=== PATIENT | male | born 1945 | race Caucasian/White ===

== ENCOUNTER 2021-03-04 14:23 | Inpatient (IN) | payer BC, MEDICARE, OTHER ==
[~2021-03-04] VITALS: Ht 180.3 cm; Wt 72.2 kg
--- NOTE | 2021-03-04 16:00 | NUR ---
Admission Note with Justification for Admission to [facility] Patient admitted to [facility] for protective oversight for emergency stabilization of acute psychiatric crisis. Pt admitted from: Home via [facility] Mode of arrival: EMS Accompanied By: EMS Precipitating behaviors that initiated intake and admission: Patient admitted from home via [facility] for reportedly leaving sons house at night and knocking on neighbors door at 2am, being paranoid about neighbors causing trouble, losing items, and driving to [place] and believed he was in [place] per police. Description of failure of out patient attempts at stabilization in previous setting list behavior and medication trials: Patient had multiple emergency room visits and was sent to stay with his son. Behaviors and assessment findings upon admission: Patient was calm, compliant, and pleasant on admission. He is oriented to self, day, date, and situation; when asked where he was he stated he did not know, that he just came in an ambulance. Plan: Admit for protective oversight for adjustment and stabilization of medications, behaviors and mood. Intense treatment regimen including groups, medication adjustments, therapy, consistent regimen for ADL's, self care, and sleep hygiene. Daily monitoring by Inpatient staff, Psychiatry, and Medical Physician.
[2021-03-04 16:02] VITALS: BP 117/77
[2021-03-04] MEDS ORDERED: LISI10TA16 PO (16:07)
[2021-03-04] MEDS ORDERED: ACETAMINOPHEN 325 MG TABLET PO PRN (16:15)
[2021-03-04] MEDS ORDERED: METHYL SALICYLATE/MENTHOL TOPICAL OINTMENT 57GM TUBE. TP PRN (16:15)
[2021-03-04] MEDS ORDERED: METF10007 PO (16:15)
[2021-03-04] MEDS ORDERED: CRESTOR20 MG PO (16:15)
[2021-03-04] MEDS ORDERED: MAGNESIUM HYDROXIDE 2,400 MG/30 ML ORAL.SUSP. PO PRN (16:15)
[2021-03-04] MEDS ORDERED: MAG HYDROX/AL HYDROX/SIMETH 30 ML ORAL.SUSP PO PRN (16:15)
[2021-03-04] MEDS ORDERED: ASPI-630 PO (16:15)
[2021-03-04] MEDS ORDERED: CHOL100014 PO (16:15)
[2021-03-04] MEDS: metFORMIN 500 MG TABLET PO SCH (17:15)
[2021-03-04 18:19] LABS: BACTERIA,URINE 0 /HPF (0-FEW); BILIRUBIN,URINE NEG (NEG); CLARITY,URINE CLEAR; COLOR,URINE YELLOW; GLUCOSE,URINE NEG (NEG); NITRITE,URINE NEG (NEG); RBC,URINE 0 /HPF (0-2); UROBILINOGEN,URINE 0.2 mg/dL (0.2 mg/dL); WBC,URINE RARE /HPF (0-4)
[2021-03-04 19:13] LABS: BASO % 1 % (0-3); EOS # 0.1 x10^3/uL (0.0-0.7); EOS % 2 % (0-3); HEMATOCRIT 47.9 % (39.0-53.0); HEMOGLOBIN 16.7 g/dL (13.0-17.5); LYMPH # 1.4 x10^3/uL (1.0-4.8); LYMPH % 23 % (24-48); MEAN CORPUSCULAR HEMOGLOBIN 33 pg (25-35); MEAN CORPUSCULAR HGB CONC 35 g/dL (31-37); MEAN CORPUSCULAR VOLUME 96 fL (79-100); MONO # 0.4 x10^3/uL (0.0-1.1); MONO % 7 % (0-9); NEUT # 4.2 x10^3uL (1.8-7.7); NEUT % 68 % (31-73); PLATELET COUNT 156 x10^3/uL (140-400); RED BLOOD COUNT 5.01 x10^6/uL (4.30-5.70); WHITE BLOOD COUNT 6.2 x10^3/uL (4.0-11.0)
[2021-03-04 19:28] LABS: ALBUMIN 3.9 g/dL (3.4-5.0); CALCIUM 9.3 mg/dL (8.5-10.1); GFR 73.2; MAGNESIUM 1.9 mg/dL (1.8-2.4); POTASSIUM 4.6 mmol/L (3.5-5.1); TOTAL BILIRUBIN 0.4 mg/dL (0.2-1.0); TOTAL PROTEIN 7.7 g/dL (6.4-8.2)
[2021-03-04] MEDS: ATORVASTATIN CALCIUM 20 MG TABLET PO SCH (21:22)
--- NOTE | 2021-03-04 23:09 | PDOC ---
Exam Note: Mike Note: Please also refer to the separate dictated note~for this date of service dictated separately.~Patient seen individually. Discussed the patient with Nursing staff reviewed the chart.~Reviewed interim history and current functioning. Reviewed vital signs,~Labs/ Radiology~and current medications noted below. Continue current treatment with the changes noted in the dictated addendum note Assessment: Vital Signs/I&O: Vital Signs Date Time Temp Pulse Resp B/P (MAP) Pulse Ox O2 Delivery O2 Flow Rate FiO2 03/04/21 16:02 97.8 76 18 117/77 (90) 94 Labs: Laboratory Tests Test 03/04/21 17:42 03/04/21 18:50 03/04/21 19:00 Urine Collection Type Unknown Urine Color Yellow Urine Clarity Clear Urine pH 6.0 Urine Specific [place] 1.025 Urine Protein Neg (NEG-TRACE) Urine Glucose (UA) Neg mg/dL (NEG) Urine Ketones (Stick) Trace mg/dL (NEG) Urine Blood Neg (NEG) Urine Nitrite Neg (NEG) Urine Bilirubin Neg (NEG) Urine Urobilinogen Dipstick 0.2 mg/dL (0.2 mg/dL) Urine Leukocyte Esterase Neg (NEG) Urine RBC 0 /HPF (0-2) Urine WBC Rare /HPF (0-4) Urine Squamous Epithelial Cells None /LPF Urine Bacteria 0 /HPF (0-FEW) White Blood Count 6.2 x10^3/uL (4.0-11.0) Red Blood Count 5.01 x10^6/uL (4.30-5.70) Hemoglobin 16.7 g/dL (13.0-17.5) Hematocrit 47.9 % (39.0-53.0) Mean Corpuscular Volume 96 fL (79-100) Mean Corpuscular Hemoglobin 33 pg (25-35) Mean Corpuscular Hemoglobin Concent 35 g/dL (31-37) Red Cell Distribution Width 13.0 % (11.5-14.5) Platelet Count 156 x10^3/uL (140-400) Neutrophils (%) (Auto) 68 % (31-73) Lymphocytes (%) (Auto) 23 % (24-48) L Monocytes (%) (Auto) 7 % (0-9) Eosinophils (%) (Auto) 2 % (0-3) Basophils (%) (Auto) 1 % (0-3) Neutrophils # (Auto) 4.2 x10^3uL (1.8-7.7) Lymphocytes # (Auto) 1.4 x10^3/uL (1.0-4.8) Monocytes # (Auto) 0.4 x10^3/uL (0.0-1.1) Eosinophils # (Auto) 0.1 x10^3/uL (0.0-0.7) Basophils # (Auto) 0.0 x10^3/uL (0.0-0.2) D-Dimer (Iris) 2.00 mg/L (0.00-0.50) H Sodium Level 135 mmol/L (136-145) L Potassium Level 4.6 mmol/L (3.5-5.1) Chloride Level 99 mmol/L (98-107) Carbon Dioxide Level 30 mmol/L (21-32) Anion Gap 6 (6-14) Blood Urea Nitrogen 23 mg/dL (8-26) Creatinine 1.0 mg/dL (0.7-1.3) Estimated GFR (Cockcroft-Gault) 73.2 BUN/Creatinine Ratio 23 (6-20) H Glucose Level 184 mg/dL (70-99) H Calcium Level 9.3 mg/dL (8.5-10.1) Magnesium Level 1.9 mg/dL (1.8-2.4) Total Bilirubin 0.4 mg/dL (0.2-1.0) Aspartate Amino Transferase (AST) 32 U/L (15-37) Alanine Aminotransferase (ALT) 69 U/L (16-63) H Alkaline Phosphatase 88 U/L (46-116) Total Protein 7.7 g/dL (6.4-8.2) Albumin 3.9 g/dL (3.4-5.0) Albumin/Globulin Ratio 1.0 (1.0-1.7) Glucose (Fingerstick) 175 mg/dL (70-99) H Current Medications: Meds: Current Medications Medications (Trade) Dose Ordered Sig/Greg Route PRN Reason Start Time Stop Time Status Last Admin Dose Admin Metformin HCl (Glucophage) 1,000 mg BIDWMEALS PO 03/04/21 17:00 03/04/21 17:15 Atorvastatin Calcium (Lipitor) 80 mg QHS PO 03/04/21 21:00 03/04/21 21:22 I have reviewed the current psychotropics carefully including drug interactions. Risk benefit ratio favors no change other than as noted in my dictated progress note. GABRIELLA LEDEZMA MD Mar 04, 2021 23:09
--- NOTE | 2021-03-05 00:32 | NUR ---
Patient is alert and oriented to self, date and situation. He stated that he was at the [facility] earlier and they "sent him here". He does not know where "Here" is. Patient is pleasant and calm, he took his medications whole with water. Patient observed socializing with peer in the hallway and had been sitting in a chair outside of his room since dinner. Patient remains awake at this time, he is still sitting in a chair in the hallway. Patient stated he is in [place] and he is leaving so he does not need to sleep. Patient has no prescribed PRN medications for sleep, he stated he would not take them anyway and that he "once stayed awake [place] 72 hours in the [employer]". Will continue to monitor.
[2021-03-05 06:40] VITALS: BP 127/75
[2021-03-05] MEDS: metFORMIN 500 MG TABLET PO SCH ×2 (09:14→17:02)
[2021-03-05] MEDS: ASPIRIN CHEWABLE 81 MG TABLET. PO SCH (09:14)
[2021-03-05] MEDS: CHOLECALCIFEROL (VITAMIN D3) 1,000 UNIT TABLET PO SCH (09:14)
[2021-03-05] MEDS: LISINOPRIL 10 MG TABLET PO SCH (09:14)
--- NOTE | 2021-03-05 11:12 | NUR ---
WEEKLY ACTIVITY THERAPY NOTE Date of Admission:03/04/21 Date of AT Assessment: TBD Precipitating behaviors that initiated intake and admission:[facility] leaving sons house at night and knocking on neighbors door at 2am, being paranoid about neighbors causing trouble, losing items, and driving to [place] and believed he was in [place] per police. Goal aimed: TBD Initial Goal: TBD Weekly progress towards goal: NA Group participation level: NA Weekly highlights: arrived on [facility] Behaviors observed: Plan: meet/assess pt Beneficial adaptations: TBD
--- NOTE | 2021-03-05 12:20 | CONS ---
DATE OF CONSULTATION: 03/05/2021 ATTENDING PHYSICIAN: Dr. Ledezma. We are asked to see this patient for medical consultation. HISTORY OF PRESENT ILLNESS: The patient is a very pleasant 75-year-old gentleman who lives in [place]. He has lived there most of his life. He has been diagnosed with Lewy body dementia. He was found driving his car. He had wanted to go to [facility] from [place], [place] [address] He ended up in [place], [place]. He was brought here by police personnel. His son has power of investigation division lieutenant. He has been leaving the house at night, knocking other peoples' door, very confused, making bad choices, getting very paranoid. PAST MEDICAL HISTORY: Significant for hyperlipidemia, arthritis of the hips, hearing loss, hypertension, and diabetes. CURRENT MEDICATIONS: Include aspirin, cholecalciferol, lisinopril, metformin 1000 mg b.i.d., and Crestor. SOCIAL HISTORY: He is a nonsmoker and nondrinker. FAMILY HISTORY: Unobtainable. REVIEW OF SYSTEMS: He is very paranoid. He thinks people are stealing from him. He is very agitated. He has impulse control disorder. No recent COVID exposure. No fevers or chills. All other systems reviewed and turned to be negative. PHYSICAL EXAMINATION: GENERAL: When I saw him, this is a pleasant, middle-aged gentleman. INITIAL VITAL SIGNS: Blood pressure 117/77 mmHg. He is afebrile, pulse 76 and regular, oxygen saturation 95% on room air. HEENT: Head is without trauma. The pupils are reactive. The sclerae are nonicteric. Oropharynx appears clear. NECK: Supple, no bruits. LUNGS: Otherwise, clear to auscultation. CARDIOVASCULAR: Regular heart tones. ABDOMEN: Soft. No guarding. EXTREMITIES: Show no cyanosis or edema. NEUROLOGIC: Focally intact. Pleasantly confused. His gait is unaffected. He has no balance issues. PERTINENT LABORATORY STUDIES: Hemoglobin is 16.7 g/dL with a white count of 6200. Nonfasting blood sugar 135. Electrolytes: BUN and creatinine all within normal range. Transaminases were normal. Urinalysis was unremarkable. ASSESSMENT: 1. This 75-year-old gentleman has Lewy body dementia. 2. Underlying behavioral issues with confusion. 3. Hypertension. 4. Type 2 diabetes with controlled blood sugar. 5. Hyperlipidemia. RECOMMENDATIONS: 1. The patient is stable from a medical standpoint. 2. I have reviewed all his medications. He should be continued with the same dosage. Thank you again for asking to see this patient for medical consultation. We should gladly follow along during his inpatient stay. MARIELY DR: Les TID: [id number] CC: GABRIELLA LEDEZMA MD
--- NOTE | 2021-03-05 13:40 | NUR ---
ACTIVITY THERAPY ASSESSMENT Completed based on notes and interview. Pt. was sitting in his room, agreeable to speak with HOSE BUILDER. HOSE BUILDER pointed out the magazines he had and he appreciated getting a newspaper earlier this day. He turned down word searches, crosswords, music, coloring pages, cards and encouraged groups. Pt. explained he did mostly outdoor/ yard work and enjoyed driving, going places. HOSE BUILDER invited him to walk to the day room and as they made their way, Pt was asked why he was here. He said "let's just say I lost directions." He walked right up to the window in the day room and studied his surroundings, asking clarification questions and how far things were from current location. After a little time, he chuckled with concern saying this is "really freaking me out." [facility] and after seeing that, he started to believe he was in [place]. He was confused on details about his car trip and explained it was at night/ dark and the signs were wrong and he was tired. He was able to recall his birthday, age, name, corrected the spelling on his name sheet by his door but didn't mind being called "Oliver" or "Jez." He reported he had a son, Yonathan, his in 2018, he used to be a [employer] and used to work on [employer] building. Pt. asked a lot of questions about unit, how things worked and about his personal belongings. He was wearing his wedding ring during assessment. Pt mostly keeps to himself and was not interested in getting resources and was expecting to be leaving soon. He gave the impression the last week or so his memory has kind of been trouble and tests were being taken. He wants to get hearing aids and needs glasses soon. Initial goal aimed to increase engagement: Pt. will participate in at least three individual or Activity Therapy groups before discharge. Addendum: 03/26/21 at 1146 by CRESCENCIO TSILL ACT Goal repeated 03/26 Addendum: 04/09/21 at 1133 by CRESCENCIO STILL ACT Goal changed 04/09: Pt. will participate in at least five individual or Activity Therapy groups before discharge
[2021-03-05 15:16] LABS: THYROID STIM HORMONE (TSH) 3.441 uIU/mL (0.358-3.740)
[2021-03-05 15:59] VITALS: BP 165/82
--- NOTE | 2021-03-05 17:10 | NUR ---
Patient has been increasingly agitated and exit seeking this afternoon. He states that someone is coming to pick him up at [address] and that he will be going out through the gate on the patio. He became visibly more upset when I told him that I could not open the gate for him. Attempted to verbally redirect patient with minimal effect. paged, new order received; prn medication provided per eMAR. Will continue to monitor and report to oncoming shift.
[2021-03-05 20:07] LABS: THYROXINE 6.9 ug/dL (4.5-12.0)
[2021-03-05] MEDS: ATORVASTATIN CALCIUM 20 MG TABLET PO SCH (21:16)
--- NOTE | 2021-03-05 22:02 | PDOC ---
Exam Note: Mike Note: Please also refer to the separate dictated note~for this date of service dictated separately.~Patient seen individually. Discussed the patient with Nursing staff reviewed the chart.~Reviewed interim history and current functioning. Reviewed vital signs,~Labs/ Radiology~and current medications noted below. Continue current treatment with the changes noted in the dictated addendum note Assessment: Vital Signs/I&O: Vital Signs Date Time Temp Pulse Resp B/P (MAP) Pulse Ox O2 Delivery O2 Flow Rate FiO2 03/05/21 15:59 98.0 78 20 165/82 (109) 97 03/05/21 06:40 Room Air I & O 03/04/21 03/04/21 03/05/21 15:00 23:00 07:00 Intake Total 120 ml Balance 120 ml Labs: Laboratory Tests Test 03/05/21 07:37 Glucose (Fingerstick) 135 mg/dL (70-99) H Current Medications: Meds: Laboratory Tests Test 03/05/21 07:37 Glucose (Fingerstick) 135 mg/dL Current Medications Medications (Trade) Dose Ordered Sig/Greg Route PRN Reason Start Time Stop Time Status Last Admin Dose Admin Acetaminophen (Tylenol) 650 mg PRN Q6HRS PRN PO MILD PAIN / TEMP > 100.3'F 03/04/21 16:15 Multi-Ingredient Ointment (Analgesic [place]) 1 donn PRN QID PRN TP MUSCLE PAIN 03/04/21 16:15 Al Hydroxide/Mg Hydroxide (Mylanta Plus Xs) 15 ml PRN AFTMEALHC PRN PO DYSPEPSIA 03/04/21 16:15 Magnesium Hydroxide (Milk Of Magnesia) 2,400 mg PRN QHS PRN PO CONSTIPATION 03/04/21 16:15 Aspirin (Aspirin Chewable) 81 mg DAILY PO 03/05/21 09:00 03/05/21 09:14 Lisinopril (Prinivil) 10 mg DAILY PO 03/05/21 09:00 03/05/21 09:14 Vitamin D (Vitamin D3) 25 unit DAILY PO 03/05/21 09:00 03/05/21 09:14 Metformin HCl (Glucophage) 1,000 mg BIDWMEALS PO 03/04/21 17:00 03/05/21 17:02 Atorvastatin Calcium (Lipitor) 80 mg QHS PO 03/04/21 21:00 03/05/21 21:16 Olanzapine (ZyPREXA ZYDIS) 2.5 mg PRN Q2HR PRN PO PSYCHOSIS 03/05/21 17:00 03/05/21 17:02 Current Medications Medications (Trade) Dose Ordered Sig/Greg Route PRN Reason Start Time Stop Time Status Last Admin Dose Admin Aspirin (Aspirin Chewable) 81 mg DAILY PO 03/05/21 09:00 03/05/21 09:14 Lisinopril (Prinivil) 10 mg DAILY PO 03/05/21 09:00 03/05/21 09:14 Vitamin D (Vitamin D3) 25 unit DAILY PO 03/05/21 09:00 03/05/21 09:14 Olanzapine (ZyPREXA ZYDIS) 2.5 mg PRN Q2HR PRN PO PSYCHOSIS 03/05/21 17:00 03/05/21 17:02 I have reviewed the current psychotropics carefully including drug interactions. Risk benefit ratio favors no change other than as noted in my dictated progress note. GABRIELLA LEDEZMA MD Mar 05, 2021 22:02
[2021-03-05 22:07] LABS: HEMOGLOBIN A1C 7.4 % (4.8-5.6)
--- NOTE | 2021-03-06 00:43 | NUR ---
Nursing Note The patient was located in his room laying in bed for his assessment and medication pass. The patient was alert to name, date and location. The patient was pleasant during interactions. The patient took his medication whole. The patient is currently sleeping in his room.
[2021-03-06 06:04] VITALS: BP 142/81
[2021-03-06] MEDS: metFORMIN 500 MG TABLET PO SCH ×2 (08:24→17:33)
[2021-03-06] MEDS: LISINOPRIL 10 MG TABLET PO SCH (08:25)
[2021-03-06] MEDS: ASPIRIN CHEWABLE 81 MG TABLET. PO SCH (08:25)
[2021-03-06] MEDS: CHOLECALCIFEROL (VITAMIN D3) 1,000 UNIT TABLET PO SCH (09:00)
--- NOTE | 2021-03-06 09:24 | NUR ---
Oliver [place] a [place]. [place] for [place] patient hospitalization is [id number].
--- NOTE | 2021-03-06 09:48 | NUR ---
Pt A&O to name, , date, and location. He is not orientated to situation, as he believes he is on "vacation." He is compliant with whole medications. Denies SI/HI/VH/AH/pain when asked. He is appropriate in his interactions. Absent of verbal/physical aggression and no exit seeking behaviors have been displayed so far. Plan of care continues, will pass to next shift.
--- NOTE | 2021-03-06 09:57 | NUR ---
GEOVANNA spoke with Kassandra at the [facility] and gave her an update on how pt is doing. Both parties will plan to follow up with one another on Tuesday.
[2021-03-06 15:40] VITALS: BP 115/71
--- NOTE | 2021-03-06 16:46 | NUR ---
SW attempted to contact pt son Yonathan and had to leave a message asking for him to contact SW when possible.
[2021-03-06] MEDS: ATORVASTATIN CALCIUM 20 MG TABLET PO SCH (20:30)
--- NOTE | 2021-03-06 23:53 | NUR ---
Patient is pleasant, cooperative and calm. He is compliant with medications, which he takes whole. Patient is [place] and asked this nurse to repeat herself several times during assessment. He is aware of where he is, his name and the date. For the situation he stated "they moved the signs and I was confused" in reference to how he got lost while driving. Patient has been sitting in the hallway near his room. He is asleep at this time.
[2021-03-07 06:30] VITALS: BP 162/92
[2021-03-07] MEDS: ASPIRIN CHEWABLE 81 MG TABLET. PO SCH (08:21)
[2021-03-07] MEDS: LISINOPRIL 10 MG TABLET PO SCH (08:21)
[2021-03-07] MEDS: metFORMIN 500 MG TABLET PO SCH ×2 (08:22→17:20)
[2021-03-07] MEDS: CHOLECALCIFEROL (VITAMIN D3) 1,000 UNIT TABLET PO SCH (08:22)
--- NOTE | 2021-03-07 08:52 | PDOC ---
Exam Note: Mike Note: Late entry for 03/06/2021. Please also refer to the separate dictated note~for this date of service dictated separately.~Patient seen individually. Discussed the patient with Nursing staff reviewed the chart.~Reviewed interim history and current functioning. Reviewed vital signs,~Labs/ Radiology~and current medic ations noted below. Continue current treatment with the changes noted in the dictated addendum note Assessment: Vital Signs/I&O: Vital Signs Date Time Temp Pulse Resp B/P (MAP) Pulse Ox O2 Delivery O2 Flow Rate FiO2 03/07/21 08:21 77 162/92 03/07/21 06:30 97.5 20 96 03/05/21 06:40 Room Air I & O 03/06/21 03/06/21 03/07/21 15:00 23:00 07:00 Intake Total 940 ml 610 ml Balance 940 ml 610 ml Labs: Laboratory Tests Test 03/07/21 07:30 Glucose (Fingerstick) 130 mg/dL (70-99) H Current Medications: I have reviewed the current psychotropics carefully including drug interactions. Risk benefit ratio favors no change other than as noted in my dictated progress note. GABRIELLA LEDEZMA MD Mar 07, 2021 08:52
--- NOTE | 2021-03-07 09:31 | NUR ---
Pt A&O to name, , date, and location. Pt has once again claimed that he was present in [place] because he is on "vacation" which is what he claimed yesterday (03/06/21). He is compliant with whole medications. Denies SI/HI/VH/AH/pain when asked. He is appropriate in his interactions. Absent of verbal/physical aggression and no exit seeking behaviors have been displayed so far. Plan of care continues, will pass to next shift.
[2021-03-07 16:05] VITALS: BP 137/94
[2021-03-07] MEDS: ATORVASTATIN CALCIUM 20 MG TABLET PO SCH (20:31)
[2021-03-07] MEDS: MEMANTINE 5 MG TABLET. PO SCH (20:32)
--- NOTE | 2021-03-07 21:39 | PDOC ---
Exam Note: Mike Note: Please also refer to the separate dictated note~for this date of service dictated separately.~Patient seen individually. Discussed the patient with Nursing staff reviewed the chart.~Reviewed interim history and current functioning. Reviewed vital signs,~Labs/ Radiology~and current medications noted below. Continue current treatment with the changes noted in the dictated addendum note Assessment: Vital Signs/I&O: Vital Signs Date Time Temp Pulse Resp B/P (MAP) Pulse Ox O2 Delivery O2 Flow Rate FiO2 03/07/21 16:05 98.0 73 18 137/94 (108) 94 Room Air I & O 03/06/21 03/06/21 03/07/21 15:00 23:00 07:00 Intake Total 940 ml 610 ml Balance 940 ml 610 ml Labs: Laboratory Tests Test 03/07/21 07:30 03/07/21 19:36 Glucose (Fingerstick) 130 mg/dL (70-99) H 175 mg/dL (70-99) H Current Medications: Meds: Laboratory Tests Test 03/07/21 07:30 03/07/21 19:36 Glucose (Fingerstick) 130 mg/dL 175 mg/dL Current Medications Medications (Trade) Dose Ordered Sig/Greg Route PRN Reason Start Time Stop Time Status Last Admin Dose Admin Acetaminophen (Tylenol) 650 mg PRN Q6HRS PRN PO MILD PAIN / TEMP > 100.3'F 03/04/21 16:15 Multi-Ingredient Ointment (Analgesic [place]) 1 donn PRN QID PRN TP MUSCLE PAIN 03/04/21 16:15 Al Hydroxide/Mg Hydroxide (Mylanta Plus Xs) 15 ml PRN AFTMEALHC PRN PO DYSPEPSIA 03/04/21 16:15 Magnesium Hydroxide (Milk Of Magnesia) 2,400 mg PRN QHS PRN PO CONSTIPATION 03/04/21 16:15 Aspirin (Aspirin Chewable) 81 mg DAILY PO 03/05/21 09:00 03/07/21 08:21 Lisinopril (Prinivil) 10 mg DAILY PO 03/05/21 09:00 03/07/21 08:21 Vitamin D (Vitamin D3) 25 unit DAILY PO 03/05/21 09:00 03/07/21 10:29 DC 03/05/21 09:14 Metformin HCl (Glucophage) 1,000 mg BIDWMEALS PO 03/04/21 17:00 03/07/21 17:20 Atorvastatin Calcium (Lipitor) 80 mg QHS PO 03/04/21 21:00 03/07/21 20:31 Olanzapine (ZyPREXA ZYDIS) 2.5 mg PRN Q2HR PRN PO PSYCHOSIS 03/05/21 17:00 03/05/21 17:02 Vitamin D (Vitamin D3) 1,000 unit DAILY PO 03/08/21 09:00 Memantine (Namenda) 5 mg BID PO 03/07/21 21:00 03/07/21 20:32 Sertraline HCl (Zoloft) 25 mg DAILY PO 03/08/21 09:00 Rivastigmine (Exelon) 4.6 patch DAILY TD 03/08/21 09:00 03/14/21 23:50 Rivastigmine (Exelon) 9.5 patch DAILY TD 03/15/21 09:00 Current Medications Medications (Trade) Dose Ordered Sig/Greg Route PRN Reason Start Time Stop Time Status Last Admin Dose Admin Memantine (Namenda) 5 mg BID PO 03/07/21 21:00 03/07/21 20:32 I have reviewed the current psychotropics carefully including drug interactions. Risk benefit ratio favors no change other than as noted in my dictated progress note. GABRIELLA LEDEZMA MD Mar 07, 2021 21:39
--- NOTE | 2021-03-07 21:55 | PN ---
DATE: 03/06/2021 PSYCHIATRIC PROGRESS NOTE This is a late entry, date of service 03/06/2021, covers the elements not covered in my initial note. SUBJECTIVE: I met with the patient in the evening in the hallway in front of his room at some length. Discussed with KRUNAL John. The patient slept 6-3/4 hours previous night. He has been fairly appropriate, reasonably oriented, gets more confused late in the evening. REVIEW OF SYSTEMS: No CV, , pulmonary, eye system symptoms on review. Reliability fair. MENTAL STATUS EXAMINATION: The patient is reasonably oriented. Speech has some latency, coherent. Abstraction fair. Computation impaired. Language function intact. Mood and affect somewhat withdrawn. LABORATORY DATA: Reviewed. IMPRESSION: Major neurocognitive disorder, early Lewy body with delusion, depression, behavioral disturbance, anxiety disorder, unspecified; impulse control disorder, unspecified. PLAN: Given the patient's diagnosis of Lewy body dementia, we will go ahead and start Exelon patch 4.6 mg a day for 1 week, then 9.5 mg a day after that. Namenda 5 mg twice a day and Zoloft for his mood and anxiety symptoms 25 mg a day. Reviewed drug interaction, risk/benefit ratio and answered his questions. We will make further adjustments as clinically indicated. LENI DR: Ronald TID: [id number]
--- NOTE | 2021-03-07 23:37 | NUR ---
Patient was laying in his bed, resting with his eyes clothes when nurse entered the room for assessment/medications. Patient is pleasant and interactive, he noticed that there was an additional medication (started Namenda tonight) in his med cup and asked about it. Patient compliant with medications and oriented x3-4. He has not expressed any paranoia and does not seem especially confused/forgetful.
--- NOTE | 2021-03-08 03:44 | PN ---
DATE: 03/05/2021 PSYCHIATRIC PROGRESS NOTE This late entry of 03/05 covers elements not covered in my initial note. I met with the patient on the evening of 03/05 and the patient was staffed at treatment team meeting with entire team in the morning. Per KRUNAL Chavez, the patient did not sleep at all the previous night. Appetite 100%. He remains anxious, obsessed about wanting to be discharged, oriented x 3. Does get more confused in the evening. REVIEW OF SYSTEMS: No CV, , pulmonary, eye, ENT system symptoms on review. Reliability poor. MENTAL STATUS EXAM: Oriented to himself, situation. Speech has some latency, coherent. Abstraction fair. Computation impaired. Language function intact. Mood and affect remain somewhat labile. LABORATORY DATA: Reviewed. IMPRESSION: Major neurocognitive disorder, probably Lewy body with delusion, depression, behavioral disturbance, anxiety disorder, unspecified; impulse control disorder, unspecified. PLAN: Continue current psychotropics. We will give it another 24 hours and then consider adding SSRI, perhaps Zoloft to help with anxiety and mood symptoms. May also consider adding Exelon patch ____ his diagnosis of Lewy body dementia. We will decide all this in the next 24 hours. TYLOR/JULIETTE/SYLVIA DR: Ronald TID: [id number]
[2021-03-08 06:17] VITALS: BP 142/85
[2021-03-08] MEDS: ASPIRIN CHEWABLE 81 MG TABLET. PO SCH (08:23)
[2021-03-08] MEDS: metFORMIN 500 MG TABLET PO SCH ×2 (08:23→16:20)
[2021-03-08] MEDS: LISINOPRIL 10 MG TABLET PO SCH (08:23)
[2021-03-08] MEDS: MEMANTINE 5 MG TABLET. PO SCH ×2 (08:24→20:23)
[2021-03-08] MEDS: CHOLECALCIFEROL (VITAMIN D3) 1,000 UNIT TABLET PO SCH (08:24)
[2021-03-08] MEDS: SERTRALINE 25 MG TABLET. PO SCH (08:24)
[2021-03-08] MEDS: RIVASTIGMINE 4.6MG PATCH. TD SCH (08:25)
--- NOTE | 2021-03-08 10:31 | NUR ---
Pt A&O to name, , date, and location. Pt has had some new medications ordered by Dr Felder, pt is receptive to education provided regarding the new medicine. He is compliant with whole medications, Exelon patch to R shoulder. Denies SI/HI/VH/AH/pain when asked. He is appropriate in his interactions. Absent of verbal/physical aggression and no exit seeking behaviors have been displayed so far. Plan of care continues, will pass to next shift.
--- NOTE | 2021-03-08 10:32 | HP ---
ADMIT DATE: 03/04/2021 PSYCHIATRIC ADMISSION HISTORY/EVALUATION This is a late entry for date of service 03/04 and covers elements not covered in my initial note of 03/04. I had originally dictated this note on 03/04, but on reviewing the medical records, I do not find the note is in the system and I am therefore re-dictating it today. The patient was seen evening of 03/04 for this evaluation. IDENTIFYING DATA: The patient is a 75-year-old male referred to us from the [facility] in [place], [place] after he presented there from home on account of increasing confusion. He presented to the Emergency Department for leaving the son's house at night and knocking on the neighbor's door at 2:00 a.m. in the morning. He was paranoid about the neighbors causing trouble. He was losing items and was found driving to [place] and believed he was in [place] according to the police who picked him up. The patient's behaviors were deemed potentially dangerous, unmanageable resulting in this referral. He had failed outpatient psychiatric interventions. CHIEF COMPLAINT: "I am okay. Maybe I get a little forgetful at night." HISTORY OF PRESENT ILLNESS: The patient reportedly has a history of dementia, Lewy body type with behavioral disturbance. He has been residing at home, getting more confused in the evening, paranoid, suspicious with questionable hallucinations. He has had some sleep and appetite changes. No active suicidal or homicidal ideation. No symptoms of bipolar disorder. He has been more anxious, somewhat depressed as well. PAST PSYCHIATRIC HISTORY: As above. 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 Hearing loss, vitamin D deficiency, hypertension, diabetes mellitus, Accu-Cheks b.i.d. ALLERGIES: Negative. DIET: Regular diabetic diet. Takes medications whole. Ambulates ad grady. CURRENT PSYCHOTROPICS: None. FAMILY HISTORY: Noncontributory. SOCIAL HISTORY: No alcohol, drug abuse, physical, sexual or elder abuse history is noted. He is not known to be a perpetrator. REACTION TO HOSPITALIZATION: The patient reluctantly accepting of it, but wanting to leave. REVIEW OF SYSTEMS: Positive for being hard of hearing, some impaired ambulation. No CV, , pulmonary, eye system symptoms on review. MENTAL STATUS EXAM: The patient was seen individually on evening of 03/04. He is awake, alert, oriented to himself, situation. Speech has some latency, coherent. Abstraction fair. Computation impaired. Language function intact. Attention span somewhat distractible. He seemed a little suspicious, dysphoric in his mood. No suicidal or homicidal ideation. LABORATORY DATA: Reviewed. IMPRESSION: Probable early major neurocognitive disorder, Lewy body with delusions, behavioral disturbance, anxiety disorder, unspecified; impulse control disorder, unspecified. Rest as above. PLAN: Admit to Geropsychiatry Unit at [facility]. I will see the patient daily individually from a psychiatric standpoint. Medical followup with Dr. Tompkins/Dr. Gonzales. Continue the patient on his current psychotropics. Observe baseline, then consider starting him on Exelon and Namenda and possibly an SSRI agent for his symptoms of Lewy body dementia and anxiety and mood symptoms. We will make this determination after a thorough baseline assessment. We will obtain past psychiatric records. Consider CT head if needed. ESTIMATED LENGTH OF STAY: 10-12 days. DISPOSITION PLANS: Possible home or perhaps a higher level of care dependent on evaluation during this hospitalization. HAILEY DR: Ronald TID: [id number]
--- NOTE | 2021-03-08 12:18 | PN ---
DATE: 03/07/2021 PSYCHIATRIC PROGRESS NOTE This is a late entry, 03/07/2021, covers the elements not covered in my initial note. SUBJECTIVE: Per Dora RN, the patient slept 5-3/4 hours previous night. He is oriented to his date of , name, date on evaluation. He is compliant with his medications, little more interactive. REVIEW OF SYSTEMS: Hard of hearing. No CV, , pulmonary, eye system symptoms on review. MENTAL STATUS EXAMINATION: Reasonably oriented. Speech is coherent, has some latency. Abstraction fair. Computation impaired. Language function intact. Mood and affect, still withdrawn and he gets more confused late in the evening. Labs reviewed. IMPRESSION: Major neurocognitive disorder, early possibly Lewy body with delusion, depression; anxiety disorder, unspecified; impulse control disorder. PLAN: Given his diagnosis of Lewy body dementia, we are starting him on Namenda 5 mg b.i.d., Exelon patch 4.6 mg a day for 1 week then 9.5 mg a day, Zoloft 25 mg a day. May need to increase this gradually. Reviewed drug interaction risk/benefit ratio. Discussed this at length with the patient. TEREZA DR: Ronald TID: [id number]
[2021-03-08 15:44] VITALS: BP 138/81
[2021-03-08] MEDS: ATORVASTATIN CALCIUM 20 MG TABLET PO SCH (20:23)
--- NOTE | 2021-03-08 21:44 | PDOC ---
Exam Note: Mike Note: Please also refer to the separate dictated note~for this date of service dictated separately.~Patient seen individually. Discussed the patient with Nursing staff reviewed the chart.~Reviewed interim history and current functioning. Reviewed vital signs,~Labs/ Radiology~and current medications noted below. Continue current treatment with the changes noted in the dictated addendum note Assessment: Vital Signs/I&O: Vital Signs Date Time Temp Pulse Resp B/P (MAP) Pulse Ox O2 Delivery O2 Flow Rate FiO2 03/08/21 15:44 98.2 79 17 138/81 (100) 97 Room Air I & O 03/07/21 03/07/21 03/08/21 15:00 23:00 07:00 Intake Total 720 ml 600 ml Balance 720 ml 600 ml Labs: Laboratory Tests Test 03/08/21 07:49 Glucose (Fingerstick) 142 mg/dL (70-99) H Current Medications: Meds: Laboratory Tests Test 03/08/21 07:49 Glucose (Fingerstick) 142 mg/dL Current Medications Medications (Trade) Dose Ordered Sig/Greg Route PRN Reason Start Time Stop Time Status Last Admin Dose Admin Acetaminophen (Tylenol) 650 mg PRN Q6HRS PRN PO MILD PAIN / TEMP > 100.3'F 03/04/21 16:15 Multi-Ingredient Ointment (Analgesic [place]) 1 donn PRN QID PRN TP MUSCLE PAIN 03/04/21 16:15 Al Hydroxide/Mg Hydroxide (Mylanta Plus Xs) 15 ml PRN AFTMEALHC PRN PO DYSPEPSIA 03/04/21 16:15 Magnesium Hydroxide (Milk Of Magnesia) 2,400 mg PRN QHS PRN PO CONSTIPATION 03/04/21 16:15 Aspirin (Aspirin Chewable) 81 mg DAILY PO 03/05/21 09:00 03/08/21 08:23 Lisinopril (Prinivil) 10 mg DAILY PO 03/05/21 09:00 03/08/21 08:23 Vitamin D (Vitamin D3) 25 unit DAILY PO 03/05/21 09:00 03/07/21 10:29 DC 03/05/21 09:14 Metformin HCl (Glucophage) 1,000 mg BIDWMEALS PO 03/04/21 17:00 03/08/21 16:20 Atorvastatin Calcium (Lipitor) 80 mg QHS PO 03/04/21 21:00 03/08/21 20:23 Olanzapine (ZyPREXA ZYDIS) 2.5 mg PRN Q2HR PRN PO PSYCHOSIS 03/05/21 17:00 03/05/21 17:02 Vitamin D (Vitamin D3) 1,000 unit DAILY PO 03/08/21 09:00 03/08/21 08:24 Memantine (Namenda) 5 mg BID PO 03/07/21 21:00 03/08/21 20:23 Sertraline HCl (Zoloft) 25 mg DAILY PO 03/08/21 09:00 03/08/21 08:24 Rivastigmine (Exelon) 4.6 patch DAILY TD 03/08/21 09:00 03/14/21 23:50 03/08/21 08:25 Rivastigmine (Exelon) 9.5 patch DAILY TD 03/15/21 09:00 Current Medications Medications (Trade) Dose Ordered Sig/Greg Route PRN Reason Start Time Stop Time Status Last Admin Dose Admin Vitamin D (Vitamin D3) 1,000 unit DAILY PO 03/08/21 09:00 03/08/21 08:24 Sertraline HCl (Zoloft) 25 mg DAILY PO 03/08/21 09:00 03/08/21 08:24 Rivastigmine (Exelon) 4.6 patch DAILY TD 03/08/21 09:00 03/14/21 23:50 03/08/21 08:25 I have reviewed the current psychotropics carefully including drug interactions. Risk benefit ratio favors no change other than as noted in my dictated progress note. Diagnosis: Problems: (1) Major neurocognitive disorder (2) Lewy body dementia with behavioral disturbance (3) Dementia in Alzheimer's disease with delusions (4) Dementia in Alzheimer's disease with depression (5) Anxiety disorder, unspecified (6) Impulse control disorder, unspecified GABRIELLA LEDEZMA MD Mar 08, 2021 21:43
--- NOTE | 2021-03-08 22:48 | NUR ---
Pt resting in his room this evening. Pt pleasant and calm. A/O x4; stating he is here because he "got mixed up." Compliant with whole medications.
[2021-03-09 06:01] VITALS: BP 130/75
[2021-03-09] MEDS: SERTRALINE 25 MG TABLET. PO SCH (08:57)
[2021-03-09] MEDS: ASPIRIN CHEWABLE 81 MG TABLET. PO SCH (08:57)
[2021-03-09] MEDS: MEMANTINE 5 MG TABLET. PO SCH ×2 (08:57→20:53)
[2021-03-09] MEDS: metFORMIN 500 MG TABLET PO SCH ×2 (08:57→17:46)
[2021-03-09] MEDS: LISINOPRIL 10 MG TABLET PO SCH (08:57)
[2021-03-09] MEDS: CHOLECALCIFEROL (VITAMIN D3) 1,000 UNIT TABLET PO SCH (08:57)
[2021-03-09] MEDS: RIVASTIGMINE 4.6MG PATCH. TD SCH (08:58)
--- NOTE | 2021-03-09 11:44 | EKG ---
[address] [address] Test Date: 2021-03-04 Test Time: 18:27:56 Pat Name: CARLOS A UNDERWOOD Department: Room: [address] [place] [address] Gender: M [employer] Grader: : 1945 Requested By: GABRIELLA LEDEZMA Order Number: [id number] Reading MD: Malachi Campuzano MD Measurements Intervals [place] Rate: P: ME: QRS: QRSD: T: QT: QTc: Interpretive Statements SR LAD NON-SPECIFIC ST CHANGES 1ST DEGREE AVB Electronically Signed On 03-09-2021 11:43:31 CDT by Malachi Campuzano MD
--- NOTE | 2021-03-09 15:05 | NUR ---
Nursing note: Pt in his room at time of AM med pass and assessment. He is pleasant, med compliant and cooperative. Pt denies having any pain/concerns. He is currently resting quietly in his room. Will continue to monitor.
[2021-03-09 15:49] VITALS: BP 128/72
[2021-03-09] MEDS: ATORVASTATIN CALCIUM 20 MG TABLET PO SCH (20:53)
--- NOTE | 2021-03-09 21:35 | PDOC ---
Exam Note: Mike Note: Please also refer to the separate dictated note~for this date of service dictated separately.~Patient seen individually. Discussed the patient with Nursing staff reviewed the chart.~Reviewed interim history and current functioning. Reviewed vital signs,~Labs/ Radiology~and current medications noted below. Continue current treatment with the changes noted in the dictated addendum note Assessment: Vital Signs/I&O: Vital Signs Date Time Temp Pulse Resp B/P (MAP) Pulse Ox O2 Delivery O2 Flow Rate FiO2 03/09/21 15:49 97.6 67 16 128/72 (90) 96 03/08/21 15:44 Room Air I & O 03/08/21 03/08/21 03/09/21 15:00 23:00 07:00 Intake Total 240 ml 600 ml Balance 240 ml 600 ml Labs: Laboratory Tests Test 03/09/21 07:23 Glucose (Fingerstick) 162 mg/dL (70-99) H Current Medications: Meds: Laboratory Tests Test 03/09/21 07:23 Glucose (Fingerstick) 162 mg/dL Current Medications Medications (Trade) Dose Ordered Sig/Greg Route PRN Reason Start Time Stop Time Status Last Admin Dose Admin Acetaminophen (Tylenol) 650 mg PRN Q6HRS PRN PO MILD PAIN / TEMP > 100.3'F 03/04/21 16:15 Multi-Ingredient Ointment (Analgesic [place]) 1 donn PRN QID PRN TP MUSCLE PAIN 03/04/21 16:15 Al Hydroxide/Mg Hydroxide (Mylanta Plus Xs) 15 ml PRN AFTMEALHC PRN PO DYSPEPSIA 03/04/21 16:15 Magnesium Hydroxide (Milk Of Magnesia) 2,400 mg PRN QHS PRN PO CONSTIPATION 03/04/21 16:15 Aspirin (Aspirin Chewable) 81 mg DAILY PO 03/05/21 09:00 03/09/21 08:57 Lisinopril (Prinivil) 10 mg DAILY PO 03/05/21 09:00 03/09/21 08:57 Vitamin D (Vitamin D3) 25 unit DAILY PO 03/05/21 09:00 03/07/21 10:29 DC 03/05/21 09:14 Metformin HCl (Glucophage) 1,000 mg BIDWMEALS PO 03/04/21 17:00 03/09/21 17:46 Atorvastatin Calcium (Lipitor) 80 mg QHS PO 03/04/21 21:00 03/09/21 20:53 Olanzapine (ZyPREXA ZYDIS) 2.5 mg PRN Q2HR PRN PO PSYCHOSIS 03/05/21 17:00 03/05/21 17:02 Vitamin D (Vitamin D3) 1,000 unit DAILY PO 03/08/21 09:00 03/09/21 08:57 Memantine (Namenda) 5 mg BID PO 03/07/21 21:00 03/09/21 20:53 Sertraline HCl (Zoloft) 25 mg DAILY PO 03/08/21 09:00 03/09/21 08:57 Rivastigmine (Exelon) 4.6 patch DAILY TD 03/08/21 09:00 03/09/21 13:31 DC 03/09/21 08:58 Rivastigmine (Exelon) 9.5 patch DAILY TD 03/15/21 09:00 Cancel Rivastigmine (Exelon) 1 patch DAILY TD 03/15/21 09:00 Rivastigmine (Exelon) 1 patch DAILY TD 03/10/21 09:00 03/14/21 23:50 I have reviewed the current psychotropics carefully including drug interactions. Risk benefit ratio favors no change other than as noted in my dictated progress note. Diagnosis: Problems: (1) Impulse control disorder, unspecified (2) Lewy body dementia with behavioral disturbance (3) Anxiety disorder, unspecified (4) Dementia in Alzheimer's disease with depression (5) Dementia in Alzheimer's disease with delusions (6) Major neurocognitive disorder GABRIELLA LEDEZMA MD Mar 09, 2021 21:35
--- NOTE | 2021-03-09 23:57 | NUR ---
Pt located in his room all evening. Pt calm, pleasant and interactive. Compliant with whole medications. No agitation or aggression.
[2021-03-10 06:08] VITALS: BP 138/74
[2021-03-10] MEDS: metFORMIN 500 MG TABLET PO SCH ×2 (08:39→17:28)
[2021-03-10] MEDS: CHOLECALCIFEROL (VITAMIN D3) 1,000 UNIT TABLET PO SCH (08:40)
[2021-03-10] MEDS: SERTRALINE 25 MG TABLET. PO SCH (08:40)
[2021-03-10] MEDS: ASPIRIN CHEWABLE 81 MG TABLET. PO SCH (08:40)
[2021-03-10] MEDS: LISINOPRIL 10 MG TABLET PO SCH (08:40)
[2021-03-10] MEDS: MEMANTINE 5 MG TABLET. PO SCH ×2 (08:40→20:51)
[2021-03-10] MEDS: RIVASTIGMINE 4.6MG PATCH. TD SCH (08:41)
--- NOTE | 2021-03-10 09:40 | NUR ---
GEOVANNA received call from Deedee with the [facility] and gave her an update on how pt is doing. Pt is A/O x 4; however, as he continues to talk or you push him he tends to get more confused. GE[facility]ANNA informed the [facility] that pt son is almost clueless when it comes to how pt has been living and believes that placement may be an issue. GEOVANNA will continue to keep the [facility] updated on pt progress.
--- NOTE | 2021-03-10 14:22 | NUR ---
PATIENT IS AWAKE IN HIS ROOM UPON ASSESSMENT, CALM AND COOPERATIVE, COMPLIANT WITH MEDICATIONS. PATIENT DENIED ANY DISTURBING THOUGHTS, DENIED ANY PAIN, STATED HE SLEPT WELL LAST NIGHT, PATIENT REFUSED TO EAT BREAKFAST, REQUESTED SOME CRACKERS, PATIENT WAS EDUCATED ABOUT DIABETIC DIET. PATIENT IS WITHDRAWN TO HIS ROOM MOST OF THE DAY, PATIENT WAS OFFERED A FRESH NEWS PAPERS, PATIENT VERBALIZED INTEREST IN READING IT.
[2021-03-10 15:44] VITALS: BP 152/83
[2021-03-10] MEDS ORDERED: traZODone 50 MG TABLET. PO PRN (20:15)
[2021-03-10] MEDS: ATORVASTATIN CALCIUM 20 MG TABLET PO SCH (20:51)
--- NOTE | 2021-03-10 22:50 | PDOC ---
Exam Note: Mike Note: Please also refer to the separate dictated note~for this date of service dictated separately.~Patient seen individually. Discussed the patient with Nursing staff reviewed the chart.~Reviewed interim history and current functioning. Reviewed vital signs,~Labs/ Radiology~and current medications noted below. Continue current treatment with the changes noted in the dictated addendum note Assessment: Vital Signs/I&O: Vital Signs Date Time Temp Pulse Resp B/P (MAP) Pulse Ox O2 Delivery O2 Flow Rate FiO2 03/10/21 15:44 97.8 76 16 152/83 (106) 96 03/08/21 15:44 Room Air I & O 03/09/21 03/09/21 03/10/21 15:00 23:00 07:00 Intake Total 1020 ml 840 ml Balance 1020 ml 840 ml Labs: Laboratory Tests Test 03/10/21 05:30 03/10/21 07:24 03/10/21 19:28 SARS-CoV-2 (PCR) Not detected (NOT DETECTD) Glucose (Fingerstick) 115 mg/dL (70-99) H 223 mg/dL (70-99) H Current Medications: Meds: Laboratory Tests Test 03/10/21 05:30 03/10/21 07:24 03/10/21 19:28 Coronavirus (COVID-19)(PCR) Not detected Glucose (Fingerstick) 115 mg/dL 223 mg/dL Current Medications Medications (Trade) Dose Ordered Sig/Greg Route PRN Reason Start Time Stop Time Status Last Admin Dose Admin Acetaminophen (Tylenol) 650 mg PRN Q6HRS PRN PO MILD PAIN / TEMP > 100.3'F 03/04/21 16:15 Multi-Ingredient Ointment (Analgesic [place]) 1 donn PRN QID PRN TP MUSCLE PAIN 03/04/21 16:15 Al Hydroxide/Mg Hydroxide (Mylanta Plus Xs) 15 ml PRN AFTMEALHC PRN PO DYSPEPSIA 03/04/21 16:15 Magnesium Hydroxide (Milk Of Magnesia) 2,400 mg PRN QHS PRN PO CONSTIPATION 03/04/21 16:15 Aspirin (Aspirin Chewable) 81 mg DAILY PO 03/05/21 09:00 03/10/21 08:40 Lisinopril (Prinivil) 10 mg DAILY PO 03/05/21 09:00 03/10/21 08:40 Vitamin D (Vitamin D3) 25 unit DAILY PO 03/05/21 09:00 03/07/21 10:29 DC 03/05/21 09:14 Metformin HCl (Glucophage) 1,000 mg BIDWMEALS PO 03/04/21 17:00 03/10/21 17:28 Atorvastatin Calcium (Lipitor) 80 mg QHS PO 03/04/21 21:00 03/10/21 20:51 Olanzapine (ZyPREXA ZYDIS) 2.5 mg PRN Q2HR PRN PO PSYCHOSIS 03/05/21 17:00 03/05/21 17:02 Vitamin D (Vitamin D3) 1,000 unit DAILY PO 03/08/21 09:00 03/10/21 08:40 Memantine (Namenda) 5 mg BID PO 03/07/21 21:00 03/10/21 20:51 Sertraline HCl (Zoloft) 25 mg DAILY PO 03/08/21 09:00 03/10/21 20:16 DC 03/10/21 08:40 Rivastigmine (Exelon) 4.6 patch DAILY TD 03/08/21 09:00 03/09/21 13:31 DC 03/09/21 08:58 Rivastigmine (Exelon) 9.5 patch DAILY TD 03/15/21 09:00 Cancel Rivastigmine (Exelon) 1 patch DAILY TD 03/15/21 09:00 Rivastigmine (Exelon) 1 patch DAILY TD 03/10/21 09:00 03/14/21 23:50 03/10/21 08:41 Sertraline HCl (Zoloft) 50 mg DAILY PO 03/11/21 09:00 Trazodone HCl (Desyrel) 50 mg PRN QHS PRN PO INSOMNIA 03/10/21 20:15 Current Medications Medications (Trade) Dose Ordered Sig/Greg Route PRN Reason Start Time Stop Time Status Last Admin Dose Admin Rivastigmine (Exelon) 1 patch DAILY TD 03/10/21 09:00 03/14/21 23:50 03/10/21 08:41 I have reviewed the current psychotropics carefully including drug interactions. Risk benefit ratio favors no change other than as noted in my dictated progress note. Diagnosis: Problems: (1) Impulse control disorder, unspecified (2) Lewy body dementia with behavioral disturbance (3) Anxiety disorder, unspecified (4) Dementia in Alzheimer's disease with depression (5) Dementia in Alzheimer's disease with delusions (6) Major neurocognitive disorder GABRIELLA LEDEZMA MD Mar 10, 2021 22:50
--- NOTE | 2021-03-10 23:12 | NUR ---
Pt withdrawn to his room all evening. Calm, with flat affect, when approached. Compliant with whole medications. No agitation or aggression.
--- NOTE | 2021-03-10 23:56 | PN ---
DATE: 03/08/2021 PSYCHIATRIC PROGRESS NOTE This late entry of 03/08/2021 covers elements not covered in my initial note. SUBJECTIVE: I met with the patient in the evening. Discussed with KRUNAL Escalera. The patient slept 7-1/4 hours previous night. He has been calm, cooperative, alert, oriented x3. He believes he is here on a vacation. No behavioral dyscontrol noted. He does get more confused in the evening. No CV, , pulmonary, eye, ENT system symptoms on review. MENTAL STATUS EXAMINATION: He is alert and oriented to himself, situation. Speech is coherent, has some latency. Abstraction fair. Computation impaired. Language function intact. Mood and affect withdrawn, but improved, less psychotic, less depressed. LABORATORY DATA: Reviewed. IMPRESSION: Major neurocognitive disorder, early Lewy body with delusion, depression, behavioral disturbance. Rest unchanged. PLAN: Continue psychotropics from initial note. Namenda along with Exelon patch and Zoloft, these are being adjusted and Zyprexa p.r.n. TYLOR/AWA DR: Ronald TID: [id number]
--- NOTE | 2021-03-11 | PN ---
DATE: 03/09/2021 PSYCHIATRIC PROGRESS NOTE This late entry of 03/09 covers the elements not covered in my initial note. SUBJECTIVE: I met with the patient in the evening. Discussed with KRUNAL Escalera. The patient slept 7-1/4 hours previous night. Overall, the patient did well previous night and during the day today he seems to be responding to the Namenda and Exelon patch together with the Zoloft. REVIEW OF SYSTEMS: No CV, , pulmonary, eye, ENT system symptoms on review. MENTAL STATUS EXAMINATION: The patient is reasonably oriented. Seen outside his room. Speech coherent. Abstraction fair. Computation impaired. Language function intact. Mood and affect seem somewhat improved. Labs reviewed. DIAGNOSES: Major neurocognitive disorder, early Lewy body with delusion, depression; anxiety disorder, unspecified; impulse control disorder, unspecified. PLAN: Continue current psychotropics. Gradually increase the Exelon patch and Namenda. Maintain Zoloft and adjust this. Rest unchanged. TYLOR/EKT DR: Ronald TID: [id number]
[2021-03-11 05:51] VITALS: BP 122/82
[2021-03-11 05:57] LABS: BASO % 1 % (0-3); EOS # 0.1 x10^3/uL (0.0-0.7); EOS % 2 % (0-3); HEMATOCRIT 46.8 % (39.0-53.0); HEMOGLOBIN 16.2 g/dL (13.0-17.5); LYMPH # 1.4 x10^3/uL (1.0-4.8); LYMPH % 23 % (24-48); MEAN CORPUSCULAR HEMOGLOBIN 33 pg (25-35); MEAN CORPUSCULAR HGB CONC 35 g/dL (31-37); MEAN CORPUSCULAR VOLUME 95 fL (79-100); MONO # 0.4 x10^3/uL (0.0-1.1); MONO % 6 % (0-9); NEUT # 4.2 x10^3uL (1.8-7.7); NEUT % 68 % (31-73); PLATELET COUNT 161 x10^3/uL (140-400); RED BLOOD COUNT 4.93 x10^6/uL (4.30-5.70); RED CELL DISTRIBUTION WIDTH 12.9 % (11.5-14.5); WHITE BLOOD COUNT 6.2 x10^3/uL (4.0-11.0)
[2021-03-11 06:12] LABS: ALBUMIN 3.7 g/dL (3.4-5.0); ALBUMIN/GLOBULIN RATIO 1.1 (1.0-1.7); CREATININE 0.9 mg/dL (0.7-1.3); GFR 82.7; TOTAL BILIRUBIN 0.7 mg/dL (0.2-1.0); TOTAL PROTEIN 7.2 g/dL (6.4-8.2)
[2021-03-11] MEDS: ASPIRIN CHEWABLE 81 MG TABLET. PO SCH (08:36)
[2021-03-11] MEDS: RIVASTIGMINE 4.6MG PATCH. TD SCH (08:36)
[2021-03-11] MEDS: CHOLECALCIFEROL (VITAMIN D3) 1,000 UNIT TABLET PO SCH (08:36)
[2021-03-11] MEDS: metFORMIN 500 MG TABLET PO SCH ×2 (08:36→17:19)
[2021-03-11] MEDS: LISINOPRIL 10 MG TABLET PO SCH (08:36)
[2021-03-11] MEDS: MEMANTINE 5 MG TABLET. PO SCH ×2 (08:36→20:12)
[2021-03-11] MEDS: SERTRALINE 50 MG TABLET. PO SCH (08:37)
--- NOTE | 2021-03-11 10:19 | NUR ---
Nursing note: Pt in his room at time of AM med pass and assessment. He is pleasant, med compliant and cooperative. He denies having any pain/concerns. He is currently resting quietly in his bed. Will continue to monitor.
[2021-03-11 15:55] VITALS: BP 130/86
--- NOTE | 2021-03-11 16:45 | NUR ---
SW attempted to contact pt son Yonathan and left a message asking him to contact SW when possible to discuss discharge planning.
--- NOTE | 2021-03-11 17:18 | NUR ---
GEOVANNA received call back from pt son, Yonathan, to inform him that pt is only 30% service connected. Pt may be able to get service connected; however, the son would have to fill out paperwork and provide things to [facility] for [facility]. GEOVANNA discussed options for pt son in terms of AL versus Memory and noted that because pt is still active and does have periods of A/O x4, he may do well in AL for a while and can buy time to see if AL would be an options for funding for placement. GEOVANNA went over pt diagnosis with Yonathan and further explained Lewy Body with him and what that entails overs time. GEOVANNA received Yonathan's email as [email or web address] for any paperwork that needs to be completed.
[2021-03-11] MEDS: ATORVASTATIN CALCIUM 20 MG TABLET PO SCH ×2 (20:12→21:00)
[2021-03-11] MEDS: MEMANTINE 10 MG TABLET. PO SCH ×2 (20:12→21:00)
--- NOTE | 2021-03-11 20:30 | NUR ---
Pt resting quietly in his bed and is oriented and pleasant. When his HS meds were handed to him he ssat up and spilled the meds on the floor. When clean meds were brought to him he refused them saying he dose not need them and that he just got confused about the signs and that is behind him now. Discussed purpose of meds with pt and he continues to decline them.
--- NOTE | 2021-03-11 21:51 | PDOC ---
Exam Note: Mike Note: Please also refer to the separate dictated note~for this date of service dictated separately.~Patient seen individually. Discussed the patient with Nursing staff reviewed the chart.~Reviewed interim history and current functioning. Reviewed vital signs,~Labs/ Radiology~and current medications noted below. Continue current treatment with the changes noted in the dictated addendum note Assessment: Vital Signs/I&O: Vital Signs Date Time Temp Pulse Resp B/P (MAP) Pulse Ox O2 Delivery O2 Flow Rate FiO2 03/11/21 15:55 98.4 76 18 130/86 (101) 97 03/08/21 15:44 Room Air I & O 03/10/21 03/10/21 03/11/21 15:00 23:00 07:00 Intake Total 480 ml 600 ml Balance 480 ml 600 ml Labs: Laboratory Tests Test 03/11/21 05:49 03/11/21 07:40 03/11/21 18:59 White Blood Count 6.2 x10^3/uL (4.0-11.0) Red Blood Count 4.93 x10^6/uL (4.30-5.70) Hemoglobin 16.2 g/dL (13.0-17.5) Hematocrit 46.8 % (39.0-53.0) Mean Corpuscular Volume 95 fL (79-100) Mean Corpuscular Hemoglobin 33 pg (25-35) Mean Corpuscular Hemoglobin Concent 35 g/dL (31-37) Red Cell Distribution Width 12.9 % (11.5-14.5) Platelet Count 161 x10^3/uL (140-400) Neutrophils (%) (Auto) 68 % (31-73) Lymphocytes (%) (Auto) 23 % (24-48) L Monocytes (%) (Auto) 6 % (0-9) Eosinophils (%) (Auto) 2 % (0-3) Basophils (%) (Auto) 1 % (0-3) Neutrophils # (Auto) 4.2 x10^3uL (1.8-7.7) Lymphocytes # (Auto) 1.4 x10^3/uL (1.0-4.8) Monocytes # (Auto) 0.4 x10^3/uL (0.0-1.1) Eosinophils # (Auto) 0.1 x10^3/uL (0.0-0.7) Basophils # (Auto) 0.0 x10^3/uL (0.0-0.2) Sodium Level 136 mmol/L (136-145) Potassium Level 4.0 mmol/L (3.5-5.1) Chloride Level 101 mmol/L (98-107) Carbon Dioxide Level 28 mmol/L (21-32) Anion Gap 7 (6-14) Blood Urea Nitrogen 16 mg/dL (8-26) Creatinine 0.9 mg/dL (0.7-1.3) Estimated GFR (Cockcroft-Gault) 82.7 BUN/Creatinine Ratio 18 (6-20) Glucose Level 114 mg/dL (70-99) H Calcium Level 9.0 mg/dL (8.5-10.1) Total Bilirubin 0.7 mg/dL (0.2-1.0) Aspartate Amino Transferase (AST) 26 U/L (15-37) Alanine Aminotransferase (ALT) 62 U/L (16-63) Alkaline Phosphatase 89 U/L (46-116) Total Protein 7.2 g/dL (6.4-8.2) Albumin 3.7 g/dL (3.4-5.0) Albumin/Globulin Ratio 1.1 (1.0-1.7) Glucose (Fingerstick) 128 mg/dL (70-99) H 222 mg/dL (70-99) H Current Medications: Meds: Current Medications Medications (Trade) Dose Ordered Sig/Greg Route PRN Reason Start Time Stop Time Status Last Admin Dose Admin Sertraline HCl (Zoloft) 50 mg DAILY PO 03/11/21 09:00 03/11/21 08:37 Memantine (Namenda) 5 mg DAILY PO 03/12/21 09:00 03/11/21 20:12 Memantine (Namenda) 10 mg QHS PO 03/11/21 21:00 03/11/21 20:12 I have reviewed the current psychotropics carefully including drug interactions. Risk benefit ratio favors no change other than as noted in my dictated progress note. Diagnosis: Problems: (1) Impulse control disorder, unspecified (2) Lewy body dementia with behavioral disturbance (3) Anxiety disorder, unspecified (4) Dementia in Alzheimer's disease with depression (5) Dementia in Alzheimer's disease with delusions (6) Major neurocognitive disorder DARIEN,MAN M MD Mar 11, 2021 21:51
[2021-03-12 06:28] VITALS: BP 148/85
[2021-03-12] MEDS: SERTRALINE 50 MG TABLET. PO SCH (08:23)
[2021-03-12] MEDS: CHOLECALCIFEROL (VITAMIN D3) 1,000 UNIT TABLET PO SCH (08:23)
[2021-03-12] MEDS: ASPIRIN CHEWABLE 81 MG TABLET. PO SCH (08:23)
[2021-03-12] MEDS: metFORMIN 500 MG TABLET PO SCH ×2 (08:23→17:35)
[2021-03-12] MEDS: RIVASTIGMINE 4.6MG PATCH. TD SCH (08:23)
[2021-03-12] MEDS: LISINOPRIL 10 MG TABLET PO SCH (08:24)
[2021-03-12] MEDS: MEMANTINE 5 MG TABLET. PO SCH (08:24)
--- NOTE | 2021-03-12 11:57 | NUR ---
Treatment team update: Pt is eating 100% of meals and slept 8 hours last night. Pt is mostly medication compliant, calm and cooperative with all staff direction. Pt has periods of being A/O x 4 most days; however, yesterday pt did report seeing monkeys in his room to the day shift and denied he said that to the mini shifter. Pt did show some confusion with med pass last night in that he spills his meds on the floor, requested new meds and then refused meds once they got pulled. Pt did attend group yesterday with full participation. Pt was also found talking to himself and asking "Lucia Espinal, will you me". [facility] and will be working with his son on figuring out a safe discharge plan.
--- NOTE | 2021-03-12 12:13 | NUR ---
WEEKLY ACTIVITY THERAPY NOTE Date of Admission:03/04/21 Date of AT Assessment: 03/05/2021 Precipitating behaviors that initiated intake and admission:Patient admitted from home via [facility] for reportedly leaving sons house at night and knocking on neighbors door at 2am, being paranoid about neighbors causing trouble, losing items, and driving to [place] and believed he was in [place] per police. Goal aimed: to increase engagement Initial Goal: Pt. will participate in at least three individual or Activity Therapy groups before discharge. Weekly progress towards goal: on track (03/11-Tv show theme songs) Group participation level: 1 full Weekly highlights: moved to group therapy side, guessed several tv show theme songs correctly during Tuesday afternoon group Behaviors observed: declined group offer, withdrawn to room Plan: no change to goal Beneficial adaptations:engagement
--- NOTE | 2021-03-12 14:44 | NUR ---
Nursing note: Pt has been pleasant, med compliant and cooperative this shift. He denies having any pain/concerns. Pt has been withdrawn to room, but has been observed helping other pt's get down the hallway by propelling their wheelchairs. He is currently resting quietly in his room. Will continue to monitor.
[2021-03-12 16:14] VITALS: BP 124/64
[2021-03-12] MEDS: MEMANTINE 10 MG TABLET. PO SCH (20:25)
[2021-03-12] MEDS: ATORVASTATIN CALCIUM 20 MG TABLET PO SCH (20:25)
--- NOTE | 2021-03-12 22:15 | PDOC ---
Exam Note: Mike Note: This note is a late entry for 03/10/2021 covers elements not covered in my initial note. Subjective: The patient was seen individually in the evening of 03/10/2021 with Dora HECTOR, discussed and reviewed the chart. The patient slept 4-1/2 hours previous night. Patient has been somewhat withdrawn, refused breakfast because he felt he had to pay for it. He seemed more confused. At one point he was somewhat disinhibited, rushed behind a nursing staff to get to her door of nursing station, not aggressive. He slept poorly previous night, got up at 1.30 a.m. We will start trazodone 50 mg h.s. p.r.n. insomnia to assist with this. Review of Systems: No CV, , pulmonary, eye, ENT system symptoms on review. Mental Status Exam: The patient is oriented to himself and situation. Speech is coherent. Abstraction fair. Computation impaired. Language function intact. Attention span short. Mood and affect somewhat anxious, labile at times. Laboratory Data: Reviewed. 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 Major depressive disorder. Anxiety disorder unspecified. Impulse control disorder. Plan: Start trazodone as above. Increase Zoloft from 25 mg a day to 50 mg a day. Adjust further as clinically indicated. Assessment: Vital Signs/I&O: Vital Signs Date Time Temp Pulse Resp B/P (MAP) Pulse Ox O2 Delivery O2 Flow Rate FiO2 03/12/21 16:14 97.6 75 16 124/64 (84) 95 03/08/21 15:44 Room Air I & O 03/11/21 03/11/21 03/12/21 15:00 23:00 07:00 Intake Total 600 ml 480 ml Balance 600 ml 480 ml Labs: Laboratory Tests Test 03/12/21 07:37 Glucose (Fingerstick) 106 mg/dL (70-99) H Current Medications: Meds: Laboratory Tests Test 03/12/21 07:37 Glucose (Fingerstick) 106 mg/dL Current Medications Medications (Trade) Dose Ordered Sig/Greg Route PRN Reason Start Time Stop Time Status Last Admin Dose Admin Acetaminophen (Tylenol) 650 mg PRN Q6HRS PRN PO MILD PAIN / TEMP > 100.3'F 03/04/21 16:15 Multi-Ingredient Ointment (Analgesic [place]) 1 donn PRN QID PRN TP MUSCLE PAIN 03/04/21 16:15 Al Hydroxide/Mg Hydroxide (Mylanta Plus Xs) 15 ml PRN AFTMEALHC PRN PO DYSPEPSIA 03/04/21 16:15 Magnesium Hydroxide (Milk Of Magnesia) 2,400 mg PRN QHS PRN PO CONSTIPATION 03/04/21 16:15 Aspirin (Aspirin Chewable) 81 mg DAILY PO 03/05/21 09:00 03/12/21 08:23 Lisinopril (Prinivil) 10 mg DAILY PO 03/05/21 09:00 03/12/21 08:24 Vitamin D (Vitamin D3) 25 unit DAILY PO 03/05/21 09:00 03/07/21 10:29 DC 03/05/21 09:14 Metformin HCl (Glucophage) 1,000 mg BIDWMEALS PO 03/04/21 17:00 03/12/21 17:35 Atorvastatin Calcium (Lipitor) 80 mg QHS PO 03/04/21 21:00 03/12/21 20:25 Olanzapine (ZyPREXA ZYDIS) 2.5 mg PRN Q2HR PRN PO PSYCHOSIS 03/05/21 17:00 03/05/21 17:02 Vitamin D (Vitamin D3) 1,000 unit DAILY PO 03/08/21 09:00 03/12/21 08:23 Memantine (Namenda) 5 mg BID PO 03/07/21 21:00 03/11/21 18:16 DC 03/11/21 08:36 Sertraline HCl (Zoloft) 25 mg DAILY PO 03/08/21 09:00 03/10/21 20:16 DC 03/10/21 08:40 Rivastigmine (Exelon) 4.6 patch DAILY TD 03/08/21 09:00 03/09/21 13:31 DC 03/09/21 08:58 Rivastigmine (Exelon) 9.5 patch DAILY TD 03/15/21 09:00 Cancel Rivastigmine (Exelon) 1 patch DAILY TD 03/15/21 09:00 Rivastigmine (Exelon) 1 patch DAILY TD 03/10/21 09:00 03/14/21 23:50 03/12/21 08:23 Sertraline HCl (Zoloft) 50 mg DAILY PO 03/11/21 09:00 03/12/21 08:23 Trazodone HCl (Desyrel) 50 mg PRN QHS PRN PO INSOMNIA 03/10/21 20:15 Memantine (Namenda) 5 mg DAILY PO 03/12/21 09:00 03/12/21 08:24 Memantine (Namenda) 10 mg QHS PO 03/11/21 21:00 03/12/21 20:25 Current Medications Medications (Trade) Dose Ordered Sig/Greg Route PRN Reason Start Time Stop Time Status Last Admin Dose Admin Memantine (Namenda) 5 mg DAILY PO 03/12/21 09:00 03/12/21 08:24 I have reviewed the current psychotropics carefully including drug interactions. Risk benefit ratio favors no change other than as noted in my dictated progress note. Diagnosis: Problems: (1) Major depressive disorder (2) Impulse control disorder, unspecified (3) Lewy body dementia with behavioral disturbance (4) Anxiety disorder, unspecified (5) Dementia in Alzheimer's disease with depression (6) Dementia in Alzheimer's disease with delusions (7) Major neurocognitive disorder GABRIELLA LEDEZMA MD Mar 12, 2021 22:15
--- NOTE | 2021-03-12 22:33 | PDOC ---
Exam Note: Mike Note: Please also refer to the separate dictated note~for this date of service dictated separately.~Patient seen individually. Discussed the patient with Nursing staff reviewed the chart.~Reviewed interim history and current functioning. Reviewed vital signs,~Labs/ Radiology~and current medications noted below. Continue current treatment with the changes noted in the dictated addendum note Assessment: Vital Signs/I&O: Vital Signs Date Time Temp Pulse Resp B/P (MAP) Pulse Ox O2 Delivery O2 Flow Rate FiO2 03/12/21 16:14 97.6 75 16 124/64 (84) 95 03/08/21 15:44 Room Air I & O 03/11/21 03/11/21 03/12/21 15:00 23:00 07:00 Intake Total 600 ml 480 ml Balance 600 ml 480 ml Labs: Laboratory Tests Test 03/12/21 07:37 Glucose (Fingerstick) 106 mg/dL (70-99) H Current Medications: Meds: Laboratory Tests Test 03/12/21 07:37 Glucose (Fingerstick) 106 mg/dL Current Medications Medications (Trade) Dose Ordered Sig/Greg Route PRN Reason Start Time Stop Time Status Last Admin Dose Admin Acetaminophen (Tylenol) 650 mg PRN Q6HRS PRN PO MILD PAIN / TEMP > 100.3'F 03/04/21 16:15 Multi-Ingredient Ointment (Analgesic [place]) 1 donn PRN QID PRN TP MUSCLE PAIN 03/04/21 16:15 Al Hydroxide/Mg Hydroxide (Mylanta Plus Xs) 15 ml PRN AFTMEALHC PRN PO DYSPEPSIA 03/04/21 16:15 Magnesium Hydroxide (Milk Of Magnesia) 2,400 mg PRN QHS PRN PO CONSTIPATION 03/04/21 16:15 Aspirin (Aspirin Chewable) 81 mg DAILY PO 03/05/21 09:00 03/12/21 08:23 Lisinopril (Prinivil) 10 mg DAILY PO 03/05/21 09:00 03/12/21 08:24 Vitamin D (Vitamin D3) 25 unit DAILY PO 03/05/21 09:00 03/07/21 10:29 DC 03/05/21 09:14 Metformin HCl (Glucophage) 1,000 mg BIDWMEALS PO 03/04/21 17:00 03/12/21 17:35 Atorvastatin Calcium (Lipitor) 80 mg QHS PO 03/04/21 21:00 03/12/21 20:25 Olanzapine (ZyPREXA ZYDIS) 2.5 mg PRN Q2HR PRN PO PSYCHOSIS 03/05/21 17:00 03/05/21 17:02 Vitamin D (Vitamin D3) 1,000 unit DAILY PO 03/08/21 09:00 03/12/21 08:23 Memantine (Namenda) 5 mg BID PO 03/07/21 21:00 03/11/21 18:16 DC 03/11/21 08:36 Sertraline HCl (Zoloft) 25 mg DAILY PO 03/08/21 09:00 03/10/21 20:16 DC 03/10/21 08:40 Rivastigmine (Exelon) 4.6 patch DAILY TD 03/08/21 09:00 03/09/21 13:31 DC 03/09/21 08:58 Rivastigmine (Exelon) 9.5 patch DAILY TD 03/15/21 09:00 Cancel Rivastigmine (Exelon) 1 patch DAILY TD 03/15/21 09:00 Rivastigmine (Exelon) 1 patch DAILY TD 03/10/21 09:00 03/14/21 23:50 03/12/21 08:23 Sertraline HCl (Zoloft) 50 mg DAILY PO 03/11/21 09:00 03/12/21 08:23 Trazodone HCl (Desyrel) 50 mg PRN QHS PRN PO INSOMNIA 03/10/21 20:15 Memantine (Namenda) 5 mg DAILY PO 03/12/21 09:00 03/12/21 08:24 Memantine (Namenda) 10 mg QHS PO 03/11/21 21:00 03/12/21 20:25 Current Medications Medications (Trade) Dose Ordered Sig/Greg Route PRN Reason Start Time Stop Time Status Last Admin Dose Admin Memantine (Namenda) 5 mg DAILY PO 03/12/21 09:00 03/12/21 08:24 I have reviewed the current psychotropics carefully including drug interactions. Risk benefit ratio favors no change other than as noted in my dictated progress note. Diagnosis: Problems: (1) Impulse control disorder, unspecified (2) Lewy body dementia with behavioral disturbance (3) Anxiety disorder, unspecified (4) Dementia in Alzheimer's disease with depression (5) Dementia in Alzheimer's disease with delusions (6) Major neurocognitive disorder (7) Major depressive disorder GABRIELLA LEDEZMA MD Mar 12, 2021 22:33
--- NOTE | 2021-03-13 01:41 | NUR ---
Pt has been in his room tonight. He has been cooperative with care and meds. When looking out of his window he pointed out to the nurse a marijuana hdez and said we need to get rid of it. Since going to bed he has been sleeping.
[2021-03-13 06:08] VITALS: BP 133/79
--- NOTE | 2021-03-13 08:42 | PDOC ---
Exam Note: Mike Note: This note is a late entry for 03/11/2021 covers elements not covered in my initial note. Subjective: The patient was seen individually in the evening of 03/11/2021 with Raegan HECTOR, discussed and reviewed the chart. The patient slept 7-1/2 hours previous night. Patient has been somewhat withdrawn, did attend some groups later in the day. He is in a new room and was talking about having a monkey in his room and nursing staff wonder whether he has been having some hallucinations. Review of Systems: No CV, , pulmonary, eye, ENT system symptoms on review. Reliability fair. Mental Status Exam: The patient is oriented to himself and situation. I met with him in his room in the evening. Speech is coherent. Abstraction fair. Computation impaired. Language function intact. Attention span short. Mood and affect somewhat anxious, labile. He was complaining of having too much air through the air-conditioning vents in his room. We tried to adjust this and then I had to discuss with Jose HECTOR and they will change the setting of the thermostat to assist with this. Patient appreciative of this. Laboratory Data: Reviewed. 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 Major depressive disorder. Anxiety disorder unspecified. Impulse control disorder. Plan: Increase Namenda from 5 mg b.i.d. to 5 mg a.m. and 10 mg h.s. Maintain rest of the psychotropics unchanged including Exelon patch, Zyprexa p.r.n., Zoloft and trazodone. Assessment: Vital Signs/I&O: Vital Signs Date Time Temp Pulse Resp B/P (MAP) Pulse Ox O2 Delivery O2 Flow Rate FiO2 03/13/21 06:08 96.9 56 16 133/79 (97) 95 03/08/21 15:44 Room Air I & O 03/12/21 03/12/21 03/13/21 15:00 23:00 07:00 Intake Total 720 ml 480 ml Balance 720 ml 480 ml Labs: Laboratory Tests Test 03/13/21 07:31 Glucose (Fingerstick) 104 mg/dL (70-99) H Current Medications: Meds: Laboratory Tests Test 03/13/21 07:31 Glucose (Fingerstick) 104 mg/dL Current Medications Medications (Trade) Dose Ordered Sig/Greg Route PRN Reason Start Time Stop Time Status Last Admin Dose Admin Acetaminophen (Tylenol) 650 mg PRN Q6HRS PRN PO MILD PAIN / TEMP > 100.3'F 03/04/21 16:15 Multi-Ingredient Ointment (Analgesic [place]) 1 donn PRN QID PRN TP MUSCLE PAIN 03/04/21 16:15 Al Hydroxide/Mg Hydroxide (Mylanta Plus Xs) 15 ml PRN AFTMEALHC PRN PO DYSPEPSIA 03/04/21 16:15 Magnesium Hydroxide (Milk Of Magnesia) 2,400 mg PRN QHS PRN PO CONSTIPATION 03/04/21 16:15 Aspirin (Aspirin Chewable) 81 mg DAILY PO 03/05/21 09:00 03/12/21 08:23 Lisinopril (Prinivil) 10 mg DAILY PO 03/05/21 09:00 03/12/21 08:24 Vitamin D (Vitamin D3) 25 unit DAILY PO 03/05/21 09:00 03/07/21 10:29 DC 03/05/21 09:14 Metformin HCl (Glucophage) 1,000 mg BIDWMEALS PO 03/04/21 17:00 03/12/21 17:35 Atorvastatin Calcium (Lipitor) 80 mg QHS PO 03/04/21 21:00 03/12/21 20:25 Olanzapine (ZyPREXA ZYDIS) 2.5 mg PRN Q2HR PRN PO PSYCHOSIS 03/05/21 17:00 03/05/21 17:02 Vitamin D (Vitamin D3) 1,000 unit DAILY PO 03/08/21 09:00 03/12/21 08:23 Memantine (Namenda) 5 mg BID PO 03/07/21 21:00 03/11/21 18:16 DC 03/11/21 08:36 Sertraline HCl (Zoloft) 25 mg DAILY PO 03/08/21 09:00 03/10/21 20:16 DC 03/10/21 08:40 Rivastigmine (Exelon) 4.6 patch DAILY TD 03/08/21 09:00 03/09/21 13:31 DC 03/09/21 08:58 Rivastigmine (Exelon) 9.5 patch DAILY TD 03/15/21 09:00 Cancel Rivastigmine (Exelon) 1 patch DAILY TD 03/15/21 09:00 Rivastigmine (Exelon) 1 patch DAILY TD 03/10/21 09:00 03/14/21 23:50 03/12/21 08:23 Sertraline HCl (Zoloft) 50 mg DAILY PO 03/11/21 09:00 03/12/21 08:23 Trazodone HCl (Desyrel) 50 mg PRN QHS PRN PO INSOMNIA 03/10/21 20:15 Memantine (Namenda) 5 mg DAILY PO 03/12/21 09:00 03/12/21 08:24 Memantine (Namenda) 10 mg QHS PO 03/11/21 21:00 03/12/21 20:25 Current Medications Medications (Trade) Dose Ordered Sig/Greg Route PRN Reason Start Time Stop Time Status Last Admin Dose Admin Memantine (Namenda) 5 mg DAILY PO 03/12/21 09:00 03/12/21 08:24 I have reviewed the current psychotropics carefully including drug interactions. Risk benefit ratio favors no change other than as noted in my dictated progress note. Diagnosis: Problems: (1) Impulse control disorder, unspecified (2) Lewy body dementia with behavioral disturbance (3) Anxiety disorder, unspecified (4) Dementia in Alzheimer's disease with depression (5) Dementia in Alzheimer's disease with delusions (6) Major neurocognitive disorder (7) Major depressive disorder GABRIELLA LEDEZMA MD Mar 13, 2021 08:42
[2021-03-13] MEDS: SERTRALINE 50 MG TABLET. PO SCH (08:51)
[2021-03-13] MEDS: ASPIRIN CHEWABLE 81 MG TABLET. PO SCH (08:51)
[2021-03-13] MEDS: MEMANTINE 5 MG TABLET. PO SCH (08:52)
[2021-03-13] MEDS: CHOLECALCIFEROL (VITAMIN D3) 1,000 UNIT TABLET PO SCH (08:52)
[2021-03-13] MEDS: metFORMIN 500 MG TABLET PO SCH ×2 (08:52→17:46)
[2021-03-13] MEDS: LISINOPRIL 10 MG TABLET PO SCH (08:52)
[2021-03-13] MEDS: RIVASTIGMINE 4.6MG PATCH. TD SCH (08:53)
--- NOTE | 2021-03-13 09:30 | NUR ---
Pt A&O to name, , date, and location. Pt compliant with whole medications, Exelon patch to R shoulder. Denies SI/HI/VH/AH/pain when asked. He is appropriate in his interactions. Absent of verbal/physical aggression and no exit seeking behaviors have been displayed so far. Plan of care continues, will pass to next shift.
[2021-03-13 15:59] VITALS: BP 131/72
[2021-03-13] MEDS: ATORVASTATIN CALCIUM 20 MG TABLET PO SCH (20:43)
[2021-03-13] MEDS: MEMANTINE 10 MG TABLET. PO SCH (20:43)
--- NOTE | 2021-03-13 21:48 | PDOC ---
Exam Note: Mike Note: Please also refer to the separate dictated note~for this date of service dictated separately.~Patient seen individually. Discussed the patient with Nursing staff reviewed the chart.~Reviewed interim history and current functioning. Reviewed vital signs,~Labs/ Radiology~and current medications noted below. Continue current treatment with the changes noted in the dictated addendum note Assessment: Vital Signs/I&O: Vital Signs Date Time Temp Pulse Resp B/P (MAP) Pulse Ox O2 Delivery O2 Flow Rate FiO2 03/13/21 15:59 97.6 69 20 131/72 (91) 97 03/08/21 15:44 Room Air I & O 03/12/21 03/12/21 03/13/21 15:00 23:00 07:00 Intake Total 720 ml 480 ml Balance 720 ml 480 ml Labs: Laboratory Tests Test 03/13/21 07:31 03/13/21 19:22 Glucose (Fingerstick) 104 mg/dL (70-99) H 100 mg/dL (70-99) H Current Medications: Meds: Laboratory Tests Test 03/13/21 07:31 03/13/21 19:22 Glucose (Fingerstick) 104 mg/dL 100 mg/dL Current Medications Medications (Trade) Dose Ordered Sig/Greg Route PRN Reason Start Time Stop Time Status Last Admin Dose Admin Acetaminophen (Tylenol) 650 mg PRN Q6HRS PRN PO MILD PAIN / TEMP > 100.3'F 03/04/21 16:15 Multi-Ingredient Ointment (Analgesic [place]) 1 donn PRN QID PRN TP MUSCLE PAIN 03/04/21 16:15 Al Hydroxide/Mg Hydroxide (Mylanta Plus Xs) 15 ml PRN AFTMEALHC PRN PO DYSPEPSIA 03/04/21 16:15 Magnesium Hydroxide (Milk Of Magnesia) 2,400 mg PRN QHS PRN PO CONSTIPATION 03/04/21 16:15 Aspirin (Aspirin Chewable) 81 mg DAILY PO 03/05/21 09:00 03/13/21 08:51 Lisinopril (Prinivil) 10 mg DAILY PO 03/05/21 09:00 03/13/21 08:52 Vitamin D (Vitamin D3) 25 unit DAILY PO 03/05/21 09:00 03/07/21 10:29 DC 03/05/21 09:14 Metformin HCl (Glucophage) 1,000 mg BIDWMEALS PO 03/04/21 17:00 03/13/21 17:46 Atorvastatin Calcium (Lipitor) 80 mg QHS PO 03/04/21 21:00 03/13/21 20:43 Olanzapine (ZyPREXA ZYDIS) 2.5 mg PRN Q2HR PRN PO PSYCHOSIS 03/05/21 17:00 03/05/21 17:02 Vitamin D (Vitamin D3) 1,000 unit DAILY PO 03/08/21 09:00 03/13/21 08:52 Memantine (Namenda) 5 mg BID PO 03/07/21 21:00 03/11/21 18:16 DC 03/11/21 08:36 Sertraline HCl (Zoloft) 25 mg DAILY PO 03/08/21 09:00 03/10/21 20:16 DC 03/10/21 08:40 Rivastigmine (Exelon) 4.6 patch DAILY TD 03/08/21 09:00 03/09/21 13:31 DC 03/09/21 08:58 Rivastigmine (Exelon) 9.5 patch DAILY TD 03/15/21 09:00 Cancel Rivastigmine (Exelon) 1 patch DAILY TD 03/15/21 09:00 Rivastigmine (Exelon) 1 patch DAILY TD 03/10/21 09:00 03/14/21 23:50 03/13/21 08:53 Sertraline HCl (Zoloft) 50 mg DAILY PO 03/11/21 09:00 03/13/21 08:51 Trazodone HCl (Desyrel) 50 mg PRN QHS PRN PO INSOMNIA 03/10/21 20:15 Memantine (Namenda) 5 mg DAILY PO 03/12/21 09:00 03/13/21 08:52 Memantine (Namenda) 10 mg QHS PO 03/11/21 21:00 03/13/21 20:43 I have reviewed the current psychotropics carefully including drug interactions. Risk benefit ratio favors no change other than as noted in my dictated progress note. Diagnosis: Problems: (1) Impulse control disorder, unspecified (2) Lewy body dementia with behavioral disturbance (3) Anxiety disorder, unspecified (4) Dementia in Alzheimer's disease with depression (5) Dementia in Alzheimer's disease with delusions (6) Major neurocognitive disorder (7) Major depressive disorder GABRIELLA LEDEZMA MD Mar 13, 2021 21:48
[2021-03-14 06:11] VITALS: BP 133/133
[2021-03-14] MEDS: ASPIRIN CHEWABLE 81 MG TABLET. PO SCH (09:00)
[2021-03-14] MEDS: RIVASTIGMINE 4.6MG PATCH. TD SCH (09:00)
[2021-03-14] MEDS: SERTRALINE 50 MG TABLET. PO SCH (09:01)
[2021-03-14] MEDS: MEMANTINE 5 MG TABLET. PO SCH (09:01)
[2021-03-14] MEDS: CHOLECALCIFEROL (VITAMIN D3) 1,000 UNIT TABLET PO SCH (09:01)
[2021-03-14] MEDS: metFORMIN 500 MG TABLET PO SCH ×2 (09:01→17:00)
[2021-03-14] MEDS: LISINOPRIL 10 MG TABLET PO SCH (09:01)
[2021-03-14 15:21] VITALS: BP 130/82
--- NOTE | 2021-03-14 16:53 | NUR ---
Pt refused to get up for breakfast. Did take am meds later but did not want to eat. Pt out to lunch. Has been withdrawn to room most of the time but has occasionally been out to sit in shi with other peers.
[2021-03-14] MEDS: ATORVASTATIN CALCIUM 20 MG TABLET PO SCH (20:56)
[2021-03-14] MEDS: MEMANTINE 10 MG TABLET. PO SCH (20:56)
--- NOTE | 2021-03-14 22:13 | PDOC ---
Exam Note: Mike Note: Please also refer to the separate dictated note~for this date of service dictated separately.~Patient seen individually. Discussed the patient with Nursing staff reviewed the chart.~Reviewed interim history and current functioning. Reviewed vital signs,~Labs/ Radiology~and current medications noted below. Continue current treatment with the changes noted in the dictated addendum note Assessment: Vital Signs/I&O: Vital Signs Date Time Temp Pulse Resp B/P (MAP) Pulse Ox O2 Delivery O2 Flow Rate FiO2 03/14/21 15:21 98.2 74 20 130/82 (98) 96 03/08/21 15:44 Room Air I & O 03/13/21 03/13/21 03/14/21 15:00 23:00 07:00 Intake Total 600 ml 340 ml Balance 600 ml 340 ml Labs: Laboratory Tests Test 03/14/21 07:20 03/14/21 19:19 Glucose (Fingerstick) 101 mg/dL (70-99) H 142 mg/dL (70-99) H Current Medications: Meds: Laboratory Tests Test 03/14/21 07:20 03/14/21 19:19 Glucose (Fingerstick) 101 mg/dL 142 mg/dL Current Medications Medications (Trade) Dose Ordered Sig/Greg Route PRN Reason Start Time Stop Time Status Last Admin Dose Admin Acetaminophen (Tylenol) 650 mg PRN Q6HRS PRN PO MILD PAIN / TEMP > 100.3'F 03/04/21 16:15 Multi-Ingredient Ointment (Analgesic [place]) 1 donn PRN QID PRN TP MUSCLE PAIN 03/04/21 16:15 Al Hydroxide/Mg Hydroxide (Mylanta Plus Xs) 15 ml PRN AFTMEALHC PRN PO DYSPEPSIA 03/04/21 16:15 Magnesium Hydroxide (Milk Of Magnesia) 2,400 mg PRN QHS PRN PO CONSTIPATION 03/04/21 16:15 Aspirin (Aspirin Chewable) 81 mg DAILY PO 03/05/21 09:00 03/14/21 09:00 Lisinopril (Prinivil) 10 mg DAILY PO 03/05/21 09:00 03/14/21 09:01 Vitamin D (Vitamin D3) 25 unit DAILY PO 03/05/21 09:00 03/07/21 10:29 DC 03/05/21 09:14 Metformin HCl (Glucophage) 1,000 mg BIDWMEALS PO 03/04/21 17:00 03/14/21 17:00 Atorvastatin Calcium (Lipitor) 80 mg QHS PO 03/04/21 21:00 03/14/21 20:56 Olanzapine (ZyPREXA ZYDIS) 2.5 mg PRN Q2HR PRN PO PSYCHOSIS 03/05/21 17:00 03/05/21 17:02 Vitamin D (Vitamin D3) 1,000 unit DAILY PO 03/08/21 09:00 03/14/21 09:01 Memantine (Namenda) 5 mg BID PO 03/07/21 21:00 03/11/21 18:16 DC 03/11/21 08:36 Sertraline HCl (Zoloft) 25 mg DAILY PO 03/08/21 09:00 03/10/21 20:16 DC 03/10/21 08:40 Rivastigmine (Exelon) 4.6 patch DAILY TD 03/08/21 09:00 03/09/21 13:31 DC 03/09/21 08:58 Rivastigmine (Exelon) 9.5 patch DAILY TD 03/15/21 09:00 Cancel Rivastigmine (Exelon) 1 patch DAILY TD 03/15/21 09:00 Rivastigmine (Exelon) 1 patch DAILY TD 03/10/21 09:00 03/14/21 23:50 03/14/21 09:00 Sertraline HCl (Zoloft) 50 mg DAILY PO 03/11/21 09:00 03/14/21 09:01 Trazodone HCl (Desyrel) 50 mg PRN QHS PRN PO INSOMNIA 03/10/21 20:15 Memantine (Namenda) 5 mg DAILY PO 03/12/21 09:00 03/14/21 09:01 Memantine (Namenda) 10 mg QHS PO 03/11/21 21:00 03/14/21 20:56 I have reviewed the current psychotropics carefully including drug interactions. Risk benefit ratio favors no change other than as noted in my dictated progress note. Diagnosis: Problems: (1) Impulse control disorder, unspecified (2) Lewy body dementia with behavioral disturbance (3) Anxiety disorder, unspecified (4) Dementia in Alzheimer's disease with depression (5) Dementia in Alzheimer's disease with delusions (6) Major neurocognitive disorder (7) Major depressive disorder GABRIELLA LEDEZMA MD Mar 14, 2021 22:13
--- NOTE | 2021-03-14 23:57 | NUR ---
Pt located in his room all evening. Pt calm and pleasant when approached. Compliant with whole medications.
[2021-03-15 05:54] VITALS: BP 126/79
--- NOTE | 2021-03-15 06:05 | NUR ---
Pt sitting calmly in the hallway and was witnessed by this RN to be hallucinating. Pt is talking as if he is having a conversation with someone. He is alone in the hallway. When asked who is talking to, pt stated a female peer's name.
[2021-03-15] MEDS: CHOLECALCIFEROL (VITAMIN D3) 1,000 UNIT TABLET PO SCH (07:58)
[2021-03-15] MEDS: metFORMIN 500 MG TABLET PO SCH ×2 (07:58→17:05)
[2021-03-15] MEDS: MEMANTINE 5 MG TABLET. PO SCH (07:59)
[2021-03-15] MEDS: ASPIRIN CHEWABLE 81 MG TABLET. PO SCH (07:59)
[2021-03-15] MEDS: LISINOPRIL 10 MG TABLET PO SCH (07:59)
[2021-03-15] MEDS: SERTRALINE 50 MG TABLET. PO SCH (07:59)
--- NOTE | 2021-03-15 08:49 | PDOC ---
Exam Note: Mike Note: This note is a late entry for 03/12/2021 covers elements not covered in my initial note. Subjective: The patient was reviewed at treatment team meeting individually in the morning on 03/12/2021 with Shantell HECTOR, Door Closer Mechanic, Mayra Blackwood, Lizeth Thomas, and Nay Martinez (social services designee), Michelle, activity therapy and Raegan HECTOR, discussed and reviewed the chart. The patient slept 8 hours previous night. Appetite is 100%. Flu shot on 03/04. Couple of nights back he reported to the nursing staff he was seeing monkeys in his room, refusing medications previous night but did attend a group. He was able to identify TV programs. Discussed again with Jose HECTOR in the evening. He did take his medications today, still gets inadvertently psychotic consistent with his Lewy body dementia diagnosis. Review of Systems: No CV, , pulmonary, eye, ENT system symptoms on review. Reliability fair. Mental Status Exam: The patient is oriented to himself and situation. Insight is somewhat limited. Judgment intact to standard questioning. Short-term memory has some deficits. Remote is better. Attention span is fair. No clear psychotic symptoms, suicidal or homicidal ideation. Laboratory Data: Reviewed. 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 Anxiety disorder unspecified. Impulse control disorder. Plan: Continue current psychotropics. We have initiated increase in Namenda, started Exelon patch. He remains on Zoloft and trazodone. Assessment: Vital Signs/I&O: Vital Signs Date Time Temp Pulse Resp B/P (MAP) Pulse Ox O2 Delivery O2 Flow Rate FiO2 03/15/21 07:59 70 126/79 03/15/21 05:54 97.3 18 96 I & O 03/14/21 03/14/21 03/15/21 15:00 23:00 07:00 Intake Total 480 ml 600 ml Balance 480 ml 600 ml Labs: Laboratory Tests Test 03/14/21 19:19 03/15/21 07:58 Glucose (Fingerstick) 142 mg/dL (70-99) H 140 mg/dL (70-99) H Current Medications: Meds: Laboratory Tests Test 03/14/21 19:19 03/15/21 07:58 Glucose (Fingerstick) 142 mg/dL 140 mg/dL Current Medications Medications (Trade) Dose Ordered Sig/Greg Route PRN Reason Start Time Stop Time Status Last Admin Dose Admin Acetaminophen (Tylenol) 650 mg PRN Q6HRS PRN PO MILD PAIN / TEMP > 100.3'F 03/04/21 16:15 Multi-Ingredient Ointment (Analgesic [place]) 1 donn PRN QID PRN TP MUSCLE PAIN 03/04/21 16:15 Al Hydroxide/Mg Hydroxide (Mylanta Plus Xs) 15 ml PRN AFTMEALHC PRN PO DYSPEPSIA 03/04/21 16:15 Magnesium Hydroxide (Milk Of Magnesia) 2,400 mg PRN QHS PRN PO CONSTIPATION 03/04/21 16:15 Aspirin (Aspirin Chewable) 81 mg DAILY PO 03/05/21 09:00 03/15/21 07:59 Lisinopril (Prinivil) 10 mg DAILY PO 03/05/21 09:00 03/15/21 07:59 Vitamin D (Vitamin D3) 25 unit DAILY PO 03/05/21 09:00 03/07/21 10:29 DC 03/05/21 09:14 Metformin HCl (Glucophage) 1,000 mg BIDWMEALS PO 03/04/21 17:00 03/15/21 07:58 Atorvastatin Calcium (Lipitor) 80 mg QHS PO 03/04/21 21:00 03/14/21 20:56 Olanzapine (ZyPREXA ZYDIS) 2.5 mg PRN Q2HR PRN PO PSYCHOSIS 03/05/21 17:00 03/05/21 17:02 Vitamin D (Vitamin D3) 1,000 unit DAILY PO 03/08/21 09:00 03/15/21 07:58 Memantine (Namenda) 5 mg BID PO 03/07/21 21:00 03/11/21 18:16 DC 03/11/21 08:36 Sertraline HCl (Zoloft) 25 mg DAILY PO 03/08/21 09:00 03/10/21 20:16 DC 03/10/21 08:40 Rivastigmine (Exelon) 4.6 patch DAILY TD 03/08/21 09:00 03/09/21 13:31 DC 03/09/21 08:58 Rivastigmine (Exelon) 9.5 patch DAILY TD 03/15/21 09:00 Cancel Rivastigmine (Exelon) 1 patch DAILY TD 03/15/21 09:00 Rivastigmine (Exelon) 1 patch DAILY TD 03/10/21 09:00 03/14/21 23:50 DC 03/14/21 09:00 Sertraline HCl (Zoloft) 50 mg DAILY PO 03/11/21 09:00 03/15/21 07:59 Trazodone HCl (Desyrel) 50 mg PRN QHS PRN PO INSOMNIA 03/10/21 20:15 Memantine (Namenda) 5 mg DAILY PO 03/12/21 09:00 03/15/21 07:59 Memantine (Namenda) 10 mg QHS PO 03/11/21 21:00 03/14/21 20:56 I have reviewed the current psychotropics carefully including drug interactions. Risk benefit ratio favors no change other than as noted in my dictated progress note. Diagnosis: Problems: (1) Impulse control disorder, unspecified (2) Lewy body dementia with behavioral disturbance (3) Anxiety disorder, unspecified (4) Dementia in Alzheimer's disease with depression (5) Dementia in Alzheimer's disease with delusions (6) Major neurocognitive disorder GABRIELLA LEDEZMA MD Mar 15, 2021 08:49
[2021-03-15] MEDS ORDERED: RIVASTIGMINE 9.5MG PATCH. TD SCH (09:00)
--- NOTE | 2021-03-15 09:10 | PDOC ---
Exam Note: Mike Note: This note is a late entry for 03/13/2021 covers elements not covered in my initial note. Subjective: The patient was seen individually in the evening of 03/13/2021 with Jose HECTOR, discussed and reviewed the chart. The patient slept 8-1/2 hours previous night. I met with the patient in his room. He seems to do quite well cognitively much of the time and at times he gets more paranoid, confused, consistent with his Lewy body dementia. Review of Systems: No CV, , pulmonary, eye, ENT system symptoms on review. Mental Status Exam: The patient is reasonably oriented. Speech is coherent. Abstraction fair. Computation impaired. Language function intact. Mood and affect somewhat withdrawn. Laboratory Data: Reviewed. 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 Anxiety disorder unspecified. Impulse control disorder. Plan: Continue current psychotropics. Assessment: Vital Signs/I&O: Vital Signs Date Time Temp Pulse Resp B/P (MAP) Pulse Ox O2 Delivery O2 Flow Rate FiO2 03/15/21 07:59 70 126/79 03/15/21 05:54 97.3 18 96 I & O 03/14/21 03/14/21 03/15/21 15:00 23:00 07:00 Intake Total 480 ml 600 ml Balance 480 ml 600 ml Labs: Laboratory Tests Test 03/14/21 19:19 03/15/21 07:58 Glucose (Fingerstick) 142 mg/dL (70-99) H 140 mg/dL (70-99) H Current Medications: Meds: Laboratory Tests Test 03/14/21 19:19 03/15/21 07:58 Glucose (Fingerstick) 142 mg/dL 140 mg/dL Current Medications Medications (Trade) Dose Ordered Sig/Greg Route PRN Reason Start Time Stop Time Status Last Admin Dose Admin Acetaminophen (Tylenol) 650 mg PRN Q6HRS PRN PO MILD PAIN / TEMP > 100.3'F 03/04/21 16:15 Multi-Ingredient Ointment (Analgesic [place]) 1 donn PRN QID PRN TP MUSCLE PAIN 03/04/21 16:15 Al Hydroxide/Mg Hydroxide (Mylanta Plus Xs) 15 ml PRN AFTMEALHC PRN PO DYSPEPSIA 03/04/21 16:15 Magnesium Hydroxide (Milk Of Magnesia) 2,400 mg PRN QHS PRN PO CONSTIPATION 03/04/21 16:15 Aspirin (Aspirin Chewable) 81 mg DAILY PO 03/05/21 09:00 03/15/21 07:59 Lisinopril (Prinivil) 10 mg DAILY PO 03/05/21 09:00 03/15/21 07:59 Vitamin D (Vitamin D3) 25 unit DAILY PO 03/05/21 09:00 03/07/21 10:29 DC 03/05/21 09:14 Metformin HCl (Glucophage) 1,000 mg BIDWMEALS PO 03/04/21 17:00 03/15/21 07:58 Atorvastatin Calcium (Lipitor) 80 mg QHS PO 03/04/21 21:00 03/14/21 20:56 Olanzapine (ZyPREXA ZYDIS) 2.5 mg PRN Q2HR PRN PO PSYCHOSIS 03/05/21 17:00 03/05/21 17:02 Vitamin D (Vitamin D3) 1,000 unit DAILY PO 03/08/21 09:00 03/15/21 07:58 Memantine (Namenda) 5 mg BID PO 03/07/21 21:00 03/11/21 18:16 DC 03/11/21 08:36 Sertraline HCl (Zoloft) 25 mg DAILY PO 03/08/21 09:00 03/10/21 20:16 DC 03/10/21 08:40 Rivastigmine (Exelon) 4.6 patch DAILY TD 03/08/21 09:00 03/09/21 13:31 DC 03/09/21 08:58 Rivastigmine (Exelon) 9.5 patch DAILY TD 03/15/21 09:00 Cancel Rivastigmine (Exelon) 1 patch DAILY TD 03/15/21 09:00 Rivastigmine (Exelon) 1 patch DAILY TD 03/10/21 09:00 03/14/21 23:50 DC 03/14/21 09:00 Sertraline HCl (Zoloft) 50 mg DAILY PO 03/11/21 09:00 03/15/21 07:59 Trazodone HCl (Desyrel) 50 mg PRN QHS PRN PO INSOMNIA 03/10/21 20:15 Memantine (Namenda) 5 mg DAILY PO 03/12/21 09:00 03/15/21 07:59 Memantine (Namenda) 10 mg QHS PO 03/11/21 21:00 03/14/21 20:56 I have reviewed the current psychotropics carefully including drug interactions. Risk benefit ratio favors no change other than as noted in my dictated progress note. Diagnosis: Problems: (1) Impulse control disorder, unspecified (2) Lewy body dementia with behavioral disturbance (3) Anxiety disorder, unspecified (4) Dementia in Alzheimer's disease with depression (5) Dementia in Alzheimer's disease with delusions (6) Major neurocognitive disorder GABRIELLA LEDEZMA MD Mar 15, 2021 09:10
[2021-03-15] MEDS: RIVASTIGMINE 9.5MG PATCH. TD SCH (09:35)
--- NOTE | 2021-03-15 12:05 | NUR ---
NURSING NOTE PT WAS A&O THIS AM UPON ASSESSMENT AND MEDICATION ADMINISTRATION, PT DENIES ANY PAIN, STATES HE FEELS GOOD THIS AM. PT HAS BEEN PACING THE HALLWAY THIS MORNING, A LITTLE RESTLESS AND ANXIOUS. PT HAS BEEN SEEN TALKING TO HIMSELF OR HAVING CONVERSATION WITH SOMEONE WHO IS NOT THERE TWICE THIS SHIFT WHICH PER REPORT IS NEW FOR HIM. PT DENIES VISUAL OR AUDITORY HALLUCINATIONS AT THIS TIME. PT HAS BEEN CALM AND COOPERATIVE WITH NURSING CARES. KRUNAL GOLDSMITH.
--- NOTE | 2021-03-15 15:39 | NUR ---
assumed care of patient at 1400. Patient has been in his room and is resting in bed.
[2021-03-15 16:00] VITALS: BP 137/75
[2021-03-15] MEDS: ATORVASTATIN CALCIUM 20 MG TABLET PO SCH (21:02)
[2021-03-15] MEDS: MEMANTINE 10 MG TABLET. PO SCH (21:02)
--- NOTE | 2021-03-15 21:59 | PDOC ---
Exam Note: Mike Note: Please also refer to the separate dictated note~for this date of service dictated separately.~Patient seen individually. Discussed the patient with Nursing staff reviewed the chart.~Reviewed interim history and current functioning. Reviewed vital signs,~Labs/ Radiology~and current medications noted below. Continue current treatment with the changes noted in the dictated addendum note Assessment: Vital Signs/I&O: Vital Signs Date Time Temp Pulse Resp B/P (MAP) Pulse Ox O2 Delivery O2 Flow Rate FiO2 03/15/21 16:00 97.8 71 16 137/75 (95) 93 I & O 03/14/21 03/14/21 03/15/21 15:00 23:00 07:00 Intake Total 480 ml 600 ml Balance 480 ml 600 ml Labs: Laboratory Tests Test 03/15/21 07:58 Glucose (Fingerstick) 140 mg/dL (70-99) H Current Medications: Meds: Laboratory Tests Test 03/15/21 07:58 Glucose (Fingerstick) 140 mg/dL Current Medications Medications (Trade) Dose Ordered Sig/Greg Route PRN Reason Start Time Stop Time Status Last Admin Dose Admin Acetaminophen (Tylenol) 650 mg PRN Q6HRS PRN PO MILD PAIN / TEMP > 100.3'F 03/04/21 16:15 Multi-Ingredient Ointment (Analgesic [place]) 1 donn PRN QID PRN TP MUSCLE PAIN 03/04/21 16:15 Al Hydroxide/Mg Hydroxide (Mylanta Plus Xs) 15 ml PRN AFTMEALHC PRN PO DYSPEPSIA 03/04/21 16:15 Magnesium Hydroxide (Milk Of Magnesia) 2,400 mg PRN QHS PRN PO CONSTIPATION 03/04/21 16:15 Aspirin (Aspirin Chewable) 81 mg DAILY PO 03/05/21 09:00 03/15/21 07:59 Lisinopril (Prinivil) 10 mg DAILY PO 03/05/21 09:00 03/15/21 07:59 Vitamin D (Vitamin D3) 25 unit DAILY PO 03/05/21 09:00 03/07/21 10:29 DC 03/05/21 09:14 Metformin HCl (Glucophage) 1,000 mg BIDWMEALS PO 03/04/21 17:00 03/15/21 17:05 Atorvastatin Calcium (Lipitor) 80 mg QHS PO 03/04/21 21:00 03/15/21 21:02 Olanzapine (ZyPREXA ZYDIS) 2.5 mg PRN Q2HR PRN PO PSYCHOSIS 03/05/21 17:00 03/05/21 17:02 Vitamin D (Vitamin D3) 1,000 unit DAILY PO 03/08/21 09:00 03/15/21 07:58 Memantine (Namenda) 5 mg BID PO 03/07/21 21:00 03/11/21 18:16 DC 03/11/21 08:36 Sertraline HCl (Zoloft) 25 mg DAILY PO 03/08/21 09:00 03/10/21 20:16 DC 03/10/21 08:40 Rivastigmine (Exelon) 4.6 patch DAILY TD 03/08/21 09:00 03/09/21 13:31 DC 03/09/21 08:58 Rivastigmine (Exelon) 9.5 patch DAILY TD 03/15/21 09:00 Cancel Rivastigmine (Exelon) 1 patch DAILY TD 03/15/21 09:00 03/15/21 09:35 Rivastigmine (Exelon) 1 patch DAILY TD 03/10/21 09:00 03/14/21 23:50 DC 03/14/21 09:00 Sertraline HCl (Zoloft) 50 mg DAILY PO 03/11/21 09:00 03/15/21 07:59 Trazodone HCl (Desyrel) 50 mg PRN QHS PRN PO INSOMNIA 03/10/21 20:15 Memantine (Namenda) 5 mg DAILY PO 03/12/21 09:00 03/15/21 20:10 DC 03/15/21 07:59 Memantine (Namenda) 10 mg QHS PO 03/11/21 21:00 03/15/21 22:00 03/15/21 21:02 Memantine (Namenda) 10 mg BID PO 03/16/21 09:00 Current Medications Medications (Trade) Dose Ordered Sig/Greg Route PRN Reason Start Time Stop Time Status Last Admin Dose Admin Rivastigmine (Exelon) 1 patch DAILY TD 03/15/21 09:00 03/15/21 09:35 I have reviewed the current psychotropics carefully including drug interactions. Risk benefit ratio favors no change other than as noted in my dictated progress note. Diagnosis: Problems: (1) Impulse control disorder, unspecified (2) Lewy body dementia with behavioral disturbance (3) Anxiety disorder, unspecified (4) Dementia in Alzheimer's disease with depression (5) Dementia in Alzheimer's disease with delusions (6) Major neurocognitive disorder (7) Major depressive disorder GABRIELLA LEDEZMA MD Mar 15, 2021 21:59
--- NOTE | 2021-03-15 22:20 | NUR ---
Patient has been withdrawn to his room this shift. He is cooperative and compliant with medications taken whole. He asked what medications he was taking and what they were for. Patient is pleasant and calm. No adverse behaviors observed this shift.
[2021-03-16 05:57] VITALS: BP 131/78
[2021-03-16] MEDS: CHOLECALCIFEROL (VITAMIN D3) 1,000 UNIT TABLET PO SCH (08:23)
[2021-03-16] MEDS: metFORMIN 500 MG TABLET PO SCH ×2 (08:23→17:35)
[2021-03-16] MEDS: SERTRALINE 50 MG TABLET. PO SCH (08:23)
[2021-03-16] MEDS: ASPIRIN CHEWABLE 81 MG TABLET. PO SCH (08:23)
[2021-03-16] MEDS: LISINOPRIL 10 MG TABLET PO SCH (08:23)
[2021-03-16] MEDS: RIVASTIGMINE 9.5MG PATCH. TD SCH (08:24)
[2021-03-16] MEDS: MEMANTINE 10 MG TABLET. PO SCH ×2 (08:28→20:53)
--- NOTE | 2021-03-16 12:20 | NUR ---
GEOVANNA contacted Yonathan and had him participate in a small treatment team meeting in which the psychiatrist would be able to answer his questions. Yonathan wanted to know further about Lewy Body and the outcome expected within medications and wanted to discuss the level of care he would need. GEOVANNA explained that the level of care would actually be based off what the facility would be able to maintain. For example, if the team recommended Memory Care; however, the facility thought they could maintain someone as [place], they would go based off their own assessment. Pt son is hopeful that pt could maintain in [place] as it would be financially fitting for them. Pt son did also question if pt had been notified of his condition in which the psychiatrist has talked to pt about it and reports periods of understanding and then periods of denial that he has trouble. Pt son is wanting to discuss this with the pt; but pt is not accepting his phone calls at the moment. Pt son also questioned if it is okay to allow a few of his friends to call and GEOVANNA informed him that as long as Yonathan is okay with them having the passcode, they are more than welcome to call pt and speak directly to him; however, would not be able to receive updates about his status from nursing.
[2021-03-16 16:13] VITALS: BP 130/73
[2021-03-16] MEDS: ATORVASTATIN CALCIUM 20 MG TABLET PO SCH (20:53)
--- NOTE | 2021-03-16 21:56 | PDOC ---
Exam Note: Mike Note: Please also refer to the separate dictated note~for this date of service dictated separately.~Patient seen individually. Discussed the patient with Nursing staff reviewed the chart.~Reviewed interim history and current functioning. Reviewed vital signs,~Labs/ Radiology~and current medications noted below. Continue current treatment with the changes noted in the dictated addendum note Assessment: Vital Signs/I&O: Vital Signs Date Time Temp Pulse Resp B/P (MAP) Pulse Ox O2 Delivery O2 Flow Rate FiO2 03/16/21 16:13 97.0 64 16 130/73 (92) 93 I & O 03/15/21 03/15/21 03/16/21 15:00 23:00 07:00 Intake Total 480 ml 360 ml Balance 480 ml 360 ml Labs: Laboratory Tests Test 03/16/21 07:51 Glucose (Fingerstick) 127 mg/dL (70-99) H Current Medications: Meds: Laboratory Tests Test 03/16/21 07:51 Glucose (Fingerstick) 127 mg/dL Current Medications Medications (Trade) Dose Ordered Sig/Greg Route PRN Reason Start Time Stop Time Status Last Admin Dose Admin Acetaminophen (Tylenol) 650 mg PRN Q6HRS PRN PO MILD PAIN / TEMP > 100.3'F 03/04/21 16:15 Multi-Ingredient Ointment (Analgesic [place]) 1 donn PRN QID PRN TP MUSCLE PAIN 03/04/21 16:15 Al Hydroxide/Mg Hydroxide (Mylanta Plus Xs) 15 ml PRN AFTMEALHC PRN PO DYSPEPSIA 03/04/21 16:15 Magnesium Hydroxide (Milk Of Magnesia) 2,400 mg PRN QHS PRN PO CONSTIPATION 03/04/21 16:15 Aspirin (Aspirin Chewable) 81 mg DAILY PO 03/05/21 09:00 03/16/21 08:23 Lisinopril (Prinivil) 10 mg DAILY PO 03/05/21 09:00 03/16/21 08:23 Vitamin D (Vitamin D3) 25 unit DAILY PO 03/05/21 09:00 03/07/21 10:29 DC 03/05/21 09:14 Metformin HCl (Glucophage) 1,000 mg BIDWMEALS PO 03/04/21 17:00 03/16/21 17:35 Atorvastatin Calcium (Lipitor) 80 mg QHS PO 03/04/21 21:00 03/16/21 20:53 Olanzapine (ZyPREXA ZYDIS) 2.5 mg PRN Q2HR PRN PO PSYCHOSIS 03/05/21 17:00 03/05/21 17:02 Vitamin D (Vitamin D3) 1,000 unit DAILY PO 03/08/21 09:00 03/16/21 08:23 Memantine (Namenda) 5 mg BID PO 03/07/21 21:00 03/11/21 18:16 DC 03/11/21 08:36 Sertraline HCl (Zoloft) 25 mg DAILY PO 03/08/21 09:00 03/10/21 20:16 DC 03/10/21 08:40 Rivastigmine (Exelon) 4.6 patch DAILY TD 03/08/21 09:00 03/09/21 13:31 DC 03/09/21 08:58 Rivastigmine (Exelon) 9.5 patch DAILY TD 03/15/21 09:00 Cancel Rivastigmine (Exelon) 1 patch DAILY TD 03/15/21 09:00 03/16/21 08:24 Rivastigmine (Exelon) 1 patch DAILY TD 03/10/21 09:00 03/14/21 23:50 DC 03/14/21 09:00 Sertraline HCl (Zoloft) 50 mg DAILY PO 03/11/21 09:00 03/16/21 08:23 Trazodone HCl (Desyrel) 50 mg PRN QHS PRN PO INSOMNIA 03/10/21 20:15 Memantine (Namenda) 5 mg DAILY PO 03/12/21 09:00 03/15/21 20:10 DC 03/15/21 07:59 Memantine (Namenda) 10 mg QHS PO 03/11/21 21:00 03/15/21 22:00 DC 03/15/21 21:02 Memantine (Namenda) 10 mg BID PO 03/16/21 09:00 03/16/21 20:53 Current Medications Medications (Trade) Dose Ordered Sig/Greg Route PRN Reason Start Time Stop Time Status Last Admin Dose Admin Memantine (Namenda) 10 mg BID PO 03/16/21 09:00 03/16/21 20:53 I have reviewed the current psychotropics carefully including drug interactions. Risk benefit ratio favors no change other than as noted in my dictated progress note. Diagnosis: Problems: (1) Impulse control disorder, unspecified (2) Lewy body dementia with behavioral disturbance (3) Anxiety disorder, unspecified (4) Dementia in Alzheimer's disease with depression (5) Dementia in Alzheimer's disease with delusions (6) Major neurocognitive disorder (7) Major depressive disorder GABRIELLA LEDEZMA MD Mar 16, 2021 21:55
--- NOTE | 2021-03-16 23:11 | NUR ---
Patient in bed asleep when nurse entered the room with HS medications. He was cooperative, calm and polite when awoken to take his medications. Patient compliant with medications taken whole. Patient is withdrawn to room but will interact when approached. No adverse behaviors noted this shift.
[2021-03-17 05:48] VITALS: BP 134/71
[2021-03-17] MEDS: metFORMIN 500 MG TABLET PO SCH ×2 (09:22→17:14)
[2021-03-17] MEDS: SERTRALINE 50 MG TABLET. PO SCH (09:22)
[2021-03-17] MEDS: CHOLECALCIFEROL (VITAMIN D3) 1,000 UNIT TABLET PO SCH (09:22)
[2021-03-17] MEDS: ASPIRIN CHEWABLE 81 MG TABLET. PO SCH (09:22)
[2021-03-17] MEDS: MEMANTINE 10 MG TABLET. PO SCH ×2 (09:22→21:41)
[2021-03-17] MEDS: LISINOPRIL 10 MG TABLET PO SCH (09:22)
[2021-03-17] MEDS: RIVASTIGMINE 9.5MG PATCH. TD SCH (09:23)
--- NOTE | 2021-03-17 09:43 | PDOC ---
Exam Note: Mike Note: This note is a late entry for 03/14/2021 covers elements not covered in my initial note. Subjective: The patient was seen individually in the evening of 03/14/2021 with Belen HECTOR, discussed and reviewed the chart. The patient slept 9-1/2 hours previous night. He had no supple previous evening, up for breakfast, refused to talk to his family, son when he called. Review of Systems: No CV, , pulmonary, eye, ENT system symptoms on review. He complains of feeling cold, given extra covers. Mental Status Exam: The patient is reasonably oriented. Speech is coherent. Abstraction fair. Computation impaired. Language function intact. Mood and affect remains somewhat withdrawn but improved. Sundowning is better. Laboratory Data: Reviewed. 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 Anxiety disorder unspecified. Impulse control disorder. Plan: Continue current psychotropics. We are increasing Exelon patch and Namenda. Maintain Zoloft, trazodone. Make further adjustments as clinically indicated. Assessment: Vital Signs/I&O: Vital Signs Date Time Temp Pulse Resp B/P (MAP) Pulse Ox O2 Delivery O2 Flow Rate FiO2 03/17/21 09:22 65 134/71 03/17/21 05:48 97.2 16 94 Room Air I & O 03/16/21 03/16/21 03/17/21 15:00 23:00 07:00 Intake Total 960 ml 240 ml Balance 960 ml 240 ml Labs: Laboratory Tests Test 03/17/21 07:57 Glucose (Fingerstick) 121 mg/dL (70-99) H Current Medications: Meds: Laboratory Tests Test 03/17/21 07:57 Glucose (Fingerstick) 121 mg/dL Current Medications Medications (Trade) Dose Ordered Sig/Greg Route PRN Reason Start Time Stop Time Status Last Admin Dose Admin Acetaminophen (Tylenol) 650 mg PRN Q6HRS PRN PO MILD PAIN / TEMP > 100.3'F 03/04/21 16:15 Multi-Ingredient Ointment (Analgesic [place]) 1 donn PRN QID PRN TP MUSCLE PAIN 03/04/21 16:15 Al Hydroxide/Mg Hydroxide (Mylanta Plus Xs) 15 ml PRN AFTMEALHC PRN PO DYSPEPSIA 03/04/21 16:15 Magnesium Hydroxide (Milk Of Magnesia) 2,400 mg PRN QHS PRN PO CONSTIPATION 03/04/21 16:15 Aspirin (Aspirin Chewable) 81 mg DAILY PO 03/05/21 09:00 03/17/21 09:22 Lisinopril (Prinivil) 10 mg DAILY PO 03/05/21 09:00 03/17/21 09:22 Vitamin D (Vitamin D3) 25 unit DAILY PO 03/05/21 09:00 03/07/21 10:29 DC 03/05/21 09:14 Metformin HCl (Glucophage) 1,000 mg BIDWMEALS PO 03/04/21 17:00 03/17/21 09:22 Atorvastatin Calcium (Lipitor) 80 mg QHS PO 03/04/21 21:00 03/16/21 20:53 Olanzapine (ZyPREXA ZYDIS) 2.5 mg PRN Q2HR PRN PO PSYCHOSIS 03/05/21 17:00 03/05/21 17:02 Vitamin D (Vitamin D3) 1,000 unit DAILY PO 03/08/21 09:00 03/17/21 09:22 Memantine (Namenda) 5 mg BID PO 03/07/21 21:00 03/11/21 18:16 DC 03/11/21 08:36 Sertraline HCl (Zoloft) 25 mg DAILY PO 03/08/21 09:00 03/10/21 20:16 DC 03/10/21 08:40 Rivastigmine (Exelon) 4.6 patch DAILY TD 03/08/21 09:00 03/09/21 13:31 DC 03/09/21 08:58 Rivastigmine (Exelon) 9.5 patch DAILY TD 03/15/21 09:00 Cancel Rivastigmine (Exelon) 1 patch DAILY TD 03/15/21 09:00 03/17/21 09:23 Rivastigmine (Exelon) 1 patch DAILY TD 03/10/21 09:00 03/14/21 23:50 DC 03/14/21 09:00 Sertraline HCl (Zoloft) 50 mg DAILY PO 03/11/21 09:00 03/17/21 09:22 Trazodone HCl (Desyrel) 50 mg PRN QHS PRN PO INSOMNIA 03/10/21 20:15 Memantine (Namenda) 5 mg DAILY PO 03/12/21 09:00 03/15/21 20:10 DC 03/15/21 07:59 Memantine (Namenda) 10 mg QHS PO 03/11/21 21:00 03/15/21 22:00 DC 03/15/21 21:02 Memantine (Namenda) 10 mg BID PO 03/16/21 09:00 03/17/21 09:22 I have reviewed the current psychotropics carefully including drug interactions. Risk benefit ratio favors no change other than as noted in my dictated progress note. Diagnosis: Problems: (1) Impulse control disorder, unspecified (2) Lewy body dementia with behavioral disturbance (3) Anxiety disorder, unspecified (4) Dementia in Alzheimer's disease with depression (5) Dementia in Alzheimer's disease with delusions (6) Major neurocognitive disorder GABRIELLA LEDEZMA MD Mar 17, 2021 09:43
--- NOTE | 2021-03-17 10:20 | PDOC ---
Exam Note: Mike Note: This note is a late entry for 03/15/2021 covers elements not covered in my initial note. Subjective: The patient was seen individually in the evening of 03/15/2021 with Ruma HECTOR, discussed and reviewed the chart. The patient slept 7-1/2 hours previous night. Patient remains withdrawn, does not interact very much but at one point he seemed to be actively hallucinating, talking back and forth to someone when no one was around him and this was observed on 2 separate occasions per nursing staff. I met with him in his room. When I questioned him on this he denied hallucinations. Review of Systems: No CV, , pulmonary, eye, ENT system symptoms on review. Mental Status Exam: The patient is oriented to himself and situation. Speech is coherent has some latency. Abstraction fair. Computation impaired. Lang uage function intact. Mood and affect remains anxious, labile. Laboratory Data: Reviewed. 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 Anxiety disorder unspecified. Impulse control disorder. Plan: Increase Namenda from 5 mg a.m. and 10 mg h.s. to 10 mg twice a day. Continue Exelon patch, Zoloft. Rest unchanged for now. Assessment: Vital Signs/I&O: Vital Signs Date Time Temp Pulse Resp B/P (MAP) Pulse Ox O2 Delivery O2 Flow Rate FiO2 03/17/21 09:22 65 134/71 03/17/21 05:48 97.2 16 94 Room Air I & O 03/16/21 03/16/21 03/17/21 15:00 23:00 07:00 Intake Total 960 ml 240 ml Balance 960 ml 240 ml Labs: Laboratory Tests Test 03/17/21 07:57 Glucose (Fingerstick) 121 mg/dL (70-99) H Current Medications: Meds: Laboratory Tests Test 03/17/21 07:57 Glucose (Fingerstick) 121 mg/dL Current Medications Medications (Trade) Dose Ordered Sig/Greg Route PRN Reason Start Time Stop Time Status Last Admin Dose Admin Acetaminophen (Tylenol) 650 mg PRN Q6HRS PRN PO MILD PAIN / TEMP > 100.3'F 03/04/21 16:15 Multi-Ingredient Ointment (Analgesic [place]) 1 donn PRN QID PRN TP MUSCLE PAIN 03/04/21 16:15 Al Hydroxide/Mg Hydroxide (Mylanta Plus Xs) 15 ml PRN AFTMEALHC PRN PO DYSPEPSIA 03/04/21 16:15 Magnesium Hydroxide (Milk Of Magnesia) 2,400 mg PRN QHS PRN PO CONSTIPATION 03/04/21 16:15 Aspirin (Aspirin Chewable) 81 mg DAILY PO 03/05/21 09:00 03/17/21 09:22 Lisinopril (Prinivil) 10 mg DAILY PO 03/05/21 09:00 03/17/21 09:22 Vitamin D (Vitamin D3) 25 unit DAILY PO 03/05/21 09:00 03/07/21 10:29 DC 03/05/21 09:14 Metformin HCl (Glucophage) 1,000 mg BIDWMEALS PO 03/04/21 17:00 03/17/21 09:22 Atorvastatin Calcium (Lipitor) 80 mg QHS PO 03/04/21 21:00 03/16/21 20:53 Olanzapine (ZyPREXA ZYDIS) 2.5 mg PRN Q2HR PRN PO PSYCHOSIS 03/05/21 17:00 03/05/21 17:02 Vitamin D (Vitamin D3) 1,000 unit DAILY PO 03/08/21 09:00 03/17/21 09:22 Memantine (Namenda) 5 mg BID PO 03/07/21 21:00 03/11/21 18:16 DC 03/11/21 08:36 Sertraline HCl (Zoloft) 25 mg DAILY PO 03/08/21 09:00 03/10/21 20:16 DC 03/10/21 08:40 Rivastigmine (Exelon) 4.6 patch DAILY TD 03/08/21 09:00 03/09/21 13:31 DC 03/09/21 08:58 Rivastigmine (Exelon) 9.5 patch DAILY TD 03/15/21 09:00 Cancel Rivastigmine (Exelon) 1 patch DAILY TD 03/15/21 09:00 03/17/21 09:23 Rivastigmine (Exelon) 1 patch DAILY TD 03/10/21 09:00 03/14/21 23:50 DC 03/14/21 09:00 Sertraline HCl (Zoloft) 50 mg DAILY PO 03/11/21 09:00 03/17/21 09:22 Trazodone HCl (Desyrel) 50 mg PRN QHS PRN PO INSOMNIA 03/10/21 20:15 Memantine (Namenda) 5 mg DAILY PO 03/12/21 09:00 03/15/21 20:10 DC 03/15/21 07:59 Memantine (Namenda) 10 mg QHS PO 03/11/21 21:00 03/15/21 22:00 DC 03/15/21 21:02 Memantine (Namenda) 10 mg BID PO 03/16/21 09:00 03/17/21 09:22 I have reviewed the current psychotropics carefully including drug interactions. Risk benefit ratio favors no change other than as noted in my dictated progress note. Diagnosis: Problems: (1) Impulse control disorder, unspecified (2) Lewy body dementia with behavioral disturbance (3) Anxiety disorder, unspecified (4) Dementia in Alzheimer's disease with depression (5) Dementia in Alzheimer's disease with delusions (6) Major neurocognitive disorder GABRIELAL LEDEZMA MD Mar 17, 2021 10:20
--- NOTE | 2021-03-17 11:47 | NUR ---
Nursing note: Pt laying in bed at time of AM med pass and assessment. He is pleasant, med compliant and cooperative. He denies having any pain/concerns. He is currently in his room preparing for lunch. Will continue to monitor.
[2021-03-17 16:06] VITALS: BP 135/80
--- NOTE | 2021-03-17 17:20 | NUR ---
Nursing note: Pt came to dining room for supper and was refusing to take his scheduled metformin. Pt was educated on the use of metformin and encouraged to take it and we could discuss it with the doctor tomorrow. Pt agreed to take it so the pill cup was placed in front of pt. He did not touch the pill cup, but instead took a few more bites of his supper and proceeded to knock the pill cup off the table, causing the pills to fly to the floor. Meds were retrieved and pt continued to be encouraged to take them. Pt agreed once again and eventually took them. When pt went to give the pill cup back to me, he squeezed the cup around my finger. Pt continued to angrily eat his supper and then stormed out of the dining room. When staff questioned his behaviors he responded "I just talked to my son, Yonathan, who I thought was ." Pt was redirected back to the dining room so he could finish his supper. Will continue to monitor.
[2021-03-17] MEDS ORDERED: QUEtiapine 25 MG TABLET. PO SCH (21:00)
[2021-03-17] MEDS: ATORVASTATIN CALCIUM 20 MG TABLET PO SCH (21:41)
--- NOTE | 2021-03-17 21:56 | PDOC ---
Exam Note: Mike Note: Please also refer to the separate dictated note~for this date of service dictated separately.~Patient seen individually. Discussed the patient with Nursing staff reviewed the chart.~Reviewed interim history and current functioning. Reviewed vital signs,~Labs/ Radiology~and current medications noted below. Continue current treatment with the changes noted in the dictated addendum note Assessment: Vital Signs/I&O: Vital Signs Date Time Temp Pulse Resp B/P (MAP) Pulse Ox O2 Delivery O2 Flow Rate FiO2 03/17/21 16:06 98.3 63 16 135/80 (98) 94 03/17/21 05:48 Room Air I & O 03/16/21 03/16/21 03/17/21 15:00 23:00 07:00 Intake Total 960 ml 240 ml Balance 960 ml 240 ml Labs: Laboratory Tests Test 03/17/21 05:15 03/17/21 07:57 SARS-CoV-2 (PCR) Not detected (NOT DETECTD) Glucose (Fingerstick) 121 mg/dL (70-99) H Current Medications: Meds: Laboratory Tests Test 03/17/21 05:15 03/17/21 07:57 Coronavirus (COVID-19)(PCR) Not detected Glucose (Fingerstick) 121 mg/dL Current Medications Medications (Trade) Dose Ordered Sig/Greg Route PRN Reason Start Time Stop Time Status Last Admin Dose Admin Acetaminophen (Tylenol) 650 mg PRN Q6HRS PRN PO MILD PAIN / TEMP > 100.3'F 03/04/21 16:15 Multi-Ingredient Ointment (Analgesic [place]) 1 donn PRN QID PRN TP MUSCLE PAIN 03/04/21 16:15 Al Hydroxide/Mg Hydroxide (Mylanta Plus Xs) 15 ml PRN AFTMEALHC PRN PO DYSPEPSIA 03/04/21 16:15 Magnesium Hydroxide (Milk Of Magnesia) 2,400 mg PRN QHS PRN PO CONSTIPATION 03/04/21 16:15 Aspirin (Aspirin Chewable) 81 mg DAILY PO 03/05/21 09:00 03/17/21 09:22 Lisinopril (Prinivil) 10 mg DAILY PO 03/05/21 09:00 03/17/21 09:22 Vitamin D (Vitamin D3) 25 unit DAILY PO 03/05/21 09:00 03/07/21 10:29 DC 03/05/21 09:14 Metformin HCl (Glucophage) 1,000 mg BIDWMEALS PO 03/04/21 17:00 03/17/21 17:14 Atorvastatin Calcium (Lipitor) 80 mg QHS PO 03/04/21 21:00 03/17/21 21:41 Olanzapine (ZyPREXA ZYDIS) 2.5 mg PRN Q2HR PRN PO PSYCHOSIS 03/05/21 17:00 03/05/21 17:02 Vitamin D (Vitamin D3) 1,000 unit DAILY PO 03/08/21 09:00 03/17/21 09:22 Memantine (Namenda) 5 mg BID PO 03/07/21 21:00 03/11/21 18:16 DC 03/11/21 08:36 Sertraline HCl (Zoloft) 25 mg DAILY PO 03/08/21 09:00 03/10/21 20:16 DC 03/10/21 08:40 Rivastigmine (Exelon) 4.6 patch DAILY TD 03/08/21 09:00 03/09/21 13:31 DC 03/09/21 08:58 Rivastigmine (Exelon) 9.5 patch DAILY TD 03/15/21 09:00 Cancel Rivastigmine (Exelon) 1 patch DAILY TD 03/15/21 09:00 03/19/21 14:00 03/17/21 09:23 Rivastigmine (Exelon) 1 patch DAILY TD 03/10/21 09:00 03/14/21 23:50 DC 03/14/21 09:00 Sertraline HCl (Zoloft) 50 mg DAILY PO 03/11/21 09:00 03/17/21 09:22 Trazodone HCl (Desyrel) 50 mg PRN QHS PRN PO INSOMNIA 03/10/21 20:15 Memantine (Namenda) 5 mg DAILY PO 03/12/21 09:00 03/15/21 20:10 DC 03/15/21 07:59 Memantine (Namenda) 10 mg QHS PO 03/11/21 21:00 03/15/21 22:00 DC 03/15/21 21:02 Memantine (Namenda) 10 mg BID PO 03/16/21 09:00 03/17/21 21:41 Rivastigmine (Exelon 13.3mg) 1 patch DAILY TD 03/20/21 09:00 Quetiapine Fumarate (SEROquel) 25 mg HS PO 03/17/21 21:00 03/17/21 21:41 Current Medications Medications (Trade) Dose Ordered Sig/Greg Route PRN Reason Start Time Stop Time Status Last Admin Dose Admin Quetiapine Fumarate (SEROquel) 25 mg HS PO 03/17/21 21:00 03/17/21 21:41 I have reviewed the current psychotropics carefully including drug interactions. Risk benefit ratio favors no change other than as noted in my dictated progress note. Diagnosis: Problems: (1) Impulse control disorder, unspecified (2) Lewy body dementia with behavioral disturbance (3) Anxiety disorder, unspecified (4) Dementia in Alzheimer's disease with depression (5) Dementia in Alzheimer's disease with delusions (6) Major neurocognitive disorder GABRIELLA LEDEZMA MD Mar 17, 2021 21:56
--- NOTE | 2021-03-18 02:20 | NUR ---
Patient was in his room in bed this shift. He has displayed increasing irritability this week and he has become much less interactive, choosing to remain in his room most nights. Nurse discussed this with Dr Felder in report and patient was started on Seroquel 25mg HS and the Exelon Patch will increase from 9.5mg to 13.3 mg on 03/20. Patient compliant with medications but tonight he hesitated when they were handed to him, glared at nurse, and then took them. Patient declined a snack and only drank enough water to swallow the medications. No hallucinations observed this shift. Per report from dayshift nurse, patient was found with several unopened containers of yogurt and room temperature milks in his bed under the blankets. It appears that he is hoarding food. Advised HS DELICATESSEN MANAGER's and we will check for hoarding behaviors in the morning when patient gets up.
[2021-03-18 06:18] LABS: BASO % 0 % (0-3); EOS # 0.1 x10^3/uL (0.0-0.7); EOS % 2 % (0-3); HEMATOCRIT 43.5 % (39.0-53.0); HEMOGLOBIN 15.2 g/dL (13.0-17.5); LYMPH # 1.6 x10^3/uL (1.0-4.8); LYMPH % 26 % (24-48); MEAN CORPUSCULAR HEMOGLOBIN 33 pg (25-35); MEAN CORPUSCULAR HGB CONC 35 g/dL (31-37); MEAN CORPUSCULAR VOLUME 96 fL (79-100); MONO # 0.5 x10^3/uL (0.0-1.1); MONO % 9 % (0-9); NEUT # 3.8 x10^3uL (1.8-7.7); NEUT % 62 % (31-73); PLATELET COUNT 157 x10^3/uL (140-400); RED BLOOD COUNT 4.56 x10^6/uL (4.30-5.70); RED CELL DISTRIBUTION WIDTH 12.9 % (11.5-14.5)
[2021-03-18 06:28] VITALS: BP 142/75
[2021-03-18 06:53] LABS: ALBUMIN 3.5 g/dL (3.4-5.0); CALCIUM 9.1 mg/dL (8.5-10.1); GFR 73.2; POTASSIUM 3.6 mmol/L (3.5-5.1); TOTAL BILIRUBIN 0.6 mg/dL (0.2-1.0); TOTAL PROTEIN 6.9 g/dL (6.4-8.2)
[2021-03-18] MEDS: RIVASTIGMINE 9.5MG PATCH. TD SCH (08:23)
[2021-03-18] MEDS: ASPIRIN CHEWABLE 81 MG TABLET. PO SCH (08:23)
[2021-03-18] MEDS: metFORMIN 500 MG TABLET PO SCH ×2 (08:23→17:37)
[2021-03-18] MEDS: SERTRALINE 50 MG TABLET. PO SCH (08:23)
[2021-03-18] MEDS: LISINOPRIL 10 MG TABLET PO SCH (08:23)
[2021-03-18] MEDS: CHOLECALCIFEROL (VITAMIN D3) 1,000 UNIT TABLET PO SCH (08:23)
[2021-03-18] MEDS: MEMANTINE 10 MG TABLET. PO SCH ×2 (08:24→20:36)
--- NOTE | 2021-03-18 09:49 | NUR ---
Nursing note: Pt has been irritable this AM, initially refusing to leave his room to come to breakfast. A couple minutes passed and pt decided to come to the dining room, slamming his bedroom door closed on his way out. Pt came and sat down at a table and did not engage in conversation. Pt was compliant in taking his meds whole after looking at them for a few seconds. Pt denies having any pain/concerns at time of assessment. He is currently in the day room watching TV. Will continue to monitor.
--- NOTE | 2021-03-18 15:35 | NUR ---
GEOVANNA gave Deedee at the [facility] an update on pt and his behaviors. Pt does appear to be more irritable and somewhat resistive to medications. Pt also continue to potentially have a/v hallucinations and delusional in that he reports his son thought he was . GEOVANNA went over medication changes and will get further treatment options tomorrow in treatment team. SW to give them an update on Tuesday.
--- NOTE | 2021-03-18 15:39 | NUR ---
GEOVANNA spoke with Yonathan and gave him an update on pt behaviors. GEOVANNA noted with Yonathan that pt was very irritable last night after his phone call and informed nursing that he just spoke with you and thought Yonathan had been . Yonathan reports that he speaks to pt daily with the exception of once because pt refused his phone call. Yonathan questioned if this will be a set back for pt to discharge next week in which GEOVANNA stated no; that this is part of pt diagnosis and would continue over time. Pt son has a friend of pt's with him and requested that he speak to him instead of Yonathan. We will try this and see how pt does. GEOAVNNA questioned Yonathan about the placement he is requesting and GEOVANNA will reach out to see if they will need anything from us.
[2021-03-18 15:50] VITALS: BP 118/60
[2021-03-18] MEDS: ATORVASTATIN CALCIUM 20 MG TABLET PO SCH (20:36)
[2021-03-18] MEDS: QUEtiapine 50 MG TABLET. PO SCH (20:37)
[2021-03-18 20:59] LABS: BILIRUBIN,URINE NEG (NEG); CLARITY,URINE CLEAR; COLOR,URINE YELLOW; GLUCOSE,URINE NEG (NEG)
[2021-03-18 21:00] LABS: BACTERIA,URINE FEW /HPF (0-FEW); NITRITE,URINE NEG (NEG); SQUAMOUS EPITHELIAL CELL,UR FEW /LPF
--- NOTE | 2021-03-18 23:56 | NUR ---
Pt withdrawn to his room all evening. Pt with flat affect and quick to answer questions. Compliant with whole medications. No agitation.
--- NOTE | 2021-03-19 00:49 | PN ---
DATE: 03/17/2021 PSYCHIATRIC PROGRESS NOTE This late entry, 03/17 covers elements not covered in my initial note, 03/17. SUBJECTIVE: The patient slept 9-1/2 hours previous night. Per KRUNAL Hendrix, the patient refused the COVID swab, did not get up for breakfast, then blaming staff for not waking him up. He is in the shower, yelling and has been noted to be hoarding snacks in his bed. He is somewhat agitated in the evening around dinnertime. REVIEW OF SYSTEMS: No CV, , pulmonary, eye, ENT system symptoms on review. Slept 9-1/2 hours previous night. MENTAL STATUS EXAMINATION: Oriented reasonably. Speech coherent, had some latency. Abstraction fair. Computation impaired. Language function intact. Mood and affect somewhat withdrawn. LABORATORY DATA: Reviewed. IMPRESSION: Major neurocognitive disorder; early Lewy body with delusion; depression; behavioral disturbance; anxiety disorder, unspecified; depressive disorder, unspecified. PLAN: Start Seroquel 25 mg at bedtime. Increase the Exelon patch from 9.5 mg a day to 13.3 mg a day after he has been on the 9.5 for 5 days. Maintain rest of the psychotropics unchanged including Namenda, Zyprexa as p.r.n., trazodone p.r.n., Zoloft 50 mg a [address]HY [address]: Ronald TID: [id number]
--- NOTE | 2021-03-19 00:55 | PN ---
DATE: 03/16/2021 PSYCHIATRIC PROGRESS NOTE This late entry 03/16 covers elements not covered in my initial note. SUBJECTIVE: I met with the patient in the evening and discussed with KRUNAL Hendrix and earlier in the day, the patient was discussed at treatment team meeting with entire team and the patient's son, Yonathan, attended the conference. The son is looking for placement in a facility near [place]. The patient is compliant with his medications. He gets more confused in the evening. We will need close psychiatric followup post-discharge. Discussed this with the son at some length. REVIEW OF SYSTEMS: I met with him in his room. REVIEW OF SYSTEMS: No CV, , pulmonary, eye, ENT system symptoms on review. MENTAL STATUS EXAMINATION: Oriented to himself, situation. Speech has some latency, coherent. Abstraction fair. Computation impaired. Language function intact. Mood and affect somewhat withdrawn. LABORATORY DATA: Reviewed. IMPRESSION: Unchanged from initial note. PLAN: No change from initial note, but discussed disposition options and educated the son on the patient's diagnosis and discussed the patient's current psychotropics at some length with the son. TYLOR/MIAH DR: Ronald TID: [id number]
[2021-03-19 05:42] VITALS: BP 132/86
--- NOTE | 2021-03-19 08:40 | PDOC ---
Exam Note: Mike Note: Late entry for 03/18/2021.Please also refer to the separate dictated note~for this date of service dictated separately.~Patient seen individually. Discussed the patient with Nursing staff reviewed the chart.~Reviewed interim history and current functioning. Reviewed vital signs,~Labs/ Radiology~and current medica tions noted below. Continue current treatment with the changes noted in the dictated addendum note Assessment: Vital Signs/I&O: Vital Signs Date Time Temp Pulse Resp B/P (MAP) Pulse Ox O2 Delivery O2 Flow Rate FiO2 03/19/21 05:42 97.3 56 16 132/86 (101) 97 03/17/21 05:48 Room Air I & O 03/18/21 03/18/21 03/19/21 14:59 22:59 06:59 Intake Total 600 ml 360 ml Balance 600 ml 360 ml Labs: Laboratory Tests Test 03/18/21 20:30 03/19/21 07:21 Urine Collection Type Unknown Urine Color Yellow Urine Clarity Clear Urine pH 5.5 Urine Specific [place] 1.025 Urine Protein Neg (NEG-TRACE) Urine Glucose (UA) Neg mg/dL (NEG) Urine Ketones (Stick) Trace mg/dL (NEG) Urine Blood Neg (NEG) Urine Nitrite Neg (NEG) Urine Bilirubin Neg (NEG) Urine Urobilinogen Dipstick 1.0 mg/dL (0.2 mg/dL) Urine Leukocyte Esterase Neg (NEG) Urine RBC 1-2 /HPF (0-2) Urine WBC 1-4 /HPF (0-4) Urine Squamous Epithelial Cells Few /LPF Urine Bacteria Few /HPF (0-FEW) Urine Mucus Slight /LPF Glucose (Fingerstick) 106 mg/dL (70-99) H Current Medications: Meds: Current Medications Medications (Trade) Dose Ordered Sig/Greg Route PRN Reason Start Time Stop Time Status Last Admin Dose Admin Quetiapine Fumarate (SEROquel) 50 mg HS PO 03/18/21 21:00 03/18/21 20:37 I have reviewed the current psychotropics carefully including drug interactions. Risk benefit ratio favors no change other than as noted in my dictated progress note. Diagnosis: Problems: (1) Impulse control disorder, unspecified (2) Lewy body dementia with behavioral disturbance (3) Anxiety disorder, unspecified (4) Dementia in Alzheimer's disease with depression (5) Dementia in Alzheimer's disease with delusions (6) Major neurocognitive disorder GABRIELLA LEDEZMA MD Mar 19, 2021 08:40
[2021-03-19] MEDS: LISINOPRIL 10 MG TABLET PO SCH (09:13)
[2021-03-19] MEDS: MEMANTINE 10 MG TABLET. PO SCH ×2 (09:13→20:42)
[2021-03-19] MEDS: SERTRALINE 50 MG TABLET. PO SCH (09:13)
[2021-03-19] MEDS: ASPIRIN CHEWABLE 81 MG TABLET. PO SCH (09:13)
[2021-03-19] MEDS: metFORMIN 500 MG TABLET PO SCH ×2 (09:13→17:34)
[2021-03-19] MEDS: CHOLECALCIFEROL (VITAMIN D3) 1,000 UNIT TABLET PO SCH (09:13)
[2021-03-19] MEDS: RIVASTIGMINE 9.5MG PATCH. TD SCH (09:14)
--- NOTE | 2021-03-19 11:10 | NUR ---
WEEKLY ACTIVITY THERAPY NOTE Date of Admission:03/04/21 Date of AT Assessment: 03/05/2021 Precipitating behaviors that initiated intake and admission:Patient admitted from home via [place] [facility] for reportedly leaving sons house at night and knocking on neighbors door at 2am, being paranoid about neighbors causing trouble, losing items, and driving to [place] and believed he was in [place] per police. Goal aimed: to increase engagement Initial Goal: Pt. will participate in at least three individual or Activity Therapy groups before discharge. Weekly progress towards goal: on track (03/11-Tv show theme songs, 03/18-cristobal chi and would you rather) Group participation level: 1 full Weekly highlights: participated in cristobal chi exercises with encouragement and answered would you rather questions independently Behaviors observed: withdrawn to room, pleasant and calm Plan: no change to goal Beneficial adaptations:encouragement, socialization
--- NOTE | 2021-03-19 13:34 | NUR ---
Nursing note: Pt in his room at time of AM med pass and assessment. He is pleasant, med compliant and cooperative. Pt continues to be withdrawn to his room with a flat affect, but appears to be in much better spirits than the past couple days. He is currently in the day room. Will continue to monitor.
--- NOTE | 2021-03-19 14:00 | NUR ---
GEOVANNA contacted Sedrick at [facility] in [place] to gather more information on placement. Sedrick reports that pt son has reached out about placing his [place] there and questioned if [place]. GEOVANNA informed Sedrick that [place] not [place] as SW would have concern that he would walk out of the building. Pt greatest past time is driving and if he had a confused moment, there would be no doubt he would attempt to walk out and find his truck. Sedrick reports that [place] is locked and GEOVANNA feels that would be more appropriate. Sedrick is willing to look at a referral if GEOVANNA sent it over.
--- NOTE | 2021-03-19 15:25 | NUR ---
Treatment team update: Pt is eating 100% of meals and slept 7.25 hours last night. Pt continues to be withdrawn to his room and does not socialize much with his peers. Pt did attend one group this week with minimal participation; he needed encouragement to participate. Pt was not irritable last night after receiving a phone call from a friend of the family. Pt son is looking for placement closest to him in [place] and [facility] getting [facility] to aid in placement as needed. AZRAOS for the middle to the end of next week.
[2021-03-19 15:38] VITALS: BP 118/69
[2021-03-19] MEDS: ATORVASTATIN CALCIUM 20 MG TABLET PO SCH (20:42)
[2021-03-19] MEDS: QUEtiapine 50 MG TABLET. PO SCH (20:42)
--- NOTE | 2021-03-19 21:39 | PDOC ---
Exam Note: Mike Note: Please also refer to the separate dictated note~for this date of service dictated separately.~Patient seen individually. Discussed the patient with Nursing staff reviewed the chart.~Reviewed interim history and current functioning. Reviewed vital signs,~Labs/ Radiology~and current medications noted below. Continue current treatment with the changes noted in the dictated addendum note Assessment: Vital Signs/I&O: Vital Signs Date Time Temp Pulse Resp B/P (MAP) Pulse Ox O2 Delivery O2 Flow Rate FiO2 03/19/21 15:38 97.2 63 16 118/69 (85) 94 Room Air I & O 03/18/21 03/18/21 03/19/21 15:00 23:00 07:00 Intake Total 600 ml 360 ml Balance 600 ml 360 ml Labs: Laboratory Tests Test 03/19/21 07:21 Glucose (Fingerstick) 106 mg/dL (70-99) H Current Medications: Meds: Laboratory Tests Test 03/19/21 07:21 Glucose (Fingerstick) 106 mg/dL Current Medications Medications (Trade) Dose Ordered Sig/Greg Route PRN Reason Start Time Stop Time Status Last Admin Dose Admin Acetaminophen (Tylenol) 650 mg PRN Q6HRS PRN PO MILD PAIN / TEMP > 100.3'F 03/04/21 16:15 Multi-Ingredient Ointment (Analgesic [place]) 1 donn PRN QID PRN TP MUSCLE PAIN 03/04/21 16:15 Al Hydroxide/Mg Hydroxide (Mylanta Plus Xs) 15 ml PRN AFTMEALHC PRN PO DYSPEPSIA 03/04/21 16:15 Magnesium Hydroxide (Milk Of Magnesia) 2,400 mg PRN QHS PRN PO CONSTIPATION 03/04/21 16:15 Aspirin (Aspirin Chewable) 81 mg DAILY PO 03/05/21 09:00 03/19/21 09:13 Lisinopril (Prinivil) 10 mg DAILY PO 03/05/21 09:00 03/19/21 09:13 Vitamin D (Vitamin D3) 25 unit DAILY PO 03/05/21 09:00 03/07/21 10:29 DC 03/05/21 09:14 Metformin HCl (Glucophage) 1,000 mg BIDWMEALS PO 03/04/21 17:00 03/19/21 17:34 Atorvastatin Calcium (Lipitor) 80 mg QHS PO 03/04/21 21:00 03/19/21 20:42 Olanzapine (ZyPREXA ZYDIS) 2.5 mg PRN Q2HR PRN PO PSYCHOSIS 03/05/21 17:00 03/05/21 17:02 Vitamin D (Vitamin D3) 1,000 unit DAILY PO 03/08/21 09:00 03/19/21 09:13 Memantine (Namenda) 5 mg BID PO 03/07/21 21:00 03/11/21 18:16 DC 03/11/21 08:36 Sertraline HCl (Zoloft) 25 mg DAILY PO 03/08/21 09:00 03/10/21 20:16 DC 03/10/21 08:40 Rivastigmine (Exelon) 4.6 patch DAILY TD 03/08/21 09:00 03/09/21 13:31 DC 03/09/21 08:58 Rivastigmine (Exelon) 9.5 patch DAILY TD 03/15/21 09:00 Cancel Rivastigmine (Exelon) 1 patch DAILY TD 03/15/21 09:00 03/19/21 14:00 DC 03/19/21 09:14 Rivastigmine (Exelon) 1 patch DAILY TD 03/10/21 09:00 03/14/21 23:50 DC 03/14/21 09:00 Sertraline HCl (Zoloft) 50 mg DAILY PO 03/11/21 09:00 03/19/21 09:13 Trazodone HCl (Desyrel) 50 mg PRN QHS PRN PO INSOMNIA 03/10/21 20:15 Memantine (Namenda) 5 mg DAILY PO 03/12/21 09:00 03/15/21 20:10 DC 03/15/21 07:59 Memantine (Namenda) 10 mg QHS PO 03/11/21 21:00 03/15/21 22:00 DC 03/15/21 21:02 Memantine (Namenda) 10 mg BID PO 03/16/21 09:00 03/19/21 20:42 Rivastigmine (Exelon 13.3mg) 1 patch DAILY TD 03/20/21 09:00 Quetiapine Fumarate (SEROquel) 25 mg HS PO 03/17/21 21:00 03/18/21 16:11 DC 03/17/21 21:41 Quetiapine Fumarate (SEROquel) 50 mg HS PO 03/18/21 21:00 03/19/21 20:42 I have reviewed the current psychotropics carefully including drug interactions. Risk benefit ratio favors no change other than as noted in my dictated progress note. Diagnosis: Problems: (1) Impulse control disorder, unspecified (2) Lewy body dementia with behavioral disturbance (3) Anxiety disorder, unspecified (4) Dementia in Alzheimer's disease with depression (5) Dementia in Alzheimer's disease with delusions (6) Major neurocognitive disorder (7) Major depressive disorder GABRIELLA LEDEZMA MD Mar 19, 2021 21:39
--- NOTE | 2021-03-19 23:07 | NUR ---
Nursing Note The patient was located in his room for his assessment and medication pass. The patient was alert to name only but had been sleeping prior to his assessment and had some difficulty hearing this nurse. The patient was compliant with his medication and took them whole. The patient is currently sleeping in his room.
[2021-03-20 06:32] VITALS: BP 133/76
[2021-03-20] MEDS: SERTRALINE 50 MG TABLET. PO SCH (08:06)
[2021-03-20] MEDS: CHOLECALCIFEROL (VITAMIN D3) 1,000 UNIT TABLET PO SCH (08:06)
[2021-03-20] MEDS: ASPIRIN CHEWABLE 81 MG TABLET. PO SCH (08:06)
[2021-03-20] MEDS: metFORMIN 500 MG TABLET PO SCH ×2 (08:06→17:21)
[2021-03-20] MEDS: LISINOPRIL 10 MG TABLET PO SCH (08:06)
[2021-03-20] MEDS: MEMANTINE 10 MG TABLET. PO SCH ×2 (08:06→20:07)
[2021-03-20] MEDS: RIVASTIGMINE 13.3MG PATCH. TD SCH (08:07)
--- NOTE | 2021-03-20 09:59 | NUR ---
Pt presents as withdrawn and not very social this morning. He does not interact much with others, and answers assessment questions with few words. He presents with a flat affect. He is compliant with morning medications and voices no concerns at this time. He is absent of verbal/physical aggression, absent of SI behaviors, and has not been disruptive on the unit. Plan of care continues, will pass to next shift.
[2021-03-20 15:34] VITALS: BP 122/69
[2021-03-20] MEDS: QUEtiapine 50 MG TABLET. PO SCH (20:06)
[2021-03-20] MEDS: ATORVASTATIN CALCIUM 20 MG TABLET PO SCH (20:07)
--- NOTE | 2021-03-20 21:51 | PDOC ---
Exam Note: Mike Note: Please also refer to the separate dictated note~for this date of service dictated separately.~Patient seen individually. Discussed the patient with Nursing staff reviewed the chart.~Reviewed interim history and current functioning. Reviewed vital signs,~Labs/ Radiology~and current medications noted below. Continue current treatment with the changes noted in the dictated addendum note Assessment: Vital Signs/I&O: Vital Signs Date Time Temp Pulse Resp B/P (MAP) Pulse Ox O2 Delivery O2 Flow Rate FiO2 03/20/21 15:34 97.9 75 18 122/69 (86) 97 03/20/21 06:32 Room Air I & O 03/19/21 03/19/21 03/20/21 15:00 23:00 07:00 Intake Total 360 ml 240 ml Balance 360 ml 240 ml Labs: Laboratory Tests Test 03/20/21 07:24 Glucose (Fingerstick) 91 mg/dL (70-99) Current Medications: Meds: Laboratory Tests Test 03/20/21 07:24 Glucose (Fingerstick) 91 mg/dL Current Medications Medications (Trade) Dose Ordered Sig/Greg Route PRN Reason Start Time Stop Time Status Last Admin Dose Admin Acetaminophen (Tylenol) 650 mg PRN Q6HRS PRN PO MILD PAIN / TEMP > 100.3'F 03/04/21 16:15 Multi-Ingredient Ointment (Analgesic [place]) 1 donn PRN QID PRN TP MUSCLE PAIN 03/04/21 16:15 Al Hydroxide/Mg Hydroxide (Mylanta Plus Xs) 15 ml PRN AFTMEALHC PRN PO DYSPEPSIA 03/04/21 16:15 Magnesium Hydroxide (Milk Of Magnesia) 2,400 mg PRN QHS PRN PO CONSTIPATION 03/04/21 16:15 Aspirin (Aspirin Chewable) 81 mg DAILY PO 03/05/21 09:00 03/20/21 08:06 Lisinopril (Prinivil) 10 mg DAILY PO 03/05/21 09:00 03/20/21 08:06 Vitamin D (Vitamin D3) 25 unit DAILY PO 03/05/21 09:00 03/07/21 10:29 DC 03/05/21 09:14 Metformin HCl (Glucophage) 1,000 mg BIDWMEALS PO 03/04/21 17:00 03/20/21 17:21 Atorvastatin Calcium (Lipitor) 80 mg QHS PO 03/04/21 21:00 03/20/21 20:07 Olanzapine (ZyPREXA ZYDIS) 2.5 mg PRN Q2HR PRN PO PSYCHOSIS 03/05/21 17:00 03/05/21 17:02 Vitamin D (Vitamin D3) 1,000 unit DAILY PO 03/08/21 09:00 03/20/21 08:06 Memantine (Namenda) 5 mg BID PO 03/07/21 21:00 03/11/21 18:16 DC 03/11/21 08:36 Sertraline HCl (Zoloft) 25 mg DAILY PO 03/08/21 09:00 03/10/21 20:16 DC 03/10/21 08:40 Rivastigmine (Exelon) 4.6 patch DAILY TD 03/08/21 09:00 03/09/21 13:31 DC 03/09/21 08:58 Rivastigmine (Exelon) 9.5 patch DAILY TD 03/15/21 09:00 Cancel Rivastigmine (Exelon) 1 patch DAILY TD 03/15/21 09:00 03/19/21 14:00 DC 03/19/21 09:14 Rivastigmine (Exelon) 1 patch DAILY TD 03/10/21 09:00 03/14/21 23:50 DC 03/14/21 09:00 Sertraline HCl (Zoloft) 50 mg DAILY PO 03/11/21 09:00 03/20/21 08:06 Trazodone HCl (Desyrel) 50 mg PRN QHS PRN PO INSOMNIA 03/10/21 20:15 Memantine (Namenda) 5 mg DAILY PO 03/12/21 09:00 03/15/21 20:10 DC 03/15/21 07:59 Memantine (Namenda) 10 mg QHS PO 03/11/21 21:00 03/15/21 22:00 DC 03/15/21 21:02 Memantine (Namenda) 10 mg BID PO 03/16/21 09:00 03/20/21 20:07 Rivastigmine (Exelon 13.3mg) 1 patch DAILY TD 03/20/21 09:00 03/20/21 08:07 Quetiapine Fumarate (SEROquel) 25 mg HS PO 03/17/21 21:00 03/18/21 16:11 DC 03/17/21 21:41 Quetiapine Fumarate (SEROquel) 50 mg HS PO 03/18/21 21:00 03/20/21 20:06 Current Medications Medications (Trade) Dose Ordered Sig/Greg Route PRN Reason Start Time Stop Time Status Last Admin Dose Admin Rivastigmine (Exelon 13.3mg) 1 patch DAILY TD 03/20/21 09:00 03/20/21 08:07 I have reviewed the current psychotropics carefully including drug interactions. Risk benefit ratio favors no change other than as noted in my dictated progress note. Diagnosis: Problems: (1) Impulse control disorder, unspecified (2) Lewy body dementia with behavioral disturbance (3) Anxiety disorder, unspecified (4) Dementia in Alzheimer's disease with depression (5) Dementia in Alzheimer's disease with delusions (6) Major neurocognitive disorder GABRIELLA LEDEZMA MD Mar 20, 2021 21:51
--- NOTE | 2021-03-20 22:00 | NUR ---
The patient is located in his room on assumption of care. Sleeping, but rouses easily to name being called. Compliant with assessments and medications taken whole. He does not volunteer information, but answers questions when asked. Alert to self, , and that he is in the hospital. No irritability or paranoid statements/behaviors. Patient denies any pain or discomfort. He appears to be sleeping comfortably at present time. Will continue to monitor.
[2021-03-21 06:20] VITALS: BP 117/74
[2021-03-21] MEDS: SERTRALINE 50 MG TABLET. PO SCH (09:03)
[2021-03-21] MEDS: CHOLECALCIFEROL (VITAMIN D3) 1,000 UNIT TABLET PO SCH (09:03)
[2021-03-21] MEDS: ASPIRIN CHEWABLE 81 MG TABLET. PO SCH (09:03)
[2021-03-21] MEDS: RIVASTIGMINE 13.3MG PATCH. TD SCH (09:03)
[2021-03-21] MEDS: LISINOPRIL 10 MG TABLET PO SCH (09:04)
[2021-03-21] MEDS: MEMANTINE 10 MG TABLET. PO SCH ×2 (09:04→20:24)
[2021-03-21] MEDS: metFORMIN 500 MG TABLET PO SCH ×2 (09:04→17:29)
--- NOTE | 2021-03-21 14:27 | NUR ---
RN Day Shift Note: Pt presents with neutral mood/affect. Pt is calm and cooperative. Pt is withdrawn and keeps to himself. Pt is noted to spend time sleeping in his room today. Pt does not socialize with others. Pt follows rules/routines on the unit. Pt is medication compliant. Pt's vitals are WNL. Pt slept 7.75 hours last night. Will continue to monitor.
[2021-03-21 16:09] VITALS: BP 114/67
[2021-03-21] MEDS: ATORVASTATIN CALCIUM 20 MG TABLET PO SCH (20:24)
[2021-03-21] MEDS: QUEtiapine 50 MG TABLET. PO SCH (20:24)
[2021-03-22 06:20] VITALS: BP 128/78
[2021-03-22] MEDS: MEMANTINE 10 MG TABLET. PO SCH ×2 (08:39→19:44)
[2021-03-22] MEDS: CHOLECALCIFEROL (VITAMIN D3) 1,000 UNIT TABLET PO SCH (08:39)
[2021-03-22] MEDS: metFORMIN 500 MG TABLET PO SCH ×2 (08:39→17:32)
[2021-03-22] MEDS: ASPIRIN CHEWABLE 81 MG TABLET. PO SCH (08:39)
[2021-03-22] MEDS: LISINOPRIL 10 MG TABLET PO SCH (08:39)
[2021-03-22] MEDS: SERTRALINE 50 MG TABLET. PO SCH (08:39)
[2021-03-22] MEDS: RIVASTIGMINE 13.3MG PATCH. TD SCH (08:39)
--- NOTE | 2021-03-22 10:03 | PDOC ---
Exam Note: Mike Note: This note is a late entry for 03/18/2021 covers elements not covered in my initial note. Subjective: The patient was seen individually in the evening of 03/18/2021 with Raegan HECTOR, discussed and reviewed the chart. The patient slept 8 hours previous night. Reportedly previous evening, the patient was irritable not in a good mood per nursing staff and this persisted into the morning. He was upset regarding his roommate, getting COVID nasal swab and later slammed the door but redirected. We will check UA to make sure UTI is not worsening his agitation. Review of Systems: No CV, , pulmonary, eye, ENT system symptoms on review. He did complain of feeling cold. I adjusted the covers on his AC vent and he was appreciative. Mental Status Exam: The patient is oriented to himself and situation. I met with him in his room. Speech is coherent has some latency. Abstraction fair. Computation impaired. Language function intact. Mood and affect remains anxious. Laboratory Data: Reviewed. 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 Anxiety disorder unspecified. Impulse control disorder. Plan: Check UA to make sure there is no UTI to account for the above changes. Increase Seroquel from 25 mg h.s. to 50 mg h.s. Maintain rest of the psychotropics unchanged. Assessment: Vital Signs/I&O: Vital Signs Date Time Temp Pulse Resp B/P (MAP) Pulse Ox O2 Delivery O2 Flow Rate FiO2 03/22/21 08:39 63 128/78 03/22/21 06:20 96.8 16 97 Room Air I & O 03/21/21 03/21/21 03/22/21 15:00 23:00 07:00 Intake Total 840 ml 360 ml Balance 840 ml 360 ml Labs: Laboratory Tests Test 03/22/21 07:31 Glucose (Fingerstick) 106 mg/dL (70-99) H Current Medications: Meds: Laboratory Tests Test 03/22/21 07:31 Glucose (Fingerstick) 106 mg/dL Current Medications Medications (Trade) Dose Ordered Sig/Greg Route PRN Reason Start Time Stop Time Status Last Admin Dose Admin Acetaminophen (Tylenol) 650 mg PRN Q6HRS PRN PO MILD PAIN / TEMP > 100.3'F 03/04/21 16:15 Multi-Ingredient Ointment (Analgesic [place]) 1 donn PRN QID PRN TP MUSCLE PAIN 03/04/21 16:15 Al Hydroxide/Mg Hydroxide (Mylanta Plus Xs) 15 ml PRN AFTMEALHC PRN PO DYSPEPSIA 03/04/21 16:15 Magnesium Hydroxide (Milk Of Magnesia) 2,400 mg PRN QHS PRN PO CONSTIPATION 03/04/21 16:15 Aspirin (Aspirin Chewable) 81 mg DAILY PO 03/05/21 09:00 03/22/21 08:39 Lisinopril (Prinivil) 10 mg DAILY PO 03/05/21 09:00 03/22/21 08:39 Vitamin D (Vitamin D3) 25 unit DAILY PO 03/05/21 09:00 03/07/21 10:29 DC 03/05/21 09:14 Metformin HCl (Glucophage) 1,000 mg BIDWMEALS PO 03/04/21 17:00 03/22/21 08:39 Atorvastatin Calcium (Lipitor) 80 mg QHS PO 03/04/21 21:00 03/21/21 20:24 Olanzapine (ZyPREXA ZYDIS) 2.5 mg PRN Q2HR PRN PO PSYCHOSIS 03/05/21 17:00 03/05/21 17:02 Vitamin D (Vitamin D3) 1,000 unit DAILY PO 03/08/21 09:00 03/22/21 08:39 Memantine (Namenda) 5 mg BID PO 03/07/21 21:00 03/11/21 18:16 DC 03/11/21 08:36 Sertraline HCl (Zoloft) 25 mg DAILY PO 03/08/21 09:00 03/10/21 20:16 DC 03/10/21 08:40 Rivastigmine (Exelon) 4.6 patch DAILY TD 03/08/21 09:00 03/09/21 13:31 DC 03/09/21 08:58 Rivastigmine (Exelon) 9.5 patch DAILY TD 03/15/21 09:00 Cancel Rivastigmine (Exelon) 1 patch DAILY TD 03/15/21 09:00 03/19/21 14:00 DC 03/19/21 09:14 Rivastigmine (Exelon) 1 patch DAILY TD 03/10/21 09:00 03/14/21 23:50 DC 03/14/21 09:00 Sertraline HCl (Zoloft) 50 mg DAILY PO 03/11/21 09:00 03/22/21 08:39 Trazodone HCl (Desyrel) 50 mg PRN QHS PRN PO INSOMNIA 03/10/21 20:15 Memantine (Namenda) 5 mg DAILY PO 03/12/21 09:00 03/15/21 20:10 DC 03/15/21 07:59 Memantine (Namenda) 10 mg QHS PO 03/11/21 21:00 03/15/21 22:00 DC 03/15/21 21:02 Memantine (Namenda) 10 mg BID PO 03/16/21 09:00 03/22/21 08:39 Rivastigmine (Exelon 13.3mg) 1 patch DAILY TD 03/20/21 09:00 03/22/21 08:39 Quetiapine Fumarate (SEROquel) 25 mg HS PO 03/17/21 21:00 03/18/21 16:11 DC 03/17/21 21:41 Quetiapine Fumarate (SEROquel) 50 mg HS PO 03/18/21 21:00 03/21/21 20:24 I have reviewed the current psychotropics carefully including drug interactions. Risk benefit ratio favors no change other than as noted in my dictated progress note. Diagnosis: Problems: (1) Impulse control disorder, unspecified (2) Lewy body dementia with behavioral disturbance (3) Anxiety disorder, unspecified (4) Dementia in Alzheimer's disease with depression (5) Dementia in Alzheimer's disease with delusions (6) Major neurocognitive disorder GABRIELLA LEDEZMA MD Mar 22, 2021 10:03
--- NOTE | 2021-03-22 10:17 | PDOC ---
Exam Note: Mike Note: This note is a late entry for 03/19/2021 covers elements not covered in my initial note. Subjective: The patient was reviewed at treatment team meeting individually in the morning on 03/19/2021 with Mayra Blackwood, Lizeth Thomas, and Nay Martinez (social services director), Michelle, activity therapy and Raegan HECTOR, discussed and reviewed the chart. The patient slept 7-1/4 hours previous night. Average sleep 8 hours. Appetite 100%. He attended one group in the past week and that was the day before. He has been somewhat flat, withdrawn. UA is negative. Discussed with Uche HECTOR in the evening as well. He is otherwise pleasant, calm. I met with him in his room. Review of Systems: No CV, , pulmonary, eye, ENT system symptoms on review. Reliability varies. Mental Status Exam: The patient is oriented to himself and situation. Speech is coherent. Abstraction fair. Computation impaired. Language function intact. He gave me thumbs up indicating that he is well. No suicidal or homicidal ideation. Laboratory Data: Reviewed. 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 Anxiety disorder unspecified. Impulse control disorde r. Plan: We will increase the patients Zoloft from 50 mg a day to 75 mg a day. Maintain rest of the psychotropics unchanged. Assessment: Vital Signs/I&O: Vital Signs Date Time Temp Pulse Resp B/P (MAP) Pulse Ox O2 Delivery O2 Flow Rate FiO2 03/22/21 08:39 63 128/78 03/22/21 06:20 96.8 16 97 Room Air l I & O 03/21/21 03/21/21 03/22/21 15:00 23:00 07:00 Intake Total 840 ml 360 ml Balance 840 ml 360 ml Labs: Laboratory Tests Test 03/22/21 07:31 Glucose (Fingerstick) 106 mg/dL (70-99) H Current Medications: Meds: Laboratory Tests Test 03/22/21 07:31 Glucose (Fingerstick) 106 mg/dL Current Medications Medications (Trade) Dose Ordered Sig/Greg Route PRN Reason Start Time Stop Time Status Last Admin Dose Admin Acetaminophen (Tylenol) 650 mg PRN Q6HRS PRN PO MILD PAIN / TEMP > 100.3'F 03/04/21 16:15 Multi-Ingredient Ointment (Analgesic [place]) 1 donn PRN QID PRN TP MUSCLE PAIN 03/04/21 16:15 Al Hydroxide/Mg Hydroxide (Mylanta Plus Xs) 15 ml PRN AFTMEALHC PRN PO DYSPEPSIA 03/04/21 16:15 Magnesium Hydroxide (Milk Of Magnesia) 2,400 mg PRN QHS PRN PO CONSTIPATION 03/04/21 16:15 Aspirin (Aspirin Chewable) 81 mg DAILY PO 03/05/21 09:00 03/22/21 08:39 Lisinopril (Prinivil) 10 mg DAILY PO 03/05/21 09:00 03/22/21 08:39 Vitamin D (Vitamin D3) 25 unit DAILY PO 03/05/21 09:00 03/07/21 10:29 DC 03/05/21 09:14 Metformin HCl (Glucophage) 1,000 mg BIDWMEALS PO 03/04/21 17:00 03/22/21 08:39 Atorvastatin Calcium (Lipitor) 80 mg QHS PO 03/04/21 21:00 03/21/21 20:24 Olanzapine (ZyPREXA ZYDIS) 2.5 mg PRN Q2HR PRN PO PSYCHOSIS 03/05/21 17:00 03/05/21 17:02 Vitamin D (Vitamin D3) 1,000 unit DAILY PO 03/08/21 09:00 03/22/21 08:39 Memantine (Namenda) 5 mg BID PO 03/07/21 21:00 03/11/21 18:16 DC 03/11/21 08:36 Sertraline HCl (Zoloft) 25 mg DAILY PO 03/08/21 09:00 03/10/21 20:16 DC 03/10/21 08:40 Rivastigmine (Exelon) 4.6 patch DAILY TD 03/08/21 09:00 03/09/21 13:31 DC 03/09/21 08:58 Rivastigmine (Exelon) 9.5 patch DAILY TD 03/15/21 09:00 Cancel Rivastigmine (Exelon) 1 patch DAILY TD 03/15/21 09:00 03/19/21 14:00 DC 03/19/21 09:14 Rivastigmine (Exelon) 1 patch DAILY TD 03/10/21 09:00 03/14/21 23:50 DC 03/14/21 09:00 Sertraline HCl (Zoloft) 50 mg DAILY PO 03/11/21 09:00 03/22/21 08:39 Trazodone HCl (Desyrel) 50 mg PRN QHS PRN PO INSOMNIA 03/10/21 20:15 Memantine (Namenda) 5 mg DAILY PO 03/12/21 09:00 03/15/21 20:10 DC 03/15/21 07:59 Memantine (Namenda) 10 mg QHS PO 03/11/21 21:00 03/15/21 22:00 DC 03/15/21 21:02 Memantine (Namenda) 10 mg BID PO 03/16/21 09:00 03/22/21 08:39 Rivastigmine (Exelon 13.3mg) 1 patch DAILY TD 03/20/21 09:00 03/22/21 08:39 Quetiapine Fumarate (SEROquel) 25 mg HS PO 03/17/21 21:00 03/18/21 16:11 DC 03/17/21 21:41 Quetiapine Fumarate (SEROquel) 50 mg HS PO 03/18/21 21:00 03/21/21 20:24 I have reviewed the current psychotropics carefully including drug interactions. Risk benefit ratio favors no change other than as noted in my dictated progress note. Diagnosis: Problems: (1) Impulse control disorder, unspecified (2) Lewy body dementia with behavioral disturbance (3) Anxiety disorder, unspecified (4) Dementia in Alzheimer's disease with depression (5) Dementia in Alzheimer's disease with delusions (6) Major neurocognitive disorder GABRIELLA LEDEZMA MD Mar 22, 2021 10:16
--- NOTE | 2021-03-22 10:31 | PDOC ---
Exam Note: Mike Note: Late entry for 03/21/21. Please also refer to the separate dictated note~for this date of service dictated separately.~Patient seen individually. Discussed the patient with Nursing staff reviewed the chart.~Reviewed interim history and current functioning. Reviewed vital signs,~Labs/ Radiology~and current medicat ions noted below. Continue current treatment with the changes noted in the dictated addendum note Assessment: Vital Signs/I&O: Vital Signs Date Time Temp Pulse Resp B/P (MAP) Pulse Ox O2 Delivery O2 Flow Rate FiO2 03/22/21 08:39 63 128/78 03/22/21 06:20 96.8 16 97 Room Air I & O 03/21/21 03/21/21 03/22/21 15:00 23:00 07:00 Intake Total 840 ml 360 ml Balance 840 ml 360 ml Labs: Laboratory Tests Test 03/22/21 07:31 Glucose (Fingerstick) 106 mg/dL (70-99) H Current Medications: Meds: Laboratory Tests Test 03/22/21 07:31 Glucose (Fingerstick) 106 mg/dL Current Medications Medications (Trade) Dose Ordered Sig/Greg Route PRN Reason Start Time Stop Time Status Last Admin Dose Admin Acetaminophen (Tylenol) 650 mg PRN Q6HRS PRN PO MILD PAIN / TEMP > 100.3'F 03/04/21 16:15 Multi-Ingredient Ointment (Analgesic [place]) 1 donn PRN QID PRN TP MUSCLE PAIN 03/04/21 16:15 Al Hydroxide/Mg Hydroxide (Mylanta Plus Xs) 15 ml PRN AFTMEALHC PRN PO DYSPEPSIA 03/04/21 16:15 Magnesium Hydroxide (Milk Of Magnesia) 2,400 mg PRN QHS PRN PO CONSTIPATION 03/04/21 16:15 Aspirin (Aspirin Chewable) 81 mg DAILY PO 03/05/21 09:00 03/22/21 08:39 Lisinopril (Prinivil) 10 mg DAILY PO 03/05/21 09:00 03/22/21 08:39 Vitamin D (Vitamin D3) 25 unit DAILY PO 03/05/21 09:00 03/07/21 10:29 DC 03/05/21 09:14 Metformin HCl (Glucophage) 1,000 mg BIDWMEALS PO 03/04/21 17:00 03/22/21 08:39 Atorvastatin Calcium (Lipitor) 80 mg QHS PO 03/04/21 21:00 03/21/21 20:24 Olanzapine (ZyPREXA ZYDIS) 2.5 mg PRN Q2HR PRN PO PSYCHOSIS 03/05/21 17:00 03/05/21 17:02 Vitamin D (Vitamin D3) 1,000 unit DAILY PO 03/08/21 09:00 03/22/21 08:39 Memantine (Namenda) 5 mg BID PO 03/07/21 21:00 03/11/21 18:16 DC 03/11/21 08:36 Sertraline HCl (Zoloft) 25 mg DAILY PO 03/08/21 09:00 03/10/21 20:16 DC 03/10/21 08:40 Rivastigmine (Exelon) 4.6 patch DAILY TD 03/08/21 09:00 03/09/21 13:31 DC 03/09/21 08:58 Rivastigmine (Exelon) 9.5 patch DAILY TD 03/15/21 09:00 Cancel Rivastigmine (Exelon) 1 patch DAILY TD 03/15/21 09:00 03/19/21 14:00 DC 03/19/21 09:14 Rivastigmine (Exelon) 1 patch DAILY TD 03/10/21 09:00 03/14/21 23:50 DC 03/14/21 09:00 Sertraline HCl (Zoloft) 50 mg DAILY PO 03/11/21 09:00 03/22/21 08:39 Trazodone HCl (Desyrel) 50 mg PRN QHS PRN PO INSOMNIA 03/10/21 20:15 Memantine (Namenda) 5 mg DAILY PO 03/12/21 09:00 03/15/21 20:10 DC 03/15/21 07:59 Memantine (Namenda) 10 mg QHS PO 03/11/21 21:00 03/15/21 22:00 DC 03/15/21 21:02 Memantine (Namenda) 10 mg BID PO 03/16/21 09:00 03/22/21 08:39 Rivastigmine (Exelon 13.3mg) 1 patch DAILY TD 03/20/21 09:00 03/22/21 08:39 Quetiapine Fumarate (SEROquel) 25 mg HS PO 03/17/21 21:00 03/18/21 16:11 DC 03/17/21 21:41 Quetiapine Fumarate (SEROquel) 50 mg HS PO 03/18/21 21:00 03/21/21 20:24 I have reviewed the current psychotropics carefully including drug interactions. Risk benefit ratio favors no change other than as noted in my dictated progress note. Diagnosis: Problems: (1) Impulse control disorder, unspecified (2) Lewy body dementia with behavioral disturbance (3) Anxiety disorder, unspecified (4) Dementia in Alzheimer's disease with depression (5) Dementia in Alzheimer's disease with delusions (6) Major neurocognitive disorder GABRIELLA LEDEZMA MD Mar 22, 2021 10:31
--- NOTE | 2021-03-22 10:42 | NUR ---
Nursing note: Pt in dining room at time of AM med pass and assessment. He is pleasant, med compliant and cooperative. Pt denies having any pain/concerns. He is currently resting quietly in his room. Will continue to monitor.
[2021-03-22 16:17] VITALS: BP 121/71
[2021-03-22] MEDS: ATORVASTATIN CALCIUM 20 MG TABLET PO SCH (19:43)
[2021-03-22] MEDS: QUEtiapine 50 MG TABLET. PO SCH (19:44)
[2021-03-23 05:59] VITALS: BP 115/77
[2021-03-23] MEDS: LISINOPRIL 10 MG TABLET PO SCH (08:09)
[2021-03-23] MEDS: MEMANTINE 10 MG TABLET. PO SCH ×2 (08:09→20:10)
[2021-03-23] MEDS: CHOLECALCIFEROL (VITAMIN D3) 1,000 UNIT TABLET PO SCH (08:09)
[2021-03-23] MEDS: ASPIRIN CHEWABLE 81 MG TABLET. PO SCH (08:09)
[2021-03-23] MEDS: metFORMIN 500 MG TABLET PO SCH ×2 (08:09→16:54)
[2021-03-23] MEDS: RIVASTIGMINE 13.3MG PATCH. TD SCH (08:10)
[2021-03-23] MEDS: SERTRALINE 25 MG TABLET. PO SCH (08:18)
--- NOTE | 2021-03-23 08:36 | PDOC ---
Exam Note: Mike Note: This note is a late entry for 03/20/2021 covers elements not covered in my initial note. Subjective: The patient was seen individually in the evening of 03/20/2021 with Betsy HECTOR, discussed and reviewed the chart. The patient slept 11 hours previous night. Patient remains withdrawn, isolative in his room which is where I met with him. Review of Systems: No CV, , pulmonary, eye, ENT system symptoms on review. He does get little more confused late in the evening, better during the day. Mental Status Exam: The patient is oriented to himself and situation. Speech is coherent. Abstraction fair. Computation impaired. Language function intact. No suicidal or homicidal ideation. Laboratory Data: Reviewed. 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 Anxiety disorder unspecified. Impulse control disorder. Plan: Maintain rest of the psychotropics unchanged. Assessment: Vital Signs/I&O: Vital Signs Date Time Temp Pulse Resp B/P (MAP) Pulse Ox O2 Delivery O2 Flow Rate FiO2 03/23/21 08:09 57 115/77 03/23/21 05:59 97.4 16 95 03/22/21 06:20 Room Air I & O 03/22/21 03/22/21 03/23/21 15:00 23:00 07:00 Intake Total 720 ml 240 ml Balance 720 ml 240 ml Labs: Laboratory Tests Test 03/23/21 07:40 Glucose (Fingerstick) 100 mg/dL (70-99) H Current Medications: Meds: Laboratory Tests Test 03/23/21 07:40 Glucose (Fingerstick) 100 mg/dL Current Medications Medications (Trade) Dose Ordered Sig/Greg Route PRN Reason Start Time Stop Time Status Last Admin Dose Admin Acetaminophen (Tylenol) 650 mg PRN Q6HRS PRN PO MILD PAIN / TEMP > 100.3'F 03/04/21 16:15 Multi-Ingredient Ointment (Analgesic [place]) 1 donn PRN QID PRN TP MUSCLE PAIN 03/04/21 16:15 Al Hydroxide/Mg Hydroxide (Mylanta Plus Xs) 15 ml PRN AFTMEALHC PRN PO DYSPEPSIA 03/04/21 16:15 Magnesium Hydroxide (Milk Of Magnesia) 2,400 mg PRN QHS PRN PO CONSTIPATION 03/04/21 16:15 Aspirin (Aspirin Chewable) 81 mg DAILY PO 03/05/21 09:00 03/23/21 08:09 Lisinopril (Prinivil) 10 mg DAILY PO 03/05/21 09:00 03/23/21 08:09 Vitamin D (Vitamin D3) 25 unit DAILY PO 03/05/21 09:00 03/07/21 10:29 DC 03/05/21 09:14 Metformin HCl (Glucophage) 1,000 mg BIDWMEALS PO 03/04/21 17:00 03/23/21 08:09 Atorvastatin Calcium (Lipitor) 80 mg QHS PO 03/04/21 21:00 03/22/21 19:43 Olanzapine (ZyPREXA ZYDIS) 2.5 mg PRN Q2HR PRN PO PSYCHOSIS 03/05/21 17:00 03/05/21 17:02 Vitamin D (Vitamin D3) 1,000 unit DAILY PO 03/08/21 09:00 03/23/21 08:09 Memantine (Namenda) 5 mg BID PO 03/07/21 21:00 03/11/21 18:16 DC 03/11/21 08:36 Sertraline HCl (Zoloft) 25 mg DAILY PO 03/08/21 09:00 03/10/21 20:16 DC 03/10/21 08:40 Rivastigmine (Exelon) 4.6 patch DAILY TD 03/08/21 09:00 03/09/21 13:31 DC 03/09/21 08:58 Rivastigmine (Exelon) 9.5 patch DAILY TD 03/15/21 09:00 Cancel Rivastigmine (Exelon) 1 patch DAILY TD 03/15/21 09:00 03/19/21 14:00 DC 03/19/21 09:14 Rivastigmine (Exelon) 1 patch DAILY TD 03/10/21 09:00 03/14/21 23:50 DC 03/14/21 09:00 Sertraline HCl (Zoloft) 50 mg DAILY PO 03/11/21 09:00 03/22/21 20:39 DC 03/22/21 08:39 Trazodone HCl (Desyrel) 50 mg PRN QHS PRN PO INSOMNIA 03/10/21 20:15 Memantine (Namenda) 5 mg DAILY PO 03/12/21 09:00 03/15/21 20:10 DC 03/15/21 07:59 Memantine (Namenda) 10 mg QHS PO 03/11/21 21:00 03/15/21 22:00 DC 03/15/21 21:02 Memantine (Namenda) 10 mg BID PO 03/16/21 09:00 03/23/21 08:09 Rivastigmine (Exelon 13.3mg) 1 patch DAILY TD 03/20/21 09:00 03/23/21 08:10 Quetiapine Fumarate (SEROquel) 25 mg HS PO 03/17/21 21:00 03/18/21 16:11 DC 03/17/21 21:41 Quetiapine Fumarate (SEROquel) 50 mg HS PO 03/18/21 21:00 03/22/21 19:44 Sertraline HCl (Zoloft) 75 mg DAILY PO 03/23/21 09:00 03/25/21 12:00 03/23/21 08:18 Sertraline HCl (Zoloft) 100 mg DAILY PO 03/26/21 09:00 Current Medications Medications (Trade) Dose Ordered Sig/Greg Route PRN Reason Start Time Stop Time Status Last Admin Dose Admin Sertraline HCl (Zoloft) 75 mg DAILY PO 03/23/21 09:00 03/25/21 12:00 03/23/21 08:18 I have reviewed the current psychotropics carefully including drug interactions. Risk benefit ratio favors no change other than as noted in my dictated progress note. Diagnosis: Problems: (1) Impulse control disorder, unspecified (2) Lewy body dementia with behavioral disturbance (3) Anxiety disorder, unspecified (4) Dementia in Alzheimer's disease with depression (5) Dementia in Alzheimer's disease with delusions (6) Major neurocognitive disorder GABRIELLA LEDEZMA MD Mar 23, 2021 08:36
--- NOTE | 2021-03-23 08:50 | PDOC ---
Exam Note: Mike Note: This note is a late entry for 03/21/2021 covers elements not covered in my initial note. Subjective: The patient was seen individually in the evening of 03/21/2021 with Betsy HECTOR, discussed and reviewed the chart. The patient slept 7-3/4 hours previous night. Overall the patient is doing about the same. He does withdraw himself to the room. Review of Systems: No CV, , pulmonary, eye, ENT system symptoms on review. Mental Status Exam: The patient is oriented to himself and situation. On question the patient states he feels better. Speech is coherent. Abstraction fair. Computation impaired. Language function intact. Mood and affect withdrawn. No suicidal or homicidal ideation. As before he is giving me thumbs up to communicate how much better he felt but still withdrawn. Laboratory Data: Reviewed. 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 Anxiety disorder unspecified. Impulse control disorder. Plan: Maintain rest of the psychotropics unchanged. Assessment: Vital Signs/I&O: Vital Signs Date Time Temp Pulse Resp B/P (MAP) Pulse Ox O2 Delivery O2 Flow Rate FiO2 03/23/21 08:09 57 115/77 03/23/21 05:59 97.4 16 95 03/22/21 06:20 Room Air I & O 03/22/21 03/22/21 03/23/21 15:00 23:00 07:00 Intake Total 720 ml 240 ml Balance 720 ml 240 ml Labs: Laboratory Tests Test 03/23/21 07:40 Glucose (Fingerstick) 100 mg/dL (70-99) H Current Medications: Meds: Laboratory Tests Test 03/23/21 07:40 Glucose (Fingerstick) 100 mg/dL Current Medications Medications (Trade) Dose Ordered Sig/Greg Route PRN Reason Start Time Stop Time Status Last Admin Dose Admin Acetaminophen (Tylenol) 650 mg PRN Q6HRS PRN PO MILD PAIN / TEMP > 100.3'F 03/04/21 16:15 Multi-Ingredient Ointment (Analgesic [place]) 1 donn PRN QID PRN TP MUSCLE PAIN 03/04/21 16:15 Al Hydroxide/Mg Hydroxide (Mylanta Plus Xs) 15 ml PRN AFTMEALHC PRN PO DYSPEPSIA 03/04/21 16:15 Magnesium Hydroxide (Milk Of Magnesia) 2,400 mg PRN QHS PRN PO CONSTIPATION 03/04/21 16:15 Aspirin (Aspirin Chewable) 81 mg DAILY PO 03/05/21 09:00 03/23/21 08:09 Lisinopril (Prinivil) 10 mg DAILY PO 03/05/21 09:00 03/23/21 08:09 Vitamin D (Vitamin D3) 25 unit DAILY PO 03/05/21 09:00 03/07/21 10:29 DC 03/05/21 09:14 Metformin HCl (Glucophage) 1,000 mg BIDWMEALS PO 03/04/21 17:00 03/23/21 08:09 Atorvastatin Calcium (Lipitor) 80 mg QHS PO 03/04/21 21:00 03/22/21 19:43 Olanzapine (ZyPREXA ZYDIS) 2.5 mg PRN Q2HR PRN PO PSYCHOSIS 03/05/21 17:00 03/05/21 17:02 Vitamin D (Vitamin D3) 1,000 unit DAILY PO 03/08/21 09:00 03/23/21 08:09 Memantine (Namenda) 5 mg BID PO 03/07/21 21:00 03/11/21 18:16 DC 03/11/21 08:36 Sertraline HCl (Zoloft) 25 mg DAILY PO 03/08/21 09:00 03/10/21 20:16 DC 03/10/21 08:40 Rivastigmine (Exelon) 4.6 patch DAILY TD 03/08/21 09:00 03/09/21 13:31 DC 03/09/21 08:58 Rivastigmine (Exelon) 9.5 patch DAILY TD 03/15/21 09:00 Cancel Rivastigmine (Exelon) 1 patch DAILY TD 03/15/21 09:00 03/19/21 14:00 DC 03/19/21 09:14 Rivastigmine (Exelon) 1 patch DAILY TD 03/10/21 09:00 03/14/21 23:50 DC 03/14/21 09:00 Sertraline HCl (Zoloft) 50 mg DAILY PO 03/11/21 09:00 03/22/21 20:39 DC 03/22/21 08:39 Trazodone HCl (Desyrel) 50 mg PRN QHS PRN PO INSOMNIA 03/10/21 20:15 Memantine (Namenda) 5 mg DAILY PO 03/12/21 09:00 03/15/21 20:10 DC 03/15/21 07:59 Memantine (Namenda) 10 mg QHS PO 03/11/21 21:00 03/15/21 22:00 DC 03/15/21 21:02 Memantine (Namenda) 10 mg BID PO 03/16/21 09:00 03/23/21 08:09 Rivastigmine (Exelon 13.3mg) 1 patch DAILY TD 03/20/21 09:00 03/23/21 08:10 Quetiapine Fumarate (SEROquel) 25 mg HS PO 03/17/21 21:00 03/18/21 16:11 DC 03/17/21 21:41 Quetiapine Fumarate (SEROquel) 50 mg HS PO 03/18/21 21:00 03/22/21 19:44 Sertraline HCl (Zoloft) 75 mg DAILY PO 03/23/21 09:00 03/25/21 12:00 03/23/21 08:18 Sertraline HCl (Zoloft) 100 mg DAILY PO 03/26/21 09:00 Current Medications Medications (Trade) Dose Ordered Sig/Greg Route PRN Reason Start Time Stop Time Status Last Admin Dose Admin Sertraline HCl (Zoloft) 75 mg DAILY PO 03/23/21 09:00 03/25/21 12:00 03/23/21 08:18 I have reviewed the current psychotropics carefully including drug interactions. Risk benefit ratio favors no change other than as noted in my dictated progress note. Diagnosis: Problems: (1) Impulse control disorder, unspecified (2) Lewy body dementia with behavioral disturbance (3) Anxiety disorder, unspecified (4) Dementia in Alzheimer's disease with depression (5) Dementia in Alzheimer's disease with delusions (6) Major neurocognitive disorder GABRIELLA LEDEZMA MD Mar 23, 2021 08:50
--- NOTE | 2021-03-23 09:13 | PDOC ---
Exam Note: Mike Note: Late entry for 03/22/2021. Please also refer to the separate dictated note~for this date of service dictated separately. Discussed the patient with Nursing staff reviewed the chart.~Reviewed interim history and current functioning. Reviewed vital signs,~Labs/ Radiology~and current medications noted below. Continue current treatment with the changes noted in the dictated addendum note Assessment: Vital Signs/I&O: Vital Signs Date Time Temp Pulse Resp B/P (MAP) Pulse Ox O2 Delivery O2 Flow Rate FiO2 03/23/21 08:09 57 115/77 03/23/21 05:59 97.4 16 95 03/22/21 06:20 Room Air I & O 03/22/21 03/22/21 03/23/21 15:00 23:00 07:00 Intake Total 720 ml 240 ml Balance 720 ml 240 ml Labs: Laboratory Tests Test 03/23/21 07:40 Glucose (Fingerstick) 100 mg/dL (70-99) H Current Medications: Meds: Laboratory Tests Test 03/23/21 07:40 Glucose (Fingerstick) 100 mg/dL Current Medications Medications (Trade) Dose Ordered Sig/Greg Route PRN Reason Start Time Stop Time Status Last Admin Dose Admin Acetaminophen (Tylenol) 650 mg PRN Q6HRS PRN PO MILD PAIN / TEMP > 100.3'F 03/04/21 16:15 Multi-Ingredient Ointment (Analgesic [place]) 1 donn PRN QID PRN TP MUSCLE PAIN 03/04/21 16:15 Al Hydroxide/Mg Hydroxide (Mylanta Plus Xs) 15 ml PRN AFTMEALHC PRN PO DYSPEPSIA 03/04/21 16:15 Magnesium Hydroxide (Milk Of Magnesia) 2,400 mg PRN QHS PRN PO CONSTIPATION 03/04/21 16:15 Aspirin (Aspirin Chewable) 81 mg DAILY PO 03/05/21 09:00 03/23/21 08:09 Lisinopril (Prinivil) 10 mg DAILY PO 03/05/21 09:00 03/23/21 08:09 Vitamin D (Vitamin D3) 25 unit DAILY PO 03/05/21 09:00 03/07/21 10:29 DC 03/05/21 09:14 Metformin HCl (Glucophage) 1,000 mg BIDWMEALS PO 03/04/21 17:00 03/23/21 08:09 Atorvastatin Calcium (Lipitor) 80 mg QHS PO 03/04/21 21:00 03/22/21 19:43 Olanzapine (ZyPREXA ZYDIS) 2.5 mg PRN Q2HR PRN PO PSYCHOSIS 03/05/21 17:00 03/05/21 17:02 Vitamin D (Vitamin D3) 1,000 unit DAILY PO 03/08/21 09:00 03/23/21 08:09 Memantine (Namenda) 5 mg BID PO 03/07/21 21:00 03/11/21 18:16 DC 03/11/21 08:36 Sertraline HCl (Zoloft) 25 mg DAILY PO 03/08/21 09:00 03/10/21 20:16 DC 03/10/21 08:40 Rivastigmine (Exelon) 4.6 patch DAILY TD 03/08/21 09:00 03/09/21 13:31 DC 03/09/21 08:58 Rivastigmine (Exelon) 9.5 patch DAILY TD 03/15/21 09:00 Cancel Rivastigmine (Exelon) 1 patch DAILY TD 03/15/21 09:00 03/19/21 14:00 DC 03/19/21 09:14 Rivastigmine (Exelon) 1 patch DAILY TD 03/10/21 09:00 03/14/21 23:50 DC 03/14/21 09:00 Sertraline HCl (Zoloft) 50 mg DAILY PO 03/11/21 09:00 03/22/21 20:39 DC 03/22/21 08:39 Trazodone HCl (Desyrel) 50 mg PRN QHS PRN PO INSOMNIA 03/10/21 20:15 Memantine (Namenda) 5 mg DAILY PO 03/12/21 09:00 03/15/21 20:10 DC 03/15/21 07:59 Memantine (Namenda) 10 mg QHS PO 03/11/21 21:00 03/15/21 22:00 DC 03/15/21 21:02 Memantine (Namenda) 10 mg BID PO 03/16/21 09:00 03/23/21 08:09 Rivastigmine (Exelon 13.3mg) 1 patch DAILY TD 03/20/21 09:00 03/23/21 08:10 Quetiapine Fumarate (SEROquel) 25 mg HS PO 03/17/21 21:00 03/18/21 16:11 DC 03/17/21 21:41 Quetiapine Fumarate (SEROquel) 50 mg HS PO 03/18/21 21:00 03/22/21 19:44 Sertraline HCl (Zoloft) 75 mg DAILY PO 03/23/21 09:00 03/25/21 12:00 03/23/21 08:18 Sertraline HCl (Zoloft) 100 mg DAILY PO 03/26/21 09:00 Current Medications Medications (Trade) Dose Ordered Sig/Greg Route PRN Reason Start Time Stop Time Status Last Admin Dose Admin Sertraline HCl (Zoloft) 75 mg DAILY PO 03/23/21 09:00 03/25/21 12:00 03/23/21 08:18 I have reviewed the current psychotropics carefully including drug interactions. Risk benefit ratio favors no change other than as noted in my dictated progress note. Diagnosis: Problems: (1) Impulse control disorder, unspecified (2) Lewy body dementia with behavioral disturbance (3) Anxiety disorder, unspecified (4) Dementia in Alzheimer's disease with depression (5) Dementia in Alzheimer's disease with delusions (6) Major neurocognitive disorder GABRIELLA LEDEZMA MD Mar 23, 2021 09:13
[2021-03-23 15:50] VITALS: BP 123/70
--- NOTE | 2021-03-23 17:15 | NUR ---
Patient has been calm, cooperative, and pleasant throughout this shift. He has generally been withdrawn to his room between meals. Will continue to monitor and report to oncoming shift.
[2021-03-23] MEDS: ATORVASTATIN CALCIUM 20 MG TABLET PO SCH (20:10)
[2021-03-23] MEDS: QUEtiapine 50 MG TABLET. PO SCH (20:10)
--- NOTE | 2021-03-23 21:49 | PDOC ---
Exam Note: Mike Note: Please also refer to the separate dictated note~for this date of service dictated separately.~Patient seen individually. Discussed the patient with Nursing staff reviewed the chart.~Reviewed interim history and current functioning. Reviewed vital signs,~Labs/ Radiology~and current medications noted below. Continue current treatment with the changes noted in the dictated addendum note Assessment: Vital Signs/I&O: Vital Signs Date Time Temp Pulse Resp B/P (MAP) Pulse Ox O2 Delivery O2 Flow Rate FiO2 03/23/21 15:50 97.8 64 16 123/70 (87) 95 03/22/21 06:20 Room Air I & O 03/22/21 03/22/21 03/23/21 15:00 23:00 07:00 Intake Total 720 ml 240 ml Balance 720 ml 240 ml Labs: Laboratory Tests Test 03/23/21 07:40 Glucose (Fingerstick) 100 mg/dL (70-99) H Current Medications: Meds: Laboratory Tests Test 03/23/21 07:40 Glucose (Fingerstick) 100 mg/dL Current Medications Medications (Trade) Dose Ordered Sig/Greg Route PRN Reason Start Time Stop Time Status Last Admin Dose Admin Acetaminophen (Tylenol) 650 mg PRN Q6HRS PRN PO MILD PAIN / TEMP > 100.3'F 03/04/21 16:15 Multi-Ingredient Ointment (Analgesic [place]) 1 donn PRN QID PRN TP MUSCLE PAIN 03/04/21 16:15 Al Hydroxide/Mg Hydroxide (Mylanta Plus Xs) 15 ml PRN AFTMEALHC PRN PO DYSPEPSIA 03/04/21 16:15 Magnesium Hydroxide (Milk Of Magnesia) 2,400 mg PRN QHS PRN PO CONSTIPATION 03/04/21 16:15 Aspirin (Aspirin Chewable) 81 mg DAILY PO 03/05/21 09:00 03/23/21 08:09 Lisinopril (Prinivil) 10 mg DAILY PO 03/05/21 09:00 03/23/21 08:09 Vitamin D (Vitamin D3) 25 unit DAILY PO 03/05/21 09:00 03/07/21 10:29 DC 03/05/21 09:14 Metformin HCl (Glucophage) 1,000 mg BIDWMEALS PO 03/04/21 17:00 03/23/21 16:54 Atorvastatin Calcium (Lipitor) 80 mg QHS PO 03/04/21 21:00 03/23/21 20:10 Olanzapine (ZyPREXA ZYDIS) 2.5 mg PRN Q2HR PRN PO PSYCHOSIS 03/05/21 17:00 03/05/21 17:02 Vitamin D (Vitamin D3) 1,000 unit DAILY PO 03/08/21 09:00 03/23/21 08:09 Memantine (Namenda) 5 mg BID PO 03/07/21 21:00 03/11/21 18:16 DC 03/11/21 08:36 Sertraline HCl (Zoloft) 25 mg DAILY PO 03/08/21 09:00 03/10/21 20:16 DC 03/10/21 08:40 Rivastigmine (Exelon) 4.6 patch DAILY TD 03/08/21 09:00 03/09/21 13:31 DC 03/09/21 08:58 Rivastigmine (Exelon) 9.5 patch DAILY TD 03/15/21 09:00 Cancel Rivastigmine (Exelon) 1 patch DAILY TD 03/15/21 09:00 03/19/21 14:00 DC 03/19/21 09:14 Rivastigmine (Exelon) 1 patch DAILY TD 03/10/21 09:00 03/14/21 23:50 DC 03/14/21 09:00 Sertraline HCl (Zoloft) 50 mg DAILY PO 03/11/21 09:00 03/22/21 20:39 DC 03/22/21 08:39 Trazodone HCl (Desyrel) 50 mg PRN QHS PRN PO INSOMNIA 03/10/21 20:15 Memantine (Namenda) 5 mg DAILY PO 03/12/21 09:00 03/15/21 20:10 DC 03/15/21 07:59 Memantine (Namenda) 10 mg QHS PO 03/11/21 21:00 03/15/21 22:00 DC 03/15/21 21:02 Memantine (Namenda) 10 mg BID PO 03/16/21 09:00 03/23/21 20:10 Rivastigmine (Exelon 13.3mg) 1 patch DAILY TD 03/20/21 09:00 03/23/21 08:10 Quetiapine Fumarate (SEROquel) 25 mg HS PO 03/17/21 21:00 03/18/21 16:11 DC 03/17/21 21:41 Quetiapine Fumarate (SEROquel) 50 mg HS PO 03/18/21 21:00 03/23/21 20:10 Sertraline HCl (Zoloft) 75 mg DAILY PO 03/23/21 09:00 03/25/21 12:00 03/23/21 08:18 Sertraline HCl (Zoloft) 100 mg DAILY PO 03/26/21 09:00 Current Medications Medications (Trade) Dose Ordered Sig/Greg Route PRN Reason Start Time Stop Time Status Last Admin Dose Admin Sertraline HCl (Zoloft) 75 mg DAILY PO 03/23/21 09:00 03/25/21 12:00 03/23/21 08:18 I have reviewed the current psychotropics carefully including drug interactions. Risk benefit ratio favors no change other than as noted in my dictated progress note. Diagnosis: Problems: (1) Impulse control disorder, unspecified (2) Lewy body dementia with behavioral disturbance (3) Anxiety disorder, unspecified (4) Dementia in Alzheimer's disease with depression (5) Dementia in Alzheimer's disease with delusions (6) Major neurocognitive disorder GABRIELLA LEDEZMA MD Mar 23, 2021 21:49
--- NOTE | 2021-03-23 23:46 | NUR ---
Nursing Note The patient was located in the group room watching TV with peers for hor his assessment and medication pass. The patient took his medication whole. The patient was alert to name, date and location. Currently sleeping in his room.
[2021-03-24 05:42] VITALS: BP 137/78
[2021-03-24] MEDS: SERTRALINE 25 MG TABLET. PO SCH (08:06)
[2021-03-24] MEDS: MEMANTINE 10 MG TABLET. PO SCH ×2 (08:07→20:00)
[2021-03-24] MEDS: ASPIRIN CHEWABLE 81 MG TABLET. PO SCH (08:07)
[2021-03-24] MEDS: metFORMIN 500 MG TABLET PO SCH ×2 (08:07→17:19)
[2021-03-24] MEDS: CHOLECALCIFEROL (VITAMIN D3) 1,000 UNIT TABLET PO SCH (08:07)
[2021-03-24] MEDS: LISINOPRIL 10 MG TABLET PO SCH (08:07)
[2021-03-24] MEDS: RIVASTIGMINE 13.3MG PATCH. TD SCH (08:10)
--- NOTE | 2021-03-24 08:20 | NUR ---
Patient refused Exelon patch, was cooperative with all other medications. Will continue to monitor and report to MD during rounds.
--- NOTE | 2021-03-24 08:41 | PDOC ---
Exam Note: Mike Note: This note is a late entry for 03/23/2021 covers elements not covered in my initial note. Subjective: The patient was seen individually in the evening of 03/23/2021 with Scott HECTOR, discussed and reviewed the chart. The patient slept 8-1/4 hours previous night. He remains withdrawn, spends much time in his room, not agitated or aggressive. As I went to meet him in his room, he came outside in the hallway and when I informed him the other patients who were watching a football game he wanted to be told where to go and promptly follow through with this after our visit. Review of Systems: No CV, , pulmonary, eye, ENT system symptoms on review. Mental Status Exam: The patient is oriented to himself and situation. Speech has some latency, coherent. Abstraction fair. Computation impaired. Language function intact. Mood and affect improved. Laboratory Data: Reviewed. 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 Anxiety disorder unspecified. Impulse control disorder. Plan: Maintain rest of the psychotropics unchanged. Assessment: Vital Signs/I&O: Vital Signs Date Time Temp Pulse Resp B/P (MAP) Pulse Ox O2 Delivery O2 Flow Rate FiO2 03/24/21 08:07 56 137/78 03/24/21 05:42 97.4 18 98 03/22/21 06:20 Room Air I & O 03/23/21 03/23/21 03/24/21 15:00 23:00 07:00 Intake Total 600 ml 240 ml 100 ml Balance 600 ml 240 ml 100 ml Current Medications: Meds: Current Medications Medications (Trade) Dose Ordered Sig/Greg Route PRN Reason Start Time Stop Time Status Last Admin Dose Admin Acetaminophen (Tylenol) 650 mg PRN Q6HRS PRN PO MILD PAIN / TEMP > 100.3'F 03/04/21 16:15 Multi-Ingredient Ointment (Analgesic [place]) 1 donn PRN QID PRN TP MUSCLE PAIN 03/04/21 16:15 Al Hydroxide/Mg Hydroxide (Mylanta Plus Xs) 15 ml PRN AFTMEALHC PRN PO DYSPEPSIA 03/04/21 16:15 Magnesium Hydroxide (Milk Of Magnesia) 2,400 mg PRN QHS PRN PO CONSTIPATION 03/04/21 16:15 Aspirin (Aspirin Chewable) 81 mg DAILY PO 03/05/21 09:00 03/24/21 08:07 Lisinopril (Prinivil) 10 mg DAILY PO 03/05/21 09:00 03/24/21 08:07 Vitamin D (Vitamin D3) 25 unit DAILY PO 03/05/21 09:00 03/07/21 10:29 DC 03/05/21 09:14 Metformin HCl (Glucophage) 1,000 mg BIDWMEALS PO 03/04/21 17:00 03/24/21 08:07 Atorvastatin Calcium (Lipitor) 80 mg QHS PO 03/04/21 21:00 03/23/21 20:10 Olanzapine (ZyPREXA ZYDIS) 2.5 mg PRN Q2HR PRN PO PSYCHOSIS 03/05/21 17:00 03/05/21 17:02 Vitamin D (Vitamin D3) 1,000 unit DAILY PO 03/08/21 09:00 03/24/21 08:07 Memantine (Namenda) 5 mg BID PO 03/07/21 21:00 03/11/21 18:16 DC 03/11/21 08:36 Sertraline HCl (Zoloft) 25 mg DAILY PO 03/08/21 09:00 03/10/21 20:16 DC 03/10/21 08:40 Rivastigmine (Exelon) 4.6 patch DAILY TD 03/08/21 09:00 03/09/21 13:31 DC 03/09/21 08:58 Rivastigmine (Exelon) 9.5 patch DAILY TD 03/15/21 09:00 Cancel Rivastigmine (Exelon) 1 patch DAILY TD 03/15/21 09:00 03/19/21 14:00 DC 03/19/21 09:14 Rivastigmine (Exelon) 1 patch DAILY TD 03/10/21 09:00 03/14/21 23:50 DC 03/14/21 09:00 Sertraline HCl (Zoloft) 50 mg DAILY PO 03/11/21 09:00 03/22/21 20:39 DC 03/22/21 08:39 Trazodone HCl (Desyrel) 50 mg PRN QHS PRN PO INSOMNIA 03/10/21 20:15 Memantine (Namenda) 5 mg DAILY PO 03/12/21 09:00 03/15/21 20:10 DC 03/15/21 07:59 Memantine (Namenda) 10 mg QHS PO 03/11/21 21:00 03/15/21 22:00 DC 03/15/21 21:02 Memantine (Namenda) 10 mg BID PO 03/16/21 09:00 03/24/21 08:07 Rivastigmine (Exelon 13.3mg) 1 patch DAILY TD 03/20/21 09:00 03/23/21 08:10 Quetiapine Fumarate (SEROquel) 25 mg HS PO 03/17/21 21:00 03/18/21 16:11 DC 03/17/21 21:41 Quetiapine Fumarate (SEROquel) 50 mg HS PO 03/18/21 21:00 03/23/21 20:10 Sertraline HCl (Zoloft) 75 mg DAILY PO 03/23/21 09:00 03/25/21 12:00 03/24/21 08:06 Sertraline HCl (Zoloft) 100 mg DAILY PO 03/26/21 09:00 Current Medications Medications (Trade) Dose Ordered Sig/Greg Route PRN Reason Start Time Stop Time Status Last Admin Dose Admin Sertraline HCl (Zoloft) 75 mg DAILY PO 03/23/21 09:00 03/25/21 12:00 03/24/21 08:06 I have reviewed the current psychotropics carefully including drug interactions. Risk benefit ratio favors no change other than as noted in my dictated progress note. Diagnosis: Problems: (1) Impulse control disorder, unspecified (2) Lewy body dementia with behavioral disturbance (3) Anxiety disorder, unspecified (4) Dementia in Alzheimer's disease with depression (5) Dementia in Alzheimer's disease with delusions (6) Major neurocognitive disorder GABRIELLA LEDEZMA MD Mar 24, 2021 08:41
--- NOTE | 2021-03-24 15:39 | NUR ---
GEOVANNA contacted pt son to discuss pt progress and questioned if the facility has contacted him re: placement. Yonathan has not heard from [facility] and GEOVANNA informed him that she sent the referral over on Tuesday but has not heard back yet on acceptance. Yonathan questioned if the team recommended [place] versus [place] and GEOVANNA informed him that [place] was recommended with concern that pt would be able to walk out of [place] and he would not be stopped. With how confused pt can get, this could be a potential safety concern and [place] is locked allowing a more watchful eye on pt. Yonathan will attempt to call the facility to see if he can get an answer on acceptance. GEOVANNA and Yonathan will check in with one another tomorrow.
[2021-03-24 15:50] VITALS: BP 125/69
[2021-03-24] MEDS: QUEtiapine 50 MG TABLET. PO SCH (20:00)
[2021-03-24] MEDS: ATORVASTATIN CALCIUM 20 MG TABLET PO SCH (20:01)
--- NOTE | 2021-03-24 22:22 | PDOC ---
Exam Note: Mike Note: Please also refer to the separate dictated note~for this date of service dictated separately.~Patient seen individually. Discussed the patient with Nursing staff reviewed the chart.~Reviewed interim history and current functioning. Reviewed vital signs,~Labs/ Radiology~and current medications noted below. Continue current treatment with the changes noted in the dictated addendum note Assessment: Vital Signs/I&O: Vital Signs Date Time Temp Pulse Resp B/P (MAP) Pulse Ox O2 Delivery O2 Flow Rate FiO2 03/24/21 15:50 97.4 55 19 125/69 (87) 94 03/22/21 06:20 Room Air I & O 03/23/21 03/23/21 03/24/21 15:00 23:00 07:00 Intake Total 600 ml 240 ml 100 ml Balance 600 ml 240 ml 100 ml Labs: Laboratory Tests Test 03/24/21 06:30 SARS-CoV-2 (PCR) Not detected (NOT DETECTD) Current Medications: Meds: Laboratory Tests Test 03/24/21 06:30 Coronavirus (COVID-19)(PCR) Not detected Current Medications Medications (Trade) Dose Ordered Sig/Greg Route PRN Reason Start Time Stop Time Status Last Admin Dose Admin Acetaminophen (Tylenol) 650 mg PRN Q6HRS PRN PO MILD PAIN / TEMP > 100.3'F 03/04/21 16:15 Multi-Ingredient Ointment (Analgesic [place]) 1 donn PRN QID PRN TP MUSCLE PAIN 03/04/21 16:15 Al Hydroxide/Mg Hydroxide (Mylanta Plus Xs) 15 ml PRN AFTMEALHC PRN PO DYSPEPSIA 03/04/21 16:15 Magnesium Hydroxide (Milk Of Magnesia) 2,400 mg PRN QHS PRN PO CONSTIPATION 03/04/21 16:15 Aspirin (Aspirin Chewable) 81 mg DAILY PO 03/05/21 09:00 03/24/21 08:07 Lisinopril (Prinivil) 10 mg DAILY PO 03/05/21 09:00 03/24/21 08:07 Vitamin D (Vitamin D3) 25 unit DAILY PO 03/05/21 09:00 03/07/21 10:29 DC 03/05/21 09:14 Metformin HCl (Glucophage) 1,000 mg BIDWMEALS PO 03/04/21 17:00 03/24/21 17:19 Atorvastatin Calcium (Lipitor) 80 mg QHS PO 03/04/21 21:00 03/24/21 20:01 Olanzapine (ZyPREXA ZYDIS) 2.5 mg PRN Q2HR PRN PO PSYCHOSIS 03/05/21 17:00 03/05/21 17:02 Vitamin D (Vitamin D3) 1,000 unit DAILY PO 03/08/21 09:00 03/24/21 08:07 Memantine (Namenda) 5 mg BID PO 03/07/21 21:00 03/11/21 18:16 DC 03/11/21 08:36 Sertraline HCl (Zoloft) 25 mg DAILY PO 03/08/21 09:00 03/10/21 20:16 DC 03/10/21 08:40 Rivastigmine (Exelon) 4.6 patch DAILY TD 03/08/21 09:00 03/09/21 13:31 DC 03/09/21 08:58 Rivastigmine (Exelon) 9.5 patch DAILY TD 03/15/21 09:00 Cancel Rivastigmine (Exelon) 1 patch DAILY TD 03/15/21 09:00 03/19/21 14:00 DC 03/19/21 09:14 Rivastigmine (Exelon) 1 patch DAILY TD 03/10/21 09:00 03/14/21 23:50 DC 03/14/21 09:00 Sertraline HCl (Zoloft) 50 mg DAILY PO 03/11/21 09:00 03/22/21 20:39 DC 03/22/21 08:39 Trazodone HCl (Desyrel) 50 mg PRN QHS PRN PO INSOMNIA 03/10/21 20:15 Memantine (Namenda) 5 mg DAILY PO 03/12/21 09:00 03/15/21 20:10 DC 03/15/21 07:59 Memantine (Namenda) 10 mg QHS PO 03/11/21 21:00 03/15/21 22:00 DC 03/15/21 21:02 Memantine (Namenda) 10 mg BID PO 03/16/21 09:00 03/24/21 20:00 Rivastigmine (Exelon 13.3mg) 1 patch DAILY TD 03/20/21 09:00 03/23/21 08:10 Quetiapine Fumarate (SEROquel) 25 mg HS PO 03/17/21 21:00 03/18/21 16:11 DC 03/17/21 21:41 Quetiapine Fumarate (SEROquel) 50 mg HS PO 03/18/21 21:00 03/24/21 20:00 Sertraline HCl (Zoloft) 75 mg DAILY PO 03/23/21 09:00 03/25/21 12:00 03/24/21 08:06 Sertraline HCl (Zoloft) 100 mg DAILY PO 03/26/21 09:00 I have reviewed the current psychotropics carefully including drug interactions. Risk benefit ratio favors no change other than as noted in my dictated progress note. Diagnosis: Problems: (1) Impulse control disorder, unspecified (2) Lewy body dementia with behavioral disturbance (3) Anxiety disorder, unspecified (4) Dementia in Alzheimer's disease with depression (5) Dementia in Alzheimer's disease with delusions (6) Major neurocognitive disorder GABRIELLA LEDEZMA MD Mar 24, 2021 22:22
--- NOTE | 2021-03-25 02:37 | NUR ---
Nursing Note The patient was located in his room for his assessment and medication pass. The patient took his medication whole. The patient was alert to name date and location. The patient was pleasant during interactions with this nurse. Currently sleeping in his room.
[2021-03-25 06:06] VITALS: BP 125/74
[2021-03-25] MEDS: CHOLECALCIFEROL (VITAMIN D3) 1,000 UNIT TABLET PO SCH (08:23)
[2021-03-25] MEDS: LISINOPRIL 10 MG TABLET PO SCH (08:23)
[2021-03-25] MEDS: metFORMIN 500 MG TABLET PO SCH ×2 (08:23→17:24)
[2021-03-25] MEDS: SERTRALINE 25 MG TABLET. PO SCH (08:24)
[2021-03-25] MEDS: ASPIRIN CHEWABLE 81 MG TABLET. PO SCH (08:24)
[2021-03-25] MEDS: MEMANTINE 10 MG TABLET. PO SCH ×2 (08:25→21:04)
[2021-03-25] MEDS: RIVASTIGMINE 13.3MG PATCH. TD SCH (09:00)
--- NOTE | 2021-03-25 09:48 | NUR ---
GEOVANNA received call from Yonathan who received a call from the facility who is denying pt admission as pt has needs above their "capacity to care for pt in [place]". GEOVANNA and Yonathan discussed other options and GEOVANNA questioned that the place would have to be able to deal with his Dementia diagnosis. Yonathan has a couple other options and will look into those. He is at work and calling places when he gets a free moment. He will update GEOVANNA on placement progress.
[2021-03-25 15:36] VITALS: BP 114/68
--- NOTE | 2021-03-25 18:30 | NUR ---
Patient has been calm, withdrawn, and pleasant throughout this shift. He has generally been cooperative except he has refused his Exelon patch again. Per pharmacy, if he does not take the patch tomorrow he will have to restart the titration if he takes it. MD notified. Will continue to monitor and report to oncoming shift.
[2021-03-25] MEDS: QUEtiapine 50 MG TABLET. PO SCH (21:04)
[2021-03-25] MEDS: ATORVASTATIN CALCIUM 20 MG TABLET PO SCH (21:04)
--- NOTE | 2021-03-25 21:59 | PDOC ---
Exam Note: Mike Note: Information from date of service 03/22/21 and my information from nursing staff for that date and review of labs and interim progress from 03/22/21 was incorporated into the note of 03/23. This note is a late entry for 03/24/2021 covers elements not covered in my initial note. Subjective: The patient was seen individually in the evening of 03/24/2021 with Scott HECTOR, discussed and reviewed the chart. The patient slept 6 hours previous night. He refused his Exelon patch today. He tends to withdrawn to his room, comes out with encouragement. He has been calmer. Review of Systems: No CV, , pulmonary, eye, ENT system symptoms on review. Mental Status Exam: The patient is oriented to himself and situation. I met with him in his room. Speech coherent has some latency. Abstraction fair. Computation impaired. Language function intact. Mood and affect somewhat withdrawn. Laboratory Data: Reviewed. 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 Anxiety disorder unspecified. Impulse control disord er. Plan: Maintain rest of the psychotropics unchanged. Assessment: Vital Signs/I&O: Vital Signs Date Time Temp Pulse Resp B/P (MAP) Pulse Ox O2 Delivery O2 Flow Rate FiO2 03/25/21 15:36 98.9 63 16 114/68 (83) 95 03/22/21 06:20 Room Air I & O 03/24/21 03/24/21 03/25/21 15:00 23:00 07:00 Intake Total 610 ml 250 ml Balance 610 ml 250 ml Current Medications: Meds: Current Medications Medications (Trade) Dose Ordered Sig/Greg Route PRN Reason Start Time Stop Time Status Last Admin Dose Admin Acetaminophen (Tylenol) 650 mg PRN Q6HRS PRN PO MILD PAIN / TEMP > 100.3'F 03/04/21 16:15 Multi-Ingredient Ointment (Analgesic [place]) 1 donn PRN QID PRN TP MUSCLE PAIN 03/04/21 16:15 Al Hydroxide/Mg Hydroxide (Mylanta Plus Xs) 15 ml PRN AFTMEALHC PRN PO DYSPEPSIA 03/04/21 16:15 Magnesium Hydroxide (Milk Of Magnesia) 2,400 mg PRN QHS PRN PO CONSTIPATION 03/04/21 16:15 Aspirin (Aspirin Chewable) 81 mg DAILY PO 03/05/21 09:00 03/25/21 08:24 Lisinopril (Prinivil) 10 mg DAILY PO 03/05/21 09:00 03/25/21 08:23 Vitamin D (Vitamin D3) 25 unit DAILY PO 03/05/21 09:00 03/07/21 10:29 DC 03/05/21 09:14 Metformin HCl (Glucophage) 1,000 mg BIDWMEALS PO 03/04/21 17:00 03/25/21 17:24 Atorvastatin Calcium (Lipitor) 80 mg QHS PO 03/04/21 21:00 03/25/21 21:04 Olanzapine (ZyPREXA ZYDIS) 2.5 mg PRN Q2HR PRN PO PSYCHOSIS 03/05/21 17:00 03/05/21 17:02 Vitamin D (Vitamin D3) 1,000 unit DAILY PO 03/08/21 09:00 03/25/21 08:23 Memantine (Namenda) 5 mg BID PO 03/07/21 21:00 03/11/21 18:16 DC 03/11/21 08:36 Sertraline HCl (Zoloft) 25 mg DAILY PO 03/08/21 09:00 03/10/21 20:16 DC 03/10/21 08:40 Rivastigmine (Exelon) 4.6 patch DAILY TD 03/08/21 09:00 03/09/21 13:31 DC 03/09/21 08:58 Rivastigmine (Exelon) 9.5 patch DAILY TD 03/15/21 09:00 Cancel Rivastigmine (Exelon) 1 patch DAILY TD 03/15/21 09:00 03/19/21 14:00 DC 03/19/21 09:14 Rivastigmine (Exelon) 1 patch DAILY TD 03/10/21 09:00 03/14/21 23:50 DC 03/14/21 09:00 Sertraline HCl (Zoloft) 50 mg DAILY PO 03/11/21 09:00 03/22/21 20:39 DC 03/22/21 08:39 Trazodone HCl (Desyrel) 50 mg PRN QHS PRN PO INSOMNIA 03/10/21 20:15 Memantine (Namenda) 5 mg DAILY PO 03/12/21 09:00 03/15/21 20:10 DC 03/15/21 07:59 Memantine (Namenda) 10 mg QHS PO 03/11/21 21:00 03/15/21 22:00 DC 03/15/21 21:02 Memantine (Namenda) 10 mg BID PO 03/16/21 09:00 03/25/21 21:04 Rivastigmine (Exelon 13.3mg) 1 patch DAILY TD 03/20/21 09:00 03/23/21 08:10 Quetiapine Fumarate (SEROquel) 25 mg HS PO 03/17/21 21:00 03/18/21 16:11 DC 03/17/21 21:41 Quetiapine Fumarate (SEROquel) 50 mg HS PO 03/18/21 21:00 03/25/21 21:04 Sertraline HCl (Zoloft) 75 mg DAILY PO 03/23/21 09:00 03/25/21 12:00 DC 03/25/21 08:24 Sertraline HCl (Zoloft) 100 mg DAILY PO 03/26/21 09:00 Bupropion HCl (Wellbutrin Xl) 150 mg DAILY PO 03/26/21 09:00 I have reviewed the current psychotropics carefully including drug interactions. Risk benefit ratio favors no change other than as noted in my dictated progress note. Diagnosis: Problems: (1) Impulse control disorder, unspecified (2) Lewy body dementia with behavioral disturbance (3) Anxiety disorder, unspecified (4) Dementia in Alzheimer's disease with depression (5) Dementia in Alzheimer's disease with delusions (6) Major neurocognitive disorder GABRIELLA LEDEZMA MD Mar 25, 2021 21:59
--- NOTE | 2021-03-25 21:59 | PDOC ---
Exam Note: Mike Note: Please also refer to the separate dictated note~for this date of service dictated separately.~Patient seen individually. Discussed the patient with Nursing staff reviewed the chart.~Reviewed interim history and current functioning. Reviewed vital signs,~Labs/ Radiology~and current medications noted below. Continue current treatment with the changes noted in the dictated addendum note Assessment: Vital Signs/I&O: Vital Signs Date Time Temp Pulse Resp B/P (MAP) Pulse Ox O2 Delivery O2 Flow Rate FiO2 03/25/21 15:36 98.9 63 16 114/68 (83) 95 03/22/21 06:20 Room Air I & O 03/24/21 03/24/21 03/25/21 15:00 23:00 07:00 Intake Total 610 ml 250 ml Balance 610 ml 250 ml Current Medications: Meds: Current Medications Medications (Trade) Dose Ordered Sig/Greg Route PRN Reason Start Time Stop Time Status Last Admin Dose Admin Acetaminophen (Tylenol) 650 mg PRN Q6HRS PRN PO MILD PAIN / TEMP > 100.3'F 03/04/21 16:15 Multi-Ingredient Ointment (Analgesic [place]) 1 donn PRN QID PRN TP MUSCLE PAIN 03/04/21 16:15 Al Hydroxide/Mg Hydroxide (Mylanta Plus Xs) 15 ml PRN AFTMEALHC PRN PO DYSPEPSIA 03/04/21 16:15 Magnesium Hydroxide (Milk Of Magnesia) 2,400 mg PRN QHS PRN PO CONSTIPATION 03/04/21 16:15 Aspirin (Aspirin Chewable) 81 mg DAILY PO 03/05/21 09:00 03/25/21 08:24 Lisinopril (Prinivil) 10 mg DAILY PO 03/05/21 09:00 03/25/21 08:23 Vitamin D (Vitamin D3) 25 unit DAILY PO 03/05/21 09:00 03/07/21 10:29 DC 03/05/21 09:14 Metformin HCl (Glucophage) 1,000 mg BIDWMEALS PO 03/04/21 17:00 03/25/21 17:24 Atorvastatin Calcium (Lipitor) 80 mg QHS PO 03/04/21 21:00 03/25/21 21:04 Olanzapine (ZyPREXA ZYDIS) 2.5 mg PRN Q2HR PRN PO PSYCHOSIS 03/05/21 17:00 03/05/21 17:02 Vitamin D (Vitamin D3) 1,000 unit DAILY PO 03/08/21 09:00 03/25/21 08:23 Memantine (Namenda) 5 mg BID PO 03/07/21 21:00 03/11/21 18:16 DC 03/11/21 08:36 Sertraline HCl (Zoloft) 25 mg DAILY PO 03/08/21 09:00 03/10/21 20:16 DC 03/10/21 08:40 Rivastigmine (Exelon) 4.6 patch DAILY TD 03/08/21 09:00 03/09/21 13:31 DC 03/09/21 08:58 Rivastigmine (Exelon) 9.5 patch DAILY TD 03/15/21 09:00 Cancel Rivastigmine (Exelon) 1 patch DAILY TD 03/15/21 09:00 03/19/21 14:00 DC 03/19/21 09:14 Rivastigmine (Exelon) 1 patch DAILY TD 03/10/21 09:00 03/14/21 23:50 DC 03/14/21 09:00 Sertraline HCl (Zoloft) 50 mg DAILY PO 03/11/21 09:00 03/22/21 20:39 DC 03/22/21 08:39 Trazodone HCl (Desyrel) 50 mg PRN QHS PRN PO INSOMNIA 03/10/21 20:15 Memantine (Namenda) 5 mg DAILY PO 03/12/21 09:00 03/15/21 20:10 DC 03/15/21 07:59 Memantine (Namenda) 10 mg QHS PO 03/11/21 21:00 03/15/21 22:00 DC 03/15/21 21:02 Memantine (Namenda) 10 mg BID PO 03/16/21 09:00 03/25/21 21:04 Rivastigmine (Exelon 13.3mg) 1 patch DAILY TD 03/20/21 09:00 03/23/21 08:10 Quetiapine Fumarate (SEROquel) 25 mg HS PO 03/17/21 21:00 03/18/21 16:11 DC 03/17/21 21:41 Quetiapine Fumarate (SEROquel) 50 mg HS PO 03/18/21 21:00 03/25/21 21:04 Sertraline HCl (Zoloft) 75 mg DAILY PO 03/23/21 09:00 03/25/21 12:00 DC 03/25/21 08:24 Sertraline HCl (Zoloft) 100 mg DAILY PO 03/26/21 09:00 Bupropion HCl (Wellbutrin Xl) 150 mg DAILY PO 03/26/21 09:00 I have reviewed the current psychotropics carefully including drug interactions. Risk benefit ratio favors no change other than as noted in my dictated progress note. Diagnosis: Problems: (1) Impulse control disorder, unspecified (2) Lewy body dementia with behavioral disturbance (3) Anxiety disorder, unspecified (4) Dementia in Alzheimer's disease with depression (5) Dementia in Alzheimer's disease with delusions (6) Major neurocognitive disorder GABRIELLA LEDEZMA MD Mar 25, 2021 21:59
[2021-03-26 06:25] VITALS: BP 122/71
[2021-03-26] MEDS: MEMANTINE 10 MG TABLET. PO SCH ×2 (08:05→20:06)
[2021-03-26] MEDS: metFORMIN 500 MG TABLET PO SCH ×2 (08:05→16:06)
[2021-03-26] MEDS: CHOLECALCIFEROL (VITAMIN D3) 1,000 UNIT TABLET PO SCH (08:05)
[2021-03-26] MEDS: ASPIRIN CHEWABLE 81 MG TABLET. PO SCH (08:05)
[2021-03-26] MEDS: buPROPion XL 150 MG TAB.ER.24H PO SCH (08:06)
[2021-03-26] MEDS: SERTRALINE 100 MG TABLET. PO SCH (08:06)
[2021-03-26] MEDS: LISINOPRIL 10 MG TABLET PO SCH (08:06)
[2021-03-26] MEDS: RIVASTIGMINE 13.3MG PATCH. TD SCH (08:08)
--- NOTE | 2021-03-26 09:39 | NUR ---
Pt appropriate on the unit. A&O, denies SI/HI/VH/AH/delusions/pain. He is compliant with morning medications except for Exelon patch which he refused. When asked if there was something concerning the patch that he did not like he replied "no, I just don't want it." He is absent of verbal/physical aggression, and has not been disruptive on the unit. Plan of care continues, will pass to next shift.
--- NOTE | 2021-03-26 11:37 | NUR ---
WEEKLY ACTIVITY THERAPY NOTE Date of Admission:03/04/21 Date of AT Assessment: 03/05/2021 Precipitating behaviors that initiated intake and admission:Patient admitted from home via [place] ED for reportedly leaving sons house at night and knocking on neighbors door at 2am, being paranoid about neighbors causing trouble, losing items, and driving to [place] and believed he was in [place] per police. Goal aimed: to increase engagement Initial Goal: Pt. will participate in at least three individual or Activity Therapy groups before discharge. Weekly progress towards goal: achieved, 4/3 Group participation level: 1 min, 1 mod Weekly highlights: acted out one activity afternoon during salad bowl activity,raised hand for group discussion after sermon on Tuesday afternoon Behaviors observed: withdrawn to room, quiet and pleasant Plan: repeat goal Beneficial adaptations:
--- NOTE | 2021-03-26 13:24 | NUR ---
Treatment team update: Pt is eating 100% of meals and sleeping on average 8 hours per night. Pt is mostly withdrawn to his room and has a flat affect. For the last couple days, pt has refused his Exelon patch; however, cannot express any overt reaction or effects as to why he does not want the patch other than "I don't want it". To replace the Exelon, pt will start p.o. Aricept 5mg for two days to increase to 10mg daily. Pt has attended two groups with minimal participation, usually leaving group to return to his room. Pt was denied admission to [facility]; pt son has looked into [facility] and [facility] near [place], [place]. SW will continue to work on placement with pt son and [facility].
--- NOTE | 2021-03-26 13:45 | NUR ---
GEOVANNA received voicemail from Yonathan asking that SW send a referral over to [facility] in [facility]. SW sent the referrals this afternoon and hope to hear back tomorrow with decision for admission.
--- NOTE | 2021-03-26 14:40 | NUR ---
GEOVANNA received call from Leslie at [facility] to discuss the records GEOVANNA sent over for admission review. Leslie is concerned that pt may walk out of the facility. GEOVANNA informed Leslie that pt does not exit seek here; however, GEOVANNA cannot confirm that he would not once he got comfortable there. Pt is not having any behaviors and is quite withdrawn to his room, so behaviorally, pt is ready for discharge and does not see this to be an issue. Leslie stated "I know the marketers see a potential to fill a bed but I have to make sure he fits here and that we can maintain him". Leslie is just not feeling comfortable with his potential to walk out and at this time is saying no to admission.
[2021-03-26 16:05] VITALS: BP 119/70
--- NOTE | 2021-03-26 16:16 | NUR ---
GEOVANNA contacted Leonarda at [facility] in [place] to give her an update on pt. Leonarda is concerned about pt possibly walking out as they are not a locked facility; but instead use wander guards. GEOVANNA cannot confirm that pt would not walk out. GEOVANNA informed Leonarda that pt does not wander here, nor does he door check. GEOVANNA informed Leonarda that pt is withdrawn to his room most days but does come out for a random group activity and all meals. Pt is not physically aggressive and is medication compliant. Leonarda is not sure it will work out based off the wander concerns but would like to set up a conference call or Zoom to evaluate him. GEOVANNA will request that her co-worker aid in this call as GEOVANNA will be out on Tuesday.
[2021-03-26] MEDS: ATORVASTATIN CALCIUM 20 MG TABLET PO SCH (20:06)
[2021-03-26] MEDS: QUEtiapine 50 MG TABLET. PO SCH (20:06)
--- NOTE | 2021-03-26 22:07 | PDOC ---
Exam Note: Mike Note: Please also refer to the separate dictated note~for this date of service dictated separately.~Patient seen individually. Discussed the patient with Nursing staff reviewed the chart.~Reviewed interim history and current functioning. Reviewed vital signs,~Labs/ Radiology~and current medications noted below. Continue current treatment with the changes noted in the dictated addendum note Assessment: Vital Signs/I&O: Vital Signs Date Time Temp Pulse Resp B/P (MAP) Pulse Ox O2 Delivery O2 Flow Rate FiO2 03/26/21 16:05 97.5 65 16 119/70 (86) 95 03/22/21 06:20 Room Air I & O 03/25/21 03/25/21 03/26/21 15:00 23:00 07:00 Intake Total 720 ml 340 ml Balance 720 ml 340 ml Current Medications: Meds: Current Medications Medications (Trade) Dose Ordered Sig/Greg Route PRN Reason Start Time Stop Time Status Last Admin Dose Admin Acetaminophen (Tylenol) 650 mg PRN Q6HRS PRN PO MILD PAIN / TEMP > 100.3'F 03/04/21 16:15 Multi-Ingredient Ointment (Analgesic [place]) 1 donn PRN QID PRN TP MUSCLE PAIN 03/04/21 16:15 Al Hydroxide/Mg Hydroxide (Mylanta Plus Xs) 15 ml PRN AFTMEALHC PRN PO DYSPEPSIA 03/04/21 16:15 Magnesium Hydroxide (Milk Of Magnesia) 2,400 mg PRN QHS PRN PO CONSTIPATION 03/04/21 16:15 Aspirin (Aspirin Chewable) 81 mg DAILY PO 03/05/21 09:00 03/26/21 08:05 Lisinopril (Prinivil) 10 mg DAILY PO 03/05/21 09:00 03/26/21 08:06 Vitamin D (Vitamin D3) 25 unit DAILY PO 03/05/21 09:00 03/07/21 10:29 DC 03/05/21 09:14 Metformin HCl (Glucophage) 1,000 mg BIDWMEALS PO 03/04/21 17:00 03/26/21 16:06 Atorvastatin Calcium (Lipitor) 80 mg QHS PO 03/04/21 21:00 03/26/21 20:06 Olanzapine (ZyPREXA ZYDIS) 2.5 mg PRN Q2HR PRN PO PSYCHOSIS 03/05/21 17:00 03/05/21 17:02 Vitamin D (Vitamin D3) 1,000 unit DAILY PO 03/08/21 09:00 03/26/21 08:05 Memantine (Namenda) 5 mg BID PO 03/07/21 21:00 03/11/21 18:16 DC 03/11/21 08:36 Sertraline HCl (Zoloft) 25 mg DAILY PO 03/08/21 09:00 03/10/21 20:16 DC 03/10/21 08:40 Rivastigmine (Exelon) 4.6 patch DAILY TD 03/08/21 09:00 03/09/21 13:31 DC 03/09/21 08:58 Rivastigmine (Exelon) 9.5 patch DAILY TD 03/15/21 09:00 Cancel Rivastigmine (Exelon) 1 patch DAILY TD 03/15/21 09:00 03/19/21 14:00 DC 03/19/21 09:14 Rivastigmine (Exelon) 1 patch DAILY TD 03/10/21 09:00 03/14/21 23:50 DC 03/14/21 09:00 Sertraline HCl (Zoloft) 50 mg DAILY PO 03/11/21 09:00 03/22/21 20:39 DC 03/22/21 08:39 Trazodone HCl (Desyrel) 50 mg PRN QHS PRN PO INSOMNIA 03/10/21 20:15 Memantine (Namenda) 5 mg DAILY PO 03/12/21 09:00 03/15/21 20:10 DC 03/15/21 07:59 Memantine (Namenda) 10 mg QHS PO 03/11/21 21:00 03/15/21 22:00 DC 03/15/21 21:02 Memantine (Namenda) 10 mg BID PO 03/16/21 09:00 03/26/21 20:06 Rivastigmine (Exelon 13.3mg) 1 patch DAILY TD 03/20/21 09:00 03/26/21 11:18 DC 03/23/21 08:10 Quetiapine Fumarate (SEROquel) 25 mg HS PO 03/17/21 21:00 03/18/21 16:11 DC 03/17/21 21:41 Quetiapine Fumarate (SEROquel) 50 mg HS PO 03/18/21 21:00 03/26/21 20:06 Sertraline HCl (Zoloft) 75 mg DAILY PO 03/23/21 09:00 03/25/21 12:00 DC 03/25/21 08:24 Sertraline HCl (Zoloft) 100 mg DAILY PO 03/26/21 09:00 03/26/21 08:06 Bupropion HCl (Wellbutrin Xl) 150 mg DAILY PO 03/26/21 09:00 03/26/21 08:06 Donepezil HCl (Aricept) 5 mg DAILY PO 03/27/21 09:00 03/28/21 23:50 Donepezil HCl (Aricept) 10 mg DAILY PO 03/29/21 09:00 Current Medications Medications (Trade) Dose Ordered Sig/Greg Route PRN Reason Start Time Stop Time Status Last Admin Dose Admin Sertraline HCl (Zoloft) 100 mg DAILY PO 03/26/21 09:00 03/26/21 08:06 Bupropion HCl (Wellbutrin Xl) 150 mg DAILY PO 03/26/21 09:00 03/26/21 08:06 I have reviewed the current psychotropics carefully including drug interactions. Risk benefit ratio favors no change other than as noted in my dictated progress note. Diagnosis: Problems: (1) Impulse control disorder, unspecified (2) Lewy body dementia with behavioral disturbance (3) Anxiety disorder, unspecified (4) Dementia in Alzheimer's disease with depression (5) Dementia in Alzheimer's disease with delusions (6) Major neurocognitive disorder GABRIELLA LEDEZMA MD Mar 26, 2021 22:07
--- NOTE | 2021-03-26 22:48 | NUR ---
Pt located in his room this evening. Calm and cooperative. Compliant with whole medications and shower.
[2021-03-27 06:12] VITALS: BP 121/73
[2021-03-27 06:24] LABS: BASO % 1 % (0-3); EOS # 0.1 x10^3/uL (0.0-0.7); EOS % 2 % (0-3); HEMATOCRIT 43.9 % (39.0-53.0); LYMPH # 1.5 x10^3/uL (1.0-4.8); LYMPH % 25 % (24-48); MEAN CORPUSCULAR HEMOGLOBIN 33 pg (25-35); MEAN CORPUSCULAR HGB CONC 34 g/dL (31-37); MEAN CORPUSCULAR VOLUME 96 fL (79-100); MONO # 0.5 x10^3/uL (0.0-1.1); MONO % 7 % (0-9); NEUT # 4.1 x10^3uL (1.8-7.7); NEUT % 66 % (31-73); PLATELET COUNT 124 x10^3/uL (140-400); RED BLOOD COUNT 4.58 x10^6/uL (4.30-5.70); RED CELL DISTRIBUTION WIDTH 13.4 % (11.5-14.5); WHITE BLOOD COUNT 6.2 x10^3/uL (4.0-11.0)
[2021-03-27 06:49] LABS: ALBUMIN 3.6 g/dL (3.4-5.0); ALBUMIN/GLOBULIN RATIO 1.1 (1.0-1.7); CALCIUM 9.1 mg/dL (8.5-10.1); GFR 73.2; POTASSIUM 3.6 mmol/L (3.5-5.1); TOTAL BILIRUBIN 0.5 mg/dL (0.2-1.0); TOTAL PROTEIN 6.8 g/dL (6.4-8.2)
[2021-03-27] MEDS: ASPIRIN CHEWABLE 81 MG TABLET. PO SCH (07:10)
[2021-03-27] MEDS: SERTRALINE 100 MG TABLET. PO SCH (09:00)
[2021-03-27] MEDS: DONEPEZIL HCL 5 MG TABLET. PO SCH (09:00)
[2021-03-27] MEDS: buPROPion XL 150 MG TAB.ER.24H PO SCH (09:00)
[2021-03-27] MEDS: CHOLECALCIFEROL (VITAMIN D3) 1,000 UNIT TABLET PO SCH (09:00)
[2021-03-27] MEDS: LISINOPRIL 10 MG TABLET PO SCH (09:00)
[2021-03-27] MEDS: MEMANTINE 10 MG TABLET. PO SCH ×2 (09:00→20:15)
[2021-03-27] MEDS: metFORMIN 500 MG TABLET PO SCH ×2 (09:00→17:42)
--- NOTE | 2021-03-27 09:12 | NUR ---
Pt appropriate on the unit. A&O, denies SI/HI/VH/AH/delusions/pain. He is compliant with morning medications, receptive to education provided. After breakfast she retired back to his room. He remains primarily withdrawn and does not interact with others. Plan of care continues, will pass to next shift.
--- NOTE | 2021-03-27 10:00 | PDOC ---
Exam Note: Mike Note: This note is a late entry for 03/25/2021 covers elements not covered in my initial note. Subjective: The patient was seen individually in the evening of 03/25/2021 with Scott HECTOR, discussed and reviewed the chart. The patient slept 8 hours previous night. Per nursing report patient remains withdrawn to his room but cooperative. He refused his Exelon patch today. We may need to change this to Aricept oral. Review of Systems: No CV, , pulmonary, eye, ENT system symptoms on review. He is somewhat hard of hearing. Mental Status Exam: The patient is oriented to himself and situation. Speech coherent has some latency. Abstraction fair. Computation impaired. Language function intact. Mood and affect somewhat withdrawn. Laboratory Data: Reviewed. 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 Anxiety disorder unspecified. Impulse control disorder. Plan: Maintain rest of the psychotropics unchanged. Given his apathy, withdrawal and symptoms of depression, we will add Wellbutrin XL 150 mg in the morning. Continue Zoloft at current dosage along with rest of the psychotropics. We will assess in a day or so whether Exelon patch needs to be changed to Aricept tablets. Assessment: Vital Signs/I&O: Vital Signs Date Time Temp Pulse Resp B/P (MAP) Pulse Ox O2 Delivery O2 Flow Rate FiO2 03/27/21 09:00 67 121/73 03/27/21 06:12 97.3 18 96 03/22/21 06:20 Room Air I & O 03/26/21 03/26/21 03/27/21 14:59 22:59 06:59 Intake Total 630 ml 350 ml Balance 630 ml 350 ml Labs: Laboratory Tests Test 03/27/21 06:05 03/27/21 07:07 White Blood Count 6.2 x10^3/uL (4.0-11.0) Red Blood Count 4.58 x10^6/uL (4.30-5.70) Hemoglobin 15.0 g/dL (13.0-17.5) Hematocrit 43.9 % (39.0-53.0) Mean Corpuscular Volume 96 fL (79-100) Mean Corpuscular Hemoglobin 33 pg (25-35) Mean Corpuscular Hemoglobin Concent 34 g/dL (31-37) Red Cell Distribution Width 13.4 % (11.5-14.5) Platelet Count 124 x10^3/uL (140-400) L Neutrophils (%) (Auto) 66 % (31-73) Lymphocytes (%) (Auto) 25 % (24-48) Monocytes (%) (Auto) 7 % (0-9) Eosinophils (%) (Auto) 2 % (0-3) Basophils (%) (Auto) 1 % (0-3) Neutrophils # (Auto) 4.1 x10^3uL (1.8-7.7) Lymphocytes # (Auto) 1.5 x10^3/uL (1.0-4.8) Monocytes # (Auto) 0.5 x10^3/uL (0.0-1.1) Eosinophils # (Auto) 0.1 x10^3/uL (0.0-0.7) Basophils # (Auto) 0.0 x10^3/uL (0.0-0.2) Sodium Level 137 mmol/L (136-145) Potassium Level 3.6 mmol/L (3.5-5.1) Chloride Level 100 mmol/L (98-107) Carbon Dioxide Level 29 mmol/L (21-32) Anion Gap 8 (6-14) Blood Urea Nitrogen 18 mg/dL (8-26) Creatinine 1.0 mg/dL (0.7-1.3) Estimated GFR (Cockcroft-Gault) 73.2 BUN/Creatinine Ratio 18 (6-20) Glucose Level 88 mg/dL (70-99) Calcium Level 9.1 mg/dL (8.5-10.1) Total Bilirubin 0.5 mg/dL (0.2-1.0) Aspartate Amino Transferase (AST) 21 U/L (15-37) Alanine Aminotransferase (ALT) 38 U/L (16-63) Alkaline Phosphatase 89 U/L (46-116) Total Protein 6.8 g/dL (6.4-8.2) Albumin 3.6 g/dL (3.4-5.0) Albumin/Globulin Ratio 1.1 (1.0-1.7) Glucose (Fingerstick) 92 mg/dL (70-99) Current Medications: Meds: Laboratory Tests Test 03/27/21 06:05 03/27/21 07:07 White Blood Count 6.2 x10^3/uL Red Blood Count 4.58 x10^6/uL Hemoglobin 15.0 g/dL Hematocrit 43.9 % Mean Corpuscular Volume 96 fL Mean Corpuscular Hemoglobin 33 pg Mean Corpuscular Hemoglobin Concent 34 g/dL Red Cell Distribution Width 13.4 % Platelet Count 124 x10^3/uL Neutrophils (%) (Auto) 66 % Lymphocytes (%) (Auto) 25 % Monocytes (%) (Auto) 7 % Eosinophils (%) (Auto) 2 % Basophils (%) (Auto) 1 % Neutrophils # (Auto) 4.1 x10^3uL Lymphocytes # (Auto) 1.5 x10^3/uL Monocytes # (Auto) 0.5 x10^3/uL Eosinophils # (Auto) 0.1 x10^3/uL Basophils # (Auto) 0.0 x10^3/uL Sodium Level 137 mmol/L Potassium Level 3.6 mmol/L Chloride Level 100 mmol/L Carbon Dioxide Level 29 mmol/L Anion Gap 8 Blood Urea Nitrogen 18 mg/dL Creatinine 1.0 mg/dL Estimated GFR (Cockcroft-Gault) 73.2 BUN/Creatinine Ratio 18 Glucose Level 88 mg/dL Calcium Level 9.1 mg/dL Total Bilirubin 0.5 mg/dL Aspartate Amino Transf (AST/SGOT) 21 U/L Alanine Aminotransferase (ALT/SGPT) 38 U/L Alkaline Phosphatase 89 U/L Total Protein 6.8 g/dL Albumin 3.6 g/dL Albumin/Globulin Ratio 1.1 Glucose (Fingerstick) 92 mg/dL Current Medications Medications (Trade) Dose Ordered Sig/Greg Route PRN Reason Start Time Stop Time Status Last Admin Dose Admin Acetaminophen (Tylenol) 650 mg PRN Q6HRS PRN PO MILD PAIN / TEMP > 100.3'F 03/04/21 16:15 Multi-Ingredient Ointment (Analgesic [place]) 1 donn PRN QID PRN TP MUSCLE PAIN 03/04/21 16:15 Al Hydroxide/Mg Hydroxide (Mylanta Plus Xs) 15 ml PRN AFTMEALHC PRN PO DYSPEPSIA 03/04/21 16:15 Magnesium Hydroxide (Milk Of Magnesia) 2,400 mg PRN QHS PRN PO CONSTIPATION 03/04/21 16:15 Aspirin (Aspirin Chewable) 81 mg DAILY PO 03/05/21 09:00 03/26/21 08:05 Lisinopril (Prinivil) 10 mg DAILY PO 03/05/21 09:00 03/27/21 09:00 Vitamin D (Vitamin D3) 25 unit DAILY PO 03/05/21 09:00 03/07/21 10:29 DC 03/05/21 09:14 Metformin HCl (Glucophage) 1,000 mg BIDWMEALS PO 03/04/21 17:00 03/27/21 09:00 Atorvastatin Calcium (Lipitor) 80 mg QHS PO 03/04/21 21:00 03/26/21 20:06 Olanzapine (ZyPREXA ZYDIS) 2.5 mg PRN Q2HR PRN PO PSYCHOSIS 03/05/21 17:00 03/05/21 17:02 Vitamin D (Vitamin D3) 1,000 unit DAILY PO 03/08/21 09:00 03/27/21 09:00 Memantine (Namenda) 5 mg BID PO 03/07/21 21:00 03/11/21 18:16 DC 03/11/21 08:36 Sertraline HCl (Zoloft) 25 mg DAILY PO 03/08/21 09:00 03/10/21 20:16 DC 03/10/21 08:40 Rivastigmine (Exelon) 4.6 patch DAILY TD 03/08/21 09:00 03/09/21 13:31 DC 03/09/21 08:58 Rivastigmine (Exelon) 9.5 patch DAILY TD 03/15/21 09:00 Cancel Rivastigmine (Exelon) 1 patch DAILY TD 03/15/21 09:00 03/19/21 14:00 DC 03/19/21 09:14 Rivastigmine (Exelon) 1 patch DAILY TD 03/10/21 09:00 03/14/21 23:50 DC 03/14/21 09:00 Sertraline HCl (Zoloft) 50 mg DAILY PO 03/11/21 09:00 03/22/21 20:39 DC 03/22/21 08:39 Trazodone HCl (Desyrel) 50 mg PRN QHS PRN PO INSOMNIA 03/10/21 20:15 Memantine (Namenda) 5 mg DAILY PO 03/12/21 09:00 03/15/21 20:10 DC 03/15/21 07:59 Memantine (Namenda) 10 mg QHS PO 03/11/21 21:00 03/15/21 22:00 DC 03/15/21 21:02 Memantine (Namenda) 10 mg BID PO 03/16/21 09:00 03/27/21 09:00 Rivastigmine (Exelon 13.3mg) 1 patch DAILY TD 03/20/21 09:00 03/26/21 11:18 DC 03/23/21 08:10 Quetiapine Fumarate (SEROquel) 25 mg HS PO 03/17/21 21:00 03/18/21 16:11 DC 03/17/21 21:41 Quetiapine Fumarate (SEROquel) 50 mg HS PO 03/18/21 21:00 03/26/21 20:06 Sertraline HCl (Zoloft) 75 mg DAILY PO 03/23/21 09:00 03/25/21 12:00 DC 03/25/21 08:24 Sertraline HCl (Zoloft) 100 mg DAILY PO 03/26/21 09:00 03/27/21 09:00 Bupropion HCl (Wellbutrin Xl) 150 mg DAILY PO 03/26/21 09:00 03/27/21 09:00 Donepezil HCl (Aricept) 5 mg DAILY PO 03/27/21 09:00 03/28/21 23:50 03/27/21 09:00 Donepezil HCl (Aricept) 10 mg DAILY PO 03/29/21 09:00 Current Medications Medications (Trade) Dose Ordered Sig/Greg Route PRN Reason Start Time Stop Time Status Last Admin Dose Admin Donepezil HCl (Aricept) 5 mg DAILY PO 03/27/21 09:00 03/28/21 23:50 03/27/21 09:00 I have reviewed the current psychotropics carefully including drug interactions. Risk benefit ratio favors no change other than as noted in my dictated progress note. Diagnosis: Problems: (1) Impulse control disorder, unspecified (2) Lewy body dementia with behavioral disturbance (3) Anxiety disorder, unspecified (4) Dementia in Alzheimer's disease with depression (5) Dementia in Alzheimer's disease with delusions (6) Major neurocognitive disorder DARIEN,MAN M MD Mar 27, 2021 10:00
--- NOTE | 2021-03-27 14:32 | NUR ---
SW facilitated a video call between pt and Leonarda with [facility] for possible placement. Leonarda initiated conversation with pt by introducing herself and letting pt know that she was calling to meet him as his son had inquired about pt coming to their facility to live. Leonarda asked pt what he thought about that and he stated that he was not interested because he believes his son is . This SW asked pt why he thought his son was and he said because he isn't here. SW then stated that she thought the son had called and talked with him on the phone. Pt stated that he believes the calls are recorded because his son just asks him the same questions such as "what did you eat and how are you doing?" SW asked pt if he thought his mind my change if there could be a video call between he and his son just like what we were doing in this current meeting between he and Leonarda from [facility]. SW went on to describe that the call would not be scripted and he and his son could talk about other things beyond just how he is doing here at the hospital. Pt stated that he wasn't sure about that, but would maybe consider it. Leonarda went on to ask pt things that he enjoyed doing. He described that he liked to take rides and be outdoors. Leonarda and this SW asked if he ever had farm animals and he stated that he had once had cows and horses. He also said that he used to do a bit of gardening. 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 Leonarda stated that she thought she had what she needed and that she needed to contact her corporate office for final placement decision and would contact assigned SW early next week.
[2021-03-27 15:57] VITALS: BP 143/77
--- NOTE | 2021-03-27 16:11 | NUR ---
Reviewed 03/27/[address] Tompkins, no orders at this time. Addendum: 03/27/21 at 1612 by AGUS ROWELL RN advises we continue to monitor pt and lab trends
[2021-03-27] MEDS: QUEtiapine 50 MG TABLET. PO SCH (20:15)
[2021-03-27] MEDS: ATORVASTATIN CALCIUM 20 MG TABLET PO SCH (20:15)
--- NOTE | 2021-03-27 21:55 | PDOC ---
Exam Note: Mike Note: Please also refer to the separate dictated note~for this date of service dictated separately.~Patient seen individually. Discussed the patient with Nursing staff reviewed the chart.~Reviewed interim history and current functioning. Reviewed vital signs,~Labs/ Radiology~and current medications noted below. Continue current treatment with the changes noted in the dictated addendum note Assessment: Vital Signs/I&O: Vital Signs Date Time Temp Pulse Resp B/P (MAP) Pulse Ox O2 Delivery O2 Flow Rate FiO2 03/27/21 15:57 98.0 73 16 143/77 (99) 95 03/22/21 06:20 Room Air I & O 03/26/21 03/26/21 03/27/21 15:00 23:00 07:00 Intake Total 630 ml 350 ml Balance 630 ml 350 ml Labs: Laboratory Tests Test 03/27/21 06:05 03/27/21 07:07 White Blood Count 6.2 x10^3/uL (4.0-11.0) Red Blood Count 4.58 x10^6/uL (4.30-5.70) Hemoglobin 15.0 g/dL (13.0-17.5) Hematocrit 43.9 % (39.0-53.0) Mean Corpuscular Volume 96 fL (79-100) Mean Corpuscular Hemoglobin 33 pg (25-35) Mean Corpuscular Hemoglobin Concent 34 g/dL (31-37) Red Cell Distribution Width 13.4 % (11.5-14.5) Platelet Count 124 x10^3/uL (140-400) L Neutrophils (%) (Auto) 66 % (31-73) Lymphocytes (%) (Auto) 25 % (24-48) Monocytes (%) (Auto) 7 % (0-9) Eosinophils (%) (Auto) 2 % (0-3) Basophils (%) (Auto) 1 % (0-3) Neutrophils # (Auto) 4.1 x10^3uL (1.8-7.7) Lymphocytes # (Auto) 1.5 x10^3/uL (1.0-4.8) Monocytes # (Auto) 0.5 x10^3/uL (0.0-1.1) Eosinophils # (Auto) 0.1 x10^3/uL (0.0-0.7) Basophils # (Auto) 0.0 x10^3/uL (0.0-0.2) Sodium Level 137 mmol/L (136-145) Potassium Level 3.6 mmol/L (3.5-5.1) Chloride Level 100 mmol/L (98-107) Carbon Dioxide Level 29 mmol/L (21-32) Anion Gap 8 (6-14) Blood Urea Nitrogen 18 mg/dL (8-26) Creatinine 1.0 mg/dL (0.7-1.3) Estimated GFR (Cockcroft-Gault) 73.2 BUN/Creatinine Ratio 18 (6-20) Glucose Level 88 mg/dL (70-99) Calcium Level 9.1 mg/dL (8.5-10.1) Total Bilirubin 0.5 mg/dL (0.2-1.0) Aspartate Amino Transferase (AST) 21 U/L (15-37) Alanine Aminotransferase (ALT) 38 U/L (16-63) Alkaline Phosphatase 89 U/L (46-116) Total Protein 6.8 g/dL (6.4-8.2) Albumin 3.6 g/dL (3.4-5.0) Albumin/Globulin Ratio 1.1 (1.0-1.7) Glucose (Fingerstick) 92 mg/dL (70-99) Current Medications: Meds: Laboratory Tests Test 03/27/21 06:05 03/27/21 07:07 White Blood Count 6.2 x10^3/uL Red Blood Count 4.58 x10^6/uL Hemoglobin 15.0 g/dL Hematocrit 43.9 % Mean Corpuscular Volume 96 fL Mean Corpuscular Hemoglobin 33 pg Mean Corpuscular Hemoglobin Concent 34 g/dL Red Cell Distribution Width 13.4 % Platelet Count 124 x10^3/uL Neutrophils (%) (Auto) 66 % Lymphocytes (%) (Auto) 25 % Monocytes (%) (Auto) 7 % Eosinophils (%) (Auto) 2 % Basophils (%) (Auto) 1 % Neutrophils # (Auto) 4.1 x10^3uL Lymphocytes # (Auto) 1.5 x10^3/uL Monocytes # (Auto) 0.5 x10^3/uL Eosinophils # (Auto) 0.1 x10^3/uL Basophils # (Auto) 0.0 x10^3/uL Sodium Level 137 mmol/L Potassium Level 3.6 mmol/L Chloride Level 100 mmol/L Carbon Dioxide Level 29 mmol/L Anion Gap 8 Blood Urea Nitrogen 18 mg/dL Creatinine 1.0 mg/dL Estimated GFR (Cockcroft-Gault) 73.2 BUN/Creatinine Ratio 18 Glucose Level 88 mg/dL Calcium Level 9.1 mg/dL Total Bilirubin 0.5 mg/dL Aspartate Amino Transf (AST/SGOT) 21 U/L Alanine Aminotransferase (ALT/SGPT) 38 U/L Alkaline Phosphatase 89 U/L Total Protein 6.8 g/dL Albumin 3.6 g/dL Albumin/Globulin Ratio 1.1 Glucose (Fingerstick) 92 mg/dL Current Medications Medications (Trade) Dose Ordered Sig/Greg Route PRN Reason Start Time Stop Time Status Last Admin Dose Admin Acetaminophen (Tylenol) 650 mg PRN Q6HRS PRN PO MILD PAIN / TEMP > 100.3'F 03/04/21 16:15 Multi-Ingredient Ointment (Analgesic [place]) 1 donn PRN QID PRN TP MUSCLE PAIN 03/04/21 16:15 Al Hydroxide/Mg Hydroxide (Mylanta Plus Xs) 15 ml PRN AFTMEALHC PRN PO DYSPEPSIA 03/04/21 16:15 Magnesium Hydroxide (Milk Of Magnesia) 2,400 mg PRN QHS PRN PO CONSTIPATION 03/04/21 16:15 Aspirin (Aspirin Chewable) 81 mg DAILY PO 03/05/21 09:00 03/26/21 08:05 Lisinopril (Prinivil) 10 mg DAILY PO 03/05/21 09:00 03/27/21 09:00 Vitamin D (Vitamin D3) 25 unit DAILY PO 03/05/21 09:00 03/07/21 10:29 DC 03/05/21 09:14 Metformin HCl (Glucophage) 1,000 mg BIDWMEALS PO 03/04/21 17:00 03/27/21 17:42 Atorvastatin Calcium (Lipitor) 80 mg QHS PO 03/04/21 21:00 03/27/21 20:15 Olanzapine (ZyPREXA ZYDIS) 2.5 mg PRN Q2HR PRN PO PSYCHOSIS 03/05/21 17:00 03/05/21 17:02 Vitamin D (Vitamin D3) 1,000 unit DAILY PO 03/08/21 09:00 03/27/21 09:00 Memantine (Namenda) 5 mg BID PO 03/07/21 21:00 03/11/21 18:16 DC 03/11/21 08:36 Sertraline HCl (Zoloft) 25 mg DAILY PO 03/08/21 09:00 03/10/21 20:16 DC 03/10/21 08:40 Rivastigmine (Exelon) 4.6 patch DAILY TD 03/08/21 09:00 03/09/21 13:31 DC 03/09/21 08:58 Rivastigmine (Exelon) 9.5 patch DAILY TD 03/15/21 09:00 Cancel Rivastigmine (Exelon) 1 patch DAILY TD 03/15/21 09:00 03/19/21 14:00 DC 03/19/21 09:14 Rivastigmine (Exelon) 1 patch DAILY TD 03/10/21 09:00 03/14/21 23:50 DC 03/14/21 09:00 Sertraline HCl (Zoloft) 50 mg DAILY PO 03/11/21 09:00 03/22/21 20:39 DC 03/22/21 08:39 Trazodone HCl (Desyrel) 50 mg PRN QHS PRN PO INSOMNIA 03/10/21 20:15 Memantine (Namenda) 5 mg DAILY PO 03/12/21 09:00 03/15/21 20:10 DC 03/15/21 07:59 Memantine (Namenda) 10 mg QHS PO 03/11/21 21:00 03/15/21 22:00 DC 03/15/21 21:02 Memantine (Namenda) 10 mg BID PO 03/16/21 09:00 03/27/21 20:15 Rivastigmine (Exelon 13.3mg) 1 patch DAILY TD 03/20/21 09:00 03/26/21 11:18 DC 03/23/21 08:10 Quetiapine Fumarate (SEROquel) 25 mg HS PO 03/17/21 21:00 03/18/21 16:11 DC 03/17/21 21:41 Quetiapine Fumarate (SEROquel) 50 mg HS PO 03/18/21 21:00 03/27/21 20:15 Sertraline HCl (Zoloft) 75 mg DAILY PO 03/23/21 09:00 03/25/21 12:00 DC 03/25/21 08:24 Sertraline HCl (Zoloft) 100 mg DAILY PO 03/26/21 09:00 03/27/21 09:00 Bupropion HCl (Wellbutrin Xl) 150 mg DAILY PO 03/26/21 09:00 03/27/21 21:00 DC 03/27/21 09:00 Donepezil HCl (Aricept) 5 mg DAILY PO 03/27/21 09:00 03/28/21 23:50 03/27/21 09:00 Donepezil HCl (Aricept) 10 mg DAILY PO 03/29/21 09:00 Bupropion HCl (Wellbutrin Xl) 150 mg 0900,1200 PO 03/28/21 09:00 Current Medications Medications (Trade) Dose Ordered Sig/Greg Route PRN Reason Start Time Stop Time Status Last Admin Dose Admin Donepezil HCl (Aricept) 5 mg DAILY PO 03/27/21 09:00 03/28/21 23:50 03/27/21 09:00 I have reviewed the current psychotropics carefully including drug interactions. Risk benefit ratio favors no change other than as noted in my dictated progress note. Diagnosis: Problems: (1) Impulse control disorder, unspecified (2) Lewy body dementia with behavioral disturbance (3) Anxiety disorder, unspecified (4) Dementia in Alzheimer's disease with depression (5) Dementia in Alzheimer's disease with delusions (6) Major neurocognitive disorder GABRIELLA LEDEZMA MD Mar 27, 2021 21:55
--- NOTE | 2021-03-27 23:45 | NUR ---
The patient is located in his room on assumption of care, awake in bed. Compliant with assessments and medications taken whole. He does not volunteer information, but answers questions when asked. No irritability or paranoid statements/behaviors. Patient denies any pain or discomfort. He appears to be sleeping comfortably at present time. Will continue to monitor.
[2021-03-28 06:04] VITALS: BP 130/77
[2021-03-28] MEDS: buPROPion XL 150 MG TAB.ER.24H PO SCH ×3 (08:16→12:14)
[2021-03-28] MEDS: SERTRALINE 100 MG TABLET. PO SCH (08:16)
[2021-03-28] MEDS: ASPIRIN CHEWABLE 81 MG TABLET. PO SCH (08:16)
[2021-03-28] MEDS: CHOLECALCIFEROL (VITAMIN D3) 1,000 UNIT TABLET PO SCH (08:16)
[2021-03-28] MEDS: DONEPEZIL HCL 5 MG TABLET. PO SCH (08:17)
[2021-03-28] MEDS: LISINOPRIL 10 MG TABLET PO SCH (08:17)
[2021-03-28] MEDS: metFORMIN 500 MG TABLET PO SCH ×2 (08:17→17:06)
[2021-03-28] MEDS: MEMANTINE 10 MG TABLET. PO SCH ×2 (08:17→20:35)
--- NOTE | 2021-03-28 11:20 | NUR ---
RN Day Shift Note: Pt presents with neutral mood/affect. Pt is medication compliant. Pt is low-alejandro on the unit and follows rules/routines. Pt is cooperative and calm. Pt continues to have a good appetite eating 100% for breakfast. Pts vitals are WNL. Pt slept 9.5 hours last night. Pt is noted to spend time resting in his bedroom. Pt will engage with staff if approached and is pleasant. Will continue to monitor.
[2021-03-28 15:38] VITALS: BP 138/81
--- NOTE | 2021-03-28 18:45 | NUR ---
Pt's son called to speak with son. Pt was given the phone and hung up the phone right when it was handed to him. Pt did not speak to son at all. This financial underwriter verified that pt knew that was his son. Pt stated, "my son is ". Pt was told his son is alive and was asked if he wanted to call him back and speak to him and pt said, "no."
--- NOTE | 2021-03-28 20:33 | PDOC ---
Exam Note: Mike Note: This note is a late entry for 03/26/2021 covers elements not covered in my initial note. Subjective: The patient was reviewed at treatment team meeting individually in the morning on 03/26/2021 with Mayra Blackwood, Lizeth Thomas, and Nay Martinez (social security specialist), Michelle, activity therapy and Dora RN, discussed and reviewed the chart. The patient slept 7-3/4 hours previous night. He has been withdrawn, spends much time in his room, which is where I met with him. Assisted Living has not accepted him and social service staff are pursuing other options. We reviewed the patients history and communications with his son. I met with him in his room. Review of Systems: No CV, , pulmonary, eye, ENT system symptoms on review. He is somewhat hard of hearing. Mental Status Exam: The patient is oriented to himself and situation. Speech coherent has some latency. Abstraction fair. Computation impaired. Often verbal response is monosyllabic. Subjectively he states his mood is better. No suicidal ideation. Laboratory Data: Reviewed. 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 Anxiety disorder unspecified. Impulse control disorder. Plan: Patient has been refusing his Exelon patch. We will change this to Aricept 5 mg a day for 2 days, then 10 mg a day thereafter. Maintain rest of the psychotropics unchanged including Zoloft which is being gradually increased. Assessment: Vital Signs/I&O: Vital Signs Date Time Temp Pulse Resp B/P (MAP) Pulse Ox O2 Delivery O2 Flow Rate FiO2 03/28/21 15:38 98.5 72 16 138/81 (100) 95 03/28/21 06:04 Room Air I & O 03/27/21 03/27/21 03/28/21 15:00 23:00 07:00 Intake Total 600 ml 480 ml Balance 600 ml 480 ml Labs: Laboratory Tests Test 03/28/21 07:02 Glucose (Fingerstick) 91 mg/dL (70-99) Current Medications: Meds: Laboratory Tests Test 03/28/21 07:02 Glucose (Fingerstick) 91 mg/dL Current Medications Medications (Trade) Dose Ordered Sig/Greg Route PRN Reason Start Time Stop Time Status Last Admin Dose Admin Acetaminophen (Tylenol) 650 mg PRN Q6HRS PRN PO MILD PAIN / TEMP > 100.3'F 03/04/21 16:15 Multi-Ingredient Ointment (Analgesic [place]) 1 donn PRN QID PRN TP MUSCLE PAIN 03/04/21 16:15 Al Hydroxide/Mg Hydroxide (Mylanta Plus Xs) 15 ml PRN AFTMEALHC PRN PO DYSPEPSIA 03/04/21 16:15 Magnesium Hydroxide (Milk Of Magnesia) 2,400 mg PRN QHS PRN PO CONSTIPATION 03/04/21 16:15 Aspirin (Aspirin Chewable) 81 mg DAILY PO 03/05/21 09:00 03/28/21 08:16 Lisinopril (Prinivil) 10 mg DAILY PO 03/05/21 09:00 03/28/21 08:17 Vitamin D (Vitamin D3) 25 unit DAILY PO 03/05/21 09:00 03/07/21 10:29 DC 03/05/21 09:14 Metformin HCl (Glucophage) 1,000 mg BIDWMEALS PO 03/04/21 17:00 03/28/21 17:06 Atorvastatin Calcium (Lipitor) 80 mg QHS PO 03/04/21 21:00 03/27/21 20:15 Olanzapine (ZyPREXA ZYDIS) 2.5 mg PRN Q2HR PRN PO PSYCHOSIS 03/05/21 17:00 03/05/21 17:02 Vitamin D (Vitamin D3) 1,000 unit DAILY PO 03/08/21 09:00 03/28/21 08:16 Memantine (Namenda) 5 mg BID PO 03/07/21 21:00 03/11/21 18:16 DC 03/11/21 08:36 Sertraline HCl (Zoloft) 25 mg DAILY PO 03/08/21 09:00 03/10/21 20:16 DC 03/10/21 08:40 Rivastigmine (Exelon) 4.6 patch DAILY TD 03/08/21 09:00 03/09/21 13:31 DC 03/09/21 08:58 Rivastigmine (Exelon) 9.5 patch DAILY TD 03/15/21 09:00 Cancel Rivastigmine (Exelon) 1 patch DAILY TD 03/15/21 09:00 03/19/21 14:00 DC 03/19/21 09:14 Rivastigmine (Exelon) 1 patch DAILY TD 03/10/21 09:00 03/14/21 23:50 DC 03/14/21 09:00 Sertraline HCl (Zoloft) 50 mg DAILY PO 03/11/21 09:00 03/22/21 20:39 DC 03/22/21 08:39 Trazodone HCl (Desyrel) 50 mg PRN QHS PRN PO INSOMNIA 03/10/21 20:15 Memantine (Namenda) 5 mg DAILY PO 03/12/21 09:00 03/15/21 20:10 DC 03/15/21 07:59 Memantine (Namenda) 10 mg QHS PO 03/11/21 21:00 03/15/21 22:00 DC 03/15/21 21:02 Memantine (Namenda) 10 mg BID PO 03/16/21 09:00 03/28/21 08:17 Rivastigmine (Exelon 13.3mg) 1 patch DAILY TD 03/20/21 09:00 03/26/21 11:18 DC 03/23/21 08:10 Quetiapine Fumarate (SEROquel) 25 mg HS PO 03/17/21 21:00 03/18/21 16:11 DC 03/17/21 21:41 Quetiapine Fumarate (SEROquel) 50 mg HS PO 03/18/21 21:00 03/27/21 20:15 Sertraline HCl (Zoloft) 75 mg DAILY PO 03/23/21 09:00 03/25/21 12:00 DC 03/25/21 08:24 Sertraline HCl (Zoloft) 100 mg DAILY PO 03/26/21 09:00 03/28/21 08:16 Bupropion HCl (Wellbutrin Xl) 150 mg DAILY PO 03/26/21 09:00 03/27/21 21:00 DC 03/27/21 09:00 Donepezil HCl (Aricept) 5 mg DAILY PO 03/27/21 09:00 03/28/21 23:50 03/28/21 08:17 Donepezil HCl (Aricept) 10 mg DAILY PO 03/29/21 09:00 Bupropion HCl (Wellbutrin Xl) 150 mg 0900,1200 PO 03/28/21 09:00 03/28/21 08:16 Current Medications Medications (Trade) Dose Ordered Sig/Greg Route PRN Reason Start Time Stop Time Status Last Admin Dose Admin Bupropion HCl (Wellbutrin Xl) 150 mg 0900,1200 PO 03/28/21 09:00 03/28/21 08:16 I have reviewed the current psychotropics carefully including drug interactions. Risk benefit ratio favors no change other than as noted in my dictated progress note. Diagnosis: Problems: (1) Impulse control disorder, unspecified (2) Lewy body dementia with behavioral disturbance (3) Anxiety disorder, unspecified (4) Dementia in Alzheimer's disease with depression (5) Dementia in Alzheimer's disease with delusions (6) Major neurocognitive disorder GABRIELLA LEDEZMA MD Mar 28, 2021 20:33
[2021-03-28] MEDS: QUEtiapine 50 MG TABLET. PO SCH (20:35)
[2021-03-28] MEDS: ATORVASTATIN CALCIUM 20 MG TABLET PO SCH (20:35)
--- NOTE | 2021-03-28 21:06 | PDOC ---
Exam Note: Mike Note: Please also refer to the separate dictated note~for this date of service dictated separately.~Patient seen individually. Discussed the patient with Nursing staff reviewed the chart.~Reviewed interim history and current functioning. Reviewed vital signs,~Labs/ Radiology~and current medications noted below. Continue current treatment with the changes noted in the dictated addendum note Assessment: Vital Signs/I&O: Vital Signs Date Time Temp Pulse Resp B/P (MAP) Pulse Ox O2 Delivery O2 Flow Rate FiO2 03/28/21 15:38 98.5 72 16 138/81 (100) 95 03/28/21 06:04 Room Air I & O 03/27/21 03/27/21 03/28/21 15:00 23:00 07:00 Intake Total 600 ml 480 ml Balance 600 ml 480 ml Labs: Laboratory Tests Test 03/28/21 07:02 Glucose (Fingerstick) 91 mg/dL (70-99) Current Medications: Meds: Current Medications Medications (Trade) Dose Ordered Sig/Greg Route PRN Reason Start Time Stop Time Status Last Admin Dose Admin Bupropion HCl (Wellbutrin Xl) 150 mg 0900,1200 PO 03/28/21 09:00 03/28/21 08:16 I have reviewed the current psychotropics carefully including drug interactions. Risk benefit ratio favors no change other than as noted in my dictated progress note. Diagnosis: Problems: (1) Impulse control disorder, unspecified (2) Lewy body dementia with behavioral disturbance (3) Anxiety disorder, unspecified (4) Dementia in Alzheimer's disease with depression (5) Dementia in Alzheimer's disease with delusions (6) Major neurocognitive disorder GABRIELLA LEDEZMA MD Mar 28, 2021 21:06
--- NOTE | 2021-03-28 21:06 | PDOC ---
Exam Note: Mike Note: This note is a late entry for 03/27/2021 covers elements not covered in my initial note. Subjective: The patient was seen individually in the evening of 03/27/2021 with Dora HECTOR, discussed and reviewed the chart. The patient slept 6-1/2 hours previous night. He has been isolative. He remains much of the time in his room and this is where I met with him. We addressed coming out for social activities. He is somewhat reluctant but accepting nevertheless. Review of Systems: No CV, , pulmonary, eye, ENT system symptoms on review. Reliability varies. Mental Status Exam: The patient is oriented to himself and situation. Speech coherent has some latency. Abstraction fair. Computation impaired. Often verbal response is monosyllabic. No suicidal ideation. Mood and affect improved. Laboratory Data: Reviewed. 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 Anxiety disorder unspecified. Impulse control disorder. Plan: We will be gradually increasing the Wellbutrin. Maintain rest of the psychotropics unchanged. Assessment: Vital Signs/I&O: Vital Signs Date Time Temp Pulse Resp B/P (MAP) Pulse Ox O2 Delivery O2 Flow Rate FiO2 03/28/21 15:38 98.5 72 16 138/81 (100) 95 03/28/21 06:04 Room Air I & O 03/27/21 03/27/21 03/28/21 15:00 23:00 07:00 Intake Total 600 ml 480 ml Balance 600 ml 480 ml Labs: Laboratory Tests Test 03/28/21 07:02 Glucose (Fingerstick) 91 mg/dL (70-99) Current Medications: Meds: Laboratory Tests Test 03/28/21 07:02 Glucose (Fingerstick) 91 mg/dL Current Medications Medications (Trade) Dose Ordered Sig/Greg Route PRN Reason Start Time Stop Time Status Last Admin Dose Admin Acetaminophen (Tylenol) 650 mg PRN Q6HRS PRN PO MILD PAIN / TEMP > 100.3'F 03/04/21 16:15 Multi-Ingredient Ointment (Analgesic [place]) 1 donn PRN QID PRN TP MUSCLE PAIN 03/04/21 16:15 Al Hydroxide/Mg Hydroxide (Mylanta Plus Xs) 15 ml PRN AFTMEALHC PRN PO DYSPEPSIA 03/04/21 16:15 Magnesium Hydroxide (Milk Of Magnesia) 2,400 mg PRN QHS PRN PO CONSTIPATION 03/04/21 16:15 Aspirin (Aspirin Chewable) 81 mg DAILY PO 03/05/21 09:00 03/28/21 08:16 Lisinopril (Prinivil) 10 mg DAILY PO 03/05/21 09:00 03/28/21 08:17 Vitamin D (Vitamin D3) 25 unit DAILY PO 03/05/21 09:00 03/07/21 10:29 DC 03/05/21 09:14 Metformin HCl (Glucophage) 1,000 mg BIDWMEALS PO 03/04/21 17:00 03/28/21 17:06 Atorvastatin Calcium (Lipitor) 80 mg QHS PO 03/04/21 21:00 03/28/21 20:35 Olanzapine (ZyPREXA ZYDIS) 2.5 mg PRN Q2HR PRN PO PSYCHOSIS 03/05/21 17:00 03/05/21 17:02 Vitamin D (Vitamin D3) 1,000 unit DAILY PO 03/08/21 09:00 03/28/21 08:16 Memantine (Namenda) 5 mg BID PO 03/07/21 21:00 03/11/21 18:16 DC 03/11/21 08:36 Sertraline HCl (Zoloft) 25 mg DAILY PO 03/08/21 09:00 03/10/21 20:16 DC 03/10/21 08:40 Rivastigmine (Exelon) 4.6 patch DAILY TD 03/08/21 09:00 03/09/21 13:31 DC 03/09/21 08:58 Rivastigmine (Exelon) 9.5 patch DAILY TD 03/15/21 09:00 Cancel Rivastigmine (Exelon) 1 patch DAILY TD 03/15/21 09:00 03/19/21 14:00 DC 03/19/21 09:14 Rivastigmine (Exelon) 1 patch DAILY TD 03/10/21 09:00 03/14/21 23:50 DC 03/14/21 09:00 Sertraline HCl (Zoloft) 50 mg DAILY PO 03/11/21 09:00 03/22/21 20:39 DC 03/22/21 08:39 Trazodone HCl (Desyrel) 50 mg PRN QHS PRN PO INSOMNIA 03/10/21 20:15 Memantine (Namenda) 5 mg DAILY PO 03/12/21 09:00 03/15/21 20:10 DC 03/15/21 07:59 Memantine (Namenda) 10 mg QHS PO 03/11/21 21:00 03/15/21 22:00 DC 03/15/21 21:02 Memantine (Namenda) 10 mg BID PO 03/16/21 09:00 03/28/21 20:35 Rivastigmine (Exelon 13.3mg) 1 patch DAILY TD 03/20/21 09:00 03/26/21 11:18 DC 03/23/21 08:10 Quetiapine Fumarate (SEROquel) 25 mg HS PO 03/17/21 21:00 03/18/21 16:11 DC 03/17/21 21:41 Quetiapine Fumarate (SEROquel) 50 mg HS PO 03/18/21 21:00 03/28/21 20:35 Sertraline HCl (Zoloft) 75 mg DAILY PO 03/23/21 09:00 03/25/21 12:00 DC 03/25/21 08:24 Sertraline HCl (Zoloft) 100 mg DAILY PO 03/26/21 09:00 03/28/21 08:16 Bupropion HCl (Wellbutrin Xl) 150 mg DAILY PO 03/26/21 09:00 03/27/21 21:00 DC 03/27/21 09:00 Donepezil HCl (Aricept) 5 mg DAILY PO 03/27/21 09:00 03/28/21 23:50 03/28/21 08:17 Donepezil HCl (Aricept) 10 mg DAILY PO 03/29/21 09:00 Bupropion HCl (Wellbutrin Xl) 150 mg 0900,1200 PO 03/28/21 09:00 03/28/21 08:16 Current Medications Medications (Trade) Dose Ordered Sig/Greg Route PRN Reason Start Time Stop Time Status Last Admin Dose Admin Bupropion HCl (Wellbutrin Xl) 150 mg 0900,1200 PO 03/28/21 09:00 03/28/21 08:16 I have reviewed the current psychotropics carefully including drug interactions. Risk benefit ratio favors no change other than as noted in my dictated progress note. Diagnosis: Problems: (1) Impulse control disorder, unspecified (2) Lewy body dementia with behavioral disturbance (3) Anxiety disorder, unspecified (4) Dementia in Alzheimer's disease with depression (5) Dementia in Alzheimer's disease with delusions (6) Major neurocognitive disorder GABRIELLA LEDEZMA MD Mar 28, 2021 21:06
[2021-03-29 06:33] VITALS: BP 147/84
[2021-03-29] MEDS: metFORMIN 500 MG TABLET PO SCH ×2 (08:47→17:00)
[2021-03-29] MEDS: SERTRALINE 100 MG TABLET. PO SCH (08:47)
[2021-03-29] MEDS: CHOLECALCIFEROL (VITAMIN D3) 1,000 UNIT TABLET PO SCH (08:48)
[2021-03-29] MEDS: LISINOPRIL 10 MG TABLET PO SCH (08:48)
[2021-03-29] MEDS: MEMANTINE 10 MG TABLET. PO SCH ×2 (08:48→19:55)
[2021-03-29] MEDS: ASPIRIN CHEWABLE 81 MG TABLET. PO SCH (08:48)
[2021-03-29] MEDS: buPROPion XL 150 MG TAB.ER.24H PO SCH ×2 (08:48→12:25)
[2021-03-29] MEDS: DONEPEZIL HCL 10 MG TABLET PO SCH (08:53)
--- NOTE | 2021-03-29 12:39 | NUR ---
Nursing note: Pt has been med compliant and cooperative this shift. He was slightly irritable this AM when he saw how many pills he had and was questioning what he was taking. After the meds were explained to him, he was compliant in taking them whole. He is currently in the dining room for lunch. Will continue to monitor.
[2021-03-29 16:20] VITALS: BP 147/79
[2021-03-29] MEDS: QUEtiapine 50 MG TABLET. PO SCH (19:55)
[2021-03-29] MEDS: ATORVASTATIN CALCIUM 20 MG TABLET PO SCH (19:55)
--- NOTE | 2021-03-29 20:38 | PDOC ---
Exam Note: Mike Note: Please also refer to the separate dictated note~for this date of service dictated separately.~Patient seen individually. Discussed the patient with Nursing staff reviewed the chart.~Reviewed interim history and current functioning. Reviewed vital signs,~Labs/ Radiology~and current medications noted below. Continue current treatment with the changes noted in the dictated addendum note Assessment: Vital Signs/I&O: Vital Signs Date Time Temp Pulse Resp B/P (MAP) Pulse Ox O2 Delivery O2 Flow Rate FiO2 03/29/21 16:20 97.9 63 18 147/79 (101) 93 Room Air I & O 03/28/21 03/28/21 03/29/21 15:00 23:00 07:00 Intake Total 720 ml 360 ml Balance 720 ml 360 ml Current Medications: Meds: Current Medications Medications (Trade) Dose Ordered Sig/Greg Route PRN Reason Start Time Stop Time Status Last Admin Dose Admin Acetaminophen (Tylenol) 650 mg PRN Q6HRS PRN PO MILD PAIN / TEMP > 100.3'F 03/04/21 16:15 Multi-Ingredient Ointment (Analgesic [place]) 1 donn PRN QID PRN TP MUSCLE PAIN 03/04/21 16:15 Al Hydroxide/Mg Hydroxide (Mylanta Plus Xs) 15 ml PRN AFTMEALHC PRN PO DYSPEPSIA 03/04/21 16:15 Magnesium Hydroxide (Milk Of Magnesia) 2,400 mg PRN QHS PRN PO CONSTIPATION 03/04/21 16:15 Aspirin (Aspirin Chewable) 81 mg DAILY PO 03/05/21 09:00 03/29/21 08:48 Lisinopril (Prinivil) 10 mg DAILY PO 03/05/21 09:00 03/29/21 08:48 Vitamin D (Vitamin D3) 25 unit DAILY PO 03/05/21 09:00 03/07/21 10:29 DC 03/05/21 09:14 Metformin HCl (Glucophage) 1,000 mg BIDWMEALS PO 03/04/21 17:00 03/29/21 17:00 Atorvastatin Calcium (Lipitor) 80 mg QHS PO 03/04/21 21:00 03/29/21 19:55 Olanzapine (ZyPREXA ZYDIS) 2.5 mg PRN Q2HR PRN PO PSYCHOSIS 03/05/21 17:00 03/05/21 17:02 Vitamin D (Vitamin D3) 1,000 unit DAILY PO 03/08/21 09:00 03/29/21 08:48 Memantine (Namenda) 5 mg BID PO 03/07/21 21:00 03/11/21 18:16 DC 03/11/21 08:36 Sertraline HCl (Zoloft) 25 mg DAILY PO 03/08/21 09:00 03/10/21 20:16 DC 03/10/21 08:40 Rivastigmine (Exelon) 4.6 patch DAILY TD 03/08/21 09:00 03/09/21 13:31 DC 03/09/21 08:58 Rivastigmine (Exelon) 9.5 patch DAILY TD 03/15/21 09:00 Cancel Rivastigmine (Exelon) 1 patch DAILY TD 03/15/21 09:00 03/19/21 14:00 DC 03/19/21 09:14 Rivastigmine (Exelon) 1 patch DAILY TD 03/10/21 09:00 03/14/21 23:50 DC 03/14/21 09:00 Sertraline HCl (Zoloft) 50 mg DAILY PO 03/11/21 09:00 03/22/21 20:39 DC 03/22/21 08:39 Trazodone HCl (Desyrel) 50 mg PRN QHS PRN PO INSOMNIA 03/10/21 20:15 Memantine (Namenda) 5 mg DAILY PO 03/12/21 09:00 03/15/21 20:10 DC 03/15/21 07:59 Memantine (Namenda) 10 mg QHS PO 03/11/21 21:00 03/15/21 22:00 DC 03/15/21 21:02 Memantine (Namenda) 10 mg BID PO 03/16/21 09:00 03/29/21 19:55 Rivastigmine (Exelon 13.3mg) 1 patch DAILY TD 03/20/21 09:00 03/26/21 11:18 DC 03/23/21 08:10 Quetiapine Fumarate (SEROquel) 25 mg HS PO 03/17/21 21:00 03/18/21 16:11 DC 03/17/21 21:41 Quetiapine Fumarate (SEROquel) 50 mg HS PO 03/18/21 21:00 03/29/21 19:55 Sertraline HCl (Zoloft) 75 mg DAILY PO 03/23/21 09:00 03/25/21 12:00 DC 03/25/21 08:24 Sertraline HCl (Zoloft) 100 mg DAILY PO 03/26/21 09:00 03/29/21 08:47 Bupropion HCl (Wellbutrin Xl) 150 mg DAILY PO 03/26/21 09:00 03/27/21 21:00 DC 03/27/21 09:00 Donepezil HCl (Aricept) 5 mg DAILY PO 03/27/21 09:00 03/28/21 23:50 DC 03/28/21 08:17 Donepezil HCl (Aricept) 10 mg DAILY PO 03/29/21 09:00 03/29/21 08:53 Bupropion HCl (Wellbutrin Xl) 150 mg 0900,1200 PO 03/28/21 09:00 03/29/21 12:25 Current Medications Medications (Trade) Dose Ordered Sig/Greg Route PRN Reason Start Time Stop Time Status Last Admin Dose Admin Donepezil HCl (Aricept) 10 mg DAILY PO 03/29/21 09:00 03/29/21 08:53 I have reviewed the current psychotropics carefully including drug interactions. Risk benefit ratio favors no change other than as noted in my dictated progress note. Diagnosis: Problems: (1) Impulse control disorder, unspecified (2) Lewy body dementia with behavioral disturbance (3) Anxiety disorder, unspecified (4) Dementia in Alzheimer's disease with depression (5) Dementia in Alzheimer's disease with delusions (6) Major neurocognitive disorder GABRIELLA LEDEZMA MD Mar 29, 2021 20:38
[2021-03-30 06:09] VITALS: BP 153/82
[2021-03-30] MEDS: LISINOPRIL 10 MG TABLET PO SCH (08:11)
[2021-03-30] MEDS: DONEPEZIL HCL 10 MG TABLET PO SCH (08:11)
[2021-03-30] MEDS: CHOLECALCIFEROL (VITAMIN D3) 1,000 UNIT TABLET PO SCH (08:11)
[2021-03-30] MEDS: ASPIRIN CHEWABLE 81 MG TABLET. PO SCH (08:11)
[2021-03-30] MEDS: SERTRALINE 100 MG TABLET. PO SCH (08:11)
[2021-03-30] MEDS: metFORMIN 500 MG TABLET PO SCH ×2 (08:11→17:00)
[2021-03-30] MEDS: buPROPion XL 150 MG TAB.ER.24H PO SCH ×2 (08:11→12:16)
[2021-03-30] MEDS: MEMANTINE 10 MG TABLET. PO SCH ×2 (08:11→20:38)
--- NOTE | 2021-03-30 14:44 | NUR ---
Nursing note: Patient in dinning room for morning medication and assessment. He is compliant taking medications whole. He is A/O X3, unable to report situation and stated it is Tuesday. He has been dividing his time by either laying down in his room or participating in groups in the day room. Patient denies pain/discomfort at this time. He ambulates independently. He is currently awake laying on his bed. Will continue to monitor.
[2021-03-30 15:47] VITALS: BP 144/88
[2021-03-30] MEDS: ATORVASTATIN CALCIUM 20 MG TABLET PO SCH (20:38)
[2021-03-30] MEDS: QUEtiapine 50 MG TABLET. PO SCH (20:38)
--- NOTE | 2021-03-30 20:55 | PDOC ---
Exam Note: Mike Note: This note is a late entry for 03/28/2021 covers elements not covered in my initial note. Subjective: The patient was seen individually in the evening of 03/28/2021 with Berta HECTOR, discussed and reviewed the chart. The patient slept 9-1/2 hours previous night. He refused his noon Wellbutrin. He does come out of the dining room for meals and then goes right back to his room. I met with him in his room. Review of Systems: No CV, , pulmonary, eye, ENT system symptoms on review. Reliability fair. Mental Status Exam: The patient is oriented to himself and situation. Often verbal response is monosyllabic. Abstraction fair. Computation impaired. No suicidal ideation. Mood and affect withdrawn. Laboratory Data: Reviewed. 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 Anxiety disorder unspecified. Impulse control disorder. Plan: Maintain rest of the psychotropics unchanged. Assessment: Vital Signs/I&O: Vital Signs Date Time Temp Pulse Resp B/P (MAP) Pulse Ox O2 Delivery O2 Flow Rate FiO2 03/30/21 15:47 97.9 77 16 144/88 (106) 95 03/30/21 06:09 Room Air I & O 03/29/21 03/29/21 03/30/21 15:00 23:00 07:00 Intake Total 960 ml 360 ml Balance 960 ml 360 ml Current Medications: Meds: Current Medications Medications (Trade) Dose Ordered Sig/Greg Route PRN Reason Start Time Stop Time Status Last Admin Dose Admin Acetaminophen (Tylenol) 650 mg PRN Q6HRS PRN PO MILD PAIN / TEMP > 100.3'F 03/04/21 16:15 Multi-Ingredient Ointment (Analgesic [place]) 1 donn PRN QID PRN TP MUSCLE PAIN 03/04/21 16:15 Al Hydroxide/Mg Hydroxide (Mylanta Plus Xs) 15 ml PRN AFTMEALHC PRN PO DYSPEPSIA 03/04/21 16:15 Magnesium Hydroxide (Milk Of Magnesia) 2,400 mg PRN QHS PRN PO CONSTIPATION 03/04/21 16:15 Aspirin (Aspirin Chewable) 81 mg DAILY PO 03/05/21 09:00 03/30/21 08:11 Lisinopril (Prinivil) 10 mg DAILY PO 03/05/21 09:00 03/30/21 08:11 Vitamin D (Vitamin D3) 25 unit DAILY PO 03/05/21 09:00 03/07/21 10:29 DC 03/05/21 09:14 Metformin HCl (Glucophage) 1,000 mg BIDWMEALS PO 03/04/21 17:00 03/30/21 08:11 Atorvastatin Calcium (Lipitor) 80 mg QHS PO 03/04/21 21:00 03/30/21 20:38 Olanzapine (ZyPREXA ZYDIS) 2.5 mg PRN Q2HR PRN PO PSYCHOSIS 03/05/21 17:00 03/05/21 17:02 Vitamin D (Vitamin D3) 1,000 unit DAILY PO 03/08/21 09:00 03/30/21 08:11 Memantine (Namenda) 5 mg BID PO 03/07/21 21:00 03/11/21 18:16 DC 03/11/21 08:36 Sertraline HCl (Zoloft) 25 mg DAILY PO 03/08/21 09:00 03/10/21 20:16 DC 03/10/21 08:40 Rivastigmine (Exelon) 4.6 patch DAILY TD 03/08/21 09:00 03/09/21 13:31 DC 03/09/21 08:58 Rivastigmine (Exelon) 9.5 patch DAILY TD 03/15/21 09:00 Cancel Rivastigmine (Exelon) 1 patch DAILY TD 03/15/21 09:00 03/19/21 14:00 DC 03/19/21 09:14 Rivastigmine (Exelon) 1 patch DAILY TD 03/10/21 09:00 03/14/21 23:50 DC 03/14/21 09:00 Sertraline HCl (Zoloft) 50 mg DAILY PO 03/11/21 09:00 03/22/21 20:39 DC 03/22/21 08:39 Trazodone HCl (Desyrel) 50 mg PRN QHS PRN PO INSOMNIA 03/10/21 20:15 Memantine (Namenda) 5 mg DAILY PO 03/12/21 09:00 03/15/21 20:10 DC 03/15/21 07:59 Memantine (Namenda) 10 mg QHS PO 03/11/21 21:00 03/15/21 22:00 DC 03/15/21 21:02 Memantine (Namenda) 10 mg BID PO 03/16/21 09:00 03/30/21 20:38 Rivastigmine (Exelon 13.3mg) 1 patch DAILY TD 03/20/21 09:00 03/26/21 11:18 DC 03/23/21 08:10 Quetiapine Fumarate (SEROquel) 25 mg HS PO 03/17/21 21:00 03/18/21 16:11 DC 03/17/21 21:41 Quetiapine Fumarate (SEROquel) 50 mg HS PO 03/18/21 21:00 03/30/21 20:38 Sertraline HCl (Zoloft) 75 mg DAILY PO 03/23/21 09:00 03/25/21 12:00 DC 03/25/21 08:24 Sertraline HCl (Zoloft) 100 mg DAILY PO 03/26/21 09:00 03/30/21 08:11 Bupropion HCl (Wellbutrin Xl) 150 mg DAILY PO 03/26/21 09:00 03/27/21 21:00 DC 03/27/21 09:00 Donepezil HCl (Aricept) 5 mg DAILY PO 03/27/21 09:00 03/28/21 23:50 DC 03/28/21 08:17 Donepezil HCl (Aricept) 10 mg DAILY PO 03/29/21 09:00 03/30/21 08:11 Bupropion HCl (Wellbutrin Xl) 150 mg 0900,1200 PO 03/28/21 09:00 03/30/21 12:16 I have reviewed the current psychotropics carefully including drug interactions. Risk benefit ratio favors no change other than as noted in my dictated progress note. Diagnosis: Problems: (1) Impulse control disorder, unspecified (2) Lewy body dementia with behavioral disturbance (3) Anxiety disorder, unspecified (4) Dementia in Alzheimer's disease with depression (5) Dementia in Alzheimer's disease with delusions (6) Major neurocognitive disorder GABRIELLA LEDEZMA MD Mar 30, 2021 20:55
--- NOTE | 2021-03-30 21:15 | PDOC ---
Exam Note: Mike Note: This note is a late entry for 03/29/2021 covers elements not covered in my initial note. Subjective: The patient was seen individually in the evening of 03/29/2021 with Betsy HECTOR, discussed and reviewed the chart. The patient slept 6-1/2 hours previous night. Overall he remains withdrawn, spends much time in his room and this is where I met with him. He took Wellbutrin at noon and irritable in the morning with medications. I also discussed with Raegan HECTOR. He tends to be withdrawn into his room right after every meal. Review of Systems: No CV, , pulmonary, eye, ENT system symptoms on review. Mental Status Exam: The patient is oriented to himself and situation. Speech coherent. Often verbal response is monosyllabic. Abstraction fair. Computation impaired. Mood and affect withdrawn. Laboratory Data: Reviewed. 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 Anxiety disorder unspecified. Impulse control disorder. Plan: Maintain rest of the psychotropics unchanged. Assessment: Vital Signs/I&O: Vital Signs Date Time Temp Pulse Resp B/P (MAP) Pulse Ox O2 Delivery O2 Flow Rate FiO2 03/30/21 15:47 97.9 77 16 144/88 (106) 95 03/30/21 06:09 Room Air I & O0 03/29/21 03/29/21 03/30/21 15:00 23:00 07:00 Intake Total 960 ml 360 ml Balance 960 ml 360 ml Current Medications: Meds: Current Medications Medications (Trade) Dose Ordered Sig/Greg Route PRN Reason Start Time Stop Time Status Last Admin Dose Admin Acetaminophen (Tylenol) 650 mg PRN Q6HRS PRN PO MILD PAIN / TEMP > 100.3'F 03/04/21 16:15 Multi-Ingredient Ointment (Analgesic [place]) 1 donn PRN QID PRN TP MUSCLE PAIN 03/04/21 16:15 Al Hydroxide/Mg Hydroxide (Mylanta Plus Xs) 15 ml PRN AFTMEALHC PRN PO DYSPEPSIA 03/04/21 16:15 Magnesium Hydroxide (Milk Of Magnesia) 2,400 mg PRN QHS PRN PO CONSTIPATION 03/04/21 16:15 Aspirin (Aspirin Chewable) 81 mg DAILY PO 03/05/21 09:00 03/30/21 08:11 Lisinopril (Prinivil) 10 mg DAILY PO 03/05/21 09:00 03/30/21 08:11 Vitamin D (Vitamin D3) 25 unit DAILY PO 03/05/21 09:00 03/07/21 10:29 DC 03/05/21 09:14 Metformin HCl (Glucophage) 1,000 mg BIDWMEALS PO 03/04/21 17:00 03/30/21 08:11 Atorvastatin Calcium (Lipitor) 80 mg QHS PO 03/04/21 21:00 03/30/21 20:38 Olanzapine (ZyPREXA ZYDIS) 2.5 mg PRN Q2HR PRN PO PSYCHOSIS 03/05/21 17:00 03/05/21 17:02 Vitamin D (Vitamin D3) 1,000 unit DAILY PO 03/08/21 09:00 03/30/21 08:11 Memantine (Namenda) 5 mg BID PO 03/07/21 21:00 03/11/21 18:16 DC 03/11/21 08:36 Sertraline HCl (Zoloft) 25 mg DAILY PO 03/08/21 09:00 03/10/21 20:16 DC 03/10/21 08:40 Rivastigmine (Exelon) 4.6 patch DAILY TD 03/08/21 09:00 03/09/21 13:31 DC 03/09/21 08:58 Rivastigmine (Exelon) 9.5 patch DAILY TD 03/15/21 09:00 Cancel Rivastigmine (Exelon) 1 patch DAILY TD 03/15/21 09:00 03/19/21 14:00 DC 03/19/21 09:14 Rivastigmine (Exelon) 1 patch DAILY TD 03/10/21 09:00 03/14/21 23:50 DC 03/14/21 09:00 Sertraline HCl (Zoloft) 50 mg DAILY PO 03/11/21 09:00 03/22/21 20:39 DC 03/22/21 08:39 Trazodone HCl (Desyrel) 50 mg PRN QHS PRN PO INSOMNIA 03/10/21 20:15 Memantine (Namenda) 5 mg DAILY PO 03/12/21 09:00 03/15/21 20:10 DC 03/15/21 07:59 Memantine (Namenda) 10 mg QHS PO 03/11/21 21:00 03/15/21 22:00 DC 03/15/21 21:02 Memantine (Namenda) 10 mg BID PO 03/16/21 09:00 03/30/21 20:38 Rivastigmine (Exelon 13.3mg) 1 patch DAILY TD 03/20/21 09:00 03/26/21 11:18 DC 03/23/21 08:10 Quetiapine Fumarate (SEROquel) 25 mg HS PO 03/17/21 21:00 03/18/21 16:11 DC 03/17/21 21:41 Quetiapine Fumarate (SEROquel) 50 mg HS PO 03/18/21 21:00 03/30/21 20:38 Sertraline HCl (Zoloft) 75 mg DAILY PO 03/23/21 09:00 03/25/21 12:00 DC 03/25/21 08:24 Sertraline HCl (Zoloft) 100 mg DAILY PO 03/26/21 09:00 03/30/21 08:11 Bupropion HCl (Wellbutrin Xl) 150 mg DAILY PO 03/26/21 09:00 03/27/21 21:00 DC 03/27/21 09:00 Donepezil HCl (Aricept) 5 mg DAILY PO 03/27/21 09:00 03/28/21 23:50 DC 03/28/21 08:17 Donepezil HCl (Aricept) 10 mg DAILY PO 03/29/21 09:00 03/30/21 08:11 Bupropion HCl (Wellbutrin Xl) 150 mg 0900,1200 PO 03/28/21 09:00 03/30/21 12:16 I have reviewed the current psychotropics carefully including drug interactions. Risk benefit ratio favors no change other than as noted in my dictated progress note. Diagnosis: Problems: (1) Impulse control disorder, unspecified (2) Lewy body dementia with behavioral disturbance (3) Anxiety disorder, unspecified (4) Dementia in Alzheimer's disease with depression (5) Dementia in Alzheimer's disease with delusions (6) Major neurocognitive disorder GABRIELLA LEDEZMA MD Mar 30, 2021 21:15
--- NOTE | 2021-03-30 21:16 | PDOC ---
Exam Note: Mike Note: Please also refer to the separate dictated note~for this date of service dictated separately.~Patient seen individually. Discussed the patient with Nursing staff reviewed the chart.~Reviewed interim history and current functioning. Reviewed vital signs,~Labs/ Radiology~and current medications noted below. Continue current treatment with the changes noted in the dictated addendum note Assessment: Vital Signs/I&O: Vital Signs Date Time Temp Pulse Resp B/P (MAP) Pulse Ox O2 Delivery O2 Flow Rate FiO2 03/30/21 15:47 97.9 77 16 144/88 (106) 95 03/30/21 06:09 Room Air I & O 03/29/21 03/29/21 03/30/21 15:00 23:00 07:00 Intake Total 960 ml 360 ml Balance 960 ml 360 ml Current Medications: Meds: Current Medications Medications (Trade) Dose Ordered Sig/Greg Route PRN Reason Start Time Stop Time Status Last Admin Dose Admin Acetaminophen (Tylenol) 650 mg PRN Q6HRS PRN PO MILD PAIN / TEMP > 100.3'F 03/04/21 16:15 Multi-Ingredient Ointment (Analgesic [place]) 1 donn PRN QID PRN TP MUSCLE PAIN 03/04/21 16:15 Al Hydroxide/Mg Hydroxide (Mylanta Plus Xs) 15 ml PRN AFTMEALHC PRN PO DYSPEPSIA 03/04/21 16:15 Magnesium Hydroxide (Milk Of Magnesia) 2,400 mg PRN QHS PRN PO CONSTIPATION 03/04/21 16:15 Aspirin (Aspirin Chewable) 81 mg DAILY PO 03/05/21 09:00 03/30/21 08:11 Lisinopril (Prinivil) 10 mg DAILY PO 03/05/21 09:00 03/30/21 08:11 Vitamin D (Vitamin D3) 25 unit DAILY PO 03/05/21 09:00 03/07/21 10:29 DC 03/05/21 09:14 Metformin HCl (Glucophage) 1,000 mg BIDWMEALS PO 03/04/21 17:00 03/30/21 08:11 Atorvastatin Calcium (Lipitor) 80 mg QHS PO 03/04/21 21:00 03/30/21 20:38 Olanzapine (ZyPREXA ZYDIS) 2.5 mg PRN Q2HR PRN PO PSYCHOSIS 03/05/21 17:00 03/05/21 17:02 Vitamin D (Vitamin D3) 1,000 unit DAILY PO 03/08/21 09:00 03/30/21 08:11 Memantine (Namenda) 5 mg BID PO 03/07/21 21:00 03/11/21 18:16 DC 03/11/21 08:36 Sertraline HCl (Zoloft) 25 mg DAILY PO 03/08/21 09:00 03/10/21 20:16 DC 03/10/21 08:40 Rivastigmine (Exelon) 4.6 patch DAILY TD 03/08/21 09:00 03/09/21 13:31 DC 03/09/21 08:58 Rivastigmine (Exelon) 9.5 patch DAILY TD 03/15/21 09:00 Cancel Rivastigmine (Exelon) 1 patch DAILY TD 03/15/21 09:00 03/19/21 14:00 DC 03/19/21 09:14 Rivastigmine (Exelon) 1 patch DAILY TD 03/10/21 09:00 03/14/21 23:50 DC 03/14/21 09:00 Sertraline HCl (Zoloft) 50 mg DAILY PO 03/11/21 09:00 03/22/21 20:39 DC 03/22/21 08:39 Trazodone HCl (Desyrel) 50 mg PRN QHS PRN PO INSOMNIA 03/10/21 20:15 Memantine (Namenda) 5 mg DAILY PO 03/12/21 09:00 03/15/21 20:10 DC 03/15/21 07:59 Memantine (Namenda) 10 mg QHS PO 03/11/21 21:00 03/15/21 22:00 DC 03/15/21 21:02 Memantine (Namenda) 10 mg BID PO 03/16/21 09:00 03/30/21 20:38 Rivastigmine (Exelon 13.3mg) 1 patch DAILY TD 03/20/21 09:00 03/26/21 11:18 DC 03/23/21 08:10 Quetiapine Fumarate (SEROquel) 25 mg HS PO 03/17/21 21:00 03/18/21 16:11 DC 03/17/21 21:41 Quetiapine Fumarate (SEROquel) 50 mg HS PO 03/18/21 21:00 03/30/21 20:38 Sertraline HCl (Zoloft) 75 mg DAILY PO 03/23/21 09:00 03/25/21 12:00 DC 03/25/21 08:24 Sertraline HCl (Zoloft) 100 mg DAILY PO 03/26/21 09:00 03/30/21 08:11 Bupropion HCl (Wellbutrin Xl) 150 mg DAILY PO 03/26/21 09:00 03/27/21 21:00 DC 03/27/21 09:00 Donepezil HCl (Aricept) 5 mg DAILY PO 03/27/21 09:00 03/28/21 23:50 DC 03/28/21 08:17 Donepezil HCl (Aricept) 10 mg DAILY PO 03/29/21 09:00 03/30/21 08:11 Bupropion HCl (Wellbutrin Xl) 150 mg 0900,1200 PO 03/28/21 09:00 03/30/21 12:16 I have reviewed the current psychotropics carefully including drug interactions. Risk benefit ratio favors no change other than as noted in my dictated progress note. Diagnosis: Problems: (1) Impulse control disorder, unspecified (2) Lewy body dementia with behavioral disturbance (3) Anxiety disorder, unspecified (4) Dementia in Alzheimer's disease with depression (5) Dementia in Alzheimer's disease with delusions (6) Major neurocognitive disorder GABRIELLA LEDEZMA MD Mar 30, 2021 21:16
--- NOTE | 2021-03-30 23:06 | NUR ---
Pt withdrawn to his room this evening. Pleasant when approached. Compliant with whole medications. Pt currently sleeping.
[2021-03-31 05:40] VITALS: BP 160/83
[2021-03-31] MEDS: metFORMIN 500 MG TABLET PO SCH ×2 (08:00→17:10)
[2021-03-31] MEDS: DONEPEZIL HCL 10 MG TABLET PO SCH (08:05)
[2021-03-31] MEDS: buPROPion XL 150 MG TAB.ER.24H PO SCH ×2 (08:05→12:00)
[2021-03-31] MEDS: MEMANTINE 10 MG TABLET. PO SCH ×2 (08:05→19:47)
[2021-03-31] MEDS: ASPIRIN CHEWABLE 81 MG TABLET. PO SCH (08:05)
[2021-03-31] MEDS: CHOLECALCIFEROL (VITAMIN D3) 1,000 UNIT TABLET PO SCH (08:05)
[2021-03-31] MEDS: SERTRALINE 100 MG TABLET. PO SCH (08:06)
[2021-03-31] MEDS: LISINOPRIL 10 MG TABLET PO SCH (08:06)
--- NOTE | 2021-03-31 09:22 | NUR ---
Pt appropriate on the unit. A&O, absent SI/HI/VH/AH/delusions/pain. He is compliant with morning medications, receptive to education provided. He remains primarily withdrawn and does not interact with others. Plan of care continues, will pass to next shift.
[2021-03-31 15:24] VITALS: BP 147/80
[2021-03-31] MEDS: ATORVASTATIN CALCIUM 20 MG TABLET PO SCH (19:45)
[2021-03-31] MEDS: QUEtiapine 50 MG TABLET. PO SCH (19:45)
--- NOTE | 2021-03-31 20:50 | PDOC ---
Exam Note: Mike Note: Please also refer to the separate dictated note~for this date of service dictated separately.~Patient seen individually. Discussed the patient with Nursing staff reviewed the chart.~Reviewed interim history and current functioning. Reviewed vital signs,~Labs/ Radiology~and current medications noted below. Continue current treatment with the changes noted in the dictated addendum note Assessment: Vital Signs/I&O: Vital Signs Date Time Temp Pulse Resp B/P (MAP) Pulse Ox O2 Delivery O2 Flow Rate FiO2 03/31/21 15:24 98.7 74 16 147/80 (102) 94 Room Air I & O 03/30/21 03/30/21 03/31/21 15:00 23:00 07:00 Intake Total 720 ml 0 ml Balance 720 ml 0 ml Labs: Laboratory Tests Test 03/31/21 05:30 03/31/21 07:19 SARS-CoV-2 (PCR) Not detected (NOT DETECTD) Glucose (Fingerstick) 147 mg/dL (70-99) H Current Medications: Meds: Laboratory Tests Test 03/31/21 05:30 03/31/21 07:19 Coronavirus (COVID-19)(PCR) Not detected Glucose (Fingerstick) 147 mg/dL Current Medications Medications (Trade) Dose Ordered Sig/Greg Route PRN Reason Start Time Stop Time Status Last Admin Dose Admin Acetaminophen (Tylenol) 650 mg PRN Q6HRS PRN PO MILD PAIN / TEMP > 100.3'F 03/04/21 16:15 Multi-Ingredient Ointment (Analgesic [place]) 1 donn PRN QID PRN TP MUSCLE PAIN 03/04/21 16:15 Al Hydroxide/Mg Hydroxide (Mylanta Plus Xs) 15 ml PRN AFTMEALHC PRN PO DYSPEPSIA 03/04/21 16:15 Magnesium Hydroxide (Milk Of Magnesia) 2,400 mg PRN QHS PRN PO CONSTIPATION 03/04/21 16:15 Aspirin (Aspirin Chewable) 81 mg DAILY PO 03/05/21 09:00 03/31/21 08:05 Lisinopril (Prinivil) 10 mg DAILY PO 03/05/21 09:00 03/31/21 08:06 Vitamin D (Vitamin D3) 25 unit DAILY PO 03/05/21 09:00 03/07/21 10:29 DC 03/05/21 09:14 Metformin HCl (Glucophage) 1,000 mg BIDWMEALS PO 03/04/21 17:00 03/31/21 17:10 Atorvastatin Calcium (Lipitor) 80 mg QHS PO 03/04/21 21:00 03/31/21 19:45 Olanzapine (ZyPREXA ZYDIS) 2.5 mg PRN Q2HR PRN PO PSYCHOSIS 03/05/21 17:00 03/31/21 19:43 Vitamin D (Vitamin D3) 1,000 unit DAILY PO 03/08/21 09:00 03/31/21 08:05 Memantine (Namenda) 5 mg BID PO 03/07/21 21:00 03/11/21 18:16 DC 03/11/21 08:36 Sertraline HCl (Zoloft) 25 mg DAILY PO 03/08/21 09:00 03/10/21 20:16 DC 03/10/21 08:40 Rivastigmine (Exelon) 4.6 patch DAILY TD 03/08/21 09:00 03/09/21 13:31 DC 03/09/21 08:58 Rivastigmine (Exelon) 9.5 patch DAILY TD 03/15/21 09:00 Cancel Rivastigmine (Exelon) 1 patch DAILY TD 03/15/21 09:00 03/19/21 14:00 DC 03/19/21 09:14 Rivastigmine (Exelon) 1 patch DAILY TD 03/10/21 09:00 03/14/21 23:50 DC 03/14/21 09:00 Sertraline HCl (Zoloft) 50 mg DAILY PO 03/11/21 09:00 03/22/21 20:39 DC 03/22/21 08:39 Trazodone HCl (Desyrel) 50 mg PRN QHS PRN PO INSOMNIA 03/10/21 20:15 Memantine (Namenda) 5 mg DAILY PO 03/12/21 09:00 03/15/21 20:10 DC 03/15/21 07:59 Memantine (Namenda) 10 mg QHS PO 03/11/21 21:00 03/15/21 22:00 DC 03/15/21 21:02 Memantine (Namenda) 10 mg BID PO 03/16/21 09:00 03/31/21 19:47 Rivastigmine (Exelon 13.3mg) 1 patch DAILY TD 03/20/21 09:00 03/26/21 11:18 DC 03/23/21 08:10 Quetiapine Fumarate (SEROquel) 25 mg HS PO 03/17/21 21:00 03/18/21 16:11 DC 03/17/21 21:41 Quetiapine Fumarate (SEROquel) 50 mg HS PO 03/18/21 21:00 03/31/21 19:45 Sertraline HCl (Zoloft) 75 mg DAILY PO 03/23/21 09:00 03/25/21 12:00 DC 03/25/21 08:24 Sertraline HCl (Zoloft) 100 mg DAILY PO 03/26/21 09:00 03/31/21 08:06 Bupropion HCl (Wellbutrin Xl) 150 mg DAILY PO 03/26/21 09:00 03/27/21 21:00 DC 03/27/21 09:00 Donepezil HCl (Aricept) 5 mg DAILY PO 03/27/21 09:00 03/28/21 23:50 DC 03/28/21 08:17 Donepezil HCl (Aricept) 10 mg DAILY PO 03/29/21 09:00 03/31/21 08:05 Bupropion HCl (Wellbutrin Xl) 150 mg 0900,1200 PO 03/28/21 09:00 03/31/21 12:00 I have reviewed the current psychotropics carefully including drug interactions. Risk benefit ratio favors no change other than as noted in my dictated progress note. Diagnosis: Problems: (1) Impulse control disorder, unspecified (2) Lewy body dementia with behavioral disturbance (3) Anxiety disorder, unspecified (4) Dementia in Alzheimer's disease with depression (5) Dementia in Alzheimer's disease with delusions (6) Major neurocognitive disorder GABRIELLA LEDEZMA MD Mar 31, 2021 20:50
--- NOTE | 2021-04-01 04:34 | NUR ---
Nursing Note The patient was located in his room for his assessment and medication pass. The patient was delusional and visibly anxious prior to medication pass. The patient was given PRN Zyprexa per PRN order. The patient was compliant with his medication and took them whole. The patient was alert to name, date and location. The patient had one episode of agitation after the initial interaction but was redirectable and was able to go to bed after talking to this nurse. Currently sleeping in his room.
[2021-04-01 06:09] VITALS: BP 119/69
--- NOTE | 2021-04-01 07:09 | PDOC ---
Exam Note: Mike Note: This note is a late entry for 03/30/2021 covers elements not covered in my initial note. Subjective: The patient was seen individually in the evening of 03/30/2021 with [place] HECTOR, discussed and reviewed the chart. The patient slept 8-1/4 hours previous night. He refused dinner and metformin. He is compliant with rest of his psychotropics. Review of Systems: No CV, , pulmonary, eye, ENT system symptoms on review. Mental Status Exam: The patient is oriented to himself and situation. Speech coherent. Often verbal response is monosyllabic. Abstraction fair. Computation impaired. Language function intact. Mood and affect somewhat withdrawn. Laboratory Data: Reviewed. 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 Anxiety disorder unspecified. Impulse control disorder. Plan: Maintain rest of the psychotropics unchanged. Assessment: Vital Signs/I&O: Vital Signs Date Time Temp Pulse Resp B/P (MAP) Pulse Ox O2 Delivery O2 Flow Rate FiO2 04/01/21 06:09 98.5 75 16 119/69 (86) 93 03/31/21 15:24 Room Air I & O 03/31/21 03/31/21 04/01/21 15:00 23:00 07:00 Intake Total 480 ml 480 ml Balance 480 ml 480 ml Labs: Laboratory Tests Test 03/31/21 07:19 Glucose (Fingerstick) 147 mg/dL (70-99) H Current Medications: Meds: Laboratory Tests Test 03/31/21 07:19 Glucose (Fingerstick) 147 mg/dL Current Medications Medications (Trade) Dose Ordered Sig/Greg Route PRN Reason Start Time Stop Time Status Last Admin Dose Admin Acetaminophen (Tylenol) 650 mg PRN Q6HRS PRN PO MILD PAIN / TEMP > 100.3'F 03/04/21 16:15 Multi-Ingredient Ointment (Analgesic [place]) 1 donn PRN QID PRN TP MUSCLE PAIN 03/04/21 16:15 Al Hydroxide/Mg Hydroxide (Mylanta Plus Xs) 15 ml PRN AFTMEALHC PRN PO DYSPEPSIA 03/04/21 16:15 Magnesium Hydroxide (Milk Of Magnesia) 2,400 mg PRN QHS PRN PO CONSTIPATION 03/04/21 16:15 Aspirin (Aspirin Chewable) 81 mg DAILY PO 03/05/21 09:00 03/31/21 08:05 Lisinopril (Prinivil) 10 mg DAILY PO 03/05/21 09:00 03/31/21 08:06 Vitamin D (Vitamin D3) 25 unit DAILY PO 03/05/21 09:00 03/07/21 10:29 DC 03/05/21 09:14 Metformin HCl (Glucophage) 1,000 mg BIDWMEALS PO 03/04/21 17:00 03/31/21 17:10 Atorvastatin Calcium (Lipitor) 80 mg QHS PO 03/04/21 21:00 03/31/21 19:45 Olanzapine (ZyPREXA ZYDIS) 2.5 mg PRN Q2HR PRN PO PSYCHOSIS 03/05/21 17:00 03/31/21 19:43 Vitamin D (Vitamin D3) 1,000 unit DAILY PO 03/08/21 09:00 03/31/21 08:05 Memantine (Namenda) 5 mg BID PO 03/07/21 21:00 03/11/21 18:16 DC 03/11/21 08:36 Sertraline HCl (Zoloft) 25 mg DAILY PO 03/08/21 09:00 03/10/21 20:16 DC 03/10/21 08:40 Rivastigmine (Exelon) 4.6 patch DAILY TD 03/08/21 09:00 03/09/21 13:31 DC 03/09/21 08:58 Rivastigmine (Exelon) 9.5 patch DAILY TD 03/15/21 09:00 Cancel Rivastigmine (Exelon) 1 patch DAILY TD 03/15/21 09:00 03/19/21 14:00 DC 03/19/21 09:14 Rivastigmine (Exelon) 1 patch DAILY TD 03/10/21 09:00 03/14/21 23:50 DC 03/14/21 09:00 Sertraline HCl (Zoloft) 50 mg DAILY PO 03/11/21 09:00 03/22/21 20:39 DC 03/22/21 08:39 Trazodone HCl (Desyrel) 50 mg PRN QHS PRN PO INSOMNIA 03/10/21 20:15 Memantine (Namenda) 5 mg DAILY PO 03/12/21 09:00 03/15/21 20:10 DC 03/15/21 07:59 Memantine (Namenda) 10 mg QHS PO 03/11/21 21:00 03/15/21 22:00 DC 03/15/21 21:02 Memantine (Namenda) 10 mg BID PO 03/16/21 09:00 03/31/21 19:47 Rivastigmine (Exelon 13.3mg) 1 patch DAILY TD 03/20/21 09:00 03/26/21 11:18 DC 03/23/21 08:10 Quetiapine Fumarate (SEROquel) 25 mg HS PO 03/17/21 21:00 03/18/21 16:11 DC 03/17/21 21:41 Quetiapine Fumarate (SEROquel) 50 mg HS PO 03/18/21 21:00 03/31/21 19:45 Sertraline HCl (Zoloft) 75 mg DAILY PO 03/23/21 09:00 03/25/21 12:00 DC 03/25/21 08:24 Sertraline HCl (Zoloft) 100 mg DAILY PO 03/26/21 09:00 03/31/21 08:06 Bupropion HCl (Wellbutrin Xl) 150 mg DAILY PO 03/26/21 09:00 03/27/21 21:00 DC 03/27/21 09:00 Donepezil HCl (Aricept) 5 mg DAILY PO 03/27/21 09:00 03/28/21 23:50 DC 03/28/21 08:17 Donepezil HCl (Aricept) 10 mg DAILY PO 03/29/21 09:00 03/31/21 08:05 Bupropion HCl (Wellbutrin Xl) 150 mg 0900,1200 PO 03/28/21 09:00 03/31/21 12:00 I have reviewed the current psychotropics carefully including drug interactions. Risk benefit ratio favors no change other than as noted in my dictated progress note. Diagnosis: Problems: (1) Impulse control disorder, unspecified (2) Lewy body dementia with behavioral disturbance (3) Anxiety disorder, unspecified (4) Dementia in Alzheimer's disease with depression (5) Dementia in Alzheimer's disease with delusions (6) Major neurocognitive disorder (7) Major depressive disorder GABRIELLA LEDEZMA MD Apr 01, 2021 07:08
--- NOTE | 2021-04-01 07:29 | PDOC ---
Exam Note: Mike Note: This note is a late entry for 03/31/2021 covers elements not covered in my initial note. Subjective: The patient was seen individually in the evening of 03/31/2021 with [place] HECTOR, discussed and reviewed the chart. The patient slept 7-1/4 hours previous night. He has been somewhat delusional, talking to the nursing staff that his son is . He is withdrawn spends much time in his room. Review of Systems: No CV, , pulmonary, eye, ENT system symptoms on review. Mental Status Exam: The patient is oriented to himself and situation. I met with the patient right before he went into the shower. He is quite pleasant, verbal, and interactive. Speech coherent. Often verbal response is monosyllabic. Abstraction fair. Computation impaired. Language function intact. Attention span fair. Mood and affect withdrawn. No suicidal or homicidal ideation. Laboratory Data: Reviewed. 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 Anxiety disorder unspecified. Impulse control disorder. Plan: Maintain rest of the psychotropics unchanged. Assessment: Vital Signs/I&O: Vital Signs Date Time Temp Pulse Resp B/P (MAP) Pulse Ox O2 Delivery O2 Flow Rate FiO2 04/01/21 06:09 98.5 75 16 119/69 (86) 93 03/31/21 15:24 Room Air I & O 03/31/21 03/31/21 04/01/21 15:00 23:00 07:00 Intake Total 480 ml 480 ml Balance 480 ml 480 ml Current Medications: Meds: Current Medications Medications (Trade) Dose Ordered Sig/Greg Route PRN Reason Start Time Stop Time Status Last Admin Dose Admin Acetaminophen (Tylenol) 650 mg PRN Q6HRS PRN PO MILD PAIN / TEMP > 100.3'F 03/04/21 16:15 Multi-Ingredient Ointment (Analgesic [place]) 1 donn PRN QID PRN TP MUSCLE PAIN 03/04/21 16:15 Al Hydroxide/Mg Hydroxide (Mylanta Plus Xs) 15 ml PRN AFTMEALHC PRN PO DYSPEPSIA 03/04/21 16:15 Magnesium Hydroxide (Milk Of Magnesia) 2,400 mg PRN QHS PRN PO CONSTIPATION 03/04/21 16:15 Aspirin (Aspirin Chewable) 81 mg DAILY PO 03/05/21 09:00 03/31/21 08:05 Lisinopril (Prinivil) 10 mg DAILY PO 03/05/21 09:00 03/31/21 08:06 Vitamin D (Vitamin D3) 25 unit DAILY PO 03/05/21 09:00 03/07/21 10:29 DC 03/05/21 09:14 Metformin HCl (Glucophage) 1,000 mg BIDWMEALS PO 03/04/21 17:00 03/31/21 17:10 Atorvastatin Calcium (Lipitor) 80 mg QHS PO 03/04/21 21:00 03/31/21 19:45 Olanzapine (ZyPREXA ZYDIS) 2.5 mg PRN Q2HR PRN PO PSYCHOSIS 03/05/21 17:00 03/31/21 19:43 Vitamin D (Vitamin D3) 1,000 unit DAILY PO 03/08/21 09:00 03/31/21 08:05 Memantine (Namenda) 5 mg BID PO 03/07/21 21:00 03/11/21 18:16 DC 03/11/21 08:36 Sertraline HCl (Zoloft) 25 mg DAILY PO 03/08/21 09:00 03/10/21 20:16 DC 03/10/21 08:40 Rivastigmine (Exelon) 4.6 patch DAILY TD 03/08/21 09:00 03/09/21 13:31 DC 03/09/21 08:58 Rivastigmine (Exelon) 9.5 patch DAILY TD 03/15/21 09:00 Cancel Rivastigmine (Exelon) 1 patch DAILY TD 03/15/21 09:00 03/19/21 14:00 DC 03/19/21 09:14 Rivastigmine (Exelon) 1 patch DAILY TD 03/10/21 09:00 03/14/21 23:50 DC 03/14/21 09:00 Sertraline HCl (Zoloft) 50 mg DAILY PO 03/11/21 09:00 03/22/21 20:39 DC 03/22/21 08:39 Trazodone HCl (Desyrel) 50 mg PRN QHS PRN PO INSOMNIA 03/10/21 20:15 Memantine (Namenda) 5 mg DAILY PO 03/12/21 09:00 03/15/21 20:10 DC 03/15/21 07:59 Memantine (Namenda) 10 mg QHS PO 03/11/21 21:00 03/15/21 22:00 DC 03/15/21 21:02 Memantine (Namenda) 10 mg BID PO 03/16/21 09:00 03/31/21 19:47 Rivastigmine (Exelon 13.3mg) 1 patch DAILY TD 03/20/21 09:00 03/26/21 11:18 DC 03/23/21 08:10 Quetiapine Fumarate (SEROquel) 25 mg HS PO 03/17/21 21:00 03/18/21 16:11 DC 03/17/21 21:41 Quetiapine Fumarate (SEROquel) 50 mg HS PO 03/18/21 21:00 03/31/21 19:45 Sertraline HCl (Zoloft) 75 mg DAILY PO 03/23/21 09:00 03/25/21 12:00 DC 03/25/21 08:24 Sertraline HCl (Zoloft) 100 mg DAILY PO 03/26/21 09:00 03/31/21 08:06 Bupropion HCl (Wellbutrin Xl) 150 mg DAILY PO 03/26/21 09:00 03/27/21 21:00 DC 03/27/21 09:00 Donepezil HCl (Aricept) 5 mg DAILY PO 03/27/21 09:00 03/28/21 23:50 DC 03/28/21 08:17 Donepezil HCl (Aricept) 10 mg DAILY PO 03/29/21 09:00 03/31/21 08:05 Bupropion HCl (Wellbutrin Xl) 150 mg 0900,1200 PO 03/28/21 09:00 03/31/21 12:00 I have reviewed the current psychotropics carefully including drug interactions. Risk benefit ratio favors no change other than as noted in my dictated progress note. Diagnosis: Problems: (1) Impulse control disorder, unspecified (2) Lewy body dementia with behavioral disturbance (3) Anxiety disorder, unspecified (4) Dementia in Alzheimer's disease with depression (5) Dementia in Alzheimer's disease with delusions (6) Major neurocognitive disorder GABRIELLA LEDEZMA MD Apr 01, 2021 07:29
[2021-04-01] MEDS: CHOLECALCIFEROL (VITAMIN D3) 1,000 UNIT TABLET PO SCH (08:55)
[2021-04-01] MEDS: metFORMIN 500 MG TABLET PO SCH ×2 (08:56→17:11)
[2021-04-01] MEDS: MEMANTINE 10 MG TABLET. PO SCH ×2 (08:56→19:38)
[2021-04-01] MEDS: SERTRALINE 100 MG TABLET. PO SCH (08:56)
[2021-04-01] MEDS: ASPIRIN CHEWABLE 81 MG TABLET. PO SCH (08:56)
[2021-04-01] MEDS: LISINOPRIL 10 MG TABLET PO SCH (08:56)
[2021-04-01] MEDS: buPROPion XL 150 MG TAB.ER.24H PO SCH ×2 (08:56→12:41)
[2021-04-01] MEDS: DONEPEZIL HCL 10 MG TABLET PO SCH (08:56)
--- NOTE | 2021-04-01 11:04 | NUR ---
Nursing note: Pt laying in bed at time of AM med pass and assessment. He is pleasant, med compliant and cooperative. He denies having any pain/concerns. He is encouraged to spend time in the day room and socialize with peers, but continues to deny invites and remains in his room at this time. Will continue to monitor.
[2021-04-01 15:41] VITALS: BP 138/73
[2021-04-01] MEDS: QUEtiapine 50 MG TABLET. PO SCH (19:39)
[2021-04-01] MEDS: ATORVASTATIN CALCIUM 20 MG TABLET PO SCH (19:39)
--- NOTE | 2021-04-01 21:06 | PDOC ---
Exam Note: Mike Note: Please also refer to the separate dictated note~for this date of service dictated separately.~Patient seen individually. Discussed the patient with Nursing staff reviewed the chart.~Reviewed interim history and current functioning. Reviewed vital signs,~Labs/ Radiology~and current medications noted below. Continue current treatment with the changes noted in the dictated addendum note Assessment: Vital Signs/I&O: Vital Signs Date Time Temp Pulse Resp B/P (MAP) Pulse Ox O2 Delivery O2 Flow Rate FiO2 04/01/21 15:41 98.2 68 18 138/73 (94) 97 03/31/21 15:24 Room Air I & O 03/31/21 03/31/21 04/01/21 15:00 23:00 07:00 Intake Total 480 ml 480 ml Balance 480 ml 480 ml Labs: Laboratory Tests Test 04/01/21 07:39 Glucose (Fingerstick) 104 mg/dL (70-99) H Current Medications: Meds: Laboratory Tests Test 04/01/21 07:39 Glucose (Fingerstick) 104 mg/dL Current Medications Medications (Trade) Dose Ordered Sig/Greg Route PRN Reason Start Time Stop Time Status Last Admin Dose Admin Acetaminophen (Tylenol) 650 mg PRN Q6HRS PRN PO MILD PAIN / TEMP > 100.3'F 03/04/21 16:15 Multi-Ingredient Ointment (Analgesic [place]) 1 donn PRN QID PRN TP MUSCLE PAIN 03/04/21 16:15 Al Hydroxide/Mg Hydroxide (Mylanta Plus Xs) 15 ml PRN AFTMEALHC PRN PO DYSPEPSIA 03/04/21 16:15 Magnesium Hydroxide (Milk Of Magnesia) 2,400 mg PRN QHS PRN PO CONSTIPATION 03/04/21 16:15 Aspirin (Aspirin Chewable) 81 mg DAILY PO 03/05/21 09:00 04/01/21 08:56 Lisinopril (Prinivil) 10 mg DAILY PO 03/05/21 09:00 04/01/21 08:56 Vitamin D (Vitamin D3) 25 unit DAILY PO 03/05/21 09:00 03/07/21 10:29 DC 03/05/21 09:14 Metformin HCl (Glucophage) 1,000 mg BIDWMEALS PO 03/04/21 17:00 04/01/21 17:11 Atorvastatin Calcium (Lipitor) 80 mg QHS PO 03/04/21 21:00 04/01/21 19:39 Olanzapine (ZyPREXA ZYDIS) 2.5 mg PRN Q2HR PRN PO PSYCHOSIS 03/05/21 17:00 03/31/21 19:43 Vitamin D (Vitamin D3) 1,000 unit DAILY PO 03/08/21 09:00 04/01/21 08:55 Memantine (Namenda) 5 mg BID PO 03/07/21 21:00 03/11/21 18:16 DC 03/11/21 08:36 Sertraline HCl (Zoloft) 25 mg DAILY PO 03/08/21 09:00 03/10/21 20:16 DC 03/10/21 08:40 Rivastigmine (Exelon) 4.6 patch DAILY TD 03/08/21 09:00 03/09/21 13:31 DC 03/09/21 08:58 Rivastigmine (Exelon) 9.5 patch DAILY TD 03/15/21 09:00 Cancel Rivastigmine (Exelon) 1 patch DAILY TD 03/15/21 09:00 03/19/21 14:00 DC 03/19/21 09:14 Rivastigmine (Exelon) 1 patch DAILY TD 03/10/21 09:00 03/14/21 23:50 DC 03/14/21 09:00 Sertraline HCl (Zoloft) 50 mg DAILY PO 03/11/21 09:00 03/22/21 20:39 DC 03/22/21 08:39 Trazodone HCl (Desyrel) 50 mg PRN QHS PRN PO INSOMNIA 03/10/21 20:15 Memantine (Namenda) 5 mg DAILY PO 03/12/21 09:00 03/15/21 20:10 DC 03/15/21 07:59 Memantine (Namenda) 10 mg QHS PO 03/11/21 21:00 03/15/21 22:00 DC 03/15/21 21:02 Memantine (Namenda) 10 mg BID PO 03/16/21 09:00 04/01/21 19:38 Rivastigmine (Exelon 13.3mg) 1 patch DAILY TD 03/20/21 09:00 03/26/21 11:18 DC 03/23/21 08:10 Quetiapine Fumarate (SEROquel) 25 mg HS PO 03/17/21 21:00 03/18/21 16:11 DC 03/17/21 21:41 Quetiapine Fumarate (SEROquel) 50 mg HS PO 03/18/21 21:00 04/01/21 19:39 Sertraline HCl (Zoloft) 75 mg DAILY PO 03/23/21 09:00 03/25/21 12:00 DC 03/25/21 08:24 Sertraline HCl (Zoloft) 100 mg DAILY PO 03/26/21 09:00 04/01/21 08:56 Bupropion HCl (Wellbutrin Xl) 150 mg DAILY PO 03/26/21 09:00 03/27/21 21:00 DC 03/27/21 09:00 Donepezil HCl (Aricept) 5 mg DAILY PO 03/27/21 09:00 03/28/21 23:50 DC 03/28/21 08:17 Donepezil HCl (Aricept) 10 mg DAILY PO 03/29/21 09:00 04/01/21 08:56 Bupropion HCl (Wellbutrin Xl) 150 mg 0900,1200 PO 03/28/21 09:00 04/01/21 12:41 I have reviewed the current psychotropics carefully including drug interactions. Risk benefit ratio favors no change other than as noted in my dictated progress note. Diagnosis: Problems: (1) Impulse control disorder, unspecified (2) Lewy body dementia with behavioral disturbance (3) Anxiety disorder, unspecified (4) Dementia in Alzheimer's disease with depression (5) Dementia in Alzheimer's disease with delusions (6) Major neurocognitive disorder GABRIELLA LEDEZMA MD Apr 01, 2021 21:06
[2021-04-02 06:22] VITALS: BP 137/74
--- NOTE | 2021-04-02 07:23 | PDOC ---
Exam Note: Mike Note: This note is a late entry for 04/01/2021 covers elements not covered in my initial note. Subjective: The patient was seen individually in the evening of 04/01/2021 with Raegan HECTOR, discussed and reviewed the chart. The patient slept 7 hours previous night. Overall patient remains withdrawn, spends much time in his room but doing better. Previous evening he was agitated, making statements that his son Yonathan was . Received Zyprexa at night and then did better after that. I met with him in his room. Review of Systems: No CV, , pulmonary, eye system symptoms on review. Somewhat hard of hearing. Mental Status Exam: The patient is oriented to himself and situation. Speech coherent. Often verbal response is monosyllabic. Abstraction fair. Computation impaired. Language function intact. Attention span fair. Mood and affect withdrawn. No suicidal or homicidal ideation. Laboratory Data: Reviewed. 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 Anxiety disorder unspecified. Impulse control disorder. Plan: Maintain rest of the psychotropics unchanged. Assessment: Vital Signs/I&O: Vital Signs Date Time Temp Pulse Resp B/P (MAP) Pulse Ox O2 Delivery O2 Flow Rate FiO2 04/02/21 06:22 97.1 71 16 137/74 (95) 92 03/31/21 15:24 Room Air I & O 04/01/21 04/01/21 04/02/21 15:00 23:00 07:00 Intake Total 1020 ml 360 ml Balance 1020 ml 360 ml Labs: Laboratory Tests Test 04/01/21 07:39 Glucose (Fingerstick) 104 mg/dL (70-99) H Current Medications: Meds: Laboratory Tests Test 04/01/21 07:39 Glucose (Fingerstick) 104 mg/dL Current Medications Medications (Trade) Dose Ordered Sig/Greg Route PRN Reason Start Time Stop Time Status Last Admin Dose Admin Acetaminophen (Tylenol) 650 mg PRN Q6HRS PRN PO MILD PAIN / TEMP > 100.3'F 03/04/21 16:15 Multi-Ingredient Ointment (Analgesic [place]) 1 donn PRN QID PRN TP MUSCLE PAIN 03/04/21 16:15 Al Hydroxide/Mg Hydroxide (Mylanta Plus Xs) 15 ml PRN AFTMEALHC PRN PO DYSPEPSIA 03/04/21 16:15 Magnesium Hydroxide (Milk Of Magnesia) 2,400 mg PRN QHS PRN PO CONSTIPATION 03/04/21 16:15 Aspirin (Aspirin Chewable) 81 mg DAILY PO 03/05/21 09:00 04/01/21 08:56 Lisinopril (Prinivil) 10 mg DAILY PO 03/05/21 09:00 04/01/21 08:56 Vitamin D (Vitamin D3) 25 unit DAILY PO 03/05/21 09:00 03/07/21 10:29 DC 03/05/21 09:14 Metformin HCl (Glucophage) 1,000 mg BIDWMEALS PO 03/04/21 17:00 04/01/21 17:11 Atorvastatin Calcium (Lipitor) 80 mg QHS PO 03/04/21 21:00 04/01/21 19:39 Olanzapine (ZyPREXA ZYDIS) 2.5 mg PRN Q2HR PRN PO PSYCHOSIS 03/05/21 17:00 03/31/21 19:43 Vitamin D (Vitamin D3) 1,000 unit DAILY PO 03/08/21 09:00 04/01/21 08:55 Memantine (Namenda) 5 mg BID PO 03/07/21 21:00 03/11/21 18:16 DC 03/11/21 08:36 Sertraline HCl (Zoloft) 25 mg DAILY PO 03/08/21 09:00 03/10/21 20:16 DC 03/10/21 08:40 Rivastigmine (Exelon) 4.6 patch DAILY TD 03/08/21 09:00 03/09/21 13:31 DC 03/09/21 08:58 Rivastigmine (Exelon) 9.5 patch DAILY TD 03/15/21 09:00 Cancel Rivastigmine (Exelon) 1 patch DAILY TD 03/15/21 09:00 03/19/21 14:00 DC 03/19/21 09:14 Rivastigmine (Exelon) 1 patch DAILY TD 03/10/21 09:00 03/14/21 23:50 DC 03/14/21 09:00 Sertraline HCl (Zoloft) 50 mg DAILY PO 03/11/21 09:00 03/22/21 20:39 DC 03/22/21 08:39 Trazodone HCl (Desyrel) 50 mg PRN QHS PRN PO INSOMNIA 03/10/21 20:15 Memantine (Namenda) 5 mg DAILY PO 03/12/21 09:00 03/15/21 20:10 DC 03/15/21 07:59 Memantine (Namenda) 10 mg QHS PO 03/11/21 21:00 03/15/21 22:00 DC 03/15/21 21:02 Memantine (Namenda) 10 mg BID PO 03/16/21 09:00 04/01/21 19:38 Rivastigmine (Exelon 13.3mg) 1 patch DAILY TD 03/20/21 09:00 03/26/21 11:18 DC 03/23/21 08:10 Quetiapine Fumarate (SEROquel) 25 mg HS PO 03/17/21 21:00 03/18/21 16:11 DC 03/17/21 21:41 Quetiapine Fumarate (SEROquel) 50 mg HS PO 03/18/21 21:00 04/01/21 19:39 Sertraline HCl (Zoloft) 75 mg DAILY PO 03/23/21 09:00 03/25/21 12:00 DC 03/25/21 08:24 Sertraline HCl (Zoloft) 100 mg DAILY PO 03/26/21 09:00 04/01/21 08:56 Bupropion HCl (Wellbutrin Xl) 150 mg DAILY PO 03/26/21 09:00 03/27/21 21:00 DC 03/27/21 09:00 Donepezil HCl (Aricept) 5 mg DAILY PO 03/27/21 09:00 03/28/21 23:50 DC 03/28/21 08:17 Donepezil HCl (Aricept) 10 mg DAILY PO 03/29/21 09:00 04/01/21 08:56 Bupropion HCl (Wellbutrin Xl) 150 mg 0900,1200 PO 03/28/21 09:00 04/01/21 12:41 I have reviewed the current psychotropics carefully including drug interactions. Risk benefit ratio favors no change other than as noted in my dictated progress note. Diagnosis: Problems: (1) Impulse control disorder, unspecified (2) Lewy body dementia with behavioral disturbance (3) Anxiety disorder, unspecified (4) Dementia in Alzheimer's disease with depression (5) Dementia in Alzheimer's disease with delusions (6) Major neurocognitive disorder GABRIELLA LEDEZMA MD Apr 02, 2021 07:22
[2021-04-02] MEDS: MEMANTINE 10 MG TABLET. PO SCH ×2 (08:44→20:41)
[2021-04-02] MEDS: ASPIRIN CHEWABLE 81 MG TABLET. PO SCH (08:44)
[2021-04-02] MEDS: metFORMIN 500 MG TABLET PO SCH ×2 (08:44→17:17)
[2021-04-02] MEDS: LISINOPRIL 10 MG TABLET PO SCH (08:45)
[2021-04-02] MEDS: buPROPion XL 150 MG TAB.ER.24H PO SCH ×2 (08:45→12:47)
[2021-04-02] MEDS: DONEPEZIL HCL 10 MG TABLET PO SCH (08:45)
[2021-04-02] MEDS: SERTRALINE 100 MG TABLET. PO SCH (08:45)
[2021-04-02] MEDS: CHOLECALCIFEROL (VITAMIN D3) 1,000 UNIT TABLET PO SCH (08:45)
--- NOTE | 2021-04-02 11:30 | NUR ---
Nursing note: Pt had attempted to leave dining room a few different times this AM and required redirection from staff to finish his breakfast each time. The last time, pt just returned to his room. He was later observed putting himself on the floor. After staff assisted him off the floor, he walked to the day room doors and started hitting them. Pt was redirected back to his room at that time as breakfast was still taking place. Pt has also had more pronounced tremors this shift than he has previously. New orders per Dr. Felder to get a UA, CBC, CMP and consult Dr. López. He is currently resting quietly in his bed. Will continue to monitor.
--- NOTE | 2021-04-02 12:01 | NUR ---
WEEKLY ACTIVITY THERAPY NOTE Date of Admission:03/04/21 Date of AT Assessment: 03/05/2021 Precipitating behaviors that initiated intake and admission:Patient admitted from [place] via [place] for reportedly leaving sons house at night and knocking on neighbors door at 2am, being paranoid about neighbors causing trouble, losing items, and driving to [place] and believed he was in [place] per police. Goal aimed: to increase engagement Initial Goal: Pt. will participate in at least three individual or Activity Therapy groups before discharge. Goal repeated 03/26 Weekly progress towards goal: on track(03/27-flexibility and how many, 03/27-tv show theme songs) Group participation level: 2 min Weekly highlights: answered a couple how many questions Tuesday morning, able to answer one tv show them song Tuesday afternoon Behaviors observed: limited interest in groups, pleasant Plan: no change to goal Beneficial adaptations:
[2021-04-02 13:00] LABS: BACTERIA,URINE 0 /HPF (0-FEW); BILIRUBIN,URINE NEG (NEG); CLARITY,URINE CLEAR; COLOR,URINE YELLOW; GLUCOSE,URINE NEG (NEG); NITRITE,URINE NEG (NEG); SPERM,URINE PRESENT /HPF; SQUAMOUS EPITHELIAL CELL,UR FEW /LPF; UROBILINOGEN,URINE 0.2 mg/dL (0.2 mg/dL)
[2021-04-02 13:01] LABS: HYALINE CASTS, URINE FEW /HPF
[2021-04-02 13:31] LABS: BASO % 0 % (0-3); EOS % 0 % (0-3); HEMATOCRIT 46.7 % (39.0-53.0); LYMPH # 0.8 x10^3/uL (1.0-4.8); LYMPH % 10 % (24-48); MEAN CORPUSCULAR HEMOGLOBIN 33 pg (25-35); MEAN CORPUSCULAR HGB CONC 34 g/dL (31-37); MEAN CORPUSCULAR VOLUME 95 fL (79-100); MONO # 0.7 x10^3/uL (0.0-1.1); MONO % 10 % (0-9); NEUT % 80 % (31-73); PLATELET COUNT 144 x10^3/uL (140-400); RED BLOOD COUNT 4.94 x10^6/uL (4.30-5.70); RED CELL DISTRIBUTION WIDTH 13.3 % (11.5-14.5); WHITE BLOOD COUNT 7.5 x10^3/uL (4.0-11.0)
[2021-04-02 13:46] LABS: ALBUMIN 3.9 g/dL (3.4-5.0); ALBUMIN/GLOBULIN RATIO 1.1 (1.0-1.7); CALCIUM 9.7 mg/dL (8.5-10.1); CREATININE 1.2 mg/dL (0.7-1.3); GFR 59.3; TOTAL BILIRUBIN 0.5 mg/dL (0.2-1.0); TOTAL PROTEIN 7.6 g/dL (6.4-8.2)
--- NOTE | 2021-04-02 14:56 | NUR ---
Treatment team update: Pt is eating almost 100% of meals and sleeping on average 8 hours per night. Pt continues to have a flat affect and is mostly withdrawn to his room. Pt was noted today to have pronounced tremors and even placed himself on the floor, which staff had to help pt get up. A neurology consult for Dr. López will be ordered. It was also noted that pt walked to the day room and shook the door demanding to be let in which is not his norm. Pt has attended a couple of groups with minimal participation, usually leaving long-term through the group. CBC, CMP and a UA will be gathered to make sure nothing else is happening. Facilities are denying pt due to concerns of him being a flight risk. The search area has been widened and a referral was sent to [facility] to aid in finding placement with more of a locked facility. [facility] and continue to work with pt son.
[2021-04-02 16:15] VITALS: BP 134/73
[2021-04-02] MEDS: QUEtiapine 50 MG TABLET. PO SCH (20:41)
[2021-04-02] MEDS: ATORVASTATIN CALCIUM 20 MG TABLET PO SCH (20:42)
--- NOTE | 2021-04-02 21:07 | PDOC ---
Exam Note: Mike Note: Please also refer to the separate dictated note~for this date of service dictated separately.~Patient seen individually. Discussed the patient with Nursing staff reviewed the chart.~Reviewed interim history and current functioning. Reviewed vital signs,~Labs/ Radiology~and current medications noted below. Continue current treatment with the changes noted in the dictated addendum note Assessment: Vital Signs/I&O: Vital Signs Date Time Temp Pulse Resp B/P (MAP) Pulse Ox O2 Delivery O2 Flow Rate FiO2 04/02/21 16:15 98.9 86 17 134/73 (93) 92 Room Air I & O 04/01/21 04/01/21 04/02/21 15:00 23:00 07:00 Intake Total 1020 ml 360 ml Balance 1020 ml 360 ml Labs: Laboratory Tests Test 04/02/21 07:56 04/02/21 12:15 04/02/21 13:15 Glucose (Fingerstick) 114 mg/dL (70-99) H Urine Collection Type Unknown Urine Color Yellow Urine Clarity Clear Urine pH 5.5 Urine Specific [place] >=1.030 Urine Protein Neg (NEG-TRACE) Urine Glucose (UA) Neg mg/dL (NEG) Urine Ketones (Stick) Neg mg/dL (NEG) Urine Blood Trace (NEG) Urine Nitrite Neg (NEG) Urine Bilirubin Neg (NEG) Urine Urobilinogen Dipstick 0.2 mg/dL (0.2 mg/dL) Urine Leukocyte Esterase Neg (NEG) Urine RBC 1-2 /HPF (0-2) Urine WBC 1-4 /HPF (0-4) Urine Squamous Epithelial Cells Few /LPF Urine Bacteria 0 /HPF (0-FEW) Urine Hyaline Casts Few /HPF Urine Mucus Mod /LPF Urine Sperm Present /HPF White Blood Count 7.5 x10^3/uL (4.0-11.0) Red Blood Count 4.94 x10^6/uL (4.30-5.70) Hemoglobin 16.0 g/dL (13.0-17.5) Hematocrit 46.7 % (39.0-53.0) Mean Corpuscular Volume 95 fL (79-100) Mean Corpuscular Hemoglobin 33 pg (25-35) Mean Corpuscular Hemoglobin Concent 34 g/dL (31-37) Red Cell Distribution Width 13.3 % (11.5-14.5) Platelet Count 144 x10^3/uL (140-400) Neutrophils (%) (Auto) 80 % (31-73) H Lymphocytes (%) (Auto) 10 % (24-48) L Monocytes (%) (Auto) 10 % (0-9) H Eosinophils (%) (Auto) 0 % (0-3) Basophils (%) (Auto) 0 % (0-3) Neutrophils # (Auto) 6.0 x10^3uL (1.8-7.7) Lymphocytes # (Auto) 0.8 x10^3/uL (1.0-4.8) L Monocytes # (Auto) 0.7 x10^3/uL (0.0-1.1) Eosinophils # (Auto) 0.0 x10^3/uL (0.0-0.7) Basophils # (Auto) 0.0 x10^3/uL (0.0-0.2) Sodium Level 135 mmol/L (136-145) L Potassium Level 4.0 mmol/L (3.5-5.1) Chloride Level 99 mmol/L (98-107) Carbon Dioxide Level 27 mmol/L (21-32) Anion Gap 9 (6-14) Blood Urea Nitrogen 24 mg/dL (8-26) Creatinine 1.2 mg/dL (0.7-1.3) Estimated GFR (Cockcroft-Gault) 59.3 BUN/Creatinine Ratio 20 (6-20) Glucose Level 119 mg/dL (70-99) H Calcium Level 9.7 mg/dL (8.5-10.1) Total Bilirubin 0.5 mg/dL (0.2-1.0) Aspartate Amino Transferase (AST) 25 U/L (15-37) Alanine Aminotransferase (ALT) 46 U/L (16-63) Alkaline Phosphatase 118 U/L (46-116) H Total Protein 7.6 g/dL (6.4-8.2) Albumin 3.9 g/dL (3.4-5.0) Albumin/Globulin Ratio 1.1 (1.0-1.7) Current Medications: Meds: Laboratory Tests Test 04/02/21 07:56 04/02/21 12:15 04/02/21 13:15 Glucose (Fingerstick) 114 mg/dL Urine Collection Type Unknown Urine Color Yellow Urine Clarity Clear Urine pH 5.5 Urine Specific [place] >=1.030 Urine Protein Neg Urine Glucose (UA) Neg mg/dL Urine Ketones (Stick) Neg mg/dL Urine Blood Trace Urine Nitrite Neg Urine Bilirubin Neg Urine Urobilinogen Dipstick 0.2 mg/dL Urine Leukocyte Esterase Neg Urine RBC 1-2 /HPF Urine WBC 1-4 /HPF Urine Squamous Epithelial Cells Few /LPF Urine Bacteria 0 /HPF Urine Hyaline Casts Few /HPF Urine Mucus Mod /LPF Urine Sperm Present /HPF White Blood Count 7.5 x10^3/uL Red Blood Count 4.94 x10^6/uL Hemoglobin 16.0 g/dL Hematocrit 46.7 % Mean Corpuscular Volume 95 fL Mean Corpuscular Hemoglobin 33 pg Mean Corpuscular Hemoglobin Concent 34 g/dL Red Cell Distribution Width 13.3 % Platelet Count 144 x10^3/uL Neutrophils (%) (Auto) 80 % Lymphocytes (%) (Auto) 10 % Monocytes (%) (Auto) 10 % Eosinophils (%) (Auto) 0 % Basophils (%) (Auto) 0 % Neutrophils # (Auto) 6.0 x10^3uL Lymphocytes # (Auto) 0.8 x10^3/uL Monocytes # (Auto) 0.7 x10^3/uL Eosinophils # (Auto) 0.0 x10^3/uL Basophils # (Auto) 0.0 x10^3/uL Sodium Level 135 mmol/L Potassium Level 4.0 mmol/L Chloride Level 99 mmol/L Carbon Dioxide Level 27 mmol/L Anion Gap 9 Blood Urea Nitrogen 24 mg/dL Creatinine 1.2 mg/dL Estimated GFR (Cockcroft-Gault) 59.3 BUN/Creatinine Ratio 20 Glucose Level 119 mg/dL Calcium Level 9.7 mg/dL Total Bilirubin 0.5 mg/dL Aspartate Amino Transf (AST/SGOT) 25 U/L Alanine Aminotransferase (ALT/SGPT) 46 U/L Alkaline Phosphatase 118 U/L Total Protein 7.6 g/dL Albumin 3.9 g/dL Albumin/Globulin Ratio 1.1 Current Medications Medications (Trade) Dose Ordered Sig/Greg Route PRN Reason Start Time Stop Time Status Last Admin Dose Admin Acetaminophen (Tylenol) 650 mg PRN Q6HRS PRN PO MILD PAIN / TEMP > 100.3'F 03/04/21 16:15 Multi-Ingredient Ointment (Analgesic [place]) 1 donn PRN QID PRN TP MUSCLE PAIN 03/04/21 16:15 Al Hydroxide/Mg Hydroxide (Mylanta Plus Xs) 15 ml PRN AFTMEALHC PRN PO DYSPEPSIA 03/04/21 16:15 Magnesium Hydroxide (Milk Of Magnesia) 2,400 mg PRN QHS PRN PO CONSTIPATION 03/04/21 16:15 Aspirin (Aspirin Chewable) 81 mg DAILY PO 03/05/21 09:00 04/02/21 08:44 Lisinopril (Prinivil) 10 mg DAILY PO 03/05/21 09:00 04/02/21 08:45 Vitamin D (Vitamin D3) 25 unit DAILY PO 03/05/21 09:00 03/07/21 10:29 DC 03/05/21 09:14 Metformin HCl (Glucophage) 1,000 mg BIDWMEALS PO 03/04/21 17:00 04/02/21 17:17 Atorvastatin Calcium (Lipitor) 80 mg QHS PO 03/04/21 21:00 04/02/21 20:42 Olanzapine (ZyPREXA ZYDIS) 2.5 mg PRN Q2HR PRN PO PSYCHOSIS 03/05/21 17:00 03/31/21 19:43 Vitamin D (Vitamin D3) 1,000 unit DAILY PO 03/08/21 09:00 04/02/21 08:45 Memantine (Namenda) 5 mg BID PO 03/07/21 21:00 03/11/21 18:16 DC 03/11/21 08:36 Sertraline HCl (Zoloft) 25 mg DAILY PO 03/08/21 09:00 03/10/21 20:16 DC 03/10/21 08:40 Rivastigmine (Exelon) 4.6 patch DAILY TD 03/08/21 09:00 03/09/21 13:31 DC 03/09/21 08:58 Rivastigmine (Exelon) 9.5 patch DAILY TD 03/15/21 09:00 Cancel Rivastigmine (Exelon) 1 patch DAILY TD 03/15/21 09:00 03/19/21 14:00 DC 03/19/21 09:14 Rivastigmine (Exelon) 1 patch DAILY TD 03/10/21 09:00 03/14/21 23:50 DC 03/14/21 09:00 Sertraline HCl (Zoloft) 50 mg DAILY PO 03/11/21 09:00 03/22/21 20:39 DC 03/22/21 08:39 Trazodone HCl (Desyrel) 50 mg PRN QHS PRN PO INSOMNIA 03/10/21 20:15 Memantine (Namenda) 5 mg DAILY PO 03/12/21 09:00 03/15/21 20:10 DC 03/15/21 07:59 Memantine (Namenda) 10 mg QHS PO 03/11/21 21:00 03/15/21 22:00 DC 03/15/21 21:02 Memantine (Namenda) 10 mg BID PO 03/16/21 09:00 04/02/21 20:41 Rivastigmine (Exelon 13.3mg) 1 patch DAILY TD 03/20/21 09:00 03/26/21 11:18 DC 03/23/21 08:10 Quetiapine Fumarate (SEROquel) 25 mg HS PO 03/17/21 21:00 03/18/21 16:11 DC 03/17/21 21:41 Quetiapine Fumarate (SEROquel) 50 mg HS PO 03/18/21 21:00 04/02/21 20:41 Sertraline HCl (Zoloft) 75 mg DAILY PO 03/23/21 09:00 03/25/21 12:00 DC 03/25/21 08:24 Sertraline HCl (Zoloft) 100 mg DAILY PO 03/26/21 09:00 04/02/21 08:45 Bupropion HCl (Wellbutrin Xl) 150 mg DAILY PO 03/26/21 09:00 03/27/21 21:00 DC 03/27/21 09:00 Donepezil HCl (Aricept) 5 mg DAILY PO 03/27/21 09:00 03/28/21 23:50 DC 03/28/21 08:17 Donepezil HCl (Aricept) 10 mg DAILY PO 03/29/21 09:00 04/02/21 08:45 Bupropion HCl (Wellbutrin Xl) 150 mg 0900,1200 PO 03/28/21 09:00 04/02/21 12:47 I have reviewed the current psychotropics carefully including drug interactions. Risk benefit ratio favors no change other than as noted in my dictated progress note. Diagnosis: Problems: (1) Impulse control disorder, unspecified (2) Lewy body dementia with behavioral disturbance (3) Anxiety disorder, unspecified (4) Dementia in Alzheimer's disease with depression (5) Dementia in Alzheimer's disease with delusions (6) Major neurocognitive disorder GABRIELLA LEDEZMA MD Apr 02, 2021 21:07
--- NOTE | 2021-04-03 01:44 | NUR ---
Suzie va has mainly been in his room several times he has been out of his room one time slamming his door forcefully. Later he was found trying to open the day room door saying someone was on the other side calling for him to open the door but he room was empty at the time. He took meds whole without difficulty and has been sleeping.
[2021-04-03 06:06] VITALS: BP 139/75
--- NOTE | 2021-04-03 07:31 | PDOC ---
Exam Note: Mike Note: This note is a late entry for 04/02/2021 covers elements not covered in my initial note. Subjective: The patient was reviewed at treatment team meeting individually in the morning on 04/02/2021 with Mayra Blackwood, Lizeth Thomas, and Nay Martinez (social service agency director), Michelle, activity therapy and Raegan HECTOR, discussed and reviewed the chart. The patient slept 8 hours previous night. Appetite 90%. Patient was noted to have significant hand tremor. We will check with Dr. López, Neurology and also check CBC, CMP, UA to make sure nothing medically to account for it. He is refusing his medications, withdrawn. I met with him in his room. Review of Systems: Positive for hand tremors. No CV, , pulmonary, eye system symptoms on review. Mental Status Exam: The patient is oriented to himself and situation. Speech coherent. Often verbal response is monosyllabic. Abstraction fair. Computation impaired. Language function intact. Attention span fair. Mood and affect somewhat dysphoric. No suicidal or homicidal ideation. Laboratory Data: Reviewed. 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 Anxiety disorder unspecified. Impulse control disorder. Plan: Maintain rest of the psychotropics unchanged. Assessment: Vital Signs/I&O: Vital Signs Date Time Temp Pulse Resp B/P (MAP) Pulse Ox O2 Delivery O2 Flow Rate FiO2 04/03/21 06:06 98.4 85 20 139/75 (96) 93 Room Air I & O 04/02/21 04/02/21 04/03/21 15:00 23:00 07:00 Intake Total 720 ml 360 ml Balance 720 ml 360 ml Labs: Laboratory Tests Test 04/02/21 07:56 04/02/21 12:15 04/02/21 13:15 04/03/21 07:06 Glucose (Fingerstick) 114 mg/dL (70-99) H 222 mg/dL (70-99) H Urine Collection Type Unknown Urine Color Yellow Urine Clarity Clear Urine pH 5.5 Urine Specific [place] >=1.030 Urine Protein Neg (NEG-TRACE) Urine Glucose (UA) Neg mg/dL (NEG) Urine Ketones (Stick) Neg mg/dL (NEG) Urine Blood Trace (NEG) Urine Nitrite Neg (NEG) Urine Bilirubin Neg (NEG) Urine Urobilinogen Dipstick 0.2 mg/dL (0.2 mg/dL) Urine Leukocyte Esterase Neg (NEG) Urine RBC 1-2 /HPF (0-2) Urine WBC 1-4 /HPF (0-4) Urine Squamous Epithelial Cells Few /LPF Urine Bacteria 0 /HPF (0-FEW) Urine Hyaline Casts Few /HPF Urine Mucus Mod /LPF Urine Sperm Present /HPF White Blood Count 7.5 x10^3/uL (4.0-11.0) Red Blood Count 4.94 x10^6/uL (4.30-5.70) Hemoglobin 16.0 g/dL (13.0-17.5) Hematocrit 46.7 % (39.0-53.0) Mean Corpuscular Volume 95 fL (79-100) Mean Corpuscular Hemoglobin 33 pg (25-35) Mean Corpuscular Hemoglobin Concent 34 g/dL (31-37) Red Cell Distribution Width 13.3 % (11.5-14.5) Platelet Count 144 x10^3/uL (140-400) Neutrophils (%) (Auto) 80 % (31-73) H Lymphocytes (%) (Auto) 10 % (24-48) L Monocytes (%) (Auto) 10 % (0-9) H Eosinophils (%) (Auto) 0 % (0-3) Basophils (%) (Auto) 0 % (0-3) Neutrophils # (Auto) 6.0 x10^3uL (1.8-7.7) Lymphocytes # (Auto) 0.8 x10^3/uL (1.0-4.8) L Monocytes # (Auto) 0.7 x10^3/uL (0.0-1.1) Eosinophils # (Auto) 0.0 x10^3/uL (0.0-0.7) Basophils # (Auto) 0.0 x10^3/uL (0.0-0.2) Sodium Level 135 mmol/L (136-145) L Potassium Level 4.0 mmol/L (3.5-5.1) Chloride Level 99 mmol/L (98-107) Carbon Dioxide Level 27 mmol/L (21-32) Anion Gap 9 (6-14) Blood Urea Nitrogen 24 mg/dL (8-26) Creatinine 1.2 mg/dL (0.7-1.3) Estimated GFR (Cockcroft-Gault) 59.3 BUN/Creatinine Ratio 20 (6-20) Glucose Level 119 mg/dL (70-99) H Calcium Level 9.7 mg/dL (8.5-10.1) Total Bilirubin 0.5 mg/dL (0.2-1.0) Aspartate Amino Transferase (AST) 25 U/L (15-37) Alanine Aminotransferase (ALT) 46 U/L (16-63) Alkaline Phosphatase 118 U/L (46-116) H Total Protein 7.6 g/dL (6.4-8.2) Albumin 3.9 g/dL (3.4-5.0) Albumin/Globulin Ratio 1.1 (1.0-1.7) Current Medications: Meds: Laboratory Tests Test 04/02/21 07:56 04/02/21 12:15 04/02/21 13:15 04/03/21 07:06 Glucose (Fingerstick) 114 mg/dL 222 mg/dL Urine Collection Type Unknown Urine Color Yellow Urine Clarity Clear Urine pH 5.5 Urine Specific [place] >=1.030 Urine Protein Neg Urine Glucose (UA) Neg mg/dL Urine Ketones (Stick) Neg mg/dL Urine Blood Trace Urine Nitrite Neg Urine Bilirubin Neg Urine Urobilinogen Dipstick 0.2 mg/dL Urine Leukocyte Esterase Neg Urine RBC 1-2 /HPF Urine WBC 1-4 /HPF Urine Squamous Epithelial Cells Few /LPF Urine Bacteria 0 /HPF Urine Hyaline Casts Few /HPF Urine Mucus Mod /LPF Urine Sperm Present /HPF White Blood Count 7.5 x10^3/uL Red Blood Count 4.94 x10^6/uL Hemoglobin 16.0 g/dL Hematocrit 46.7 % Mean Corpuscular Volume 95 fL Mean Corpuscular Hemoglobin 33 pg Mean Corpuscular Hemoglobin Concent 34 g/dL Red Cell Distribution Width 13.3 % Platelet Count 144 x10^3/uL Neutrophils (%) (Auto) 80 % Lymphocytes (%) (Auto) 10 % Monocytes (%) (Auto) 10 % Eosinophils (%) (Auto) 0 % Basophils (%) (Auto) 0 % Neutrophils # (Auto) 6.0 x10^3uL Lymphocytes # (Auto) 0.8 x10^3/uL Monocytes # (Auto) 0.7 x10^3/uL Eosinophils # (Auto) 0.0 x10^3/uL Basophils # (Auto) 0.0 x10^3/uL Sodium Level 135 mmol/L Potassium Level 4.0 mmol/L Chloride Level 99 mmol/L Carbon Dioxide Level 27 mmol/L Anion Gap 9 Blood Urea Nitrogen 24 mg/dL Creatinine 1.2 mg/dL Estimated GFR (Cockcroft-Gault) 59.3 BUN/Creatinine Ratio 20 Glucose Level 119 mg/dL Calcium Level 9.7 mg/dL Total Bilirubin 0.5 mg/dL Aspartate Amino Transf (AST/SGOT) 25 U/L Alanine Aminotransferase (ALT/SGPT) 46 U/L Alkaline Phosphatase 118 U/L Total Protein 7.6 g/dL Albumin 3.9 g/dL Albumin/Globulin Ratio 1.1 Current Medications Medications (Trade) Dose Ordered Sig/Greg Route PRN Reason Start Time Stop Time Status Last Admin Dose Admin Acetaminophen (Tylenol) 650 mg PRN Q6HRS PRN PO MILD PAIN / TEMP > 100.3'F 03/04/21 16:15 Multi-Ingredient Ointment (Analgesic [place]) 1 donn PRN QID PRN TP MUSCLE PAIN 03/04/21 16:15 Al Hydroxide/Mg Hydroxide (Mylanta Plus Xs) 15 ml PRN AFTMEALHC PRN PO DYSPEPSIA 03/04/21 16:15 Magnesium Hydroxide (Milk Of Magnesia) 2,400 mg PRN QHS PRN PO CONSTIPATION 03/04/21 16:15 Aspirin (Aspirin Chewable) 81 mg DAILY PO 03/05/21 09:00 04/02/21 08:44 Lisinopril (Prinivil) 10 mg DAILY PO 03/05/21 09:00 04/02/21 08:45 Vitamin D (Vitamin D3) 25 unit DAILY PO 03/05/21 09:00 03/07/21 10:29 DC 03/05/21 09:14 Metformin HCl (Glucophage) 1,000 mg BIDWMEALS PO 03/04/21 17:00 04/02/21 17:17 Atorvastatin Calcium (Lipitor) 80 mg QHS PO 03/04/21 21:00 04/02/21 20:42 Olanzapine (ZyPREXA ZYDIS) 2.5 mg PRN Q2HR PRN PO PSYCHOSIS 03/05/21 17:00 03/31/21 19:43 Vitamin D (Vitamin D3) 1,000 unit DAILY PO 03/08/21 09:00 04/02/21 08:45 Memantine (Namenda) 5 mg BID PO 03/07/21 21:00 03/11/21 18:16 DC 03/11/21 08:36 Sertraline HCl (Zoloft) 25 mg DAILY PO 03/08/21 09:00 03/10/21 20:16 DC 03/10/21 08:40 Rivastigmine (Exelon) 4.6 patch DAILY TD 03/08/21 09:00 03/09/21 13:31 DC 03/09/21 08:58 Rivastigmine (Exelon) 9.5 patch DAILY TD 03/15/21 09:00 Cancel Rivastigmine (Exelon) 1 patch DAILY TD 03/15/21 09:00 03/19/21 14:00 DC 03/19/21 09:14 Rivastigmine (Exelon) 1 patch DAILY TD 03/10/21 09:00 03/14/21 23:50 DC 03/14/21 09:00 Sertraline HCl (Zoloft) 50 mg DAILY PO 03/11/21 09:00 03/22/21 20:39 DC 03/22/21 08:39 Trazodone HCl (Desyrel) 50 mg PRN QHS PRN PO INSOMNIA 03/10/21 20:15 Memantine (Namenda) 5 mg DAILY PO 03/12/21 09:00 03/15/21 20:10 DC 03/15/21 07:59 Memantine (Namenda) 10 mg QHS PO 03/11/21 21:00 03/15/21 22:00 DC 03/15/21 21:02 Memantine (Namenda) 10 mg BID PO 03/16/21 09:00 04/02/21 20:41 Rivastigmine (Exelon 13.3mg) 1 patch DAILY TD 03/20/21 09:00 03/26/21 11:18 DC 03/23/21 08:10 Quetiapine Fumarate (SEROquel) 25 mg HS PO 03/17/21 21:00 03/18/21 16:11 DC 03/17/21 21:41 Quetiapine Fumarate (SEROquel) 50 mg HS PO 03/18/21 21:00 04/02/21 20:41 Sertraline HCl (Zoloft) 75 mg DAILY PO 03/23/21 09:00 03/25/21 12:00 DC 03/25/21 08:24 Sertraline HCl (Zoloft) 100 mg DAILY PO 03/26/21 09:00 04/02/21 08:45 Bupropion HCl (Wellbutrin Xl) 150 mg DAILY PO 03/26/21 09:00 03/27/21 21:00 DC 03/27/21 09:00 Donepezil HCl (Aricept) 5 mg DAILY PO 03/27/21 09:00 03/28/21 23:50 DC 03/28/21 08:17 Donepezil HCl (Aricept) 10 mg DAILY PO 03/29/21 09:00 04/02/21 08:45 Bupropion HCl (Wellbutrin Xl) 150 mg 0900,1200 PO 03/28/21 09:00 04/02/21 12:47 I have reviewed the current psychotropics carefully including drug interactions. Risk benefit ratio favors no change other than as noted in my dictated progress note. Diagnosis: Problems: (1) Impulse control disorder, unspecified (2) Lewy body dementia with behavioral disturbance (3) Anxiety disorder, unspecified (4) Dementia in Alzheimer's disease with depression (5) Dementia in Alzheimer's disease with delusions (6) Major neurocognitive disorder GABRIELLA LEDEZMA MD Apr 03, 2021 07:31
[2021-04-03] MEDS: buPROPion XL 150 MG TAB.ER.24H PO SCH ×2 (08:18→13:26)
[2021-04-03] MEDS: ASPIRIN CHEWABLE 81 MG TABLET. PO SCH (08:18)
[2021-04-03] MEDS: SERTRALINE 100 MG TABLET. PO SCH (08:18)
[2021-04-03] MEDS: LISINOPRIL 10 MG TABLET PO SCH (08:18)
[2021-04-03] MEDS: DONEPEZIL HCL 10 MG TABLET PO SCH (08:18)
[2021-04-03] MEDS: MEMANTINE 10 MG TABLET. PO SCH ×2 (08:18→20:30)
[2021-04-03] MEDS: metFORMIN 500 MG TABLET PO SCH ×2 (08:18→17:18)
[2021-04-03] MEDS: CHOLECALCIFEROL (VITAMIN D3) 1,000 UNIT TABLET PO SCH (08:18)
[2021-04-03 16:11] VITALS: BP 147/81
[2021-04-03] MEDS: ATORVASTATIN CALCIUM 20 MG TABLET PO SCH (20:30)
[2021-04-03] MEDS: risperiDONE 0.5 MG TABLET. PO SCH (20:30)
--- NOTE | 2021-04-03 21:11 | PDOC ---
Exam Note: Mike Note: Please also refer to the separate dictated note~for this date of service dictated separately.~Patient seen individually. Discussed the patient with Nursing staff reviewed the chart.~Reviewed interim history and current functioning. Reviewed vital signs,~Labs/ Radiology~and current medications noted below. Continue current treatment with the changes noted in the dictated addendum note Assessment: Vital Signs/I&O: Vital Signs Date Time Temp Pulse Resp B/P (MAP) Pulse Ox O2 Delivery O2 Flow Rate FiO2 04/03/21 16:11 97.1 72 16 147/81 (103) 95 04/03/21 06:06 Room Air I & O 04/02/21 04/02/21 04/03/21 15:00 23:00 07:00 Intake Total 720 ml 360 ml Balance 720 ml 360 ml Labs: Laboratory Tests Test 04/03/21 07:06 Glucose (Fingerstick) 222 mg/dL (70-99) H Current Medications: Meds: Laboratory Tests Test 04/03/21 07:06 Glucose (Fingerstick) 222 mg/dL Current Medications Medications (Trade) Dose Ordered Sig/Greg Route PRN Reason Start Time Stop Time Status Last Admin Dose Admin Acetaminophen (Tylenol) 650 mg PRN Q6HRS PRN PO MILD PAIN / TEMP > 100.3'F 03/04/21 16:15 Multi-Ingredient Ointment (Analgesic [place]) 1 donn PRN QID PRN TP MUSCLE PAIN 03/04/21 16:15 Al Hydroxide/Mg Hydroxide (Mylanta Plus Xs) 15 ml PRN AFTMEALHC PRN PO DYSPEPSIA 03/04/21 16:15 Magnesium Hydroxide (Milk Of Magnesia) 2,400 mg PRN QHS PRN PO CONSTIPATION 03/04/21 16:15 Aspirin (Aspirin Chewable) 81 mg DAILY PO 03/05/21 09:00 04/03/21 08:18 Lisinopril (Prinivil) 10 mg DAILY PO 03/05/21 09:00 04/03/21 08:18 Vitamin D (Vitamin D3) 25 unit DAILY PO 03/05/21 09:00 03/07/21 10:29 DC 03/05/21 09:14 Metformin HCl (Glucophage) 1,000 mg BIDWMEALS PO 03/04/21 17:00 04/03/21 17:18 Atorvastatin Calcium (Lipitor) 80 mg QHS PO 03/04/21 21:00 04/03/21 20:30 Olanzapine (ZyPREXA ZYDIS) 2.5 mg PRN Q2HR PRN PO PSYCHOSIS 03/05/21 17:00 03/31/21 19:43 Vitamin D (Vitamin D3) 1,000 unit DAILY PO 03/08/21 09:00 04/03/21 08:18 Memantine (Namenda) 5 mg BID PO 03/07/21 21:00 03/11/21 18:16 DC 03/11/21 08:36 Sertraline HCl (Zoloft) 25 mg DAILY PO 03/08/21 09:00 03/10/21 20:16 DC 03/10/21 08:40 Rivastigmine (Exelon) 4.6 patch DAILY TD 03/08/21 09:00 03/09/21 13:31 DC 03/09/21 08:58 Rivastigmine (Exelon) 9.5 patch DAILY TD 03/15/21 09:00 Cancel Rivastigmine (Exelon) 1 patch DAILY TD 03/15/21 09:00 03/19/21 14:00 DC 03/19/21 09:14 Rivastigmine (Exelon) 1 patch DAILY TD 03/10/21 09:00 03/14/21 23:50 DC 03/14/21 09:00 Sertraline HCl (Zoloft) 50 mg DAILY PO 03/11/21 09:00 03/22/21 20:39 DC 03/22/21 08:39 Trazodone HCl (Desyrel) 50 mg PRN QHS PRN PO INSOMNIA 03/10/21 20:15 Memantine (Namenda) 5 mg DAILY PO 03/12/21 09:00 03/15/21 20:10 DC 03/15/21 07:59 Memantine (Namenda) 10 mg QHS PO 03/11/21 21:00 03/15/21 22:00 DC 03/15/21 21:02 Memantine (Namenda) 10 mg BID PO 03/16/21 09:00 04/03/21 20:30 Rivastigmine (Exelon 13.3mg) 1 patch DAILY TD 03/20/21 09:00 03/26/21 11:18 DC 03/23/21 08:10 Quetiapine Fumarate (SEROquel) 25 mg HS PO 03/17/21 21:00 03/18/21 16:11 DC 03/17/21 21:41 Quetiapine Fumarate (SEROquel) 50 mg HS PO 03/18/21 21:00 04/03/21 17:58 DC 04/02/21 20:41 Sertraline HCl (Zoloft) 75 mg DAILY PO 03/23/21 09:00 03/25/21 12:00 DC 03/25/21 08:24 Sertraline HCl (Zoloft) 100 mg DAILY PO 03/26/21 09:00 04/03/21 08:18 Bupropion HCl (Wellbutrin Xl) 150 mg DAILY PO 03/26/21 09:00 03/27/21 21:00 DC 03/27/21 09:00 Donepezil HCl (Aricept) 5 mg DAILY PO 03/27/21 09:00 03/28/21 23:50 DC 03/28/21 08:17 Donepezil HCl (Aricept) 10 mg DAILY PO 03/29/21 09:00 04/03/21 08:18 Bupropion HCl (Wellbutrin Xl) 150 mg 0900,1200 PO 03/28/21 09:00 04/03/21 13:26 Risperidone (RisperDAL) 0.5 mg HS PO 04/03/21 21:00 04/03/21 20:30 Current Medications Medications (Trade) Dose Ordered Sig/Greg Route PRN Reason Start Time Stop Time Status Last Admin Dose Admin Risperidone (RisperDAL) 0.5 mg HS PO 04/03/21 21:00 04/03/21 20:30 I have reviewed the current psychotropics carefully including drug interactions. Risk benefit ratio favors no change other than as noted in my dictated progress note. Diagnosis: Problems: (1) Impulse control disorder, unspecified (2) Lewy body dementia with behavioral disturbance (3) Anxiety disorder, unspecified (4) Dementia in Alzheimer's disease with depression (5) Dementia in Alzheimer's disease with delusions (6) Major neurocognitive disorder GABRIELLA LEDEZMA MD Apr 03, 2021 21:11
--- NOTE | 2021-04-03 21:50 | NUR ---
Pt has been in his room tonight and has been pleasant and cooperative with staff. When asking earnest seeing thinks that others may not see he said "only the things coming down from the ceiling." He said there were fishnets and branches sometimes with music above his bed. He said it bothers him and he doesn't like to watch it and that no one else would either.
[2021-04-04 06:01] VITALS: BP 130/75
[2021-04-04] MEDS: metFORMIN 500 MG TABLET PO SCH ×2 (08:13→16:48)
[2021-04-04] MEDS: CHOLECALCIFEROL (VITAMIN D3) 1,000 UNIT TABLET PO SCH (08:13)
[2021-04-04] MEDS: ASPIRIN CHEWABLE 81 MG TABLET. PO SCH (08:14)
[2021-04-04] MEDS: LISINOPRIL 10 MG TABLET PO SCH (08:14)
[2021-04-04] MEDS: buPROPion XL 150 MG TAB.ER.24H PO SCH ×2 (08:14→12:00)
[2021-04-04] MEDS: SERTRALINE 100 MG TABLET. PO SCH (08:14)
[2021-04-04] MEDS: MEMANTINE 10 MG TABLET. PO SCH ×2 (08:14→20:50)
[2021-04-04] MEDS: DONEPEZIL HCL 10 MG TABLET PO SCH (08:14)
--- NOTE | 2021-04-04 09:38 | NUR ---
Pt present and visible on the unit. A&Ox3, denies SI/HI/VH/AH/delusions/pain. He is compliant with morning medications, receptive to education provided. After breakfast she retired back to his room. He remains primarily withdrawn and does not interact with others. Plan of care continues, will pass to next shift.
[2021-04-04 15:26] VITALS: BP 156/82
[2021-04-04] MEDS: ATORVASTATIN CALCIUM 20 MG TABLET PO SCH (20:50)
[2021-04-04] MEDS: risperiDONE 0.5 MG TABLET. PO SCH (20:50)
--- NOTE | 2021-04-04 21:10 | PDOC ---
Exam Note: Mike Note: Please also refer to the separate dictated note~for this date of service dictated separately.~Patient seen individually. Discussed the patient with Nursing staff reviewed the chart.~Reviewed interim history and current functioning. Reviewed vital signs,~Labs/ Radiology~and current medications noted below. Continue current treatment with the changes noted in the dictated addendum note Assessment: Vital Signs/I&O: Vital Signs Date Time Temp Pulse Resp B/P (MAP) Pulse Ox O2 Delivery O2 Flow Rate FiO2 04/04/21 15:26 97.8 77 20 156/82 (106) 98 Room Air I & O 04/03/21 04/03/21 04/04/21 15:00 23:00 07:00 Intake Total 960 ml 560 ml Balance 960 ml 560 ml Labs: Laboratory Tests Test 04/04/21 07:24 Glucose (Fingerstick) 140 mg/dL (70-99) H Current Medications: Meds: Laboratory Tests Test 04/04/21 07:24 Glucose (Fingerstick) 140 mg/dL Current Medications Medications (Trade) Dose Ordered Sig/Greg Route PRN Reason Start Time Stop Time Status Last Admin Dose Admin Acetaminophen (Tylenol) 650 mg PRN Q6HRS PRN PO MILD PAIN / TEMP > 100.3'F 03/04/21 16:15 Multi-Ingredient Ointment (Analgesic [place]) 1 donn PRN QID PRN TP MUSCLE PAIN 03/04/21 16:15 Al Hydroxide/Mg Hydroxide (Mylanta Plus Xs) 15 ml PRN AFTMEALHC PRN PO DYSPEPSIA 03/04/21 16:15 Magnesium Hydroxide (Milk Of Magnesia) 2,400 mg PRN QHS PRN PO CONSTIPATION 03/04/21 16:15 Aspirin (Aspirin Chewable) 81 mg DAILY PO 03/05/21 09:00 04/04/21 08:14 Lisinopril (Prinivil) 10 mg DAILY PO 03/05/21 09:00 04/04/21 08:14 Vitamin D (Vitamin D3) 25 unit DAILY PO 03/05/21 09:00 03/07/21 10:29 DC 03/05/21 09:14 Metformin HCl (Glucophage) 1,000 mg BIDWMEALS PO 03/04/21 17:00 04/04/21 16:48 Atorvastatin Calcium (Lipitor) 80 mg QHS PO 03/04/21 21:00 04/04/21 20:50 Olanzapine (ZyPREXA ZYDIS) 2.5 mg PRN Q2HR PRN PO PSYCHOSIS 03/05/21 17:00 03/31/21 19:43 Vitamin D (Vitamin D3) 1,000 unit DAILY PO 03/08/21 09:00 04/04/21 08:13 Memantine (Namenda) 5 mg BID PO 03/07/21 21:00 03/11/21 18:16 DC 03/11/21 08:36 Sertraline HCl (Zoloft) 25 mg DAILY PO 03/08/21 09:00 03/10/21 20:16 DC 03/10/21 08:40 Rivastigmine (Exelon) 4.6 patch DAILY TD 03/08/21 09:00 03/09/21 13:31 DC 03/09/21 08:58 Rivastigmine (Exelon) 9.5 patch DAILY TD 03/15/21 09:00 Cancel Rivastigmine (Exelon) 1 patch DAILY TD 03/15/21 09:00 03/19/21 14:00 DC 03/19/21 09:14 Rivastigmine (Exelon) 1 patch DAILY TD 03/10/21 09:00 03/14/21 23:50 DC 03/14/21 09:00 Sertraline HCl (Zoloft) 50 mg DAILY PO 03/11/21 09:00 03/22/21 20:39 DC 03/22/21 08:39 Trazodone HCl (Desyrel) 50 mg PRN QHS PRN PO INSOMNIA 03/10/21 20:15 Memantine (Namenda) 5 mg DAILY PO 03/12/21 09:00 03/15/21 20:10 DC 03/15/21 07:59 Memantine (Namenda) 10 mg QHS PO 03/11/21 21:00 03/15/21 22:00 DC 03/15/21 21:02 Memantine (Namenda) 10 mg BID PO 03/16/21 09:00 04/04/21 20:50 Rivastigmine (Exelon 13.3mg) 1 patch DAILY TD 03/20/21 09:00 03/26/21 11:18 DC 03/23/21 08:10 Quetiapine Fumarate (SEROquel) 25 mg HS PO 03/17/21 21:00 03/18/21 16:11 DC 03/17/21 21:41 Quetiapine Fumarate (SEROquel) 50 mg HS PO 03/18/21 21:00 04/03/21 17:58 DC 04/02/21 20:41 Sertraline HCl (Zoloft) 75 mg DAILY PO 03/23/21 09:00 03/25/21 12:00 DC 03/25/21 08:24 Sertraline HCl (Zoloft) 100 mg DAILY PO 03/26/21 09:00 04/04/21 08:14 Bupropion HCl (Wellbutrin Xl) 150 mg DAILY PO 03/26/21 09:00 03/27/21 21:00 DC 03/27/21 09:00 Donepezil HCl (Aricept) 5 mg DAILY PO 03/27/21 09:00 03/28/21 23:50 DC 03/28/21 08:17 Donepezil HCl (Aricept) 10 mg DAILY PO 03/29/21 09:00 04/04/21 08:14 Bupropion HCl (Wellbutrin Xl) 150 mg 0900,1200 PO 03/28/21 09:00 04/04/21 12:00 Risperidone (RisperDAL) 0.5 mg HS PO 04/03/21 21:00 04/04/21 20:50 I have reviewed the current psychotropics carefully including drug interactions. Risk benefit ratio favors no change other than as noted in my dictated progress note. Diagnosis: Problems: (1) Impulse control disorder, unspecified (2) Lewy body dementia with behavioral disturbance (3) Anxiety disorder, unspecified (4) Dementia in Alzheimer's disease with depression (5) Dementia in Alzheimer's disease with delusions (6) Major neurocognitive disorder GABRIELLA LEDEZMA MD Apr 04, 2021 21:10
--- NOTE | 2021-04-04 23:44 | NUR ---
Pt located in his room all evening. Pt pleasant and compliant with whole medications. No agitation or aggression.
[2021-04-05 06:04] VITALS: BP 137/84
--- NOTE | 2021-04-05 07:20 | PDOC ---
Exam Note: Mike Note: This note is a late entry for 04/03/2021 covers elements not covered in my initial note. Subjective: The patient was seen individually in the evening of 04/03/2021 with Trish HECTOR, discussed and reviewed the chart. The patient slept 6-1/2 hours previous night. Previous night he was extremely paranoid, psychotic, banging the doors, was hearing voices, telling him to get into the dayroom according to the nursing staff. He has done better during the day on 04/03. I met with him in his room. He was lying in bed stated he was doing well. Review of Systems: No CV, , pulmonary, eye system symptoms on review. Mental Status Exam: The patient is oriented to himself and situation. Speech has some latency, coherent. Often response is monosyllabic. Abstraction fair. Computation impaired. Language function intact. Mood and affect somewhat withdrawn. Laboratory Data: Reviewed. 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 Anxiety disorder unspecified. Impulse control disorder. Plan: Given the patients psychotic symptoms. We will change the Seroquel from 50 mg h.s. to Risperdal 0.5 mg h.s. as the Risperdal should have a psychotic effect than the Seroquel, being slightly higher potency than the Seroquel. Maintain rest of the psychotropics including Aricept, Namenda, Zoloft, trazodone and Wellbutrin. Adjust further as clinically indicated. Assessment: Vital Signs/I&O: Vital Signs Date Time Temp Pulse Resp B/P (MAP) Pulse Ox O2 Delivery O2 Flow Rate FiO2 04/05/21 06:04 97.9 86 18 137/84 (101) 95 Room Air I & O 04/04/21 04/04/21 04/05/21 15:00 23:00 07:00 Intake Total 480 ml 240 ml Balance 480 ml 240 ml Labs: Laboratory Tests Test 04/04/21 07:24 Glucose (Fingerstick) 140 mg/dL (70-99) H Current Medications: Meds: Laboratory Tests Test 04/04/21 07:24 Glucose (Fingerstick) 140 mg/dL Current Medications Medications (Trade) Dose Ordered Sig/Greg Route PRN Reason Start Time Stop Time Status Last Admin Dose Admin Acetaminophen (Tylenol) 650 mg PRN Q6HRS PRN PO MILD PAIN / TEMP > 100.3'F 03/04/21 16:15 Multi-Ingredient Ointment (Analgesic [place]) 1 donn PRN QID PRN TP MUSCLE PAIN 03/04/21 16:15 Al Hydroxide/Mg Hydroxide (Mylanta Plus Xs) 15 ml PRN AFTMEALHC PRN PO DYSPEPSIA 03/04/21 16:15 Magnesium Hydroxide (Milk Of Magnesia) 2,400 mg PRN QHS PRN PO CONSTIPATION 03/04/21 16:15 Aspirin (Aspirin Chewable) 81 mg DAILY PO 03/05/21 09:00 04/04/21 08:14 Lisinopril (Prinivil) 10 mg DAILY PO 03/05/21 09:00 04/04/21 08:14 Vitamin D (Vitamin D3) 25 unit DAILY PO 03/05/21 09:00 03/07/21 10:29 DC 03/05/21 09:14 Metformin HCl (Glucophage) 1,000 mg BIDWMEALS PO 03/04/21 17:00 04/04/21 16:48 Atorvastatin Calcium (Lipitor) 80 mg QHS PO 03/04/21 21:00 04/04/21 20:50 Olanzapine (ZyPREXA ZYDIS) 2.5 mg PRN Q2HR PRN PO PSYCHOSIS 03/05/21 17:00 03/31/21 19:43 Vitamin D (Vitamin D3) 1,000 unit DAILY PO 03/08/21 09:00 04/04/21 08:13 Memantine (Namenda) 5 mg BID PO 03/07/21 21:00 03/11/21 18:16 DC 03/11/21 08:36 Sertraline HCl (Zoloft) 25 mg DAILY PO 03/08/21 09:00 03/10/21 20:16 DC 03/10/21 08:40 Rivastigmine (Exelon) 4.6 patch DAILY TD 03/08/21 09:00 03/09/21 13:31 DC 03/09/21 08:58 Rivastigmine (Exelon) 9.5 patch DAILY TD 03/15/21 09:00 Cancel Rivastigmine (Exelon) 1 patch DAILY TD 03/15/21 09:00 03/19/21 14:00 DC 03/19/21 09:14 Rivastigmine (Exelon) 1 patch DAILY TD 03/10/21 09:00 03/14/21 23:50 DC 03/14/21 09:00 Sertraline HCl (Zoloft) 50 mg DAILY PO 03/11/21 09:00 03/22/21 20:39 DC 03/22/21 08:39 Trazodone HCl (Desyrel) 50 mg PRN QHS PRN PO INSOMNIA 03/10/21 20:15 Memantine (Namenda) 5 mg DAILY PO 03/12/21 09:00 03/15/21 20:10 DC 03/15/21 07:59 Memantine (Namenda) 10 mg QHS PO 03/11/21 21:00 03/15/21 22:00 DC 03/15/21 21:02 Memantine (Namenda) 10 mg BID PO 03/16/21 09:00 04/04/21 20:50 Rivastigmine (Exelon 13.3mg) 1 patch DAILY TD 03/20/21 09:00 03/26/21 11:18 DC 03/23/21 08:10 Quetiapine Fumarate (SEROquel) 25 mg HS PO 03/17/21 21:00 03/18/21 16:11 DC 03/17/21 21:41 Quetiapine Fumarate (SEROquel) 50 mg HS PO 03/18/21 21:00 04/03/21 17:58 DC 04/02/21 20:41 Sertraline HCl (Zoloft) 75 mg DAILY PO 03/23/21 09:00 03/25/21 12:00 DC 03/25/21 08:24 Sertraline HCl (Zoloft) 100 mg DAILY PO 03/26/21 09:00 04/04/21 08:14 Bupropion HCl (Wellbutrin Xl) 150 mg DAILY PO 03/26/21 09:00 03/27/21 21:00 DC 03/27/21 09:00 Donepezil HCl (Aricept) 5 mg DAILY PO 03/27/21 09:00 03/28/21 23:50 DC 03/28/21 08:17 Donepezil HCl (Aricept) 10 mg DAILY PO 03/29/21 09:00 04/04/21 08:14 Bupropion HCl (Wellbutrin Xl) 150 mg 0900,1200 PO 03/28/21 09:00 04/04/21 12:00 Risperidone (RisperDAL) 0.5 mg HS PO 04/03/21 21:00 04/04/21 20:50 I have reviewed the current psychotropics carefully including drug interactions. Risk benefit ratio favors no change other than as noted in my dictated progress note. Diagnosis: Problems: (1) Impulse control disorder, unspecified (2) Lewy body dementia with behavioral disturbance (3) Anxiety disorder, unspecified (4) Dementia in Alzheimer's disease with depression (5) Dementia in Alzheimer's disease with delusions (6) Major neurocognitive disorder GABRIELLA LEDEZMA MD Apr 05, 2021 07:20
[2021-04-05] MEDS: metFORMIN 500 MG TABLET PO SCH ×2 (07:58→17:19)
[2021-04-05] MEDS: CHOLECALCIFEROL (VITAMIN D3) 1,000 UNIT TABLET PO SCH (07:58)
[2021-04-05] MEDS: ASPIRIN CHEWABLE 81 MG TABLET. PO SCH (07:58)
[2021-04-05] MEDS: SERTRALINE 100 MG TABLET. PO SCH (07:59)
[2021-04-05] MEDS: buPROPion XL 150 MG TAB.ER.24H PO SCH ×2 (08:00→12:05)
[2021-04-05] MEDS: LISINOPRIL 10 MG TABLET PO SCH (08:00)
[2021-04-05] MEDS: MEMANTINE 10 MG TABLET. PO SCH ×2 (08:01→19:51)
[2021-04-05] MEDS: DONEPEZIL HCL 10 MG TABLET PO SCH (08:01)
--- NOTE | 2021-04-05 11:31 | NUR ---
RN Day Shift Note: Pt presents with a neutral mood/affect. Pt is medication compliant. Pt is calm, cooperative and appropriate. Pt is low-alejandro on the unit. Pt is noted to spend time in his bedroom during the day. Pt is approachable and will engage when spoken to by staff. Pt's vitals are WNL. Pt slept 8.25 hours last night. Pt continues to have a good appetite, eating 100% of breakfast. Will continue to monitor.
[2021-04-05 16:13] VITALS: BP 153/81
[2021-04-05] MEDS: risperiDONE 0.5 MG TABLET. PO SCH (19:51)
[2021-04-05] MEDS: ATORVASTATIN CALCIUM 20 MG TABLET PO SCH (19:51)
--- NOTE | 2021-04-05 21:03 | PDOC ---
Exam Note: Mike Note: Please also refer to the separate dictated note~for this date of service dictated separately.~Patient seen individually. Discussed the patient with Nursing staff reviewed the chart.~Reviewed interim history and current functioning. Reviewed vital signs,~Labs/ Radiology~and current medications noted below. Continue current treatment with the changes noted in the dictated addendum note Assessment: Vital Signs/I&O: Vital Signs Date Time Temp Pulse Resp B/P (MAP) Pulse Ox O2 Delivery O2 Flow Rate FiO2 04/05/21 16:13 97.8 74 20 153/81 (105) 96 Room Air I & O 04/04/21 04/04/21 04/05/21 15:00 23:00 07:00 Intake Total 480 ml 240 ml Balance 480 ml 240 ml Labs: Laboratory Tests Test 04/05/21 07:36 Glucose (Fingerstick) 148 mg/dL (70-99) H Current Medications: Meds: Laboratory Tests Test 04/05/21 07:36 Glucose (Fingerstick) 148 mg/dL Current Medications Medications (Trade) Dose Ordered Sig/Greg Route PRN Reason Start Time Stop Time Status Last Admin Dose Admin Acetaminophen (Tylenol) 650 mg PRN Q6HRS PRN PO MILD PAIN / TEMP > 100.3'F 03/04/21 16:15 Multi-Ingredient Ointment (Analgesic [place]) 1 donn PRN QID PRN TP MUSCLE PAIN 03/04/21 16:15 Al Hydroxide/Mg Hydroxide (Mylanta Plus Xs) 15 ml PRN AFTMEALHC PRN PO DYSPEPSIA 03/04/21 16:15 Magnesium Hydroxide (Milk Of Magnesia) 2,400 mg PRN QHS PRN PO CONSTIPATION 03/04/21 16:15 Aspirin (Aspirin Chewable) 81 mg DAILY PO 03/05/21 09:00 04/05/21 07:58 Lisinopril (Prinivil) 10 mg DAILY PO 03/05/21 09:00 04/05/21 08:00 Vitamin D (Vitamin D3) 25 unit DAILY PO 03/05/21 09:00 03/07/21 10:29 DC 03/05/21 09:14 Metformin HCl (Glucophage) 1,000 mg BIDWMEALS PO 03/04/21 17:00 04/05/21 17:19 Atorvastatin Calcium (Lipitor) 80 mg QHS PO 03/04/21 21:00 04/05/21 19:51 Olanzapine (ZyPREXA ZYDIS) 2.5 mg PRN Q2HR PRN PO PSYCHOSIS 03/05/21 17:00 03/31/21 19:43 Vitamin D (Vitamin D3) 1,000 unit DAILY PO 03/08/21 09:00 04/05/21 07:58 Memantine (Namenda) 5 mg BID PO 03/07/21 21:00 03/11/21 18:16 DC 03/11/21 08:36 Sertraline HCl (Zoloft) 25 mg DAILY PO 03/08/21 09:00 03/10/21 20:16 DC 03/10/21 08:40 Rivastigmine (Exelon) 4.6 patch DAILY TD 03/08/21 09:00 03/09/21 13:31 DC 03/09/21 08:58 Rivastigmine (Exelon) 9.5 patch DAILY TD 03/15/21 09:00 Cancel Rivastigmine (Exelon) 1 patch DAILY TD 03/15/21 09:00 03/19/21 14:00 DC 03/19/21 09:14 Rivastigmine (Exelon) 1 patch DAILY TD 03/10/21 09:00 03/14/21 23:50 DC 03/14/21 09:00 Sertraline HCl (Zoloft) 50 mg DAILY PO 03/11/21 09:00 03/22/21 20:39 DC 03/22/21 08:39 Trazodone HCl (Desyrel) 50 mg PRN QHS PRN PO INSOMNIA 03/10/21 20:15 Memantine (Namenda) 5 mg DAILY PO 03/12/21 09:00 03/15/21 20:10 DC 03/15/21 07:59 Memantine (Namenda) 10 mg QHS PO 03/11/21 21:00 03/15/21 22:00 DC 03/15/21 21:02 Memantine (Namenda) 10 mg BID PO 03/16/21 09:00 04/05/21 19:51 Rivastigmine (Exelon 13.3mg) 1 patch DAILY TD 03/20/21 09:00 03/26/21 11:18 DC 03/23/21 08:10 Quetiapine Fumarate (SEROquel) 25 mg HS PO 03/17/21 21:00 03/18/21 16:11 DC 03/17/21 21:41 Quetiapine Fumarate (SEROquel) 50 mg HS PO 03/18/21 21:00 04/03/21 17:58 DC 04/02/21 20:41 Sertraline HCl (Zoloft) 75 mg DAILY PO 03/23/21 09:00 03/25/21 12:00 DC 03/25/21 08:24 Sertraline HCl (Zoloft) 100 mg DAILY PO 03/26/21 09:00 04/05/21 07:59 Bupropion HCl (Wellbutrin Xl) 150 mg DAILY PO 03/26/21 09:00 03/27/21 21:00 DC 03/27/21 09:00 Donepezil HCl (Aricept) 5 mg DAILY PO 03/27/21 09:00 03/28/21 23:50 DC 03/28/21 08:17 Donepezil HCl (Aricept) 10 mg DAILY PO 03/29/21 09:00 04/05/21 08:01 Bupropion HCl (Wellbutrin Xl) 150 mg 0900,1200 PO 03/28/21 09:00 04/05/21 12:05 Risperidone (RisperDAL) 0.5 mg HS PO 04/03/21 21:00 04/05/21 19:51 I have reviewed the current psychotropics carefully including drug interactions. Risk benefit ratio favors no change other than as noted in my dictated progress note. Diagnosis: Problems: (1) Impulse control disorder, unspecified (2) Lewy body dementia with behavioral disturbance (3) Anxiety disorder, unspecified (4) Dementia in Alzheimer's disease with depression (5) Dementia in Alzheimer's disease with delusions (6) Major neurocognitive disorder GABRIELLA LEDEZMA MD Apr 05, 2021 21:03
--- NOTE | 2021-04-05 22:15 | NUR ---
Pt located in his room all evening. Calm and cooperative. Compliant with whole medications.
[2021-04-06 05:44] VITALS: BP 144/83
[2021-04-06] MEDS: MEMANTINE 10 MG TABLET. PO SCH ×2 (08:01→20:14)
[2021-04-06] MEDS: DONEPEZIL HCL 10 MG TABLET PO SCH (08:01)
[2021-04-06] MEDS: metFORMIN 500 MG TABLET PO SCH ×2 (08:01→17:02)
[2021-04-06] MEDS: ASPIRIN CHEWABLE 81 MG TABLET. PO SCH (08:01)
[2021-04-06] MEDS: CHOLECALCIFEROL (VITAMIN D3) 1,000 UNIT TABLET PO SCH (08:01)
[2021-04-06] MEDS: buPROPion XL 150 MG TAB.ER.24H PO SCH ×2 (08:01→11:59)
[2021-04-06] MEDS: SERTRALINE 100 MG TABLET. PO SCH (08:01)
[2021-04-06] MEDS: LISINOPRIL 10 MG TABLET PO SCH (08:01)
--- NOTE | 2021-04-06 13:01 | NUR ---
PATIENT LOCATED IN A DINING ROOM EATING BREAKFAST UPON ASSESSMENT. CALM AND COOPERATIVE , COMPLIANT WITH MEDICATIONS, NEED SOME ENCOURAGEMENT WITH EATING MEALS. NO DISTURBING BEHAVIOR NOTED. PATIENT IS CURRENTLY IN HIS ROOM RESTING.
[2021-04-06 15:28] VITALS: BP 112/72
[2021-04-06] MEDS: ATORVASTATIN CALCIUM 20 MG TABLET PO SCH (20:14)
[2021-04-06] MEDS: risperiDONE 0.5 MG TABLET. PO SCH (20:14)
--- NOTE | 2021-04-06 21:56 | PDOC ---
Exam Note: Mike Note: This note is a late entry for 04/04/2021 covers elements not covered in my initial note. Subjective: The patient was seen individually in the evening of 04/04/2021 with Dora HECTOR, discussed and reviewed the chart. The patient slept 6-1/4 hours previous night. He has been withdrawn. Oral intake remains poor. He just goes to the dining room briefly and then back in his room. He is compliant with medications. Review of Systems: No CV, , pulmonary, eye system symptoms on review. He is slightly hard of hearing. Mental Status Exam: The patient is oriented to himself and situation. I specifically questioned him on any hallucinations. He states at times he sees pictures in his room but denies they talk to him. Certainly no command hallucinations, slightly distractible. Speech coherent. Abstraction fair. Computation impaired. Language function intact. Mood and affect somewhat withdrawn. Laboratory Data: Reviewed. 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 Anxiety disorder unspecified. Impulse control disorder. Plan: Maintain rest of the psychotropics unchanged Assessment: Vital Signs/I&O: Vital Signs Date Time Temp Pulse Resp B/P (MAP) Pulse Ox O2 Delivery O2 Flow Rate FiO2 04/06/21 15:28 98.9 80 16 112/72 (85) 94 04/05/21 16:13 Room Air I & O 04/05/21 04/05/21 04/06/21 15:00 23:00 07:00 Intake Total 480 ml 480 ml Balance 480 ml 480 ml Labs: Laboratory Tests Test 04/06/21 07:16 Glucose (Fingerstick) 140 mg/dL (70-99) H Current Medications: Meds: Laboratory Tests Test 04/06/21 07:16 Glucose (Fingerstick) 140 mg/dL Current Medications Medications (Trade) Dose Ordered Sig/Greg Route PRN Reason Start Time Stop Time Status Last Admin Dose Admin Acetaminophen (Tylenol) 650 mg PRN Q6HRS PRN PO MILD PAIN / TEMP > 100.3'F 03/04/21 16:15 Multi-Ingredient Ointment (Analgesic [place]) 1 donn PRN QID PRN TP MUSCLE PAIN 03/04/21 16:15 Al Hydroxide/Mg Hydroxide (Mylanta Plus Xs) 15 ml PRN AFTMEALHC PRN PO DYSPEPSIA 03/04/21 16:15 Magnesium Hydroxide (Milk Of Magnesia) 2,400 mg PRN QHS PRN PO CONSTIPATION 03/04/21 16:15 Aspirin (Aspirin Chewable) 81 mg DAILY PO 03/05/21 09:00 04/06/21 08:01 Lisinopril (Prinivil) 10 mg DAILY PO 03/05/21 09:00 04/06/21 08:01 Vitamin D (Vitamin D3) 25 unit DAILY PO 03/05/21 09:00 03/07/21 10:29 DC 03/05/21 09:14 Metformin HCl (Glucophage) 1,000 mg BIDWMEALS PO 03/04/21 17:00 04/06/21 17:02 Atorvastatin Calcium (Lipitor) 80 mg QHS PO 03/04/21 21:00 04/06/21 20:14 Olanzapine (ZyPREXA ZYDIS) 2.5 mg PRN Q2HR PRN PO PSYCHOSIS 03/05/21 17:00 03/31/21 19:43 Vitamin D (Vitamin D3) 1,000 unit DAILY PO 03/08/21 09:00 04/06/21 08:01 Memantine (Namenda) 5 mg BID PO 03/07/21 21:00 03/11/21 18:16 DC 03/11/21 08:36 Sertraline HCl (Zoloft) 25 mg DAILY PO 03/08/21 09:00 03/10/21 20:16 DC 03/10/21 08:40 Rivastigmine (Exelon) 4.6 patch DAILY TD 03/08/21 09:00 03/09/21 13:31 DC 03/09/21 08:58 Rivastigmine (Exelon) 9.5 patch DAILY TD 03/15/21 09:00 Cancel Rivastigmine (Exelon) 1 patch DAILY TD 03/15/21 09:00 03/19/21 14:00 DC 03/19/21 09:14 Rivastigmine (Exelon) 1 patch DAILY TD 03/10/21 09:00 03/14/21 23:50 DC 03/14/21 09:00 Sertraline HCl (Zoloft) 50 mg DAILY PO 03/11/21 09:00 03/22/21 20:39 DC 03/22/21 08:39 Trazodone HCl (Desyrel) 50 mg PRN QHS PRN PO INSOMNIA 03/10/21 20:15 Memantine (Namenda) 5 mg DAILY PO 03/12/21 09:00 03/15/21 20:10 DC 03/15/21 07:59 Memantine (Namenda) 10 mg QHS PO 03/11/21 21:00 03/15/21 22:00 DC 03/15/21 21:02 Memantine (Namenda) 10 mg BID PO 03/16/21 09:00 04/06/21 20:14 Rivastigmine (Exelon 13.3mg) 1 patch DAILY TD 03/20/21 09:00 03/26/21 11:18 DC 03/23/21 08:10 Quetiapine Fumarate (SEROquel) 25 mg HS PO 03/17/21 21:00 03/18/21 16:11 DC 03/17/21 21:41 Quetiapine Fumarate (SEROquel) 50 mg HS PO 03/18/21 21:00 04/03/21 17:58 DC 04/02/21 20:41 Sertraline HCl (Zoloft) 75 mg DAILY PO 03/23/21 09:00 03/25/21 12:00 DC 03/25/21 08:24 Sertraline HCl (Zoloft) 100 mg DAILY PO 03/26/21 09:00 04/06/21 08:01 Bupropion HCl (Wellbutrin Xl) 150 mg DAILY PO 03/26/21 09:00 03/27/21 21:00 DC 03/27/21 09:00 Donepezil HCl (Aricept) 5 mg DAILY PO 03/27/21 09:00 03/28/21 23:50 DC 03/28/21 08:17 Donepezil HCl (Aricept) 10 mg DAILY PO 03/29/21 09:00 04/06/21 08:01 Bupropion HCl (Wellbutrin Xl) 150 mg 0900,1200 PO 03/28/21 09:00 04/06/21 11:59 Risperidone (RisperDAL) 0.5 mg HS PO 04/03/21 21:00 04/06/21 20:14 I have reviewed the current psychotropics carefully including drug interactions. Risk benefit ratio favors no change other than as noted in my dictated progress note. Diagnosis: Problems: (1) Impulse control disorder, unspecified (2) Lewy body dementia with behavioral disturbance (3) Anxiety disorder, unspecified (4) Dementia in Alzheimer's disease with depression (5) Dementia in Alzheimer's disease with delusions (6) Major neurocognitive disorder GABRIELLA LEDEZMA MD Apr 06, 2021 21:56
--- NOTE | 2021-04-06 22:12 | NUR ---
Pt located in his room all evening. Calm and cooperative. Compliant with whole medications. No behaviors this evening.
--- NOTE | 2021-04-06 22:31 | PDOC ---
Exam Note: Mike Note: This note is a late entry for 04/05/2021 covers elements not covered in my initial note. Subjective: The patient was seen individually in the evening of 04/05/2021 with Dora HECTOR, discussed and reviewed the chart. The patient slept 8-1/4 hours previous night. I met with him in his room. Review of Systems: No CV, , pulmonary, eye system symptoms on review. He is slightly hard of hearing. Mental Status Exam: The patient is oriented to himself and situation. I specifically questioned him about any further hallucinations today and denies any, whatsoever but remembered that yesterday he told me about the vague hallucinations. Speech often response is monosyllabic. Abstraction fair. Computation impaired. Language function intact. Mood and affect somewhat withdrawn. No suicidal or homicidal ideation. Laboratory Data: Reviewed. 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 Anxiety disorder unspecified. Impulse control disorder. Plan: No change from initial note. Assessment: Vital Signs/I&O: Vital Signs Date Time Temp Pulse Resp B/P (MAP) Pulse Ox O2 Delivery O2 Flow Rate FiO2 04/06/21 15:28 98.9 80 16 112/72 (85) 94 04/05/21 16:13 Room Air I & O 04/05/21 04/05/21 04/06/21 15:00 23:00 07:00 Intake Total 480 ml 480 ml Balance 480 ml 480 ml Labs: Laboratory Tests Test 04/06/21 07:16 Glucose (Fingerstick) 140 mg/dL (70-99) H Current Medications: Meds: Laboratory Tests Test 04/06/21 07:16 Glucose (Fingerstick) 140 mg/dL Current Medications Medications (Trade) Dose Ordered Sig/Greg Route PRN Reason Start Time Stop Time Status Last Admin Dose Admin Acetaminophen (Tylenol) 650 mg PRN Q6HRS PRN PO MILD PAIN / TEMP > 100.3'F 03/04/21 16:15 Multi-Ingredient Ointment (Analgesic [place]) 1 donn PRN QID PRN TP MUSCLE PAIN 03/04/21 16:15 Al Hydroxide/Mg Hydroxide (Mylanta Plus Xs) 15 ml PRN AFTMEALHC PRN PO DYSPEPSIA 03/04/21 16:15 Magnesium Hydroxide (Milk Of Magnesia) 2,400 mg PRN QHS PRN PO CONSTIPATION 03/04/21 16:15 Aspirin (Aspirin Chewable) 81 mg DAILY PO 03/05/21 09:00 04/06/21 08:01 Lisinopril (Prinivil) 10 mg DAILY PO 03/05/21 09:00 04/06/21 08:01 Vitamin D (Vitamin D3) 25 unit DAILY PO 03/05/21 09:00 03/07/21 10:29 DC 03/05/21 09:14 Metformin HCl (Glucophage) 1,000 mg BIDWMEALS PO 03/04/21 17:00 04/06/21 17:02 Atorvastatin Calcium (Lipitor) 80 mg QHS PO 03/04/21 21:00 04/06/21 20:14 Olanzapine (ZyPREXA ZYDIS) 2.5 mg PRN Q2HR PRN PO PSYCHOSIS 03/05/21 17:00 03/31/21 19:43 Vitamin D (Vitamin D3) 1,000 unit DAILY PO 03/08/21 09:00 04/06/21 08:01 Memantine (Namenda) 5 mg BID PO 03/07/21 21:00 03/11/21 18:16 DC 03/11/21 08:36 Sertraline HCl (Zoloft) 25 mg DAILY PO 03/08/21 09:00 03/10/21 20:16 DC 03/10/21 08:40 Rivastigmine (Exelon) 4.6 patch DAILY TD 03/08/21 09:00 03/09/21 13:31 DC 03/09/21 08:58 Rivastigmine (Exelon) 9.5 patch DAILY TD 03/15/21 09:00 Cancel Rivastigmine (Exelon) 1 patch DAILY TD 03/15/21 09:00 03/19/21 14:00 DC 03/19/21 09:14 Rivastigmine (Exelon) 1 patch DAILY TD 03/10/21 09:00 03/14/21 23:50 DC 03/14/21 09:00 Sertraline HCl (Zoloft) 50 mg DAILY PO 03/11/21 09:00 03/22/21 20:39 DC 03/22/21 08:39 Trazodone HCl (Desyrel) 50 mg PRN QHS PRN PO INSOMNIA 03/10/21 20:15 Memantine (Namenda) 5 mg DAILY PO 03/12/21 09:00 03/15/21 20:10 DC 03/15/21 07:59 Memantine (Namenda) 10 mg QHS PO 03/11/21 21:00 03/15/21 22:00 DC 03/15/21 21:02 Memantine (Namenda) 10 mg BID PO 03/16/21 09:00 04/06/21 20:14 Rivastigmine (Exelon 13.3mg) 1 patch DAILY TD 03/20/21 09:00 03/26/21 11:18 DC 03/23/21 08:10 Quetiapine Fumarate (SEROquel) 25 mg HS PO 03/17/21 21:00 03/18/21 16:11 DC 03/17/21 21:41 Quetiapine Fumarate (SEROquel) 50 mg HS PO 03/18/21 21:00 04/03/21 17:58 DC 04/02/21 20:41 Sertraline HCl (Zoloft) 75 mg DAILY PO 03/23/21 09:00 03/25/21 12:00 DC 03/25/21 08:24 Sertraline HCl (Zoloft) 100 mg DAILY PO 03/26/21 09:00 04/06/21 08:01 Bupropion HCl (Wellbutrin Xl) 150 mg DAILY PO 03/26/21 09:00 03/27/21 21:00 DC 03/27/21 09:00 Donepezil HCl (Aricept) 5 mg DAILY PO 03/27/21 09:00 03/28/21 23:50 DC 03/28/21 08:17 Donepezil HCl (Aricept) 10 mg DAILY PO 03/29/21 09:00 04/06/21 08:01 Bupropion HCl (Wellbutrin Xl) 150 mg 0900,1200 PO 03/28/21 09:00 04/06/21 11:59 Risperidone (RisperDAL) 0.5 mg HS PO 04/03/21 21:00 04/06/21 20:14 I have reviewed the current psychotropics carefully including drug interactions. Risk benefit ratio favors no change other than as noted in my dictated progress note. Diagnosis: Problems: (1) Impulse control disorder, unspecified (2) Lewy body dementia with behavioral disturbance (3) Anxiety disorder, unspecified (4) Dementia in Alzheimer's disease with depression (5) Dementia in Alzheimer's disease with delusions (6) Major neurocognitive disorder GABRIELLA LEDEZMA MD Apr 06, 2021 22:31
--- NOTE | 2021-04-06 22:31 | PDOC ---
Exam Note: Mike Note: Please also refer to the separate dictated note~for this date of service dictated separately.~Patient seen individually. Discussed the patient with Nursing staff reviewed the chart.~Reviewed interim history and current functioning. Reviewed vital signs,~Labs/ Radiology~and current medications noted below. Continue current treatment with the changes noted in the dictated addendum note Assessment: Vital Signs/I&O: Vital Signs Date Time Temp Pulse Resp B/P (MAP) Pulse Ox O2 Delivery O2 Flow Rate FiO2 04/06/21 15:28 98.9 80 16 112/72 (85) 94 04/05/21 16:13 Room Air I & O 04/05/21 04/05/21 04/06/21 15:00 23:00 07:00 Intake Total 480 ml 480 ml Balance 480 ml 480 ml Labs: Laboratory Tests Test 04/06/21 07:16 Glucose (Fingerstick) 140 mg/dL (70-99) H Current Medications: Meds: Laboratory Tests Test 04/06/21 07:16 Glucose (Fingerstick) 140 mg/dL Current Medications Medications (Trade) Dose Ordered Sig/Greg Route PRN Reason Start Time Stop Time Status Last Admin Dose Admin Acetaminophen (Tylenol) 650 mg PRN Q6HRS PRN PO MILD PAIN / TEMP > 100.3'F 03/04/21 16:15 Multi-Ingredient Ointment (Analgesic [place]) 1 donn PRN QID PRN TP MUSCLE PAIN 03/04/21 16:15 Al Hydroxide/Mg Hydroxide (Mylanta Plus Xs) 15 ml PRN AFTMEALHC PRN PO DYSPEPSIA 03/04/21 16:15 Magnesium Hydroxide (Milk Of Magnesia) 2,400 mg PRN QHS PRN PO CONSTIPATION 03/04/21 16:15 Aspirin (Aspirin Chewable) 81 mg DAILY PO 03/05/21 09:00 04/06/21 08:01 Lisinopril (Prinivil) 10 mg DAILY PO 03/05/21 09:00 04/06/21 08:01 Vitamin D (Vitamin D3) 25 unit DAILY PO 03/05/21 09:00 03/07/21 10:29 DC 03/05/21 09:14 Metformin HCl (Glucophage) 1,000 mg BIDWMEALS PO 03/04/21 17:00 04/06/21 17:02 Atorvastatin Calcium (Lipitor) 80 mg QHS PO 03/04/21 21:00 04/06/21 20:14 Olanzapine (ZyPREXA ZYDIS) 2.5 mg PRN Q2HR PRN PO PSYCHOSIS 03/05/21 17:00 03/31/21 19:43 Vitamin D (Vitamin D3) 1,000 unit DAILY PO 03/08/21 09:00 04/06/21 08:01 Memantine (Namenda) 5 mg BID PO 03/07/21 21:00 03/11/21 18:16 DC 03/11/21 08:36 Sertraline HCl (Zoloft) 25 mg DAILY PO 03/08/21 09:00 03/10/21 20:16 DC 03/10/21 08:40 Rivastigmine (Exelon) 4.6 patch DAILY TD 03/08/21 09:00 03/09/21 13:31 DC 03/09/21 08:58 Rivastigmine (Exelon) 9.5 patch DAILY TD 03/15/21 09:00 Cancel Rivastigmine (Exelon) 1 patch DAILY TD 03/15/21 09:00 03/19/21 14:00 DC 03/19/21 09:14 Rivastigmine (Exelon) 1 patch DAILY TD 03/10/21 09:00 03/14/21 23:50 DC 03/14/21 09:00 Sertraline HCl (Zoloft) 50 mg DAILY PO 03/11/21 09:00 03/22/21 20:39 DC 03/22/21 08:39 Trazodone HCl (Desyrel) 50 mg PRN QHS PRN PO INSOMNIA 03/10/21 20:15 Memantine (Namenda) 5 mg DAILY PO 03/12/21 09:00 03/15/21 20:10 DC 03/15/21 07:59 Memantine (Namenda) 10 mg QHS PO 03/11/21 21:00 03/15/21 22:00 DC 03/15/21 21:02 Memantine (Namenda) 10 mg BID PO 03/16/21 09:00 04/06/21 20:14 Rivastigmine (Exelon 13.3mg) 1 patch DAILY TD 03/20/21 09:00 03/26/21 11:18 DC 03/23/21 08:10 Quetiapine Fumarate (SEROquel) 25 mg HS PO 03/17/21 21:00 03/18/21 16:11 DC 03/17/21 21:41 Quetiapine Fumarate (SEROquel) 50 mg HS PO 03/18/21 21:00 04/03/21 17:58 DC 04/02/21 20:41 Sertraline HCl (Zoloft) 75 mg DAILY PO 03/23/21 09:00 03/25/21 12:00 DC 03/25/21 08:24 Sertraline HCl (Zoloft) 100 mg DAILY PO 03/26/21 09:00 04/06/21 08:01 Bupropion HCl (Wellbutrin Xl) 150 mg DAILY PO 03/26/21 09:00 03/27/21 21:00 DC 03/27/21 09:00 Donepezil HCl (Aricept) 5 mg DAILY PO 03/27/21 09:00 03/28/21 23:50 DC 03/28/21 08:17 Donepezil HCl (Aricept) 10 mg DAILY PO 03/29/21 09:00 04/06/21 08:01 Bupropion HCl (Wellbutrin Xl) 150 mg 0900,1200 PO 03/28/21 09:00 04/06/21 11:59 Risperidone (RisperDAL) 0.5 mg HS PO 04/03/21 21:00 04/06/21 20:14 I have reviewed the current psychotropics carefully including drug interactions. Risk benefit ratio favors no change other than as noted in my dictated progress note. Diagnosis: Problems: (1) Impulse control disorder, unspecified (2) Lewy body dementia with behavioral disturbance (3) Anxiety disorder, unspecified (4) Dementia in Alzheimer's disease with depression (5) Dementia in Alzheimer's disease with delusions (6) Major neurocognitive disorder GABRIELLA LEDEZMA MD Apr 06, 2021 22:31
[2021-04-07 06:13] VITALS: BP 150/85
[2021-04-07] MEDS: metFORMIN 500 MG TABLET PO SCH ×2 (08:25→17:16)
[2021-04-07] MEDS: buPROPion XL 150 MG TAB.ER.24H PO SCH ×2 (08:26→12:36)
[2021-04-07] MEDS: CHOLECALCIFEROL (VITAMIN D3) 1,000 UNIT TABLET PO SCH (08:26)
[2021-04-07] MEDS: DONEPEZIL HCL 10 MG TABLET PO SCH (08:26)
[2021-04-07] MEDS: LISINOPRIL 10 MG TABLET PO SCH (08:26)
[2021-04-07] MEDS: MEMANTINE 10 MG TABLET. PO SCH ×2 (08:26→20:25)
[2021-04-07] MEDS: SERTRALINE 100 MG TABLET. PO SCH (08:26)
[2021-04-07] MEDS: ASPIRIN CHEWABLE 81 MG TABLET. PO SCH (08:26)
--- NOTE | 2021-04-07 14:19 | NUR ---
PATIENT LOCATED IN A DINING ROOM UPON ASSESSMENT, CALM AND COOPERATIVE, COMPLIANT WITH MEDS, PATIENT DENIED ANY PAIN, PATIENT SPENDS MOST OF HIS TIME IN HIS ROOM LAYING IN A BED . PATIENT WAS OFFERED TO WATCH TV OR READ THE NEWSPAPERS, PATIENT DENIED IT. NO ADVERSE BEHAVIOR NOTED. WCTM.
--- NOTE | 2021-04-07 15:40 | NUR ---
GEOVANNA spoke with pt son Yonathan re: denials from [facility] and other facilities as they report not being locked down and feels that he needs to have a locked down facility. SW explained that would entail either a Memory Care unit or a retirement care facility. Yonathan is concerned about having pt stay in a place that is too much like a group home setting; but understands that may be what is needed for admission. GEOVANNA also discussed with Yonathan on extending the search area. Yonathan agreed to the [place] area but feels that [place] is too far; GEOVANNA explained that if no place near [place] works, [place] may have to be the next step. Yonathan mentioned getting a call from Xochitl at [facility] and GEOVANNA explained what her job is and noted that she is familiar with the area and aids in finding placement. SW encouraged Yonathan to call her back and discuss further options as well.
[2021-04-07 15:47] VITALS: BP 144/76
[2021-04-07] MEDS: risperiDONE 0.5 MG TABLET. PO SCH (20:25)
[2021-04-07] MEDS: ATORVASTATIN CALCIUM 20 MG TABLET PO SCH (20:25)
--- NOTE | 2021-04-07 20:56 | PDOC ---
Exam Note: Mike Note: Please also refer to the separate dictated note~for this date of service dictated separately.~Patient seen individually. Discussed the patient with Nursing staff reviewed the chart.~Reviewed interim history and current functioning. Reviewed vital signs,~Labs/ Radiology~and current medications noted below. Continue current treatment with the changes noted in the dictated addendum note Assessment: Vital Signs/I&O: Vital Signs Date Time Temp Pulse Resp B/P (MAP) Pulse Ox O2 Delivery O2 Flow Rate FiO2 04/07/21 15:47 97.8 64 20 144/76 (98) 95 04/05/21 16:13 Room Air I & O 04/06/21 04/06/21 04/07/21 15:00 23:00 07:00 Intake Total 600 ml 240 ml 100 ml Balance 600 ml 240 ml 100 ml Current Medications: Meds: Current Medications Medications (Trade) Dose Ordered Sig/Greg Route PRN Reason Start Time Stop Time Status Last Admin Dose Admin Acetaminophen (Tylenol) 650 mg PRN Q6HRS PRN PO MILD PAIN / TEMP > 100.3'F 03/04/21 16:15 Multi-Ingredient Ointment (Analgesic [place]) 1 donn PRN QID PRN TP MUSCLE PAIN 03/04/21 16:15 Al Hydroxide/Mg Hydroxide (Mylanta Plus Xs) 15 ml PRN AFTMEALHC PRN PO DYSPEPSIA 03/04/21 16:15 Magnesium Hydroxide (Milk Of Magnesia) 2,400 mg PRN QHS PRN PO CONSTIPATION 03/04/21 16:15 Aspirin (Aspirin Chewable) 81 mg DAILY PO 03/05/21 09:00 04/07/21 08:26 Lisinopril (Prinivil) 10 mg DAILY PO 03/05/21 09:00 04/07/21 08:26 Vitamin D (Vitamin D3) 25 unit DAILY PO 03/05/21 09:00 03/07/21 10:29 DC 03/05/21 09:14 Metformin HCl (Glucophage) 1,000 mg BIDWMEALS PO 03/04/21 17:00 04/07/21 17:16 Atorvastatin Calcium (Lipitor) 80 mg QHS PO 03/04/21 21:00 04/07/21 20:25 Olanzapine (ZyPREXA ZYDIS) 2.5 mg PRN Q2HR PRN PO PSYCHOSIS 03/05/21 17:00 03/31/21 19:43 Vitamin D (Vitamin D3) 1,000 unit DAILY PO 03/08/21 09:00 04/07/21 08:26 Memantine (Namenda) 5 mg BID PO 03/07/21 21:00 03/11/21 18:16 DC 03/11/21 08:36 Sertraline HCl (Zoloft) 25 mg DAILY PO 03/08/21 09:00 03/10/21 20:16 DC 03/10/21 08:40 Rivastigmine (Exelon) 4.6 patch DAILY TD 03/08/21 09:00 03/09/21 13:31 DC 03/09/21 08:58 Rivastigmine (Exelon) 9.5 patch DAILY TD 03/15/21 09:00 Cancel Rivastigmine (Exelon) 1 patch DAILY TD 03/15/21 09:00 03/19/21 14:00 DC 03/19/21 09:14 Rivastigmine (Exelon) 1 patch DAILY TD 03/10/21 09:00 03/14/21 23:50 DC 03/14/21 09:00 Sertraline HCl (Zoloft) 50 mg DAILY PO 03/11/21 09:00 03/22/21 20:39 DC 03/22/21 08:39 Trazodone HCl (Desyrel) 50 mg PRN QHS PRN PO INSOMNIA 03/10/21 20:15 Memantine (Namenda) 5 mg DAILY PO 03/12/21 09:00 03/15/21 20:10 DC 03/15/21 07:59 Memantine (Namenda) 10 mg QHS PO 03/11/21 21:00 03/15/21 22:00 DC 03/15/21 21:02 Memantine (Namenda) 10 mg BID PO 03/16/21 09:00 04/07/21 20:25 Rivastigmine (Exelon 13.3mg) 1 patch DAILY TD 03/20/21 09:00 03/26/21 11:18 DC 03/23/21 08:10 Quetiapine Fumarate (SEROquel) 25 mg HS PO 03/17/21 21:00 03/18/21 16:11 DC 03/17/21 21:41 Quetiapine Fumarate (SEROquel) 50 mg HS PO 03/18/21 21:00 04/03/21 17:58 DC 04/02/21 20:41 Sertraline HCl (Zoloft) 75 mg DAILY PO 03/23/21 09:00 03/25/21 12:00 DC 03/25/21 08:24 Sertraline HCl (Zoloft) 100 mg DAILY PO 03/26/21 09:00 04/07/21 08:26 Bupropion HCl (Wellbutrin Xl) 150 mg DAILY PO 03/26/21 09:00 03/27/21 21:00 DC 03/27/21 09:00 Donepezil HCl (Aricept) 5 mg DAILY PO 03/27/21 09:00 03/28/21 23:50 DC 03/28/21 08:17 Donepezil HCl (Aricept) 10 mg DAILY PO 03/29/21 09:00 04/07/21 08:26 Bupropion HCl (Wellbutrin Xl) 150 mg 0900,1200 PO 03/28/21 09:00 04/07/21 12:36 Risperidone (RisperDAL) 0.5 mg HS PO 04/03/21 21:00 04/07/21 20:25 I have reviewed the current psychotropics carefully including drug interactions. Risk benefit ratio favors no change other than as noted in my dictated progress note. Diagnosis: Problems: (1) Impulse control disorder, unspecified (2) Lewy body dementia with behavioral disturbance (3) Anxiety disorder, unspecified (4) Dementia in Alzheimer's disease with depression (5) Dementia in Alzheimer's disease with delusions (6) Major neurocognitive disorder GABRIELLA LEDEZMA MD Apr 07, 2021 20:56
--- NOTE | 2021-04-07 22:11 | NUR ---
Pt located in his room this evening. Calm and cooperative. Compliant with whole medications.
[2021-04-08 06:02] VITALS: BP 117/72
[2021-04-08 06:10] LABS: BASO % 1 % (0-3); EOS # 0.1 x10^3/uL (0.0-0.7); EOS % 2 % (0-3); HEMATOCRIT 42.1 % (39.0-53.0); HEMOGLOBIN 14.9 g/dL (13.0-17.5); LYMPH # 0.8 x10^3/uL (1.0-4.8); LYMPH % 17 % (24-48); MEAN CORPUSCULAR HEMOGLOBIN 33 pg (25-35); MEAN CORPUSCULAR HGB CONC 35 g/dL (31-37); MEAN CORPUSCULAR VOLUME 93 fL (79-100); MONO # 0.5 x10^3/uL (0.0-1.1); MONO % 12 % (0-9); NEUT % 68 % (31-73); PLATELET COUNT 117 x10^3/uL (140-400); RED BLOOD COUNT 4.51 x10^6/uL (4.30-5.70); RED CELL DISTRIBUTION WIDTH 13.1 % (11.5-14.5); WHITE BLOOD COUNT 4.4 x10^3/uL (4.0-11.0)
[2021-04-08 06:20] LABS: ALBUMIN 3.4 g/dL (3.4-5.0); CALCIUM 9.2 mg/dL (8.5-10.1); GFR 73.2; TOTAL BILIRUBIN 0.6 mg/dL (0.2-1.0); TOTAL PROTEIN 6.9 g/dL (6.4-8.2)
--- NOTE | 2021-04-08 07:06 | PDOC ---
Exam Note: Mike Note: This note is a late entry for 04/06/2021 covers elements not covered in my initial note. Subjective: The patient was seen individually in the evening of 04/06/2021 with Dora HECTOR, discussed and reviewed the chart. The patient slept 8-1/2 hours previous night. I met with him in his room. He has not tried to elope from the unit. Review of Systems: No CV, , pulmonary, eye system symptoms on review. He is somewhat hard of hearing. Mental Status Exam: The patient is oriented to himself and situation. Speech often response is monosyllabic. Abstraction fair. Computation impaired. Language function intact. Mood and affect somewhat withdrawn. No suicidal or homicidal ideation. Laboratory Data: Reviewed. 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 Anxiety disorder unspecified. Impulse control disorder. Plan: No change from initial note. Assessment: Vital Signs/I&O: Vital Signs Date Time Temp Pulse Resp B/P (MAP) Pulse Ox O2 Delivery O2 Flow Rate FiO2 04/08/21 06:02 98.1 72 18 117/72 (87) 94 Room Air I & O 04/07/21 04/07/21 04/08/21 15:00 23:00 07:00 Intake Total 430 ml 250 ml Balance 430 ml 250 ml Labs: Laboratory Tests Test 04/08/21 05:53 White Blood Count 4.4 x10^3/uL (4.0-11.0) Red Blood Count 4.51 x10^6/uL (4.30-5.70) Hemoglobin 14.9 g/dL (13.0-17.5) Hematocrit 42.1 % (39.0-53.0) Mean Corpuscular Volume 93 fL (79-100) Mean Corpuscular Hemoglobin 33 pg (25-35) Mean Corpuscular Hemoglobin Concent 35 g/dL (31-37) Red Cell Distribution Width 13.1 % (11.5-14.5) Platelet Count 117 x10^3/uL (140-400) L Neutrophils (%) (Auto) 68 % (31-73) Lymphocytes (%) (Auto) 17 % (24-48) L Monocytes (%) (Auto) 12 % (0-9) H Eosinophils (%) (Auto) 2 % (0-3) Basophils (%) (Auto) 1 % (0-3) Neutrophils # (Auto) 3.0 x10^3uL (1.8-7.7) Lymphocytes # (Auto) 0.8 x10^3/uL (1.0-4.8) L Monocytes # (Auto) 0.5 x10^3/uL (0.0-1.1) Eosinophils # (Auto) 0.1 x10^3/uL (0.0-0.7) Basophils # (Auto) 0.0 x10^3/uL (0.0-0.2) Sodium Level 135 mmol/L (136-145) L Potassium Level 4.0 mmol/L (3.5-5.1) Chloride Level 97 mmol/L (98-107) L Carbon Dioxide Level 29 mmol/L (21-32) Anion Gap 9 (6-14) Blood Urea Nitrogen 23 mg/dL (8-26) Creatinine 1.0 mg/dL (0.7-1.3) Estimated GFR (Cockcroft-Gault) 73.2 BUN/Creatinine Ratio 23 (6-20) H Glucose Level 97 mg/dL (70-99) Calcium Level 9.2 mg/dL (8.5-10.1) Total Bilirubin 0.6 mg/dL (0.2-1.0) Aspartate Amino Transferase (AST) 32 U/L (15-37) Alanine Aminotransferase (ALT) 56 U/L (16-63) Alkaline Phosphatase 104 U/L (46-116) Total Protein 6.9 g/dL (6.4-8.2) Albumin 3.4 g/dL (3.4-5.0) Albumin/Globulin Ratio 1.0 (1.0-1.7) Current Medications: Meds: Laboratory Tests Test 04/08/21 05:53 White Blood Count 4.4 x10^3/uL Red Blood Count 4.51 x10^6/uL Hemoglobin 14.9 g/dL Hematocrit 42.1 % Mean Corpuscular Volume 93 fL Mean Corpuscular Hemoglobin 33 pg Mean Corpuscular Hemoglobin Concent 35 g/dL Red Cell Distribution Width 13.1 % Platelet Count 117 x10^3/uL Neutrophils (%) (Auto) 68 % Lymphocytes (%) (Auto) 17 % Monocytes (%) (Auto) 12 % Eosinophils (%) (Auto) 2 % Basophils (%) (Auto) 1 % Neutrophils # (Auto) 3.0 x10^3uL Lymphocytes # (Auto) 0.8 x10^3/uL Monocytes # (Auto) 0.5 x10^3/uL Eosinophils # (Auto) 0.1 x10^3/uL Basophils # (Auto) 0.0 x10^3/uL Sodium Level 135 mmol/L Potassium Level 4.0 mmol/L Chloride Level 97 mmol/L Carbon Dioxide Level 29 mmol/L Anion Gap 9 Blood Urea Nitrogen 23 mg/dL Creatinine 1.0 mg/dL Estimated GFR (Cockcroft-Gault) 73.2 BUN/Creatinine Ratio 23 Glucose Level 97 mg/dL Calcium Level 9.2 mg/dL Total Bilirubin 0.6 mg/dL Aspartate Amino Transf (AST/SGOT) 32 U/L Alanine Aminotransferase (ALT/SGPT) 56 U/L Alkaline Phosphatase 104 U/L Total Protein 6.9 g/dL Albumin 3.4 g/dL Albumin/Globulin Ratio 1.0 Current Medications Medications (Trade) Dose Ordered Sig/Greg Route PRN Reason Start Time Stop Time Status Last Admin Dose Admin Acetaminophen (Tylenol) 650 mg PRN Q6HRS PRN PO MILD PAIN / TEMP > 100.3'F 03/04/21 16:15 Multi-Ingredient Ointment (Analgesic [place]) 1 donn PRN QID PRN TP MUSCLE PAIN 03/04/21 16:15 Al Hydroxide/Mg Hydroxide (Mylanta Plus Xs) 15 ml PRN AFTMEALHC PRN PO DYSPEPSIA 03/04/21 16:15 Magnesium Hydroxide (Milk Of Magnesia) 2,400 mg PRN QHS PRN PO CONSTIPATION 03/04/21 16:15 Aspirin (Aspirin Chewable) 81 mg DAILY PO 03/05/21 09:00 04/07/21 08:26 Lisinopril (Prinivil) 10 mg DAILY PO 03/05/21 09:00 04/07/21 08:26 Vitamin D (Vitamin D3) 25 unit DAILY PO 03/05/21 09:00 03/07/21 10:29 DC 03/05/21 09:14 Metformin HCl (Glucophage) 1,000 mg BIDWMEALS PO 03/04/21 17:00 04/07/21 17:16 Atorvastatin Calcium (Lipitor) 80 mg QHS PO 03/04/21 21:00 04/07/21 20:25 Olanzapine (ZyPREXA ZYDIS) 2.5 mg PRN Q2HR PRN PO PSYCHOSIS 03/05/21 17:00 03/31/21 19:43 Vitamin D (Vitamin D3) 1,000 unit DAILY PO 03/08/21 09:00 04/07/21 08:26 Memantine (Namenda) 5 mg BID PO 03/07/21 21:00 03/11/21 18:16 DC 03/11/21 08:36 Sertraline HCl (Zoloft) 25 mg DAILY PO 03/08/21 09:00 03/10/21 20:16 DC 03/10/21 08:40 Rivastigmine (Exelon) 4.6 patch DAILY TD 03/08/21 09:00 03/09/21 13:31 DC 03/09/21 08:58 Rivastigmine (Exelon) 9.5 patch DAILY TD 03/15/21 09:00 Cancel Rivastigmine (Exelon) 1 patch DAILY TD 03/15/21 09:00 03/19/21 14:00 DC 03/19/21 09:14 Rivastigmine (Exelon) 1 patch DAILY TD 03/10/21 09:00 03/14/21 23:50 DC 03/14/21 09:00 Sertraline HCl (Zoloft) 50 mg DAILY PO 03/11/21 09:00 03/22/21 20:39 DC 03/22/21 08:39 Trazodone HCl (Desyrel) 50 mg PRN QHS PRN PO INSOMNIA 03/10/21 20:15 Memantine (Namenda) 5 mg DAILY PO 03/12/21 09:00 03/15/21 20:10 DC 03/15/21 07:59 Memantine (Namenda) 10 mg QHS PO 03/11/21 21:00 03/15/21 22:00 DC 03/15/21 21:02 Memantine (Namenda) 10 mg BID PO 03/16/21 09:00 04/07/21 20:25 Rivastigmine (Exelon 13.3mg) 1 patch DAILY TD 03/20/21 09:00 11/4/21 11:18 DC 03/23/21 08:10 Quetiapine Fumarate (SEROquel) 25 mg HS PO 03/17/21 21:00 03/18/21 16:11 DC 03/17/21 21:41 Quetiapine Fumarate (SEROquel) 50 mg HS PO 03/18/21 21:00 04/03/21 17:58 DC 04/02/21 20:41 Sertraline HCl (Zoloft) 75 mg DAILY PO 03/23/21 09:00 03/25/21 12:00 DC 03/25/21 08:24 Sertraline HCl (Zoloft) 100 mg DAILY PO 03/26/21 09:00 04/07/21 08:26 Bupropion HCl (Wellbutrin Xl) 150 mg DAILY PO 03/26/21 09:00 03/27/21 21:00 DC 03/27/21 09:00 Donepezil HCl (Aricept) 5 mg DAILY PO 03/27/21 09:00 03/28/21 23:50 DC 03/28/21 08:17 Donepezil HCl (Aricept) 10 mg DAILY PO 03/29/21 09:00 04/07/21 08:26 Bupropion HCl (Wellbutrin Xl) 150 mg 0900,1200 PO 03/28/21 09:00 04/07/21 12:36 Risperidone (RisperDAL) 0.5 mg HS PO 04/03/21 21:00 04/07/21 20:25 I have reviewed the current psychotropics carefully including drug interactions. Risk benefit ratio favors no change other than as noted in my dictated progress note. Diagnosis: Problems: (1) Impulse control disorder, unspecified (2) Lewy body dementia with behavioral disturbance (3) Anxiety disorder, unspecified (4) Dementia in Alzheimer's disease with depression (5) Dementia in Alzheimer's disease with delusions (6) Major neurocognitive disorder GABRIELLA LEDEZMA MD Apr 08, 2021 07:06
--- NOTE | 2021-04-08 07:54 | PDOC ---
Exam Note: Mike Note: This note is a late entry for 04/07/2021 covers elements not covered in my initial note. Subjective: The patient was seen individually in the evening of 04/07/2021 with Dora HECTOR, discussed and reviewed the chart. The patient slept 4-1/4 hours previous night. He is withdrawn, spends much time in his room. I addressed this with him at some length encouraging him to attend groups. He is somewhat dismissive of this but denies psychotic symptoms, suicidal or homicidal ideation. Review of Systems: No CV, , pulmonary, eye system symptoms on review. He is slightly hard of hearing. Mental Status Exam: The patient is oriented to himself and situation. Speech often response is monosyllabic. Abstraction fair. Computation impaired. Language function intact. Mood and affect somewhat withdrawn. No suicidal or homicidal ideation. Laboratory Data: Reviewed. 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 Anxiety disorder unspecified. Impulse control disorder. Plan: No change from initial note. Assessment: Vital Signs/I&O: Vital Signs Date Time Temp Pulse Resp B/P (MAP) Pulse Ox O2 Delivery O2 Flow Rate FiO2 04/08/21 06:02 98.1 72 18 117/72 (87) 94 Room Air I & O 0 04/07/21 04/07/21 04/08/21 15:00 23:00 07:00 Intake Total 430 ml 250 ml Balance 430 ml 250 ml Labs: Laboratory Tests Test 04/08/21 05:53 04/08/21 07:30 White Blood Count 4.4 x10^3/uL (4.0-11.0) Red Blood Count 4.51 x10^6/uL (4.30-5.70) Hemoglobin 14.9 g/dL (13.0-17.5) Hematocrit 42.1 % (39.0-53.0) Mean Corpuscular Volume 93 fL (79-100) Mean Corpuscular Hemoglobin 33 pg (25-35) Mean Corpuscular Hemoglobin Concent 35 g/dL (31-37) Red Cell Distribution Width 13.1 % (11.5-14.5) Platelet Count 117 x10^3/uL (140-400) L Neutrophils (%) (Auto) 68 % (31-73) Lymphocytes (%) (Auto) 17 % (24-48) L Monocytes (%) (Auto) 12 % (0-9) H Eosinophils (%) (Auto) 2 % (0-3) Basophils (%) (Auto) 1 % (0-3) Neutrophils # (Auto) 3.0 x10^3uL (1.8-7.7) Lymphocytes # (Auto) 0.8 x10^3/uL (1.0-4.8) L Monocytes # (Auto) 0.5 x10^3/uL (0.0-1.1) Eosinophils # (Auto) 0.1 x10^3/uL (0.0-0.7) Basophils # (Auto) 0.0 x10^3/uL (0.0-0.2) Sodium Level 135 mmol/L (136-145) L Potassium Level 4.0 mmol/L (3.5-5.1) Chloride Level 97 mmol/L (98-107) L Carbon Dioxide Level 29 mmol/L (21-32) Anion Gap 9 (6-14) Blood Urea Nitrogen 23 mg/dL (8-26) Creatinine 1.0 mg/dL (0.7-1.3) Estimated GFR (Cockcroft-Gault) 73.2 BUN/Creatinine Ratio 23 (6-20) H Glucose Level 97 mg/dL (70-99) Calcium Level 9.2 mg/dL (8.5-10.1) Total Bilirubin 0.6 mg/dL (0.2-1.0) Aspartate Amino Transferase (AST) 32 U/L (15-37) Alanine Aminotransferase (ALT) 56 U/L (16-63) Alkaline Phosphatase 104 U/L (46-116) Total Protein 6.9 g/dL (6.4-8.2) Albumin 3.4 g/dL (3.4-5.0) Albumin/Globulin Ratio 1.0 (1.0-1.7) Glucose (Fingerstick) 114 mg/dL (70-99) H Current Medications: Meds: Laboratory Tests Test 04/08/21 05:53 04/08/21 07:30 White Blood Count 4.4 x10^3/uL Red Blood Count 4.51 x10^6/uL Hemoglobin 14.9 g/dL Hematocrit 42.1 % Mean Corpuscular Volume 93 fL Mean Corpuscular Hemoglobin 33 pg Mean Corpuscular Hemoglobin Concent 35 g/dL Red Cell Distribution Width 13.1 % Platelet Count 117 x10^3/uL Neutrophils (%) (Auto) 68 % Lymphocytes (%) (Auto) 17 % Monocytes (%) (Auto) 12 % Eosinophils (%) (Auto) 2 % Basophils (%) (Auto) 1 % Neutrophils # (Auto) 3.0 x10^3uL Lymphocytes # (Auto) 0.8 x10^3/uL Monocytes # (Auto) 0.5 x10^3/uL Eosinophils # (Auto) 0.1 x10^3/uL Basophils # (Auto) 0.0 x10^3/uL Sodium Level 135 mmol/L Potassium Level 4.0 mmol/L Chloride Level 97 mmol/L Carbon Dioxide Level 29 mmol/L Anion Gap 9 Blood Urea Nitrogen 23 mg/dL Creatinine 1.0 mg/dL Estimated GFR (Cockcroft-Gault) 73.2 BUN/Creatinine Ratio 23 Glucose Level 97 mg/dL Calcium Level 9.2 mg/dL Total Bilirubin 0.6 mg/dL Aspartate Amino Transf (AST/SGOT) 32 U/L Alanine Aminotransferase (ALT/SGPT) 56 U/L Alkaline Phosphatase 104 U/L Total Protein 6.9 g/dL Albumin 3.4 g/dL Albumin/Globulin Ratio 1.0 Glucose (Fingerstick) 114 mg/dL Current Medications Medications (Trade) Dose Ordered Sig/Greg Route PRN Reason Start Time Stop Time Status Last Admin Dose Admin Acetaminophen (Tylenol) 650 mg PRN Q6HRS PRN PO MILD PAIN / TEMP > 100.3'F 03/04/21 16:15 Multi-Ingredient Ointment (Analgesic [place]) 1 donn PRN QID PRN TP MUSCLE PAIN 03/04/21 16:15 Al Hydroxide/Mg Hydroxide (Mylanta Plus Xs) 15 ml PRN AFTMEALHC PRN PO DYSPEPSIA 03/04/21 16:15 Magnesium Hydroxide (Milk Of Magnesia) 2,400 mg PRN QHS PRN PO CONSTIPATION 03/04/21 16:15 Aspirin (Aspirin Chewable) 81 mg DAILY PO 03/05/21 09:00 04/07/21 08:26 Lisinopril (Prinivil) 10 mg DAILY PO 03/05/21 09:00 04/07/21 08:26 Vitamin D (Vitamin D3) 25 unit DAILY PO 03/05/21 09:00 03/07/21 10:29 DC 03/05/21 09:14 Metformin HCl (Glucophage) 1,000 mg BIDWMEALS PO 03/04/21 17:00 04/07/21 17:16 Atorvastatin Calcium (Lipitor) 80 mg QHS PO 03/04/21 21:00 04/07/21 20:25 Olanzapine (ZyPREXA ZYDIS) 2.5 mg PRN Q2HR PRN PO PSYCHOSIS 03/05/21 17:00 03/31/21 19:43 Vitamin D (Vitamin D3) 1,000 unit DAILY PO 03/08/21 09:00 04/07/21 08:26 Memantine (Namenda) 5 mg BID PO 03/07/21 21:00 03/11/21 18:16 DC 03/11/21 08:36 Sertraline HCl (Zoloft) 25 mg DAILY PO 03/08/21 09:00 03/10/21 20:16 DC 03/10/21 08:40 Rivastigmine (Exelon) 4.6 patch DAILY TD 03/08/21 09:00 03/09/21 13:31 DC 03/09/21 08:58 Rivastigmine (Exelon) 9.5 patch DAILY TD 03/15/21 09:00 Cancel Rivastigmine (Exelon) 1 patch DAILY TD 03/15/21 09:00 03/19/21 14:00 DC 03/19/21 09:14 Rivastigmine (Exelon) 1 patch DAILY TD 03/10/21 09:00 03/14/21 23:50 DC 03/14/21 09:00 Sertraline HCl (Zoloft) 50 mg DAILY PO 03/11/21 09:00 03/22/21 20:39 DC 03/22/21 08:39 Trazodone HCl (Desyrel) 50 mg PRN QHS PRN PO INSOMNIA 03/10/21 20:15 Memantine (Namenda) 5 mg DAILY PO 03/12/21 09:00 03/15/21 20:10 DC 03/15/21 07:59 Memantine (Namenda) 10 mg QHS PO 03/11/21 21:00 03/15/21 22:00 DC 03/15/21 21:02 Memantine (Namenda) 10 mg BID PO 03/16/21 09:00 04/07/21 20:25 Rivastigmine (Exelon 13.3mg) 1 patch DAILY TD 03/20/21 09:00 03/26/21 11:18 DC 03/23/21 08:10 Quetiapine Fumarate (SEROquel) 25 mg HS PO 03/17/21 21:00 03/18/21 16:11 DC 03/17/21 21:41 Quetiapine Fumarate (SEROquel) 50 mg HS PO 03/18/21 21:00 04/03/21 17:58 DC 04/02/21 20:41 Sertraline HCl (Zoloft) 75 mg DAILY PO 03/23/21 09:00 03/25/21 12:00 DC 03/25/21 08:24 Sertraline HCl (Zoloft) 100 mg DAILY PO 03/26/21 09:00 04/07/21 08:26 Bupropion HCl (Wellbutrin Xl) 150 mg DAILY PO 03/26/21 09:00 03/27/21 21:00 DC 03/27/21 09:00 Donepezil HCl (Aricept) 5 mg DAILY PO 03/27/21 09:00 03/28/21 23:50 DC 03/28/21 08:17 Donepezil HCl (Aricept) 10 mg DAILY PO 03/29/21 09:00 04/07/21 08:26 Bupropion HCl (Wellbutrin Xl) 150 mg 0900,1200 PO 03/28/21 09:00 04/07/21 12:36 Risperidone (RisperDAL) 0.5 mg HS PO 04/03/21 21:00 04/07/21 20:25 I have reviewed the current psychotropics carefully including drug interactions. Risk benefit ratio favors no change other than as noted in my dictated progress note. Diagnosis: Problems: (1) Impulse control disorder, unspecified (2) Lewy body dementia with behavioral disturbance (3) Anxiety disorder, unspecified (4) Dementia in Alzheimer's disease with depression (5) Dementia in Alzheimer's disease with delusions (6) Major neurocognitive disorder GABRIELLA LEDEZMA MD Apr 08, 2021 07:54
[2021-04-08] MEDS: MEMANTINE 10 MG TABLET. PO SCH ×2 (08:10→20:58)
[2021-04-08] MEDS: metFORMIN 500 MG TABLET PO SCH ×2 (08:10→17:16)
[2021-04-08] MEDS: ASPIRIN CHEWABLE 81 MG TABLET. PO SCH (08:10)
[2021-04-08] MEDS: DONEPEZIL HCL 10 MG TABLET PO SCH (08:11)
[2021-04-08] MEDS: buPROPion XL 150 MG TAB.ER.24H PO SCH ×2 (08:11→12:25)
[2021-04-08] MEDS: CHOLECALCIFEROL (VITAMIN D3) 1,000 UNIT TABLET PO SCH (08:11)
[2021-04-08] MEDS: SERTRALINE 100 MG TABLET. PO SCH (08:11)
[2021-04-08] MEDS: LISINOPRIL 10 MG TABLET PO SCH (08:11)
--- NOTE | 2021-04-08 13:38 | NUR ---
Nursing note: Pt is pleasant, med compliant and cooperative. He remains withdrawn to his room. Pt denies having any complaints of pain/concerns. He is currently resting quietly in his room. Will continue to monitor.
[2021-04-08 15:40] VITALS: BP 121/74
--- NOTE | 2021-04-08 16:35 | NUR ---
GEOVANNA received call from pt son Yonathan who wanted an update on pt and also to further discuss the fact that we will need to widen the search for placement. All facilities in [place] have denied pt for placement, which means other catchment areas will need to be looked into. Yonathan feels that [facility] is still too far away and GEOVANNA explained that [place] was the next potential place. Yonathan will call [facility] and see what options she has. He has asked that GEOVANNA request that [facility] in [place] re-evaluate pt again for possible placement. GEOVANNA did let Yonathan know that pt may have to be admitted someplace and Yonathan questioned if he would be able to move him. Yonathan is hopeful someone can take pt on Tuesday and GEOVANNA is not sure that will be possible as it is 48 hours from now. GEOVANNA and Yonathan will be in contact.
--- NOTE | 2021-04-08 20:17 | PDOC ---
Exam Note: Mike Note: Please also refer to the separate dictated note~for this date of service dictated separately.~Patient seen individually. Discussed the patient with Nursing staff reviewed the chart.~Reviewed interim history and current functioning. Reviewed vital signs,~Labs/ Radiology~and current medications noted below. Continue current treatment with the changes noted in the dictated addendum note Assessment: Vital Signs/I&O: Vital Signs Date Time Temp Pulse Resp B/P (MAP) Pulse Ox O2 Delivery O2 Flow Rate FiO2 04/08/21 15:40 97.8 62 20 121/74 (90) 94 04/08/21 06:02 Room Air I & O 04/07/21 04/07/21 04/08/21 15:00 23:00 07:00 Intake Total 430 ml 250 ml Balance 430 ml 250 ml Labs: Laboratory Tests Test 04/08/21 05:30 04/08/21 05:53 04/08/21 07:30 SARS-CoV-2 (PCR) Not detected (NOT DETECTD) White Blood Count 4.4 x10^3/uL (4.0-11.0) Red Blood Count 4.51 x10^6/uL (4.30-5.70) Hemoglobin 14.9 g/dL (13.0-17.5) Hematocrit 42.1 % (39.0-53.0) Mean Corpuscular Volume 93 fL (79-100) Mean Corpuscular Hemoglobin 33 pg (25-35) Mean Corpuscular Hemoglobin Concent 35 g/dL (31-37) Red Cell Distribution Width 13.1 % (11.5-14.5) Platelet Count 117 x10^3/uL (140-400) L Neutrophils (%) (Auto) 68 % (31-73) Lymphocytes (%) (Auto) 17 % (24-48) L Monocytes (%) (Auto) 12 % (0-9) H Eosinophils (%) (Auto) 2 % (0-3) Basophils (%) (Auto) 1 % (0-3) Neutrophils # (Auto) 3.0 x10^3uL (1.8-7.7) Lymphocytes # (Auto) 0.8 x10^3/uL (1.0-4.8) L Monocytes # (Auto) 0.5 x10^3/uL (0.0-1.1) Eosinophils # (Auto) 0.1 x10^3/uL (0.0-0.7) Basophils # (Auto) 0.0 x10^3/uL (0.0-0.2) Sodium Level 135 mmol/L (136-145) L Potassium Level 4.0 mmol/L (3.5-5.1) Chloride Level 97 mmol/L (98-107) L Carbon Dioxide Level 29 mmol/L (21-32) Anion Gap 9 (6-14) Blood Urea Nitrogen 23 mg/dL (8-26) Creatinine 1.0 mg/dL (0.7-1.3) Estimated GFR (Cockcroft-Gault) 73.2 BUN/Creatinine Ratio 23 (6-20) H Glucose Level 97 mg/dL (70-99) Calcium Level 9.2 mg/dL (8.5-10.1) Total Bilirubin 0.6 mg/dL (0.2-1.0) Aspartate Amino Transferase (AST) 32 U/L (15-37) Alanine Aminotransferase (ALT) 56 U/L (16-63) Alkaline Phosphatase 104 U/L (46-116) Total Protein 6.9 g/dL (6.4-8.2) Albumin 3.4 g/dL (3.4-5.0) Albumin/Globulin Ratio 1.0 (1.0-1.7) Glucose (Fingerstick) 114 mg/dL (70-99) H Current Medications: Meds: Laboratory Tests Test 04/08/21 05:30 04/08/21 05:53 04/08/21 07:30 Coronavirus (COVID-19)(PCR) Not detected White Blood Count 4.4 x10^3/uL Red Blood Count 4.51 x10^6/uL Hemoglobin 14.9 g/dL Hematocrit 42.1 % Mean Corpuscular Volume 93 fL Mean Corpuscular Hemoglobin 33 pg Mean Corpuscular Hemoglobin Concent 35 g/dL Red Cell Distribution Width 13.1 % Platelet Count 117 x10^3/uL Neutrophils (%) (Auto) 68 % Lymphocytes (%) (Auto) 17 % Monocytes (%) (Auto) 12 % Eosinophils (%) (Auto) 2 % Basophils (%) (Auto) 1 % Neutrophils # (Auto) 3.0 x10^3uL Lymphocytes # (Auto) 0.8 x10^3/uL Monocytes # (Auto) 0.5 x10^3/uL Eosinophils # (Auto) 0.1 x10^3/uL Basophils # (Auto) 0.0 x10^3/uL Sodium Level 135 mmol/L Potassium Level 4.0 mmol/L Chloride Level 97 mmol/L Carbon Dioxide Level 29 mmol/L Anion Gap 9 Blood Urea Nitrogen 23 mg/dL Creatinine 1.0 mg/dL Estimated GFR (Cockcroft-Gault) 73.2 BUN/Creatinine Ratio 23 Glucose Level 97 mg/dL Calcium Level 9.2 mg/dL Total Bilirubin 0.6 mg/dL Aspartate Amino Transf (AST/SGOT) 32 U/L Alanine Aminotransferase (ALT/SGPT) 56 U/L Alkaline Phosphatase 104 U/L Total Protein 6.9 g/dL Albumin 3.4 g/dL Albumin/Globulin Ratio 1.0 Glucose (Fingerstick) 114 mg/dL Current Medications Medications (Trade) Dose Ordered Sig/Greg Route PRN Reason Start Time Stop Time Status Last Admin Dose Admin Acetaminophen (Tylenol) 650 mg PRN Q6HRS PRN PO MILD PAIN / TEMP > 100.3'F 03/04/21 16:15 Multi-Ingredient Ointment (Analgesic [place]) 1 donn PRN QID PRN TP MUSCLE PAIN 03/04/21 16:15 Al Hydroxide/Mg Hydroxide (Mylanta Plus Xs) 15 ml PRN AFTMEALHC PRN PO DYSPEPSIA 03/04/21 16:15 Magnesium Hydroxide (Milk Of Magnesia) 2,400 mg PRN QHS PRN PO CONSTIPATION 03/04/21 16:15 Aspirin (Aspirin Chewable) 81 mg DAILY PO 03/05/21 09:00 04/08/21 08:10 Lisinopril (Prinivil) 10 mg DAILY PO 03/05/21 09:00 04/08/21 08:11 Vitamin D (Vitamin D3) 25 unit DAILY PO 03/05/21 09:00 03/07/21 10:29 DC 03/05/21 09:14 Metformin HCl (Glucophage) 1,000 mg BIDWMEALS PO 03/04/21 17:00 04/08/21 17:16 Atorvastatin Calcium (Lipitor) 80 mg QHS PO 03/04/21 21:00 04/07/21 20:25 Olanzapine (ZyPREXA ZYDIS) 2.5 mg PRN Q2HR PRN PO PSYCHOSIS 03/05/21 17:00 03/31/21 19:43 Vitamin D (Vitamin D3) 1,000 unit DAILY PO 03/08/21 09:00 04/08/21 08:11 Memantine (Namenda) 5 mg BID PO 03/07/21 21:00 03/11/21 18:16 DC 03/11/21 08:36 Sertraline HCl (Zoloft) 25 mg DAILY PO 03/08/21 09:00 03/10/21 20:16 DC 03/10/21 08:40 Rivastigmine (Exelon) 4.6 patch DAILY TD 03/08/21 09:00 03/09/21 13:31 DC 03/09/21 08:58 Rivastigmine (Exelon) 9.5 patch DAILY TD 03/15/21 09:00 Cancel Rivastigmine (Exelon) 1 patch DAILY TD 03/15/21 09:00 03/19/21 14:00 DC 03/19/21 09:14 Rivastigmine (Exelon) 1 patch DAILY TD 03/10/21 09:00 03/14/21 23:50 DC 03/14/21 09:00 Sertraline HCl (Zoloft) 50 mg DAILY PO 03/11/21 09:00 03/22/21 20:39 DC 03/22/21 08:39 Trazodone HCl (Desyrel) 50 mg PRN QHS PRN PO INSOMNIA 03/10/21 20:15 Memantine (Namenda) 5 mg DAILY PO 03/12/21 09:00 03/15/21 20:10 DC 03/15/21 07:59 Memantine (Namenda) 10 mg QHS PO 03/11/21 21:00 03/15/21 22:00 DC 03/15/21 21:02 Memantine (Namenda) 10 mg BID PO 03/16/21 09:00 04/08/21 08:10 Rivastigmine (Exelon 13.3mg) 1 patch DAILY TD 03/20/21 09:00 03/26/21 11:18 DC 03/23/21 08:10 Quetiapine Fumarate (SEROquel) 25 mg HS PO 03/17/21 21:00 03/18/21 16:11 DC 03/17/21 21:41 Quetiapine Fumarate (SEROquel) 50 mg HS PO 03/18/21 21:00 04/03/21 17:58 DC 04/02/21 20:41 Sertraline HCl (Zoloft) 75 mg DAILY PO 03/23/21 09:00 03/25/21 12:00 DC 03/25/21 08:24 Sertraline HCl (Zoloft) 100 mg DAILY PO 03/26/21 09:00 04/08/21 08:11 Bupropion HCl (Wellbutrin Xl) 150 mg DAILY PO 03/26/21 09:00 03/27/21 21:00 DC 03/27/21 09:00 Donepezil HCl (Aricept) 5 mg DAILY PO 03/27/21 09:00 03/28/21 23:50 DC 03/28/21 08:17 Donepezil HCl (Aricept) 10 mg DAILY PO 03/29/21 09:00 04/08/21 08:11 Bupropion HCl (Wellbutrin Xl) 150 mg 0900,1200 PO 03/28/21 09:00 04/08/21 12:25 Risperidone (RisperDAL) 0.5 mg HS PO 04/03/21 21:00 04/07/21 20:25 I have reviewed the current psychotropics carefully including drug interactions. Risk benefit ratio favors no change other than as noted in my dictated progress note. Diagnosis: Problems: (1) Impulse control disorder, unspecified (2) Lewy body dementia with behavioral disturbance (3) Anxiety disorder, unspecified (4) Dementia in Alzheimer's disease with depression (5) Dementia in Alzheimer's disease with delusions (6) Major neurocognitive disorder GABRIELLA LEDEZMA MD Apr 08, 2021 20:17
[2021-04-08] MEDS: ATORVASTATIN CALCIUM 20 MG TABLET PO SCH (20:58)
[2021-04-08] MEDS: risperiDONE 0.5 MG TABLET. PO SCH (20:58)
--- NOTE | 2021-04-08 22:57 | NUR ---
Patient in bed when this nurse arrived on shift. He was compliant with meds and cooperative and calm. Patient remained in his room during this night. No adverse behaviors noted at this time.
[2021-04-09 06:27] VITALS: BP 158/81
[2021-04-09] MEDS: LISINOPRIL 10 MG TABLET PO SCH (08:57)
[2021-04-09] MEDS: buPROPion XL 150 MG TAB.ER.24H PO SCH ×2 (08:57→12:20)
[2021-04-09] MEDS: ASPIRIN CHEWABLE 81 MG TABLET. PO SCH (08:57)
[2021-04-09] MEDS: SERTRALINE 100 MG TABLET. PO SCH (08:57)
[2021-04-09] MEDS: MEMANTINE 10 MG TABLET. PO SCH ×2 (08:57→20:21)
[2021-04-09] MEDS: metFORMIN 500 MG TABLET PO SCH ×2 (08:57→17:50)
[2021-04-09] MEDS: CHOLECALCIFEROL (VITAMIN D3) 1,000 UNIT TABLET PO SCH (08:57)
[2021-04-09] MEDS: DONEPEZIL HCL 10 MG TABLET PO SCH (08:57)
--- NOTE | 2021-04-09 10:51 | NUR ---
WEEKLY ACTIVITY THERAPY NOTE Date of Admission:03/04/21 Date of AT Assessment: 03/05/2021 Precipitating behaviors that initiated intake and admission:Patient admitted from home via IN ED for reportedly leaving sons house at night and knocking on neighbors door at 2am, being paranoid about neighbors causing trouble, losing items, and driving to [place] and believed he was in [place] per police. Goal aimed: to increase engagement Initial Goal: Pt. will participate in at least three individual or Activity Therapy groups before discharge. Goal repeated 03/26 Weekly progress towards goal: achieved (03/27-flexibility and how many, 03/27-tv show theme songs, 04/02-Word scramble) Group participation level: 1 min Weekly highlights: answered one word scramble questions morning Behaviors observed: remains withdrawn to room, quiet and pleasant Plan: change goal to: Pt. will participate in at least five individual or Activity Therapy groups before discharge Beneficial adaptations: encouragement, direct prompting
--- NOTE | 2021-04-09 11:07 | NUR ---
Nursing note: Pt is pleasant, med compliant and cooperative. He remains withdrawn to his room. Pt denies having any complaints of pain/concerns. He declines offers to go to the day room and continues to rest quietly in his room. Will continue to monitor.
--- NOTE | 2021-04-09 12:26 | NUR ---
Treatment team update: Pt is eating roughly 60% of meals and sleeping on average 8 hours per night. Pt continues to be pleasant, but has minimal interaction with staff and peers. He remains withdrawn to his room and needs encouragement to come out. Pt attended one group this last week with minimal engagement; pt was irritated when engaged with during that group and later walked out. Pt is resistive to showers, but not combative. He needs cues on making sure he washes up and does not just stand under the water. Placement for pt continues to be sought out, as facilities continue to deny pt based off him being a run risk. One facility in [place] tentatively agreed to accept pt but would like to set up a Zoom meeting for Friday 04/13. SW is continuing to work with pt son on finding placement; SVEN ALDANA.
[2021-04-09 15:54] VITALS: BP 123/76
[2021-04-09] MEDS: risperiDONE 0.5 MG TABLET. PO SCH (20:21)
[2021-04-09] MEDS: ATORVASTATIN CALCIUM 20 MG TABLET PO SCH (20:22)
--- NOTE | 2021-04-09 20:36 | PDOC ---
Exam Note: Mike Note: Please also refer to the separate dictated note~for this date of service dictated separately.~Patient seen individually. Discussed the patient with Nursing staff reviewed the chart.~Reviewed interim history and current functioning. Reviewed vital signs,~Labs/ Radiology~and current medications noted below. Continue current treatment with the changes noted in the dictated addendum note Assessment: Vital Signs/I&O: Vital Signs Date Time Temp Pulse Resp B/P (MAP) Pulse Ox O2 Delivery O2 Flow Rate FiO2 04/09/21 15:54 97.9 75 18 123/76 (92) 95 Room Air I & O 04/08/21 04/08/21 04/09/21 15:00 23:00 07:00 Intake Total 600 ml 360 ml Balance 600 ml 360 ml Labs: Laboratory Tests Test 04/09/21 07:18 Glucose (Fingerstick) 129 mg/dL (70-99) H Current Medications: Meds: Laboratory Tests Test 04/09/21 07:18 Glucose (Fingerstick) 129 mg/dL Current Medications Medications (Trade) Dose Ordered Sig/Greg Route PRN Reason Start Time Stop Time Status Last Admin Dose Admin Acetaminophen (Tylenol) 650 mg PRN Q6HRS PRN PO MILD PAIN / TEMP > 100.3'F 03/04/21 16:15 Multi-Ingredient Ointment (Analgesic [place]) 1 donn PRN QID PRN TP MUSCLE PAIN 03/04/21 16:15 Al Hydroxide/Mg Hydroxide (Mylanta Plus Xs) 15 ml PRN AFTMEALHC PRN PO DYSPEPSIA 03/04/21 16:15 Magnesium Hydroxide (Milk Of Magnesia) 2,400 mg PRN QHS PRN PO CONSTIPATION 03/04/21 16:15 Aspirin (Aspirin Chewable) 81 mg DAILY PO 03/05/21 09:00 04/09/21 08:57 Lisinopril (Prinivil) 10 mg DAILY PO 03/05/21 09:00 04/09/21 08:57 Vitamin D (Vitamin D3) 25 unit DAILY PO 03/05/21 09:00 03/07/21 10:29 DC 03/05/21 09:14 Metformin HCl (Glucophage) 1,000 mg BIDWMEALS PO 03/04/21 17:00 04/09/21 17:50 Atorvastatin Calcium (Lipitor) 80 mg QHS PO 03/04/21 21:00 04/09/21 20:22 Olanzapine (ZyPREXA ZYDIS) 2.5 mg PRN Q2HR PRN PO PSYCHOSIS 03/05/21 17:00 03/31/21 19:43 Vitamin D (Vitamin D3) 1,000 unit DAILY PO 03/08/21 09:00 04/09/21 08:57 Memantine (Namenda) 5 mg BID PO 03/07/21 21:00 03/11/21 18:16 DC 03/11/21 08:36 Sertraline HCl (Zoloft) 25 mg DAILY PO 03/08/21 09:00 03/10/21 20:16 DC 03/10/21 08:40 Rivastigmine (Exelon) 4.6 patch DAILY TD 03/08/21 09:00 03/09/21 13:31 DC 03/09/21 08:58 Rivastigmine (Exelon) 9.5 patch DAILY TD 03/15/21 09:00 Cancel Rivastigmine (Exelon) 1 patch DAILY TD 03/15/21 09:00 03/19/21 14:00 DC 03/19/21 09:14 Rivastigmine (Exelon) 1 patch DAILY TD 03/10/21 09:00 03/14/21 23:50 DC 03/14/21 09:00 Sertraline HCl (Zoloft) 50 mg DAILY PO 03/11/21 09:00 03/22/21 20:39 DC 03/22/21 08:39 Trazodone HCl (Desyrel) 50 mg PRN QHS PRN PO INSOMNIA 03/10/21 20:15 Memantine (Namenda) 5 mg DAILY PO 03/12/21 09:00 03/15/21 20:10 DC 03/15/21 07:59 Memantine (Namenda) 10 mg QHS PO 03/11/21 21:00 03/15/21 22:00 DC 03/15/21 21:02 Memantine (Namenda) 10 mg BID PO 03/16/21 09:00 04/09/21 20:21 Rivastigmine (Exelon 13.3mg) 1 patch DAILY TD 03/20/21 09:00 03/26/21 11:18 DC 03/23/21 08:10 Quetiapine Fumarate (SEROquel) 25 mg HS PO 03/17/21 21:00 03/18/21 16:11 DC 03/17/21 21:41 Quetiapine Fumarate (SEROquel) 50 mg HS PO 03/18/21 21:00 04/03/21 17:58 DC 04/02/21 20:41 Sertraline HCl (Zoloft) 75 mg DAILY PO 03/23/21 09:00 03/25/21 12:00 DC 03/25/21 08:24 Sertraline HCl (Zoloft) 100 mg DAILY PO 03/26/21 09:00 04/09/21 08:57 Bupropion HCl (Wellbutrin Xl) 150 mg DAILY PO 03/26/21 09:00 03/27/21 21:00 DC 03/27/21 09:00 Donepezil HCl (Aricept) 5 mg DAILY PO 03/27/21 09:00 03/28/21 23:50 DC 03/28/21 08:17 Donepezil HCl (Aricept) 10 mg DAILY PO 03/29/21 09:00 04/09/21 08:57 Bupropion HCl (Wellbutrin Xl) 150 mg 0900,1200 PO 03/28/21 09:00 04/09/21 12:20 Risperidone (RisperDAL) 0.5 mg HS PO 04/03/21 21:00 04/09/21 20:21 I have reviewed the current psychotropics carefully including drug interactions. Risk benefit ratio favors no change other than as noted in my dictated progress note. Diagnosis: Problems: (1) Impulse control disorder, unspecified (2) Lewy body dementia with behavioral disturbance (3) Anxiety disorder, unspecified (4) Dementia in Alzheimer's disease with depression (5) Dementia in Alzheimer's disease with delusions (6) Major neurocognitive disorder GABRIELLA LEDEZMA MD Apr 09, 2021 20:35
--- NOTE | 2021-04-10 03:46 | NUR ---
Pt has been in his room tonight. He was cooperative with meds and care and took meds whole without difficulty and has had no behaviors. He denies pain, hallucination or delusions.
[2021-04-10 06:19] VITALS: BP 146/83
[2021-04-10] MEDS: CHOLECALCIFEROL (VITAMIN D3) 1,000 UNIT TABLET PO SCH (08:21)
[2021-04-10] MEDS: MEMANTINE 10 MG TABLET. PO SCH ×2 (08:21→21:11)
[2021-04-10] MEDS: ASPIRIN CHEWABLE 81 MG TABLET. PO SCH (08:21)
[2021-04-10] MEDS: DONEPEZIL HCL 10 MG TABLET PO SCH (08:21)
[2021-04-10] MEDS: buPROPion XL 150 MG TAB.ER.24H PO SCH ×2 (08:21→12:39)
[2021-04-10] MEDS: SERTRALINE 100 MG TABLET. PO SCH (08:21)
[2021-04-10] MEDS: metFORMIN 500 MG TABLET PO SCH ×2 (08:22→17:19)
[2021-04-10] MEDS: LISINOPRIL 10 MG TABLET PO SCH (08:22)
--- NOTE | 2021-04-10 09:55 | PDOC ---
Exam Note: Mike Note: This note is a late entry for 04/08/2021 covers elements not covered in my initial note. Subjective: The patient was seen individually in the evening of 04/08/2021 with Ruma HECTOR, discussed and reviewed the chart. The patient slept 10 hours previous night. He spends much time in his room. He did talk to his son and was appropriate over the phone. Review of Systems: No CV, , pulmonary, eye system symptoms on review. Mental Status Exam: The patient is oriented to himself and situation. Speech often response is monosyllabic. Abstraction fair. Computation impaired. Language function intact. Mood and affect somewhat withdrawn. No suicidal or homicidal ideation. Laboratory Data: Reviewed. 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 Anxiety disorder unspecified. Impulse control disorder. Plan: No change from initial note. Assessment: Vital Signs/I&O: Vital Signs Date Time Temp Pulse Resp B/P (MAP) Pulse Ox O2 Delivery O2 Flow Rate FiO2 04/10/21 08:22 72 146/83 04/10/21 06:19 97.1 16 95 Room Air I & O 04/09/21 04/09/21 04/10/21 15:00 23:00 07:00 Intake Total 380 ml 240 ml Balance 380 ml 240 ml Labs: Laboratory Tests Test 04/10/21 07:18 Glucose (Fingerstick) 105 mg/dL (70-99) H Current Medications: Meds: Laboratory Tests Test 04/10/21 07:18 Glucose (Fingerstick) 105 mg/dL Current Medications Medications (Trade) Dose Ordered Sig/Greg Route PRN Reason Start Time Stop Time Status Last Admin Dose Admin Acetaminophen (Tylenol) 650 mg PRN Q6HRS PRN PO MILD PAIN / TEMP > 100.3'F 03/04/21 16:15 Multi-Ingredient Ointment (Analgesic [place]) 1 donn PRN QID PRN TP MUSCLE PAIN 03/04/21 16:15 Al Hydroxide/Mg Hydroxide (Mylanta Plus Xs) 15 ml PRN AFTMEALHC PRN PO DYSPEPSIA 03/04/21 16:15 Magnesium Hydroxide (Milk Of Magnesia) 2,400 mg PRN QHS PRN PO CONSTIPATION 03/04/21 16:15 Aspirin (Aspirin Chewable) 81 mg DAILY PO 03/05/21 09:00 04/10/21 08:21 Lisinopril (Prinivil) 10 mg DAILY PO 03/05/21 09:00 04/10/21 08:22 Vitamin D (Vitamin D3) 25 unit DAILY PO 03/05/21 09:00 03/07/21 10:29 DC 03/05/21 09:14 Metformin HCl (Glucophage) 1,000 mg BIDWMEALS PO 03/04/21 17:00 04/10/21 08:22 Atorvastatin Calcium (Lipitor) 80 mg QHS PO 03/04/21 21:00 04/09/21 20:22 Olanzapine (ZyPREXA ZYDIS) 2.5 mg PRN Q2HR PRN PO PSYCHOSIS 03/05/21 17:00 03/31/21 19:43 Vitamin D (Vitamin D3) 1,000 unit DAILY PO 03/08/21 09:00 04/10/21 08:21 Memantine (Namenda) 5 mg BID PO 03/07/21 21:00 03/11/21 18:16 DC 03/11/21 08:36 Sertraline HCl (Zoloft) 25 mg DAILY PO 03/08/21 09:00 03/10/21 20:16 DC 03/10/21 08:40 Rivastigmine (Exelon) 4.6 patch DAILY TD 03/08/21 09:00 03/09/21 13:31 DC 03/09/21 08:58 Rivastigmine (Exelon) 9.5 patch DAILY TD 03/15/21 09:00 Cancel Rivastigmine (Exelon) 1 patch DAILY TD 03/15/21 09:00 03/19/21 14:00 DC 03/19/21 09:14 Rivastigmine (Exelon) 1 patch DAILY TD 03/10/21 09:00 03/14/21 23:50 DC 03/14/21 09:00 Sertraline HCl (Zoloft) 50 mg DAILY PO 03/11/21 09:00 03/22/21 20:39 DC 03/22/21 08:39 Trazodone HCl (Desyrel) 50 mg PRN QHS PRN PO INSOMNIA 03/10/21 20:15 Memantine (Namenda) 5 mg DAILY PO 03/12/21 09:00 03/15/21 20:10 DC 03/15/21 07:59 Memantine (Namenda) 10 mg QHS PO 03/11/21 21:00 03/15/21 22:00 DC 03/15/21 21:02 Memantine (Namenda) 10 mg BID PO 03/16/21 09:00 04/10/21 08:21 Rivastigmine (Exelon 13.3mg) 1 patch DAILY TD 03/20/21 09:00 03/26/21 11:18 DC 03/23/21 08:10 Quetiapine Fumarate (SEROquel) 25 mg HS PO 03/17/21 21:00 03/18/21 16:11 DC 03/17/21 21:41 Quetiapine Fumarate (SEROquel) 50 mg HS PO 03/18/21 21:00 04/03/21 17:58 DC 04/02/21 20:41 Sertraline HCl (Zoloft) 75 mg DAILY PO 03/23/21 09:00 03/25/21 12:00 DC 03/25/21 08:24 Sertraline HCl (Zoloft) 100 mg DAILY PO 03/26/21 09:00 04/10/21 08:21 Bupropion HCl (Wellbutrin Xl) 150 mg DAILY PO 03/26/21 09:00 03/27/21 21:00 DC 03/27/21 09:00 Donepezil HCl (Aricept) 5 mg DAILY PO 03/27/21 09:00 03/28/21 23:50 DC 03/28/21 08:17 Donepezil HCl (Aricept) 10 mg DAILY PO 03/29/21 09:00 04/10/21 08:21 Bupropion HCl (Wellbutrin Xl) 150 mg 0900,1200 PO 03/28/21 09:00 04/10/21 08:21 Risperidone (RisperDAL) 0.5 mg HS PO 04/03/21 21:00 04/09/21 20:21 I have reviewed the current psychotropics carefully including drug interactions. Risk benefit ratio favors no change other than as noted in my dictated progress note. Diagnosis: Problems: (1) Impulse control disorder, unspecified (2) Lewy body dementia with behavioral disturbance (3) Anxiety disorder, unspecified (4) Dementia in Alzheimer's disease with depression (5) Dementia in Alzheimer's disease with delusions (6) Major neurocognitive disorder GABRIELLA LEDEZMA MD Apr 10, 2021 09:54
--- NOTE | 2021-04-10 10:12 | PDOC ---
Exam Note: Mike Note: This note is a late entry for 04/09/2021 covers elements not covered in my initial note. Subjective: The patient was reviewed at treatment team meeting individually in the morning on 04/09/2021 with Mayra Blackwood, Lizeth Thomas, and Nay Martinez (social and political studies professor), Michelle, activity therapy, Shantell RN, Hotel Supplies Salesperson, and Raegan RN, discussed and reviewed the chart. We discussed the patients diagnoses, progress, psychotropic medications. The patient slept 8- 1/4 hours previous night. Appetite is 50%. He is withdrawn, spends much time in his room, asked to take a shower today. He attended one group in the past one week. Also discussed with Jose HECTOR in the evening. Review of Systems: No CV, , pulmonary, eye system symptoms on review. He is hard of hearing. Mental Status Exam: The patient is oriented to himself and situation. Speech coherent has some latency. Abstraction fair. Computation impaired. Language function intact. Mood and affect still depressed. Laboratory Data: Reviewed. 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 Anxiety disorder unspecified. Impulse control disorder. Plan: No change from initial note. Adjust further as clinically indicated. Assessment: Vital Signs/I&O: Vital Signs Date Time Temp Pulse Resp B/P (MAP) Pulse Ox O2 Delivery O2 Flow Rate FiO2 04/10/21 08:22 72 146/83 04/10/21 06:19 97.1 16 95 Room Air I & O 04/09/21 04/09/21 04/10/21 15:00 23:00 07:00 Intake Total 380 ml 240 ml Balance 380 ml 240 ml Labs: Laboratory Tests Test 04/10/21 07:18 Glucose (Fingerstick) 105 mg/dL (70-99) H Current Medications: Meds: Laboratory Tests Test 04/10/21 07:18 Glucose (Fingerstick) 105 mg/dL Current Medications Medications (Trade) Dose Ordered Sig/Greg Route PRN Reason Start Time Stop Time Status Last Admin Dose Admin Acetaminophen (Tylenol) 650 mg PRN Q6HRS PRN PO MILD PAIN / TEMP > 100.3'F 03/04/21 16:15 Multi-Ingredient Ointment (Analgesic [place]) 1 donn PRN QID PRN TP MUSCLE PAIN 03/04/21 16:15 Al Hydroxide/Mg Hydroxide (Mylanta Plus Xs) 15 ml PRN AFTMEALHC PRN PO DYSPEPSIA 03/04/21 16:15 Magnesium Hydroxide (Milk Of Magnesia) 2,400 mg PRN QHS PRN PO CONSTIPATION 03/04/21 16:15 Aspirin (Aspirin Chewable) 81 mg DAILY PO 03/05/21 09:00 04/10/21 08:21 Lisinopril (Prinivil) 10 mg DAILY PO 03/05/21 09:00 04/10/21 08:22 Vitamin D (Vitamin D3) 25 unit DAILY PO 03/05/21 09:00 03/07/21 10:29 DC 03/05/21 09:14 Metformin HCl (Glucophage) 1,000 mg BIDWMEALS PO 03/04/21 17:00 04/10/21 08:22 Atorvastatin Calcium (Lipitor) 80 mg QHS PO 03/04/21 21:00 04/09/21 20:22 Olanzapine (ZyPREXA ZYDIS) 2.5 mg PRN Q2HR PRN PO PSYCHOSIS 03/05/21 17:00 03/31/21 19:43 Vitamin D (Vitamin D3) 1,000 unit DAILY PO 03/08/21 09:00 04/10/21 08:21 Memantine (Namenda) 5 mg BID PO 03/07/21 21:00 03/11/21 18:16 DC 03/11/21 08:36 Sertraline HCl (Zoloft) 25 mg DAILY PO 03/08/21 09:00 03/10/21 20:16 DC 03/10/21 08:40 Rivastigmine (Exelon) 4.6 patch DAILY TD 03/08/21 09:00 03/09/21 13:31 DC 03/09/21 08:58 Rivastigmine (Exelon) 9.5 patch DAILY TD 03/15/21 09:00 Cancel Rivastigmine (Exelon) 1 patch DAILY TD 03/15/21 09:00 03/19/21 14:00 DC 03/19/21 09:14 Rivastigmine (Exelon) 1 patch DAILY TD 03/10/21 09:00 03/14/21 23:50 DC 03/14/21 09:00 Sertraline HCl (Zoloft) 50 mg DAILY PO 03/11/21 09:00 03/22/21 20:39 DC 03/22/21 08:39 Trazodone HCl (Desyrel) 50 mg PRN QHS PRN PO INSOMNIA 03/10/21 20:15 Memantine (Namenda) 5 mg DAILY PO 03/12/21 09:00 03/15/21 20:10 DC 03/15/21 07:59 Memantine (Namenda) 10 mg QHS PO 03/11/21 21:00 03/15/21 22:00 DC 03/15/21 21:02 Memantine (Namenda) 10 mg BID PO 03/16/21 09:00 04/10/21 08:21 Rivastigmine (Exelon 13.3mg) 1 patch DAILY TD 03/20/21 09:00 03/26/21 11:18 DC 03/23/21 08:10 Quetiapine Fumarate (SEROquel) 25 mg HS PO 03/17/21 21:00 03/18/21 16:11 DC 03/17/21 21:41 Quetiapine Fumarate (SEROquel) 50 mg HS PO 03/18/21 21:00 04/03/21 17:58 DC 04/02/21 20:41 Sertraline HCl (Zoloft) 75 mg DAILY PO 03/23/21 09:00 03/25/21 12:00 DC 03/25/21 08:24 Sertraline HCl (Zoloft) 100 mg DAILY PO 03/26/21 09:00 04/10/21 08:21 Bupropion HCl (Wellbutrin Xl) 150 mg DAILY PO 03/26/21 09:00 03/27/21 21:00 DC 03/27/21 09:00 Donepezil HCl (Aricept) 5 mg DAILY PO 03/27/21 09:00 03/28/21 23:50 DC 03/28/21 08:17 Donepezil HCl (Aricept) 10 mg DAILY PO 03/29/21 09:00 04/10/21 08:21 Bupropion HCl (Wellbutrin Xl) 150 mg 0900,1200 PO 03/28/21 09:00 04/10/21 08:21 Risperidone (RisperDAL) 0.5 mg HS PO 04/03/21 21:00 04/09/21 20:21 I have reviewed the current psychotropics carefully including drug interactions. Risk benefit ratio favors no change other than as noted in my dictated progress note. Diagnosis: Problems: (1) Impulse control disorder, unspecified (2) Lewy body dementia with behavioral disturbance (3) Anxiety disorder, unspecified (4) Dementia in Alzheimer's disease with depression (5) Dementia in Alzheimer's disease with delusions (6) Major neurocognitive disorder GABRIELLA LEDEZMA MD Apr 10, 2021 10:12
[2021-04-10 15:53] VITALS: BP 128/75
--- NOTE | 2021-04-10 18:36 | NUR ---
Nursing note: Pt's son called and requested to speak to pt. Pt was provided the phone and said "hello". As soon as pt son started speaking, pt hung up the phone and said "It's just a recording. I was told my son several years ago. I explained to pt that it was not a recording and his son was truly on the phone and his response was "oh...okay" and laid back down and would not converse any further. Will continue to monitor.
--- NOTE | 2021-04-10 20:31 | PDOC ---
Exam Note: Mike Note: Please also refer to the separate dictated note~for this date of service dictated separately.~Patient seen individually. Discussed the patient with Nursing staff reviewed the chart.~Reviewed interim history and current functioning. Reviewed vital signs,~Labs/ Radiology~and current medications noted below. Continue current treatment with the changes noted in the dictated addendum note Assessment: Vital Signs/I&O: Vital Signs Date Time Temp Pulse Resp B/P (MAP) Pulse Ox O2 Delivery O2 Flow Rate FiO2 04/10/21 15:53 98.1 70 16 128/75 (92) 96 04/10/21 06:19 Room Air I & O 04/09/21 04/09/21 04/10/21 15:00 23:00 07:00 Intake Total 380 ml 240 ml Balance 380 ml 240 ml Labs: Laboratory Tests Test 04/10/21 07:18 Glucose (Fingerstick) 105 mg/dL (70-99) H Current Medications: Meds: Laboratory Tests Test 04/10/21 07:18 Glucose (Fingerstick) 105 mg/dL Current Medications Medications (Trade) Dose Ordered Sig/Greg Route PRN Reason Start Time Stop Time Status Last Admin Dose Admin Acetaminophen (Tylenol) 650 mg PRN Q6HRS PRN PO MILD PAIN / TEMP > 100.3'F 03/04/21 16:15 Multi-Ingredient Ointment (Analgesic [place]) 1 donn PRN QID PRN TP MUSCLE PAIN 03/04/21 16:15 Al Hydroxide/Mg Hydroxide (Mylanta Plus Xs) 15 ml PRN AFTMEALHC PRN PO DYSPEPSIA 03/04/21 16:15 Magnesium Hydroxide (Milk Of Magnesia) 2,400 mg PRN QHS PRN PO CONSTIPATION 03/04/21 16:15 Aspirin (Aspirin Chewable) 81 mg DAILY PO 03/05/21 09:00 04/10/21 08:21 Lisinopril (Prinivil) 10 mg DAILY PO 03/05/21 09:00 04/10/21 08:22 Vitamin D (Vitamin D3) 25 unit DAILY PO 03/05/21 09:00 03/07/21 10:29 DC 03/05/21 09:14 Metformin HCl (Glucophage) 1,000 mg BIDWMEALS PO 03/04/21 17:00 04/10/21 17:19 Atorvastatin Calcium (Lipitor) 80 mg QHS PO 03/04/21 21:00 04/09/21 20:22 Olanzapine (ZyPREXA ZYDIS) 2.5 mg PRN Q2HR PRN PO PSYCHOSIS 03/05/21 17:00 03/31/21 19:43 Vitamin D (Vitamin D3) 1,000 unit DAILY PO 03/08/21 09:00 04/10/21 08:21 Memantine (Namenda) 5 mg BID PO 03/07/21 21:00 03/11/21 18:16 DC 03/11/21 08:36 Sertraline HCl (Zoloft) 25 mg DAILY PO 03/08/21 09:00 03/10/21 20:16 DC 03/10/21 08:40 Rivastigmine (Exelon) 4.6 patch DAILY TD 03/08/21 09:00 03/09/21 13:31 DC 03/09/21 08:58 Rivastigmine (Exelon) 9.5 patch DAILY TD 03/15/21 09:00 Cancel Rivastigmine (Exelon) 1 patch DAILY TD 03/15/21 09:00 03/19/21 14:00 DC 03/19/21 09:14 Rivastigmine (Exelon) 1 patch DAILY TD 03/10/21 09:00 03/14/21 23:50 DC 03/14/21 09:00 Sertraline HCl (Zoloft) 50 mg DAILY PO 03/11/21 09:00 03/22/21 20:39 DC 03/22/21 08:39 Trazodone HCl (Desyrel) 50 mg PRN QHS PRN PO INSOMNIA 03/10/21 20:15 Memantine (Namenda) 5 mg DAILY PO 03/12/21 09:00 03/15/21 20:10 DC 03/15/21 07:59 Memantine (Namenda) 10 mg QHS PO 03/11/21 21:00 03/15/21 22:00 DC 03/15/21 21:02 Memantine (Namenda) 10 mg BID PO 03/16/21 09:00 04/10/21 08:21 Rivastigmine (Exelon 13.3mg) 1 patch DAILY TD 03/20/21 09:00 03/26/21 11:18 DC 03/23/21 08:10 Quetiapine Fumarate (SEROquel) 25 mg HS PO 03/17/21 21:00 03/18/21 16:11 DC 03/17/21 21:41 Quetiapine Fumarate (SEROquel) 50 mg HS PO 03/18/21 21:00 04/03/21 17:58 DC 04/02/21 20:41 Sertraline HCl (Zoloft) 75 mg DAILY PO 03/23/21 09:00 03/25/21 12:00 DC 03/25/21 08:24 Sertraline HCl (Zoloft) 100 mg DAILY PO 03/26/21 09:00 04/10/21 08:21 Bupropion HCl (Wellbutrin Xl) 150 mg DAILY PO 03/26/21 09:00 03/27/21 21:00 DC 03/27/21 09:00 Donepezil HCl (Aricept) 5 mg DAILY PO 03/27/21 09:00 03/28/21 23:50 DC 03/28/21 08:17 Donepezil HCl (Aricept) 10 mg DAILY PO 03/29/21 09:00 04/10/21 08:21 Bupropion HCl (Wellbutrin Xl) 150 mg 0900,1200 PO 03/28/21 09:00 04/10/21 12:39 Risperidone (RisperDAL) 0.5 mg HS PO 04/03/21 21:00 04/09/21 20:21 I have reviewed the current psychotropics carefully including drug interactions. Risk benefit ratio favors no change other than as noted in my dictated progress note. Diagnosis: Problems: (1) Impulse control disorder, unspecified (2) Lewy body dementia with behavioral disturbance (3) Anxiety disorder, unspecified (4) Dementia in Alzheimer's disease with depression (5) Dementia in Alzheimer's disease with delusions (6) Major neurocognitive disorder GABRIELLA LEDEZMA MD Apr 10, 2021 20:31
[2021-04-10] MEDS: risperiDONE 0.5 MG TABLET. PO SCH (21:11)
[2021-04-10] MEDS: ATORVASTATIN CALCIUM 20 MG TABLET PO SCH (21:12)
[2021-04-11 05:43] VITALS: BP 125/66
[2021-04-11] MEDS: SERTRALINE 100 MG TABLET. PO SCH (08:19)
[2021-04-11] MEDS: LISINOPRIL 10 MG TABLET PO SCH (08:19)
[2021-04-11] MEDS: CHOLECALCIFEROL (VITAMIN D3) 1,000 UNIT TABLET PO SCH (08:19)
[2021-04-11] MEDS: ASPIRIN CHEWABLE 81 MG TABLET. PO SCH (08:19)
[2021-04-11] MEDS: metFORMIN 500 MG TABLET PO SCH ×2 (08:19→16:50)
[2021-04-11] MEDS: buPROPion XL 150 MG TAB.ER.24H PO SCH ×2 (08:19→12:00)
[2021-04-11] MEDS: DONEPEZIL HCL 10 MG TABLET PO SCH (08:19)
[2021-04-11] MEDS: MEMANTINE 10 MG TABLET. PO SCH ×2 (08:20→20:26)
[2021-04-11 15:33] VITALS: BP 104/71
[2021-04-11] MEDS: ATORVASTATIN CALCIUM 20 MG TABLET PO SCH (20:27)
[2021-04-11] MEDS: risperiDONE 0.5 MG TABLET. PO SCH (20:27)
--- NOTE | 2021-04-11 21:58 | PDOC ---
Exam Note: Mike Note: Please also refer to the separate dictated note~for this date of service dictated separately.~Patient seen individually. Discussed the patient with Nursing staff reviewed the chart.~Reviewed interim history and current functioning. Reviewed vital signs,~Labs/ Radiology~and current medications noted below. Continue current treatment with the changes noted in the dictated addendum note Assessment: Vital Signs/I&O: Vital Signs Date Time Temp Pulse Resp B/P (MAP) Pulse Ox O2 Delivery O2 Flow Rate FiO2 04/11/21 15:33 97.2 72 18 104/71 (82) 95 04/11/21 05:43 Room Air I & O 04/10/21 04/10/21 04/11/21 15:00 23:00 07:00 Intake Total 960 ml 200 ml Balance 960 ml 200 ml Labs: Laboratory Tests Test 04/11/21 06:56 Glucose (Fingerstick) 117 mg/dL (70-99) H Current Medications: Meds: Laboratory Tests Test 04/11/21 06:56 Glucose (Fingerstick) 117 mg/dL Current Medications Medications (Trade) Dose Ordered Sig/Greg Route PRN Reason Start Time Stop Time Status Last Admin Dose Admin Acetaminophen (Tylenol) 650 mg PRN Q6HRS PRN PO MILD PAIN / TEMP > 100.3'F 03/04/21 16:15 Multi-Ingredient Ointment (Analgesic [place]) 1 donn PRN QID PRN TP MUSCLE PAIN 03/04/21 16:15 Al Hydroxide/Mg Hydroxide (Mylanta Plus Xs) 15 ml PRN AFTMEALHC PRN PO DYSPEPSIA 03/04/21 16:15 Magnesium Hydroxide (Milk Of Magnesia) 2,400 mg PRN QHS PRN PO CONSTIPATION 03/04/21 16:15 Aspirin (Aspirin Chewable) 81 mg DAILY PO 03/05/21 09:00 04/11/21 08:19 Lisinopril (Prinivil) 10 mg DAILY PO 03/05/21 09:00 04/11/21 08:19 Vitamin D (Vitamin D3) 25 unit DAILY PO 03/05/21 09:00 03/07/21 10:29 DC 03/05/21 09:14 Metformin HCl (Glucophage) 1,000 mg BIDWMEALS PO 03/04/21 17:00 04/11/21 16:50 Atorvastatin Calcium (Lipitor) 80 mg QHS PO 03/04/21 21:00 04/11/21 20:27 Olanzapine (ZyPREXA ZYDIS) 2.5 mg PRN Q2HR PRN PO PSYCHOSIS 03/05/21 17:00 03/31/21 19:43 Vitamin D (Vitamin D3) 1,000 unit DAILY PO 03/08/21 09:00 04/11/21 08:19 Memantine (Namenda) 5 mg BID PO 03/07/21 21:00 03/11/21 18:16 DC 03/11/21 08:36 Sertraline HCl (Zoloft) 25 mg DAILY PO 03/08/21 09:00 03/10/21 20:16 DC 03/10/21 08:40 Rivastigmine (Exelon) 4.6 patch DAILY TD 03/08/21 09:00 03/09/21 13:31 DC 03/09/21 08:58 Rivastigmine (Exelon) 9.5 patch DAILY TD 03/15/21 09:00 Cancel Rivastigmine (Exelon) 1 patch DAILY TD 03/15/21 09:00 03/19/21 14:00 DC 03/19/21 09:14 Rivastigmine (Exelon) 1 patch DAILY TD 03/10/21 09:00 03/14/21 23:50 DC 03/14/21 09:00 Sertraline HCl (Zoloft) 50 mg DAILY PO 03/11/21 09:00 03/22/21 20:39 DC 03/22/21 08:39 Trazodone HCl (Desyrel) 50 mg PRN QHS PRN PO INSOMNIA 03/10/21 20:15 Memantine (Namenda) 5 mg DAILY PO 03/12/21 09:00 03/15/21 20:10 DC 03/15/21 07:59 Memantine (Namenda) 10 mg QHS PO 03/11/21 21:00 03/15/21 22:00 DC 03/15/21 21:02 Memantine (Namenda) 10 mg BID PO 03/16/21 09:00 04/11/21 20:26 Rivastigmine (Exelon 13.3mg) 1 patch DAILY TD 03/20/21 09:00 03/26/21 11:18 DC 03/23/21 08:10 Quetiapine Fumarate (SEROquel) 25 mg HS PO 03/17/21 21:00 03/18/21 16:11 DC 03/17/21 21:41 Quetiapine Fumarate (SEROquel) 50 mg HS PO 03/18/21 21:00 04/03/21 17:58 DC 04/02/21 20:41 Sertraline HCl (Zoloft) 75 mg DAILY PO 03/23/21 09:00 03/25/21 12:00 DC 03/25/21 08:24 Sertraline HCl (Zoloft) 100 mg DAILY PO 03/26/21 09:00 04/11/21 08:19 Bupropion HCl (Wellbutrin Xl) 150 mg DAILY PO 03/26/21 09:00 03/27/21 21:00 DC 03/27/21 09:00 Donepezil HCl (Aricept) 5 mg DAILY PO 03/27/21 09:00 03/28/21 23:50 DC 03/28/21 08:17 Donepezil HCl (Aricept) 10 mg DAILY PO 03/29/21 09:00 04/11/21 08:19 Bupropion HCl (Wellbutrin Xl) 150 mg 0900,1200 PO 03/28/21 09:00 04/11/21 12:00 Risperidone (RisperDAL) 0.5 mg HS PO 04/03/21 21:00 04/11/21 20:27 I have reviewed the current psychotropics carefully including drug interactions. Risk benefit ratio favors no change other than as noted in my dictated progress note. Diagnosis: Problems: (1) Impulse control disorder, unspecified (2) Lewy body dementia with behavioral disturbance (3) Anxiety disorder, unspecified (4) Dementia in Alzheimer's disease with depression (5) Dementia in Alzheimer's disease with delusions (6) Major neurocognitive disorder GABRIELLA LEDEZMA MD Apr 11, 2021 21:58
--- NOTE | 2021-04-11 22:40 | NUR ---
Pt located in his room all evening. Pleasant and calm. Compliant with whole medications.
[2021-04-12 05:53] VITALS: BP 115/69
--- NOTE | 2021-04-12 07:35 | PDOC ---
Exam Note: Mike Note: his note is a late entry for 04/10/2021 covers elements not covered in my initial note. Subjective: The patient was seen individually in the evening of 04/10/2021 with Jose HECTOR, discussed and reviewed the chart. The patient slept 9-3/4 hours previous night. Reportedly the son called but the patient would not talk to him. I addressed this with him individually in his room in the evening and he said he did not remember his son called. Review of Systems: No CV, , pulmonary, eye system symptoms on review. Mental Status Exam: The patient is oriented to himself and situation. Speech coherent has some latency. Abstraction fair. Computation impaired. Language function intact. Mood and affect still depressed. Laboratory Data: Reviewed. 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 Anxiety disorder unspecified. Impulse control disorder. Plan: No change from initial note. Adjust further as clinically indicated. Assessment: Vital Signs/I&O: Vital Signs Date Time Temp Pulse Resp B/P (MAP) Pulse Ox O2 Delivery O2 Flow Rate FiO2 04/12/21 05:53 97.2 64 14 115/69 (84) 94 Room Air I & O 04/11/21 04/11/21 04/12/21 15:00 23:00 07:00 Intake Total 720 ml 600 ml Balance 720 ml 600 ml Current Medications: Meds: Current Medications Medications (Trade) Dose Ordered Sig/Greg Route PRN Reason Start Time Stop Time Status Last Admin Dose Admin Acetaminophen (Tylenol) 650 mg PRN Q6HRS PRN PO MILD PAIN / TEMP > 100.3'F 03/04/21 16:15 Multi-Ingredient Ointment (Analgesic [place]) 1 donn PRN QID PRN TP MUSCLE PAIN 03/04/21 16:15 Al Hydroxide/Mg Hydroxide (Mylanta Plus Xs) 15 ml PRN AFTMEALHC PRN PO DYSPEPSIA 03/04/21 16:15 Magnesium Hydroxide (Milk Of Magnesia) 2,400 mg PRN QHS PRN PO CONSTIPATION 03/04/21 16:15 Aspirin (Aspirin Chewable) 81 mg DAILY PO 03/05/21 09:00 04/11/21 08:19 Lisinopril (Prinivil) 10 mg DAILY PO 03/05/21 09:00 04/11/21 08:19 Vitamin D (Vitamin D3) 25 unit DAILY PO 03/05/21 09:00 03/07/21 10:29 DC 03/05/21 09:14 Metformin HCl (Glucophage) 1,000 mg BIDWMEALS PO 03/04/21 17:00 04/11/21 16:50 Atorvastatin Calcium (Lipitor) 80 mg QHS PO 03/04/21 21:00 04/11/21 20:27 Olanzapine (ZyPREXA ZYDIS) 2.5 mg PRN Q2HR PRN PO PSYCHOSIS 03/05/21 17:00 03/31/21 19:43 Vitamin D (Vitamin D3) 1,000 unit DAILY PO 03/08/21 09:00 04/11/21 08:19 Memantine (Namenda) 5 mg BID PO 03/07/21 21:00 03/11/21 18:16 DC 03/11/21 08:36 Sertraline HCl (Zoloft) 25 mg DAILY PO 03/08/21 09:00 03/10/21 20:16 DC 03/10/21 08:40 Rivastigmine (Exelon) 4.6 patch DAILY TD 03/08/21 09:00 03/09/21 13:31 DC 03/09/21 08:58 Rivastigmine (Exelon) 9.5 patch DAILY TD 03/15/21 09:00 Cancel Rivastigmine (Exelon) 1 patch DAILY TD 03/15/21 09:00 03/19/21 14:00 DC 03/19/21 09:14 Rivastigmine (Exelon) 1 patch DAILY TD 03/10/21 09:00 03/14/21 23:50 DC 03/14/21 09:00 Sertraline HCl (Zoloft) 50 mg DAILY PO 03/11/21 09:00 03/22/21 20:39 DC 03/22/21 08:39 Trazodone HCl (Desyrel) 50 mg PRN QHS PRN PO INSOMNIA 03/10/21 20:15 Memantine (Namenda) 5 mg DAILY PO 03/12/21 09:00 03/15/21 20:10 DC 03/15/21 07:59 Memantine (Namenda) 10 mg QHS PO 03/11/21 21:00 03/15/21 22:00 DC 03/15/21 21:02 Memantine (Namenda) 10 mg BID PO 03/16/21 09:00 04/11/21 20:26 Rivastigmine (Exelon 13.3mg) 1 patch DAILY TD 03/20/21 09:00 03/26/21 11:18 DC 03/23/21 08:10 Quetiapine Fumarate (SEROquel) 25 mg HS PO 03/17/21 21:00 03/18/21 16:11 DC 03/17/21 21:41 Quetiapine Fumarate (SEROquel) 50 mg HS PO 03/18/21 21:00 04/03/21 17:58 DC 04/02/21 20:41 Sertraline HCl (Zoloft) 75 mg DAILY PO 03/23/21 09:00 03/25/21 12:00 DC 03/25/21 08:24 Sertraline HCl (Zoloft) 100 mg DAILY PO 03/26/21 09:00 04/11/21 08:19 Bupropion HCl (Wellbutrin Xl) 150 mg DAILY PO 03/26/21 09:00 03/27/21 21:00 DC 03/27/21 09:00 Donepezil HCl (Aricept) 5 mg DAILY PO 03/27/21 09:00 03/28/21 23:50 DC 03/28/21 08:17 Donepezil HCl (Aricept) 10 mg DAILY PO 03/29/21 09:00 04/11/21 08:19 Bupropion HCl (Wellbutrin Xl) 150 mg 0900,1200 PO 03/28/21 09:00 04/11/21 12:00 Risperidone (RisperDAL) 0.5 mg HS PO 04/03/21 21:00 04/11/21 20:27 I have reviewed the current psychotropics carefully including drug interactions. Risk benefit ratio favors no change other than as noted in my dictated progress note. Diagnosis: Problems: (1) Impulse control disorder, unspecified (2) Lewy body dementia with behavioral disturbance (3) Anxiety disorder, unspecified (4) Dementia in Alzheimer's disease with depression (5) Dementia in Alzheimer's disease with delusions (6) Major neurocognitive disorder GABRIELLA LEDEZMA MD Apr 12, 2021 07:35
[2021-04-12] MEDS: ASPIRIN CHEWABLE 81 MG TABLET. PO SCH (08:15)
[2021-04-12] MEDS: metFORMIN 500 MG TABLET PO SCH ×2 (08:15→16:18)
[2021-04-12] MEDS: CHOLECALCIFEROL (VITAMIN D3) 1,000 UNIT TABLET PO SCH (08:15)
[2021-04-12] MEDS: DONEPEZIL HCL 10 MG TABLET PO SCH (08:16)
[2021-04-12] MEDS: MEMANTINE 10 MG TABLET. PO SCH ×2 (08:16→20:19)
[2021-04-12] MEDS: buPROPion XL 150 MG TAB.ER.24H PO SCH ×2 (08:16→11:36)
[2021-04-12] MEDS: SERTRALINE 100 MG TABLET. PO SCH (08:16)
[2021-04-12] MEDS: LISINOPRIL 10 MG TABLET PO SCH (08:16)
--- NOTE | 2021-04-12 08:55 | NUR ---
Pt quiet and reserved, absent of disruptive behaviors on the unit. He does not say much in response to assessment questions. He denies SI/HI/VH/AH/delusions/pain. He is compliant with morning medications. He remains primarily withdrawn and does not interact with others. Plan of care continues, will pass to next shift.
--- NOTE | 2021-04-12 11:48 | PDOC ---
Exam Note: Mike Note: This note is a late entry for 04/11/2021 covers elements not covered in my initial note. Subjective: The patient was seen individually in the evening of 04/11/2021 with Dora HECTOR, discussed and reviewed the chart. The patient slept 7-1/4 hours previous night. Patient has been withdrawn, spends much time in his room. Review of Systems: No CV, , pulmonary, eye system symptoms on review. Mental Status Exam: The patient is oriented to himself and situation. Speech coherent has some latency. Abstraction fair. Computation impaired. Language function intact. Mood and affect somewhat withdrawn. No suicidal or homicidal ideation. Laboratory Data: Reviewed. 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 Anxiety disorder unspecified. Impulse control disorder. Plan: No change from initial note. Adjust further as clinically indicated. Assessment: Vital Signs/I&O: Vital Signs Date Time Temp Pulse Resp B/P (MAP) Pulse Ox O2 Delivery O2 Flow Rate FiO2 04/12/21 08:16 64 115/69 04/12/21 05:53 97.2 14 94 Room Air I & O 04/11/21 04/11/21 04/12/21 15:00 23:00 07:00 Intake Total 720 ml 600 ml Balance 720 ml 600 ml Labs: Laboratory Tests Test 04/12/21 07:57 Glucose (Fingerstick) 101 mg/dL (70-99) H Current Medications: Meds: Laboratory Tests Test 04/12/21 07:57 Glucose (Fingerstick) 101 mg/dL Current Medications Medications (Trade) Dose Ordered Sig/Greg Route PRN Reason Start Time Stop Time Status Last Admin Dose Admin Acetaminophen (Tylenol) 650 mg PRN Q6HRS PRN PO MILD PAIN / TEMP > 100.3'F 03/04/21 16:15 Multi-Ingredient Ointment (Analgesic [place]) 1 donn PRN QID PRN TP MUSCLE PAIN 03/04/21 16:15 Al Hydroxide/Mg Hydroxide (Mylanta Plus Xs) 15 ml PRN AFTMEALHC PRN PO DYSPEPSIA 03/04/21 16:15 Magnesium Hydroxide (Milk Of Magnesia) 2,400 mg PRN QHS PRN PO CONSTIPATION 03/04/21 16:15 Aspirin (Aspirin Chewable) 81 mg DAILY PO 03/05/21 09:00 04/12/21 08:15 Lisinopril (Prinivil) 10 mg DAILY PO 03/05/21 09:00 04/12/21 08:16 Vitamin D (Vitamin D3) 25 unit DAILY PO 03/05/21 09:00 03/07/21 10:29 DC 03/05/21 09:14 Metformin HCl (Glucophage) 1,000 mg BIDWMEALS PO 03/04/21 17:00 04/12/21 08:15 Atorvastatin Calcium (Lipitor) 80 mg QHS PO 03/04/21 21:00 04/11/21 20:27 Olanzapine (ZyPREXA ZYDIS) 2.5 mg PRN Q2HR PRN PO PSYCHOSIS 03/05/21 17:00 03/31/21 19:43 Vitamin D (Vitamin D3) 1,000 unit DAILY PO 03/08/21 09:00 04/12/21 08:15 Memantine (Namenda) 5 mg BID PO 03/07/21 21:00 03/11/21 18:16 DC 03/11/21 08:36 Sertraline HCl (Zoloft) 25 mg DAILY PO 03/08/21 09:00 03/10/21 20:16 DC 03/10/21 08:40 Rivastigmine (Exelon) 4.6 patch DAILY TD 03/08/21 09:00 03/09/21 13:31 DC 03/09/21 08:58 Rivastigmine (Exelon) 9.5 patch DAILY TD 03/15/21 09:00 Cancel Rivastigmine (Exelon) 1 patch DAILY TD 03/15/21 09:00 03/19/21 14:00 DC 03/19/21 09:14 Rivastigmine (Exelon) 1 patch DAILY TD 03/10/21 09:00 03/14/21 23:50 DC 03/14/21 09:00 Sertraline HCl (Zoloft) 50 mg DAILY PO 03/11/21 09:00 03/22/21 20:39 DC 03/22/21 08:39 Trazodone HCl (Desyrel) 50 mg PRN QHS PRN PO INSOMNIA 03/10/21 20:15 Memantine (Namenda) 5 mg DAILY PO 03/12/21 09:00 03/15/21 20:10 DC 03/15/21 07:59 Memantine (Namenda) 10 mg QHS PO 03/11/21 21:00 03/15/21 22:00 DC 03/15/21 21:02 Memantine (Namenda) 10 mg BID PO 03/16/21 09:00 04/12/21 08:16 Rivastigmine (Exelon 13.3mg) 1 patch DAILY TD 03/20/21 09:00 03/26/21 11:18 DC 03/23/21 08:10 Quetiapine Fumarate (SEROquel) 25 mg HS PO 03/17/21 21:00 03/18/21 16:11 DC 03/17/21 21:41 Quetiapine Fumarate (SEROquel) 50 mg HS PO 03/18/21 21:00 04/03/21 17:58 DC 04/02/21 20:41 Sertraline HCl (Zoloft) 75 mg DAILY PO 03/23/21 09:00 03/25/21 12:00 DC 03/25/21 08:24 Sertraline HCl (Zoloft) 100 mg DAILY PO 03/26/21 09:00 04/12/21 08:16 Bupropion HCl (Wellbutrin Xl) 150 mg DAILY PO 03/26/21 09:00 03/27/21 21:00 DC 03/27/21 09:00 Donepezil HCl (Aricept) 5 mg DAILY PO 03/27/21 09:00 03/28/21 23:50 DC 03/28/21 08:17 Donepezil HCl (Aricept) 10 mg DAILY PO 03/29/21 09:00 04/12/21 08:16 Bupropion HCl (Wellbutrin Xl) 150 mg 0900,1200 PO 03/28/21 09:00 04/12/21 11:36 Risperidone (RisperDAL) 0.5 mg HS PO 04/03/21 21:00 04/11/21 20:27 I have reviewed the current psychotropics carefully including drug interactions. Risk benefit ratio favors no change other than as noted in my dictated progress note. Diagnosis: Problems: (1) Impulse control disorder, unspecified (2) Lewy body dementia with behavioral disturbance (3) Anxiety disorder, unspecified (4) Dementia in Alzheimer's disease with depression (5) Dementia in Alzheimer's disease with delusions (6) Major neurocognitive disorder GABRIELLA LEDEZMA MD Apr 12, 2021 11:48
[2021-04-12 14:56] VITALS: BP 132/79
[2021-04-12] MEDS: ATORVASTATIN CALCIUM 20 MG TABLET PO SCH (20:19)
[2021-04-12] MEDS: risperiDONE 0.5 MG TABLET. PO SCH (20:19)
--- NOTE | 2021-04-12 20:52 | PDOC ---
Exam Note: Mike Note: Please also refer to the separate dictated note~for this date of service dictated separately.~Patient seen individually. Discussed the patient with Nursing staff reviewed the chart.~Reviewed interim history and current functioning. Reviewed vital signs,~Labs/ Radiology~and current medications noted below. Continue current treatment with the changes noted in the dictated addendum note Assessment: Vital Signs/I&O: Vital Signs Date Time Temp Pulse Resp B/P (MAP) Pulse Ox O2 Delivery O2 Flow Rate FiO2 04/12/21 14:56 97.8 68 17 132/79 (96) 97 04/12/21 05:53 Room Air I & O 04/11/21 04/11/21 04/12/21 15:00 23:00 07:00 Intake Total 720 ml 600 ml Balance 720 ml 600 ml Labs: Laboratory Tests Test 04/12/21 07:57 Glucose (Fingerstick) 101 mg/dL (70-99) H Current Medications: Meds: Laboratory Tests Test 04/12/21 07:57 Glucose (Fingerstick) 101 mg/dL Current Medications Medications (Trade) Dose Ordered Sig/Greg Route PRN Reason Start Time Stop Time Status Last Admin Dose Admin Acetaminophen (Tylenol) 650 mg PRN Q6HRS PRN PO MILD PAIN / TEMP > 100.3'F 03/04/21 16:15 Multi-Ingredient Ointment (Analgesic [place]) 1 donn PRN QID PRN TP MUSCLE PAIN 03/04/21 16:15 Al Hydroxide/Mg Hydroxide (Mylanta Plus Xs) 15 ml PRN AFTMEALHC PRN PO DYSPEPSIA 03/04/21 16:15 Magnesium Hydroxide (Milk Of Magnesia) 2,400 mg PRN QHS PRN PO CONSTIPATION 03/04/21 16:15 Aspirin (Aspirin Chewable) 81 mg DAILY PO 03/05/21 09:00 04/12/21 08:15 Lisinopril (Prinivil) 10 mg DAILY PO 03/05/21 09:00 04/12/21 08:16 Vitamin D (Vitamin D3) 25 unit DAILY PO 03/05/21 09:00 03/07/21 10:29 DC 03/05/21 09:14 Metformin HCl (Glucophage) 1,000 mg BIDWMEALS PO 03/04/21 17:00 04/12/21 16:18 Atorvastatin Calcium (Lipitor) 80 mg QHS PO 03/04/21 21:00 04/12/21 20:19 Olanzapine (ZyPREXA ZYDIS) 2.5 mg PRN Q2HR PRN PO PSYCHOSIS 03/05/21 17:00 03/31/21 19:43 Vitamin D (Vitamin D3) 1,000 unit DAILY PO 03/08/21 09:00 04/12/21 08:15 Memantine (Namenda) 5 mg BID PO 03/07/21 21:00 03/11/21 18:16 DC 03/11/21 08:36 Sertraline HCl (Zoloft) 25 mg DAILY PO 03/08/21 09:00 03/10/21 20:16 DC 03/10/21 08:40 Rivastigmine (Exelon) 4.6 patch DAILY TD 03/08/21 09:00 03/09/21 13:31 DC 03/09/21 08:58 Rivastigmine (Exelon) 9.5 patch DAILY TD 03/15/21 09:00 Cancel Rivastigmine (Exelon) 1 patch DAILY TD 03/15/21 09:00 03/19/21 14:00 DC 03/19/21 09:14 Rivastigmine (Exelon) 1 patch DAILY TD 03/10/21 09:00 03/14/21 23:50 DC 03/14/21 09:00 Sertraline HCl (Zoloft) 50 mg DAILY PO 03/11/21 09:00 03/22/21 20:39 DC 03/22/21 08:39 Trazodone HCl (Desyrel) 50 mg PRN QHS PRN PO INSOMNIA 03/10/21 20:15 Memantine (Namenda) 5 mg DAILY PO 03/12/21 09:00 03/15/21 20:10 DC 03/15/21 07:59 Memantine (Namenda) 10 mg QHS PO 03/11/21 21:00 03/15/21 22:00 DC 03/15/21 21:02 Memantine (Namenda) 10 mg BID PO 03/16/21 09:00 04/12/21 20:19 Rivastigmine (Exelon 13.3mg) 1 patch DAILY TD 03/20/21 09:00 03/26/21 11:18 DC 03/23/21 08:10 Quetiapine Fumarate (SEROquel) 25 mg HS PO 03/17/21 21:00 03/18/21 16:11 DC 03/17/21 21:41 Quetiapine Fumarate (SEROquel) 50 mg HS PO 03/18/21 21:00 04/03/21 17:58 DC 04/02/21 20:41 Sertraline HCl (Zoloft) 75 mg DAILY PO 03/23/21 09:00 03/25/21 12:00 DC 03/25/21 08:24 Sertraline HCl (Zoloft) 100 mg DAILY PO 03/26/21 09:00 04/12/21 08:16 Bupropion HCl (Wellbutrin Xl) 150 mg DAILY PO 03/26/21 09:00 03/27/21 21:00 DC 03/27/21 09:00 Donepezil HCl (Aricept) 5 mg DAILY PO 03/27/21 09:00 03/28/21 23:50 DC 03/28/21 08:17 Donepezil HCl (Aricept) 10 mg DAILY PO 03/29/21 09:00 04/12/21 08:16 Bupropion HCl (Wellbutrin Xl) 150 mg 0900,1200 PO 03/28/21 09:00 04/12/21 11:36 Risperidone (RisperDAL) 0.5 mg HS PO 04/03/21 21:00 04/12/21 20:19 I have reviewed the current psychotropics carefully including drug interactions. Risk benefit ratio favors no change other than as noted in my dictated progress note. Diagnosis: Problems: (1) Impulse control disorder, unspecified (2) Lewy body dementia with behavioral disturbance (3) Anxiety disorder, unspecified (4) Dementia in Alzheimer's disease with depression (5) Dementia in Alzheimer's disease with delusions (6) Major neurocognitive disorder GABRIELLA LEDEZMA MD Apr 12, 2021 20:52
--- NOTE | 2021-04-12 23:43 | NUR ---
Pt located in his room this evening. No behaviors. Pleasant and compliant with whole medications.
[2021-04-13 05:57] VITALS: BP 148/86
--- NOTE | 2021-04-13 06:36 | PDOC ---
Exam Note: Mike Note: PThis note is a late entry for 04/12/2021 covers elements not covered in my initial note. Subjective: The patient was seen individually in the evening of 04/12/2021 with Dora HECTOR, discussed and reviewed the chart. The patient slept 8 hours previous night. Patient hung up on his song today. Review of Systems: No CV, , pulmonary, eye system symptoms on review. He is slightly hard of hearing. Mental Status Exam: The patient is oriented to himself and situation. Speech coherent has some latency. Abstraction fair. Computation impaired. Language function intact. Mood and affect somewhat withdrawn. No suicidal or homicidal ideation. Laboratory Data: Reviewed. 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 Anxiety disorder unspecified. Impulse control disorder. Plan: No change from initial note. Adjust further as clinically indicated. Assessment: Vital Signs/I&O: Vital Signs Date Time Temp Pulse Resp B/P (MAP) Pulse Ox O2 Delivery O2 Flow Rate FiO2 04/13/21 05:57 97.5 74 14 148/86 (106) 95 04/12/21 05:53 Room Air I & O 04/12/21 04/12/21 04/13/21 14:59 22:59 06:59 Intake Total 720 ml 480 ml Balance 720 ml 480 ml Labs: Laboratory Tests Test 04/12/21 07:57 Glucose (Fingerstick) 101 mg/dL (70-99) H Current Medications: Meds: Laboratory Tests Test 04/12/21 07:57 Glucose (Fingerstick) 101 mg/dL Current Medications Medications (Trade) Dose Ordered Sig/Greg Route PRN Reason Start Time Stop Time Status Last Admin Dose Admin Acetaminophen (Tylenol) 650 mg PRN Q6HRS PRN PO MILD PAIN / TEMP > 100.3'F 03/04/21 16:15 Multi-Ingredient Ointment (Analgesic [place]) 1 donn PRN QID PRN TP MUSCLE PAIN 03/04/21 16:15 Al Hydroxide/Mg Hydroxide (Mylanta Plus Xs) 15 ml PRN AFTMEALHC PRN PO DYSPEPSIA 03/04/21 16:15 Magnesium Hydroxide (Milk Of Magnesia) 2,400 mg PRN QHS PRN PO CONSTIPATION 03/04/21 16:15 Aspirin (Aspirin Chewable) 81 mg DAILY PO 03/05/21 09:00 04/12/21 08:15 Lisinopril (Prinivil) 10 mg DAILY PO 03/05/21 09:00 04/12/21 08:16 Vitamin D (Vitamin D3) 25 unit DAILY PO 03/05/21 09:00 03/07/21 10:29 DC 03/05/21 09:14 Metformin HCl (Glucophage) 1,000 mg BIDWMEALS PO 03/04/21 17:00 04/12/21 16:18 Atorvastatin Calcium (Lipitor) 80 mg QHS PO 03/04/21 21:00 04/12/21 20:19 Olanzapine (ZyPREXA ZYDIS) 2.5 mg PRN Q2HR PRN PO PSYCHOSIS 03/05/21 17:00 03/31/21 19:43 Vitamin D (Vitamin D3) 1,000 unit DAILY PO 03/08/21 09:00 04/12/21 08:15 Memantine (Namenda) 5 mg BID PO 03/07/21 21:00 03/11/21 18:16 DC 03/11/21 08:36 Sertraline HCl (Zoloft) 25 mg DAILY PO 03/08/21 09:00 03/10/21 20:16 DC 03/10/21 08:40 Rivastigmine (Exelon) 4.6 patch DAILY TD 03/08/21 09:00 03/09/21 13:31 DC 03/09/21 08:58 Rivastigmine (Exelon) 9.5 patch DAILY TD 03/15/21 09:00 Cancel Rivastigmine (Exelon) 1 patch DAILY TD 03/15/21 09:00 03/19/21 14:00 DC 03/19/21 09:14 Rivastigmine (Exelon) 1 patch DAILY TD 03/10/21 09:00 03/14/21 23:50 DC 03/14/21 09:00 Sertraline HCl (Zoloft) 50 mg DAILY PO 03/11/21 09:00 03/22/21 20:39 DC 03/22/21 08:39 Trazodone HCl (Desyrel) 50 mg PRN QHS PRN PO INSOMNIA 03/10/21 20:15 Memantine (Namenda) 5 mg DAILY PO 03/12/21 09:00 03/15/21 20:10 DC 03/15/21 07:59 Memantine (Namenda) 10 mg QHS PO 03/11/21 21:00 03/15/21 22:00 DC 03/15/21 21:02 Memantine (Namenda) 10 mg BID PO 03/16/21 09:00 04/12/21 20:19 Rivastigmine (Exelon 13.3mg) 1 patch DAILY TD 03/20/21 09:00 03/26/21 11:18 DC 03/23/21 08:10 Quetiapine Fumarate (SEROquel) 25 mg HS PO 03/17/21 21:00 03/18/21 16:11 DC 03/17/21 21:41 Quetiapine Fumarate (SEROquel) 50 mg HS PO 03/18/21 21:00 04/03/21 17:58 DC 04/02/21 20:41 Sertraline HCl (Zoloft) 75 mg DAILY PO 03/23/21 09:00 03/25/21 12:00 DC 03/25/21 08:24 Sertraline HCl (Zoloft) 100 mg DAILY PO 03/26/21 09:00 04/12/21 08:16 Bupropion HCl (Wellbutrin Xl) 150 mg DAILY PO 03/26/21 09:00 03/27/21 21:00 DC 03/27/21 09:00 Donepezil HCl (Aricept) 5 mg DAILY PO 03/27/21 09:00 03/28/21 23:50 DC 03/28/21 08:17 Donepezil HCl (Aricept) 10 mg DAILY PO 03/29/21 09:00 04/12/21 08:16 Bupropion HCl (Wellbutrin Xl) 150 mg 0900,1200 PO 03/28/21 09:00 04/12/21 11:36 Risperidone (RisperDAL) 0.5 mg HS PO 04/03/21 21:00 04/12/21 20:19 I have reviewed the current psychotropics carefully including drug interactions. Risk benefit ratio favors no change other than as noted in my dictated progress note. Diagnosis: Problems: (1) Impulse control disorder, unspecified (2) Lewy body dementia with behavioral disturbance (3) Anxiety disorder, unspecified (4) Dementia in Alzheimer's disease with depression (5) Dementia in Alzheimer's disease with delusions (6) Major neurocognitive disorder GABRIELLA LEDEZMA MD Apr 13, 2021 06:36
[2021-04-13] MEDS: ASPIRIN CHEWABLE 81 MG TABLET. PO SCH (08:08)
[2021-04-13] MEDS: MEMANTINE 10 MG TABLET. PO SCH ×2 (08:08→20:04)
[2021-04-13] MEDS: SERTRALINE 100 MG TABLET. PO SCH (08:08)
[2021-04-13] MEDS: buPROPion XL 150 MG TAB.ER.24H PO SCH ×2 (08:08→12:12)
[2021-04-13] MEDS: metFORMIN 500 MG TABLET PO SCH ×2 (08:08→17:12)
[2021-04-13] MEDS: DONEPEZIL HCL 10 MG TABLET PO SCH (08:08)
[2021-04-13] MEDS: CHOLECALCIFEROL (VITAMIN D3) 1,000 UNIT TABLET PO SCH (08:08)
[2021-04-13] MEDS: LISINOPRIL 10 MG TABLET PO SCH (08:09)
--- NOTE | 2021-04-13 11:28 | NUR ---
Nursing note: Pt in dining room at time of AM med pass and assessment. He is pleasant, med compliant and cooperative. He denies having any pain/concerns. Pt remains withdrawn to his room. Will continue to monitor.
--- NOTE | 2021-04-13 14:05 | NUR ---
GEOVANNA returned call to CRISTY Parker at [facility], who wanted to further discuss pt case. Pt son reached out asking them to reconsider pt for placement. GEOVANNA went over pt behaviors on the unit and explained to Elena that pt is the best pt we have at this time. Pt is not aggressive. He is calm, compliant and able to follow staff directives. He is very withdrawn and staff would like to see him more interactive but otherwise, no concerns. Elena expressed concern about possible behavior with having a Lewy Body diagnosis and GEOVANNA expressed understanding; however, also noted that pt has not had any behaviors despite his diagnosis. Elena mentioned the fact that pt thinks his son is and GEOVANNA stated "yes...that's part of dementia and having delusional thoughts. He's not distraught and does not have behaviors around it". GEOVANNA expressed concerns that they are "looking for things and analyzing what could happen down the road". Elena continued to mention the fact that pt has been at [facility] for a while and GEOVANNA stated "yes, because other are doing the same thing she is and overthinking the current situation". Elena laughed and stated "we have a mutual friend in common. She told me you would be honest with me". GEOVANNA stated back "I have no need to lie to a facility about placement. I get it has to fit for you guys and it has to fit for him, because otherwise, it does no good for everone involved and time is wasted. However, I also think facilities who say that they can handle Dementia pts may need to re-evaluate that statement, because if you do, he would be a shoe-in for your program and we wouldn't be going through all of this right now". Elena will double check with nursing and then also check with the regional team and let GEOVANNA know their final decision.
[2021-04-13 15:42] VITALS: BP 129/81
--- NOTE | 2021-04-13 16:42 | NUR ---
GEOVANNA returned call to Yonathan to discuss his conversation with Elena from [place]. GEOVANNA informed Yonathan that she will reconsider placement for him; however, the greater concern is his diagnosis. The potential for behaviors down the road is more concerning that his ability to "walk out of the facility". GEOVANNA informed Yonathan that there is a place near [place] that would be willing to look at pt and he is concerned that the distance is 75 miles in the opposite direction than him. GEOVANNA explained that at this point we will have to consider all options despite location. If he can get someone closer to take him pt can be moved; furthermore, [facility] will not continue to pay for pt to be here much longer. Oliver did ask GEOVANNA to send a referral to [facility] in [place]; it's not an ideal place, but he rather have him close by versus "too far away". GEOVANNA will follow up and inform Yonathan of decisions made on [place]'s end and [facility].
[2021-04-13] MEDS: ATORVASTATIN CALCIUM 20 MG TABLET PO SCH (20:04)
[2021-04-13] MEDS ORDERED: risperiDONE 0.25 MG TABLET. PO SCH (21:00)
--- NOTE | 2021-04-13 21:05 | PDOC ---
Exam Note: Mike Note: Please also refer to the separate dictated note~for this date of service dictated separately.~Patient seen individually. Discussed the patient with Nursing staff reviewed the chart.~Reviewed interim history and current functioning. Reviewed vital signs,~Labs/ Radiology~and current medications noted below. Continue current treatment with the changes noted in the dictated addendum note Assessment: Vital Signs/I&O: Vital Signs Date Time Temp Pulse Resp B/P (MAP) Pulse Ox O2 Delivery O2 Flow Rate FiO2 04/13/21 15:42 97.3 65 18 129/81 (97) 95 04/12/21 05:53 Room Air I & O 04/12/21 04/12/21 04/13/21 15:00 23:00 07:00 Intake Total 720 ml 480 ml Balance 720 ml 480 ml Labs: Laboratory Tests Test 04/13/21 07:25 Glucose (Fingerstick) 91 mg/dL (70-99) Current Medications: Meds: Laboratory Tests Test 04/13/21 07:25 Glucose (Fingerstick) 91 mg/dL Current Medications Medications (Trade) Dose Ordered Sig/Greg Route PRN Reason Start Time Stop Time Status Last Admin Dose Admin Acetaminophen (Tylenol) 650 mg PRN Q6HRS PRN PO MILD PAIN / TEMP > 100.3'F 03/04/21 16:15 Multi-Ingredient Ointment (Analgesic [place]) 1 donn PRN QID PRN TP MUSCLE PAIN 03/04/21 16:15 Al Hydroxide/Mg Hydroxide (Mylanta Plus Xs) 15 ml PRN AFTMEALHC PRN PO DYSPEPSIA 03/04/21 16:15 Magnesium Hydroxide (Milk Of Magnesia) 2,400 mg PRN QHS PRN PO CONSTIPATION 03/04/21 16:15 Aspirin (Aspirin Chewable) 81 mg DAILY PO 03/05/21 09:00 04/13/21 08:08 Lisinopril (Prinivil) 10 mg DAILY PO 03/05/21 09:00 04/13/21 08:09 Vitamin D (Vitamin D3) 25 unit DAILY PO 03/05/21 09:00 03/07/21 10:29 DC 03/05/21 09:14 Metformin HCl (Glucophage) 1,000 mg BIDWMEALS PO 03/04/21 17:00 04/13/21 17:12 Atorvastatin Calcium (Lipitor) 80 mg QHS PO 03/04/21 21:00 04/13/21 20:04 Olanzapine (ZyPREXA ZYDIS) 2.5 mg PRN Q2HR PRN PO PSYCHOSIS 03/05/21 17:00 03/31/21 19:43 Vitamin D (Vitamin D3) 1,000 unit DAILY PO 03/08/21 09:00 04/13/21 08:08 Memantine (Namenda) 5 mg BID PO 03/07/21 21:00 03/11/21 18:16 DC 03/11/21 08:36 Sertraline HCl (Zoloft) 25 mg DAILY PO 03/08/21 09:00 03/10/21 20:16 DC 03/10/21 08:40 Rivastigmine (Exelon) 4.6 patch DAILY TD 03/08/21 09:00 03/09/21 13:31 DC 03/09/21 08:58 Rivastigmine (Exelon) 9.5 patch DAILY TD 03/15/21 09:00 Cancel Rivastigmine (Exelon) 1 patch DAILY TD 03/15/21 09:00 03/19/21 14:00 DC 03/19/21 09:14 Rivastigmine (Exelon) 1 patch DAILY TD 03/10/21 09:00 03/14/21 23:50 DC 03/14/21 09:00 Sertraline HCl (Zoloft) 50 mg DAILY PO 03/11/21 09:00 03/22/21 20:39 DC 03/22/21 08:39 Trazodone HCl (Desyrel) 50 mg PRN QHS PRN PO INSOMNIA 03/10/21 20:15 Memantine (Namenda) 5 mg DAILY PO 03/12/21 09:00 03/15/21 20:10 DC 03/15/21 07:59 Memantine (Namenda) 10 mg QHS PO 03/11/21 21:00 03/15/21 22:00 DC 03/15/21 21:02 Memantine (Namenda) 10 mg BID PO 03/16/21 09:00 04/13/21 20:04 Rivastigmine (Exelon 13.3mg) 1 patch DAILY TD 03/20/21 09:00 03/26/21 11:18 DC 03/23/21 08:10 Quetiapine Fumarate (SEROquel) 25 mg HS PO 03/17/21 21:00 03/18/21 16:11 DC 03/17/21 21:41 Quetiapine Fumarate (SEROquel) 50 mg HS PO 03/18/21 21:00 04/03/21 17:58 DC 04/02/21 20:41 Sertraline HCl (Zoloft) 75 mg DAILY PO 03/23/21 09:00 03/25/21 12:00 DC 03/25/21 08:24 Sertraline HCl (Zoloft) 100 mg DAILY PO 03/26/21 09:00 04/13/21 08:08 Bupropion HCl (Wellbutrin Xl) 150 mg DAILY PO 03/26/21 09:00 03/27/21 21:00 DC 03/27/21 09:00 Donepezil HCl (Aricept) 5 mg DAILY PO 03/27/21 09:00 03/28/21 23:50 DC 03/28/21 08:17 Donepezil HCl (Aricept) 10 mg DAILY PO 03/29/21 09:00 04/13/21 08:08 Bupropion HCl (Wellbutrin Xl) 150 mg 0900,1200 PO 03/28/21 09:00 04/13/21 12:12 Risperidone (RisperDAL) 0.5 mg HS PO 04/03/21 21:00 04/13/21 18:25 DC 04/12/21 20:19 Risperidone (RisperDAL) 0.75 mg QHS PO 04/13/21 21:00 04/13/21 20:06 Current Medications Medications (Trade) Dose Ordered Sig/Greg Route PRN Reason Start Time Stop Time Status Last Admin Dose Admin Risperidone (RisperDAL) 0.75 mg QHS PO 04/13/21 21:00 04/13/21 20:06 I have reviewed the current psychotropics carefully including drug interactions. Risk benefit ratio favors no change other than as noted in my dictated progress note. Diagnosis: Problems: (1) Impulse control disorder, unspecified (2) Lewy body dementia with behavioral disturbance (3) Anxiety disorder, unspecified (4) Dementia in Alzheimer's disease with depression (5) Dementia in Alzheimer's disease with delusions (6) Major neurocognitive disorder GABRIELLA LEDEZMA MD Apr 13, 2021 21:05
--- NOTE | 2021-04-13 23:57 | NUR ---
Pt located in his room all evening. Compliant with whole medications. Calm and pleasant.
[2021-04-14 06:04] VITALS: BP 136/84
[2021-04-14] MEDS: LISINOPRIL 10 MG TABLET PO SCH (08:31)
[2021-04-14] MEDS: buPROPion XL 150 MG TAB.ER.24H PO SCH ×2 (08:31→12:09)
[2021-04-14] MEDS: CHOLECALCIFEROL (VITAMIN D3) 1,000 UNIT TABLET PO SCH (08:31)
[2021-04-14] MEDS: MEMANTINE 10 MG TABLET. PO SCH ×2 (08:31→21:17)
[2021-04-14] MEDS: DONEPEZIL HCL 10 MG TABLET PO SCH (08:31)
[2021-04-14] MEDS: ASPIRIN CHEWABLE 81 MG TABLET. PO SCH (08:31)
[2021-04-14] MEDS: SERTRALINE 100 MG TABLET. PO SCH (08:31)
[2021-04-14] MEDS: metFORMIN 500 MG TABLET PO SCH ×2 (08:31→16:41)
--- NOTE | 2021-04-14 09:11 | NUR ---
Pt has been visible on the unit, he has been appropriate in his interactions with others and is absent of disruptive behaviors. He does not say much in response to assessment questions. He denies SI/HI/VH/AH/delusions/pain. Pt A&Ox3, however when asked the situation regarding his hospitalization pt spoke about people "changing the street signs" and "I drove [place] 3 states in 15 minutes." He is compliant with morning medications. Plan of care continues, will pass to next shift.
--- NOTE | 2021-04-14 14:59 | NUR ---
GEOVANNA attempted to contact [facility] to speak to admissions and left a message asking for Velma to contact GEOVANNA re: an admission.
[2021-04-14 16:00] VITALS: BP 137/83
--- NOTE | 2021-04-14 20:50 | PDOC ---
Exam Note: Mike Note: Please also refer to the separate dictated note~for this date of service dictated separately.~Patient seen individually. Discussed the patient with Nursing staff reviewed the chart.~Reviewed interim history and current functioning. Reviewed vital signs,~Labs/ Radiology~and current medications noted below. Continue current treatment with the changes noted in the dictated addendum note Assessment: Vital Signs/I&O: Vital Signs Date Time Temp Pulse Resp B/P (MAP) Pulse Ox O2 Delivery O2 Flow Rate FiO2 04/14/21 16:00 97.8 90 16 137/83 (101) 96 04/12/21 05:53 Room Air I & O 04/13/21 04/13/21 04/14/21 15:00 23:00 07:00 Intake Total 600 ml 240 ml 120 ml Balance 600 ml 240 ml 120 ml Labs: Laboratory Tests Test 04/14/21 07:19 Glucose (Fingerstick) 84 mg/dL (70-99) Current Medications: Meds: Laboratory Tests Test 04/14/21 07:19 Glucose (Fingerstick) 84 mg/dL Current Medications Medications (Trade) Dose Ordered Sig/Greg Route PRN Reason Start Time Stop Time Status Last Admin Dose Admin Acetaminophen (Tylenol) 650 mg PRN Q6HRS PRN PO MILD PAIN / TEMP > 100.3'F 03/04/21 16:15 Multi-Ingredient Ointment (Analgesic [place]) 1 donn PRN QID PRN TP MUSCLE PAIN 03/04/21 16:15 Al Hydroxide/Mg Hydroxide (Mylanta Plus Xs) 15 ml PRN AFTMEALHC PRN PO DYSPEPSIA 03/04/21 16:15 Magnesium Hydroxide (Milk Of Magnesia) 2,400 mg PRN QHS PRN PO CONSTIPATION 03/04/21 16:15 Aspirin (Aspirin Chewable) 81 mg DAILY PO 03/05/21 09:00 04/14/21 08:31 Lisinopril (Prinivil) 10 mg DAILY PO 03/05/21 09:00 04/14/21 08:31 Vitamin D (Vitamin D3) 25 unit DAILY PO 03/05/21 09:00 03/07/21 10:29 DC 03/05/21 09:14 Metformin HCl (Glucophage) 1,000 mg BIDWMEALS PO 03/04/21 17:00 04/14/21 16:41 Atorvastatin Calcium (Lipitor) 80 mg QHS PO 03/04/21 21:00 04/13/21 20:04 Olanzapine (ZyPREXA ZYDIS) 2.5 mg PRN Q2HR PRN PO PSYCHOSIS 03/05/21 17:00 03/31/21 19:43 Vitamin D (Vitamin D3) 1,000 unit DAILY PO 03/08/21 09:00 04/14/21 08:31 Memantine (Namenda) 5 mg BID PO 03/07/21 21:00 03/11/21 18:16 DC 03/11/21 08:36 Sertraline HCl (Zoloft) 25 mg DAILY PO 03/08/21 09:00 03/10/21 20:16 DC 03/10/21 08:40 Rivastigmine (Exelon) 4.6 patch DAILY TD 03/08/21 09:00 03/09/21 13:31 DC 03/09/21 08:58 Rivastigmine (Exelon) 9.5 patch DAILY TD 03/15/21 09:00 Cancel Rivastigmine (Exelon) 1 patch DAILY TD 03/15/21 09:00 03/19/21 14:00 DC 03/19/21 09:14 Rivastigmine (Exelon) 1 patch DAILY TD 03/10/21 09:00 03/14/21 23:50 DC 03/14/21 09:00 Sertraline HCl (Zoloft) 50 mg DAILY PO 03/11/21 09:00 03/22/21 20:39 DC 03/22/21 08:39 Trazodone HCl (Desyrel) 50 mg PRN QHS PRN PO INSOMNIA 03/10/21 20:15 Memantine (Namenda) 5 mg DAILY PO 03/12/21 09:00 03/15/21 20:10 DC 03/15/21 07:59 Memantine (Namenda) 10 mg QHS PO 03/11/21 21:00 03/15/21 22:00 DC 03/15/21 21:02 Memantine (Namenda) 10 mg BID PO 03/16/21 09:00 04/14/21 08:31 Rivastigmine (Exelon 13.3mg) 1 patch DAILY TD 03/20/21 09:00 03/26/21 11:18 DC 03/23/21 08:10 Quetiapine Fumarate (SEROquel) 25 mg HS PO 03/17/21 21:00 03/18/21 16:11 DC 03/17/21 21:41 Quetiapine Fumarate (SEROquel) 50 mg HS PO 03/18/21 21:00 04/03/21 17:58 DC 04/02/21 20:41 Sertraline HCl (Zoloft) 75 mg DAILY PO 03/23/21 09:00 03/25/21 12:00 DC 03/25/21 08:24 Sertraline HCl (Zoloft) 100 mg DAILY PO 03/26/21 09:00 04/14/21 08:31 Bupropion HCl (Wellbutrin Xl) 150 mg DAILY PO 03/26/21 09:00 03/27/21 21:00 DC 03/27/21 09:00 Donepezil HCl (Aricept) 5 mg DAILY PO 03/27/21 09:00 03/28/21 23:50 DC 03/28/21 08:17 Donepezil HCl (Aricept) 10 mg DAILY PO 03/29/21 09:00 04/14/21 08:31 Bupropion HCl (Wellbutrin Xl) 150 mg 0900,1200 PO 03/28/21 09:00 04/14/21 12:09 Risperidone (RisperDAL) 0.5 mg HS PO 04/03/21 21:00 04/13/21 18:25 DC 04/12/21 20:19 Risperidone (RisperDAL) 0.75 mg QHS PO 04/13/21 21:00 04/14/21 20:09 DC 04/13/21 20:06 Risperidone (RisperDAL) 1 mg HS PO 04/14/21 21:00 Current Medications Medications (Trade) Dose Ordered Sig/Greg Route PRN Reason Start Time Stop Time Status Last Admin Dose Admin Risperidone (RisperDAL) 0.75 mg QHS PO 04/13/21 21:00 04/14/21 20:09 DC 04/13/21 20:06 I have reviewed the current psychotropics carefully including drug interactions. Risk benefit ratio favors no change other than as noted in my dictated progress note. Diagnosis: Problems: (1) Impulse control disorder, unspecified (2) Lewy body dementia with behavioral disturbance (3) Anxiety disorder, unspecified (4) Dementia in Alzheimer's disease with depression (5) Dementia in Alzheimer's disease with delusions (6) Major neurocognitive disorder GABRIELLA LEDEZMA MD Apr 14, 2021 20:50
[2021-04-14] MEDS: ATORVASTATIN CALCIUM 20 MG TABLET PO SCH (21:17)
[2021-04-14] MEDS: risperiDONE 1 MG TABLET. PO SCH (21:18)
--- NOTE | 2021-04-14 23:35 | NUR ---
Patient spent this shift in his room, laying in his bed. He is med compliant and cooperative. Patient will answer questions when asked but does not volunteer information. Patient told Dr Felder that "Yonathan is " while Dr Felder was rounding. That is the name of patients son, who is NOT . Patient did not make any delusional statements to this nurse. Risperdal increased to 1mg HS per dr Felder order. Will continue to monitor.
[2021-04-15 06:39] VITALS: BP 135/83
[2021-04-15] MEDS: MEMANTINE 10 MG TABLET. PO SCH ×2 (08:28→20:38)
[2021-04-15] MEDS: LISINOPRIL 10 MG TABLET PO SCH (08:29)
[2021-04-15] MEDS: metFORMIN 500 MG TABLET PO SCH ×2 (08:29→16:25)
[2021-04-15] MEDS: ASPIRIN CHEWABLE 81 MG TABLET. PO SCH (08:29)
[2021-04-15] MEDS: SERTRALINE 100 MG TABLET. PO SCH (08:29)
[2021-04-15] MEDS: buPROPion XL 150 MG TAB.ER.24H PO SCH ×2 (08:29→11:16)
[2021-04-15] MEDS: DONEPEZIL HCL 10 MG TABLET PO SCH (08:29)
[2021-04-15] MEDS: CHOLECALCIFEROL (VITAMIN D3) 1,000 UNIT TABLET PO SCH (08:29)
--- NOTE | 2021-04-15 08:42 | PDOC ---
Exam Note: Mike Note: This note is a late entry for 04/13/2021 covers elements not covered in my initial note. Subjective: The patient was seen individually in the evening of 04/13/2021 with Raegan HECTOR, discussed and reviewed the chart. The patient slept 8-1/2 hours previous night. Overall patient remains withdrawn to his room, does come out for some groups. I met with him in his room in the evening. Review of Systems: No CV, , pulmonary, eye system symptoms on review. Reliability varies. Mental Status Exam: The patient is oriented to himself and situation. Speech has some latency, coherent. Often response is monosyllabic. Abstraction fair. Computation impaired. Language function intact. He still appears somewhat paranoid, delusional. He states his son Yonathan is and there is nothing I could say to him to convince him otherwise. He is somewhat distractible. Laboratory Data: Reviewed. 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 Anxiety disorder unspecified. Impulse control disorder. Plan: Increase Risperdal from 0.5 mg h.s. to 0.75 mg p.o. h.s. Maintain rest of the psychotropics for now. Assessment: Vital Signs/I&O: Vital Signs Date Time Temp Pulse Resp B/P (MAP) Pulse Ox O2 Delivery O2 Flow Rate FiO2 04/15/21 08:29 74 135/83 04/15/21 06:39 97.1 20 94 04/12/21 05:53 Room Air I & O 04/14/21 04/14/21 04/15/21 15:00 23:00 07:00 Intake Total 750 ml 370 ml Balance 750 ml 370 ml Labs: Laboratory Tests Test 04/15/21 07:31 Glucose (Fingerstick) 119 mg/dL (70-99) H Current Medications: Meds: Laboratory Tests Test 04/15/21 07:31 Glucose (Fingerstick) 119 mg/dL Current Medications Medications (Trade) Dose Ordered Sig/Greg Route PRN Reason Start Time Stop Time Status Last Admin Dose Admin Acetaminophen (Tylenol) 650 mg PRN Q6HRS PRN PO MILD PAIN / TEMP > 100.3'F 03/04/21 16:15 Multi-Ingredient Ointment (Analgesic [place]) 1 donn PRN QID PRN TP MUSCLE PAIN 03/04/21 16:15 Al Hydroxide/Mg Hydroxide (Mylanta Plus Xs) 15 ml PRN AFTMEALHC PRN PO DYSPEPSIA 03/04/21 16:15 Magnesium Hydroxide (Milk Of Magnesia) 2,400 mg PRN QHS PRN PO CONSTIPATION 03/04/21 16:15 Aspirin (Aspirin Chewable) 81 mg DAILY PO 03/05/21 09:00 04/15/21 08:29 Lisinopril (Prinivil) 10 mg DAILY PO 03/05/21 09:00 04/15/21 08:29 Vitamin D (Vitamin D3) 25 unit DAILY PO 03/05/21 09:00 03/07/21 10:29 DC 03/05/21 09:14 Metformin HCl (Glucophage) 1,000 mg BIDWMEALS PO 03/04/21 17:00 04/15/21 08:29 Atorvastatin Calcium (Lipitor) 80 mg QHS PO 03/04/21 21:00 04/14/21 21:17 Olanzapine (ZyPREXA ZYDIS) 2.5 mg PRN Q2HR PRN PO PSYCHOSIS 03/05/21 17:00 03/31/21 19:43 Vitamin D (Vitamin D3) 1,000 unit DAILY PO 03/08/21 09:00 04/15/21 08:29 Memantine (Namenda) 5 mg BID PO 03/07/21 21:00 03/11/21 18:16 DC 03/11/21 08:36 Sertraline HCl (Zoloft) 25 mg DAILY PO 03/08/21 09:00 03/10/21 20:16 DC 03/10/21 08:40 Rivastigmine (Exelon) 4.6 patch DAILY TD 03/08/21 09:00 03/09/21 13:31 DC 03/09/21 08:58 Rivastigmine (Exelon) 9.5 patch DAILY TD 03/15/21 09:00 Cancel Rivastigmine (Exelon) 1 patch DAILY TD 03/15/21 09:00 03/19/21 14:00 DC 03/19/21 09:14 Rivastigmine (Exelon) 1 patch DAILY TD 03/10/21 09:00 03/14/21 23:50 DC 03/14/21 09:00 Sertraline HCl (Zoloft) 50 mg DAILY PO 03/11/21 09:00 03/22/21 20:39 DC 03/22/21 08:39 Trazodone HCl (Desyrel) 50 mg PRN QHS PRN PO INSOMNIA 03/10/21 20:15 Memantine (Namenda) 5 mg DAILY PO 03/12/21 09:00 03/15/21 20:10 DC 03/15/21 07:59 Memantine (Namenda) 10 mg QHS PO 03/11/21 21:00 03/15/21 22:00 DC 03/15/21 21:02 Memantine (Namenda) 10 mg BID PO 03/16/21 09:00 04/15/21 08:28 Rivastigmine (Exelon 13.3mg) 1 patch DAILY TD 03/20/21 09:00 03/26/21 11:18 DC 03/23/21 08:10 Quetiapine Fumarate (SEROquel) 25 mg HS PO 03/17/21 21:00 03/18/21 16:11 DC 03/17/21 21:41 Quetiapine Fumarate (SEROquel) 50 mg HS PO 03/18/21 21:00 04/03/21 17:58 DC 04/02/21 20:41 Sertraline HCl (Zoloft) 75 mg DAILY PO 03/23/21 09:00 03/25/21 12:00 DC 03/25/21 08:24 Sertraline HCl (Zoloft) 100 mg DAILY PO 03/26/21 09:00 04/15/21 08:29 Bupropion HCl (Wellbutrin Xl) 150 mg DAILY PO 03/26/21 09:00 03/27/21 21:00 DC 03/27/21 09:00 Donepezil HCl (Aricept) 5 mg DAILY PO 03/27/21 09:00 03/28/21 23:50 DC 03/28/21 08:17 Donepezil HCl (Aricept) 10 mg DAILY PO 03/29/21 09:00 04/15/21 08:29 Bupropion HCl (Wellbutrin Xl) 150 mg 0900,1200 PO 03/28/21 09:00 04/15/21 08:29 Risperidone (RisperDAL) 0.5 mg HS PO 04/03/21 21:00 04/13/21 18:25 DC 04/12/21 20:19 Risperidone (RisperDAL) 0.75 mg QHS PO 04/13/21 21:00 04/14/21 20:09 DC 04/13/21 20:06 Risperidone (RisperDAL) 1 mg HS PO 04/14/21 21:00 04/14/21 21:18 Current Medications Medications (Trade) Dose Ordered Sig/Greg Route PRN Reason Start Time Stop Time Status Last Admin Dose Admin Risperidone (RisperDAL) 1 mg HS PO 04/14/21 21:00 04/14/21 21:18 I have reviewed the current psychotropics carefully including drug interactions. Risk benefit ratio favors no change other than as noted in my dictated progress note. Diagnosis: Problems: (1) Impulse control disorder, unspecified (2) Lewy body dementia with behavioral disturbance (3) Anxiety disorder, unspecified (4) Dementia in Alzheimer's disease with depression (5) Dementia in Alzheimer's disease with delusions (6) Major neurocognitive disorder GABRIELLA LEDEZMA MD Apr 15, 2021 08:42
--- NOTE | 2021-04-15 08:52 | PDOC ---
Exam Note: Mike Note: This note is a late entry for 04/14/2021 covers elements not covered in my initial note. Subjective: The patient was seen individually in the evening of 04/14/2021 with Ruma HECTOR, discussed and reviewed the chart. The patient slept 7-1/2 hours previous night. Overall patient has been withdrawn, spends much time in his room. I met with him in the hallway outside his room. Review of Systems: No CV, , pulmonary, eye system symptoms on review. Reliability varies. Mental Status Exam: The patient is oriented to himself and situation. Patient is adamant that his son Yonathan has . I talked in several different ways indicating that Yonathan was well and I had confirmed it but he was not accepting of it. Speech coherent. Abstraction fair. Computation impaired. Language function intact. Mood and affect withdrawn. No suicidal or homicidal ideation. Laboratory Data: Reviewed. 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 Anxiety disorder unspecified. Impulse control disorder. Plan: Increase Risperdal from 0.75 mg h.s. to 1 mg h.s. Maintain rest of the psychotropics for now. Assessment: Vital Signs/I&O: Vital Signs Date Time Temp Pulse Resp B/P (MAP) Pulse Ox O2 Delivery O2 Flow Rate FiO2 04/15/21 08:29 74 135/83 04/15/21 06:39 97.1 20 94 04/12/21 05:53 Room Air I & O 04/14/21 04/14/21 04/15/21 15:00 23:00 07:00 Intake Total 750 ml 370 ml Balance 750 ml 370 ml Labs: Laboratory Tests Test 04/15/21 07:31 Glucose (Fingerstick) 119 mg/dL (70-99) H Current Medications: Meds: Laboratory Tests Test 04/15/21 07:31 Glucose (Fingerstick) 119 mg/dL Current Medications Medications (Trade) Dose Ordered Sig/Greg Route PRN Reason Start Time Stop Time Status Last Admin Dose Admin Acetaminophen (Tylenol) 650 mg PRN Q6HRS PRN PO MILD PAIN / TEMP > 100.3'F 03/04/21 16:15 Multi-Ingredient Ointment (Analgesic [place]) 1 donn PRN QID PRN TP MUSCLE PAIN 03/04/21 16:15 Al Hydroxide/Mg Hydroxide (Mylanta Plus Xs) 15 ml PRN AFTMEALHC PRN PO DYSPEPSIA 03/04/21 16:15 Magnesium Hydroxide (Milk Of Magnesia) 2,400 mg PRN QHS PRN PO CONSTIPATION 03/04/21 16:15 Aspirin (Aspirin Chewable) 81 mg DAILY PO 03/05/21 09:00 04/15/21 08:29 Lisinopril (Prinivil) 10 mg DAILY PO 03/05/21 09:00 04/15/21 08:29 Vitamin D (Vitamin D3) 25 unit DAILY PO 03/05/21 09:00 03/07/21 10:29 DC 03/05/21 09:14 Metformin HCl (Glucophage) 1,000 mg BIDWMEALS PO 03/04/21 17:00 04/15/21 08:29 Atorvastatin Calcium (Lipitor) 80 mg QHS PO 03/04/21 21:00 04/14/21 21:17 Olanzapine (ZyPREXA ZYDIS) 2.5 mg PRN Q2HR PRN PO PSYCHOSIS 03/05/21 17:00 03/31/21 19:43 Vitamin D (Vitamin D3) 1,000 unit DAILY PO 03/08/21 09:00 04/15/21 08:29 Memantine (Namenda) 5 mg BID PO 03/07/21 21:00 03/11/21 18:16 DC 03/11/21 08:36 Sertraline HCl (Zoloft) 25 mg DAILY PO 03/08/21 09:00 03/10/21 20:16 DC 03/10/21 08:40 Rivastigmine (Exelon) 4.6 patch DAILY TD 03/08/21 09:00 03/09/21 13:31 DC 03/09/21 08:58 Rivastigmine (Exelon) 9.5 patch DAILY TD 03/15/21 09:00 Cancel Rivastigmine (Exelon) 1 patch DAILY TD 03/15/21 09:00 03/19/21 14:00 DC 03/19/21 09:14 Rivastigmine (Exelon) 1 patch DAILY TD 03/10/21 09:00 03/14/21 23:50 DC 03/14/21 09:00 Sertraline HCl (Zoloft) 50 mg DAILY PO 03/11/21 09:00 03/22/21 20:39 DC 03/22/21 08:39 Trazodone HCl (Desyrel) 50 mg PRN QHS PRN PO INSOMNIA 03/10/21 20:15 Memantine (Namenda) 5 mg DAILY PO 03/12/21 09:00 03/15/21 20:10 DC 03/15/21 07:59 Memantine (Namenda) 10 mg QHS PO 03/11/21 21:00 03/15/21 22:00 DC 03/15/21 21:02 Memantine (Namenda) 10 mg BID PO 03/16/21 09:00 04/15/21 08:28 Rivastigmine (Exelon 13.3mg) 1 patch DAILY TD 03/20/21 09:00 03/26/21 11:18 DC 03/23/21 08:10 Quetiapine Fumarate (SEROquel) 25 mg HS PO 03/17/21 21:00 03/18/21 16:11 DC 03/17/21 21:41 Quetiapine Fumarate (SEROquel) 50 mg HS PO 03/18/21 21:00 04/03/21 17:58 DC 04/02/21 20:41 Sertraline HCl (Zoloft) 75 mg DAILY PO 03/23/21 09:00 03/25/21 12:00 DC 03/25/21 08:24 Sertraline HCl (Zoloft) 100 mg DAILY PO 03/26/21 09:00 04/15/21 08:29 Bupropion HCl (Wellbutrin Xl) 150 mg DAILY PO 03/26/21 09:00 03/27/21 21:00 DC 03/27/21 09:00 Donepezil HCl (Aricept) 5 mg DAILY PO 03/27/21 09:00 03/28/21 23:50 DC 03/28/21 08:17 Donepezil HCl (Aricept) 10 mg DAILY PO 03/29/21 09:00 04/15/21 08:29 Bupropion HCl (Wellbutrin Xl) 150 mg 0900,1200 PO 03/28/21 09:00 04/15/21 08:29 Risperidone (RisperDAL) 0.5 mg HS PO 04/03/21 21:00 04/13/21 18:25 DC 04/12/21 20:19 Risperidone (RisperDAL) 0.75 mg QHS PO 04/13/21 21:00 04/14/21 20:09 DC 04/13/21 20:06 Risperidone (RisperDAL) 1 mg HS PO 04/14/21 21:00 04/14/21 21:18 Current Medications Medications (Trade) Dose Ordered Sig/Greg Route PRN Reason Start Time Stop Time Status Last Admin Dose Admin Risperidone (RisperDAL) 1 mg HS PO 04/14/21 21:00 04/14/21 21:18 I have reviewed the current psychotropics carefully including drug interactions. Risk benefit ratio favors no change other than as noted in my dictated progress note. Diagnosis: Problems: (1) Impulse control disorder, unspecified (2) Lewy body dementia with behavioral disturbance (3) Anxiety disorder, unspecified (4) Dementia in Alzheimer's disease with depression (5) Dementia in Alzheimer's disease with delusions (6) Major neurocognitive disorder GABRIELLA LEDEZMA MD Apr 15, 2021 08:52
--- NOTE | 2021-04-15 09:31 | NUR ---
Pt appropriate on the unit, he comes out of his room to eat meals and then promptly returns. He is absent of SI/HI/VH/AH/delusions/pain at this time. He is compliant with whole medications. He verbalizes no concerns or questions for staff. Plan of care continues, will pass to next shift.
[2021-04-15 11:22] LABS: BASO % 1 % (0-3); EOS % 1 % (0-3); HEMATOCRIT 40.7 % (39.0-53.0); HEMOGLOBIN 14.3 g/dL (13.0-17.5); LYMPH # 0.9 x10^3/uL (1.0-4.8); LYMPH % 22 % (24-48); MEAN CORPUSCULAR HEMOGLOBIN 33 pg (25-35); MEAN CORPUSCULAR HGB CONC 35 g/dL (31-37); MEAN CORPUSCULAR VOLUME 94 fL (79-100); MONO # 0.4 x10^3/uL (0.0-1.1); MONO % 9 % (0-9); NEUT # 2.9 x10^3uL (1.8-7.7); NEUT % 68 % (31-73); PLATELET COUNT 171 x10^3/uL (140-400); RED BLOOD COUNT 4.35 x10^6/uL (4.30-5.70); RED CELL DISTRIBUTION WIDTH 13.3 % (11.5-14.5); WHITE BLOOD COUNT 4.3 x10^3/uL (4.0-11.0)
[2021-04-15 11:43] LABS: ALBUMIN 3.4 g/dL (3.4-5.0); CALCIUM 8.8 mg/dL (8.5-10.1); CREATININE 1.1 mg/dL (0.7-1.3); GFR 65.6; POTASSIUM 4.1 mmol/L (3.5-5.1); TOTAL BILIRUBIN 0.4 mg/dL (0.2-1.0); TOTAL PROTEIN 6.7 g/dL (6.4-8.2)
--- NOTE | 2021-04-15 13:45 | NUR ---
WEEKLY ACTIVITY THERAPY NOTE Date of Admission:03/04/21 Date of AT Assessment: 03/05/2021 Precipitating behaviors that initiated intake and admission:Patient admitted from home via [facility] for reportedly leaving sons house at night and knocking on neighbors door at 2am, being paranoid about neighbors causing trouble, losing items, and driving to [place] and believed he was in [place] per police. Goal aimed: to increase engagement Initial Goal: Pt. will participate in at least three individual or Activity Therapy groups before discharge. Goal repeated 03/26 Goal changed 04/09: Pt. will participate in at least five individual or Activity Therapy groups before discharge Weekly progress towards goal: did not achieve, 0/5 Group participation level: none Weekly highlights: no participation Behaviors observed: withdrawn to room Plan: no change to goal Beneficial adaptations:
[2021-04-15 15:47] VITALS: BP 112/73
--- NOTE | 2021-04-15 16:41 | NUR ---
Treatment team update: Pt is eating a little over 50% and sleeping on average 8 hours per night. Pt continues to be withdrawn to his room but medication compliant and cooperative with all cares. Pt continues to be delusional surrounding "the of his son", who is very much alive and speaks with staff on how pt is doing. Pt son also attempts to call daily to speak with pt; however, he does not accept sons phone calls. Pt received an increase in Risperdal 1mg at HS. SW continues to have trouble in finding placement for pt and has widened the search area more despite pt son's request to keep pt close. SW will continue to look for placement.
[2021-04-15] MEDS: ATORVASTATIN CALCIUM 20 MG TABLET PO SCH (20:38)
[2021-04-15] MEDS: risperiDONE 1 MG TABLET. PO SCH (20:38)
--- NOTE | 2021-04-15 20:40 | PDOC ---
Exam Note: Mike Note: Please also refer to the separate dictated note~for this date of service dictated separately.~Patient seen individually. Discussed the patient with Nursing staff reviewed the chart.~Reviewed interim history and current functioning. Reviewed vital signs,~Labs/ Radiology~and current medications noted below. Continue current treatment with the changes noted in the dictated addendum note Assessment: Vital Signs/I&O: Vital Signs Date Time Temp Pulse Resp B/P (MAP) Pulse Ox O2 Delivery O2 Flow Rate FiO2 04/15/21 15:47 97.9 71 18 112/73 (86) 95 Room Air I & O 04/14/21 04/14/21 04/15/21 15:00 23:00 07:00 Intake Total 750 ml 370 ml Balance 750 ml 370 ml Labs: Laboratory Tests Test 04/15/21 06:00 04/15/21 07:31 04/15/21 10:44 SARS-CoV-2 (PCR) Not detected (NOT DETECTD) Glucose (Fingerstick) 119 mg/dL (70-99) H White Blood Count 4.3 x10^3/uL (4.0-11.0) Red Blood Count 4.35 x10^6/uL (4.30-5.70) Hemoglobin 14.3 g/dL (13.0-17.5) Hematocrit 40.7 % (39.0-53.0) Mean Corpuscular Volume 94 fL (79-100) Mean Corpuscular Hemoglobin 33 pg (25-35) Mean Corpuscular Hemoglobin Concent 35 g/dL (31-37) Red Cell Distribution Width 13.3 % (11.5-14.5) Platelet Count 171 x10^3/uL (140-400) Neutrophils (%) (Auto) 68 % (31-73) Lymphocytes (%) (Auto) 22 % (24-48) L Monocytes (%) (Auto) 9 % (0-9) Eosinophils (%) (Auto) 1 % (0-3) Basophils (%) (Auto) 1 % (0-3) Neutrophils # (Auto) 2.9 x10^3uL (1.8-7.7) Lymphocytes # (Auto) 0.9 x10^3/uL (1.0-4.8) L Monocytes # (Auto) 0.4 x10^3/uL (0.0-1.1) Eosinophils # (Auto) 0.0 x10^3/uL (0.0-0.7) Basophils # (Auto) 0.0 x10^3/uL (0.0-0.2) Sodium Level 139 mmol/L (136-145) Potassium Level 4.1 mmol/L (3.5-5.1) Chloride Level 100 mmol/L (98-107) Carbon Dioxide Level 29 mmol/L (21-32) Anion Gap 10 (6-14) Blood Urea Nitrogen 20 mg/dL (8-26) Creatinine 1.1 mg/dL (0.7-1.3) Estimated GFR (Cockcroft-Gault) 65.6 BUN/Creatinine Ratio 18 (6-20) Glucose Level 161 mg/dL (70-99) H Calcium Level 8.8 mg/dL (8.5-10.1) Total Bilirubin 0.4 mg/dL (0.2-1.0) Aspartate Amino Transferase (AST) 36 U/L (15-37) Alanine Aminotransferase (ALT) 84 U/L (16-63) H Alkaline Phosphatase 114 U/L (46-116) Total Protein 6.7 g/dL (6.4-8.2) Albumin 3.4 g/dL (3.4-5.0) Albumin/Globulin Ratio 1.0 (1.0-1.7) Current Medications: Meds: Laboratory Tests Test 04/15/21 06:00 04/15/21 07:31 04/15/21 10:44 Coronavirus (COVID-19)(PCR) Not detected Glucose (Fingerstick) 119 mg/dL White Blood Count 4.3 x10^3/uL Red Blood Count 4.35 x10^6/uL Hemoglobin 14.3 g/dL Hematocrit 40.7 % Mean Corpuscular Volume 94 fL Mean Corpuscular Hemoglobin 33 pg Mean Corpuscular Hemoglobin Concent 35 g/dL Red Cell Distribution Width 13.3 % Platelet Count 171 x10^3/uL Neutrophils (%) (Auto) 68 % Lymphocytes (%) (Auto) 22 % Monocytes (%) (Auto) 9 % Eosinophils (%) (Auto) 1 % Basophils (%) (Auto) 1 % Neutrophils # (Auto) 2.9 x10^3uL Lymphocytes # (Auto) 0.9 x10^3/uL Monocytes # (Auto) 0.4 x10^3/uL Eosinophils # (Auto) 0.0 x10^3/uL Basophils # (Auto) 0.0 x10^3/uL Sodium Level 139 mmol/L Potassium Level 4.1 mmol/L Chloride Level 100 mmol/L Carbon Dioxide Level 29 mmol/L Anion Gap 10 Blood Urea Nitrogen 20 mg/dL Creatinine 1.1 mg/dL Estimated GFR (Cockcroft-Gault) 65.6 BUN/Creatinine Ratio 18 Glucose Level 161 mg/dL Calcium Level 8.8 mg/dL Total Bilirubin 0.4 mg/dL Aspartate Amino Transf (AST/SGOT) 36 U/L Alanine Aminotransferase (ALT/SGPT) 84 U/L Alkaline Phosphatase 114 U/L Total Protein 6.7 g/dL Albumin 3.4 g/dL Albumin/Globulin Ratio 1.0 Current Medications Medications (Trade) Dose Ordered Sig/Greg Route PRN Reason Start Time Stop Time Status Last Admin Dose Admin Acetaminophen (Tylenol) 650 mg PRN Q6HRS PRN PO MILD PAIN / TEMP > 100.3'F 03/04/21 16:15 Multi-Ingredient Ointment (Analgesic [place]) 1 donn PRN QID PRN TP MUSCLE PAIN 03/04/21 16:15 Al Hydroxide/Mg Hydroxide (Mylanta Plus Xs) 15 ml PRN AFTMEALHC PRN PO DYSPEPSIA 03/04/21 16:15 Magnesium Hydroxide (Milk Of Magnesia) 2,400 mg PRN QHS PRN PO CONSTIPATION 03/04/21 16:15 Aspirin (Aspirin Chewable) 81 mg DAILY PO 03/05/21 09:00 04/15/21 08:29 Lisinopril (Prinivil) 10 mg DAILY PO 03/05/21 09:00 04/15/21 08:29 Vitamin D (Vitamin D3) 25 unit DAILY PO 03/05/21 09:00 03/07/21 10:29 DC 03/05/21 09:14 Metformin HCl (Glucophage) 1,000 mg BIDWMEALS PO 03/04/21 17:00 04/15/21 16:25 Atorvastatin Calcium (Lipitor) 80 mg QHS PO 03/04/21 21:00 04/15/21 20:38 Olanzapine (ZyPREXA ZYDIS) 2.5 mg PRN Q2HR PRN PO PSYCHOSIS 03/05/21 17:00 03/31/21 19:43 Vitamin D (Vitamin D3) 1,000 unit DAILY PO 03/08/21 09:00 04/15/21 08:29 Memantine (Namenda) 5 mg BID PO 03/07/21 21:00 03/11/21 18:16 DC 03/11/21 08:36 Sertraline HCl (Zoloft) 25 mg DAILY PO 03/08/21 09:00 03/10/21 20:16 DC 03/10/21 08:40 Rivastigmine (Exelon) 4.6 patch DAILY TD 03/08/21 09:00 03/09/21 13:31 DC 03/09/21 08:58 Rivastigmine (Exelon) 9.5 patch DAILY TD 03/15/21 09:00 Cancel Rivastigmine (Exelon) 1 patch DAILY TD 03/15/21 09:00 03/19/21 14:00 DC 03/19/21 09:14 Rivastigmine (Exelon) 1 patch DAILY TD 03/10/21 09:00 03/14/21 23:50 DC 03/14/21 09:00 Sertraline HCl (Zoloft) 50 mg DAILY PO 03/11/21 09:00 03/22/21 20:39 DC 03/22/21 08:39 Trazodone HCl (Desyrel) 50 mg PRN QHS PRN PO INSOMNIA 03/10/21 20:15 Memantine (Namenda) 5 mg DAILY PO 03/12/21 09:00 03/15/21 20:10 DC 03/15/21 07:59 Memantine (Namenda) 10 mg QHS PO 03/11/21 21:00 03/15/21 22:00 DC 03/15/21 21:02 Memantine (Namenda) 10 mg BID PO 03/16/21 09:00 04/15/21 20:38 Rivastigmine (Exelon 13.3mg) 1 patch DAILY TD 03/20/21 09:00 03/26/21 11:18 DC 03/23/21 08:10 Quetiapine Fumarate (SEROquel) 25 mg HS PO 03/17/21 21:00 03/18/21 16:11 DC 03/17/21 21:41 Quetiapine Fumarate (SEROquel) 50 mg HS PO 03/18/21 21:00 04/03/21 17:58 DC 04/02/21 20:41 Sertraline HCl (Zoloft) 75 mg DAILY PO 03/23/21 09:00 03/25/21 12:00 DC 03/25/21 08:24 Sertraline HCl (Zoloft) 100 mg DAILY PO 03/26/21 09:00 04/15/21 08:29 Bupropion HCl (Wellbutrin Xl) 150 mg DAILY PO 03/26/21 09:00 03/27/21 21:00 DC 03/27/21 09:00 Donepezil HCl (Aricept) 5 mg DAILY PO 03/27/21 09:00 03/28/21 23:50 DC 03/28/21 08:17 Donepezil HCl (Aricept) 10 mg DAILY PO 03/29/21 09:00 04/15/21 08:29 Bupropion HCl (Wellbutrin Xl) 150 mg 0900,1200 PO 03/28/21 09:00 04/15/21 11:16 Risperidone (RisperDAL) 0.5 mg HS PO 04/03/21 21:00 04/13/21 18:25 DC 04/12/21 20:19 Risperidone (RisperDAL) 0.75 mg QHS PO 04/13/21 21:00 04/14/21 20:09 DC 04/13/21 20:06 Risperidone (RisperDAL) 1 mg HS PO 04/14/21 21:00 04/15/21 20:38 Current Medications Medications (Trade) Dose Ordered Sig/Greg Route PRN Reason Start Time Stop Time Status Last Admin Dose Admin Risperidone (RisperDAL) 1 mg HS PO 04/14/21 21:00 04/15/21 20:38 I have reviewed the current psychotropics carefully including drug interactions. Risk benefit ratio favors no change other than as noted in my dictated progress note. Diagnosis: Problems: (1) Impulse control disorder, unspecified (2) Lewy body dementia with behavioral disturbance (3) Anxiety disorder, unspecified (4) Dementia in Alzheimer's disease with depression (5) Dementia in Alzheimer's disease with delusions (6) Major neurocognitive disorder DARIEN,MAN M MD Apr 15, 2021 20:40
--- NOTE | 2021-04-15 23:01 | NUR ---
Patient cooperative and pleasant. He spent the shift in his room and took medications whole. Patient reported constipation when asked by nurse about his last bowel movement. PRN MOM given with HS meds for constipation. Patient has had no adverse behaviors this shift.
[2021-04-16 05:44] VITALS: BP 139/75
[2021-04-16] MEDS: DONEPEZIL HCL 10 MG TABLET PO SCH (08:13)
[2021-04-16] MEDS: LISINOPRIL 10 MG TABLET PO SCH (08:13)
[2021-04-16] MEDS: metFORMIN 500 MG TABLET PO SCH ×2 (08:13→17:20)
[2021-04-16] MEDS: ASPIRIN CHEWABLE 81 MG TABLET. PO SCH (08:13)
[2021-04-16] MEDS: MEMANTINE 10 MG TABLET. PO SCH ×2 (08:13→20:11)
[2021-04-16] MEDS: CHOLECALCIFEROL (VITAMIN D3) 1,000 UNIT TABLET PO SCH (08:13)
[2021-04-16] MEDS: SERTRALINE 100 MG TABLET. PO SCH (08:13)
[2021-04-16] MEDS: buPROPion XL 150 MG TAB.ER.24H PO SCH ×2 (08:13→12:23)
--- NOTE | 2021-04-16 10:52 | NUR ---
Nursing note: Pt in dining room at time of AM med pass and assessment. He is pleasant, med compliant and cooperative. Pt reports no pain/concerns and that MOM given last night was effective. He is currently resting quietly in his room. Will continue to monitor.
[2021-04-16 15:37] VITALS: BP 120/72
[2021-04-16] MEDS: ATORVASTATIN CALCIUM 20 MG TABLET PO SCH (20:11)
[2021-04-16] MEDS: risperiDONE 1 MG TABLET. PO SCH (20:11)
--- NOTE | 2021-04-16 21:06 | PDOC ---
Exam Note: Mike Note: Please also refer to the separate dictated note~for this date of service dictated separately.~Patient seen individually. Discussed the patient with Nursing staff reviewed the chart.~Reviewed interim history and current functioning. Reviewed vital signs,~Labs/ Radiology~and current medications noted below. Continue current treatment with the changes noted in the dictated addendum note Assessment: Vital Signs/I&O: Vital Signs Date Time Temp Pulse Resp B/P (MAP) Pulse Ox O2 Delivery O2 Flow Rate FiO2 04/16/21 15:37 98.0 70 20 120/72 (88) 94 04/15/21 15:47 Room Air I & O 04/15/21 04/15/21 04/16/21 15:00 23:00 07:00 Intake Total 720 ml 240 ml Balance 720 ml 240 ml Labs: Laboratory Tests Test 04/16/21 07:35 Glucose (Fingerstick) 86 mg/dL (70-99) Current Medications: Meds: Laboratory Tests Test 04/16/21 07:35 Glucose (Fingerstick) 86 mg/dL Current Medications Medications (Trade) Dose Ordered Sig/Greg Route PRN Reason Start Time Stop Time Status Last Admin Dose Admin Acetaminophen (Tylenol) 650 mg PRN Q6HRS PRN PO MILD PAIN / TEMP > 100.3'F 03/04/21 16:15 Multi-Ingredient Ointment (Analgesic [place]) 1 donn PRN QID PRN TP MUSCLE PAIN 03/04/21 16:15 Al Hydroxide/Mg Hydroxide (Mylanta Plus Xs) 15 ml PRN AFTMEALHC PRN PO DYSPEPSIA 03/04/21 16:15 Magnesium Hydroxide (Milk Of Magnesia) 2,400 mg PRN QHS PRN PO CONSTIPATION 03/04/21 16:15 04/15/21 20:59 Aspirin (Aspirin Chewable) 81 mg DAILY PO 03/05/21 09:00 04/16/21 08:13 Lisinopril (Prinivil) 10 mg DAILY PO 03/05/21 09:00 04/16/21 08:13 Vitamin D (Vitamin D3) 25 unit DAILY PO 03/05/21 09:00 03/07/21 10:29 DC 03/05/21 09:14 Metformin HCl (Glucophage) 1,000 mg BIDWMEALS PO 03/04/21 17:00 04/16/21 17:20 Atorvastatin Calcium (Lipitor) 80 mg QHS PO 03/04/21 21:00 04/16/21 20:11 Olanzapine (ZyPREXA ZYDIS) 2.5 mg PRN Q2HR PRN PO PSYCHOSIS 03/05/21 17:00 03/31/21 19:43 Vitamin D (Vitamin D3) 1,000 unit DAILY PO 03/08/21 09:00 04/16/21 08:13 Memantine (Namenda) 5 mg BID PO 03/07/21 21:00 03/11/21 18:16 DC 03/11/21 08:36 Sertraline HCl (Zoloft) 25 mg DAILY PO 03/08/21 09:00 03/10/21 20:16 DC 03/10/21 08:40 Rivastigmine (Exelon) 4.6 patch DAILY TD 03/08/21 09:00 03/09/21 13:31 DC 03/09/21 08:58 Rivastigmine (Exelon) 9.5 patch DAILY TD 03/15/21 09:00 Cancel Rivastigmine (Exelon) 1 patch DAILY TD 03/15/21 09:00 03/19/21 14:00 DC 03/19/21 09:14 Rivastigmine (Exelon) 1 patch DAILY TD 03/10/21 09:00 03/14/21 23:50 DC 03/14/21 09:00 Sertraline HCl (Zoloft) 50 mg DAILY PO 03/11/21 09:00 03/22/21 20:39 DC 03/22/21 08:39 Trazodone HCl (Desyrel) 50 mg PRN QHS PRN PO INSOMNIA 03/10/21 20:15 Memantine (Namenda) 5 mg DAILY PO 03/12/21 09:00 03/15/21 20:10 DC 03/15/21 07:59 Memantine (Namenda) 10 mg QHS PO 03/11/21 21:00 03/15/21 22:00 DC 03/15/21 21:02 Memantine (Namenda) 10 mg BID PO 03/16/21 09:00 04/16/21 20:11 Rivastigmine (Exelon 13.3mg) 1 patch DAILY TD 03/20/21 09:00 11/4/21 11:18 DC 03/23/21 08:10 Quetiapine Fumarate (SEROquel) 25 mg HS PO 03/17/21 21:00 03/18/21 16:11 DC 03/17/21 21:41 Quetiapine Fumarate (SEROquel) 50 mg HS PO 03/18/21 21:00 04/03/21 17:58 DC 04/02/21 20:41 Sertraline HCl (Zoloft) 75 mg DAILY PO 03/23/21 09:00 03/25/21 12:00 DC 03/25/21 08:24 Sertraline HCl (Zoloft) 100 mg DAILY PO 03/26/21 09:00 04/16/21 08:13 Bupropion HCl (Wellbutrin Xl) 150 mg DAILY PO 03/26/21 09:00 03/27/21 21:00 DC 03/27/21 09:00 Donepezil HCl (Aricept) 5 mg DAILY PO 03/27/21 09:00 03/28/21 23:50 DC 03/28/21 08:17 Donepezil HCl (Aricept) 10 mg DAILY PO 03/29/21 09:00 04/16/21 08:13 Bupropion HCl (Wellbutrin Xl) 150 mg 0900,1200 PO 03/28/21 09:00 04/16/21 12:23 Risperidone (RisperDAL) 0.5 mg HS PO 04/03/21 21:00 04/13/21 18:25 DC 04/12/21 20:19 Risperidone (RisperDAL) 0.75 mg QHS PO 04/13/21 21:00 04/14/21 20:09 DC 04/13/21 20:06 Risperidone (RisperDAL) 1 mg HS PO 04/14/21 21:00 04/16/21 20:11 I have reviewed the current psychotropics carefully including drug interactions. Risk benefit ratio favors no change other than as noted in my dictated progress note. Diagnosis: Problems: (1) Impulse control disorder, unspecified (2) Lewy body dementia with behavioral disturbance (3) Anxiety disorder, unspecified (4) Dementia in Alzheimer's disease with depression (5) Dementia in Alzheimer's disease with delusions (6) Major neurocognitive disorder GABRIELLA LEDEZMA MD Apr 16, 2021 21:06
--- NOTE | 2021-04-16 23:26 | NUR ---
Nursing Note The patient was located in the day room for his assessment and medication pass. The patient was compliant with his medications and was pleasant during interactions with this nurse. The patient was alert to name, date and location. The patient is currently sleeping in his room.
[2021-04-17 06:13] VITALS: BP 142/84
[2021-04-17] MEDS: CHOLECALCIFEROL (VITAMIN D3) 1,000 UNIT TABLET PO SCH (08:25)
[2021-04-17] MEDS: LISINOPRIL 10 MG TABLET PO SCH (08:26)
[2021-04-17] MEDS: DONEPEZIL HCL 10 MG TABLET PO SCH (08:26)
[2021-04-17] MEDS: ASPIRIN CHEWABLE 81 MG TABLET. PO SCH (08:26)
[2021-04-17] MEDS: buPROPion XL 150 MG TAB.ER.24H PO SCH ×2 (08:26→12:20)
[2021-04-17] MEDS: metFORMIN 500 MG TABLET PO SCH ×2 (08:26→17:22)
[2021-04-17] MEDS: SERTRALINE 100 MG TABLET. PO SCH (08:26)
[2021-04-17] MEDS: MEMANTINE 10 MG TABLET. PO SCH ×2 (08:26→21:10)
--- NOTE | 2021-04-17 08:56 | NUR ---
Pt appropriate on the unit, his interactions with others are minimal but pleasant. Alert to name, , location. He is absent of SI/HI/VH/AH/delusions/pain at this time. He is appropriate with whole medications. He is able to make his needs known to staff. After breakfast pt promptly retired back to his room. Plan of care continues, will pass to next shift.
[2021-04-17 15:35] VITALS: BP 123/80
--- NOTE | 2021-04-17 20:27 | PDOC ---
Exam Note: Mike Note: Please also refer to the separate dictated note~for this date of service dictated separately.~Patient seen individually. Discussed the patient with Nursing staff reviewed the chart.~Reviewed interim history and current functioning. Reviewed vital signs,~Labs/ Radiology~and current medications noted below. Continue current treatment with the changes noted in the dictated addendum note Assessment: Vital Signs/I&O: Vital Signs Date Time Temp Pulse Resp B/P (MAP) Pulse Ox O2 Delivery O2 Flow Rate FiO2 04/17/21 15:35 97.9 82 18 123/80 (94) 96 04/15/21 15:47 Room Air I & O 04/16/21 04/16/21 04/17/21 15:00 23:00 07:00 Intake Total 840 ml 480 ml Balance 840 ml 480 ml Labs: Laboratory Tests Test 04/17/21 07:15 Glucose (Fingerstick) 87 mg/dL (70-99) Current Medications: Meds: Laboratory Tests Test 04/17/21 07:15 Glucose (Fingerstick) 87 mg/dL Current Medications Medications (Trade) Dose Ordered Sig/Greg Route PRN Reason Start Time Stop Time Status Last Admin Dose Admin Acetaminophen (Tylenol) 650 mg PRN Q6HRS PRN PO MILD PAIN / TEMP > 100.3'F 03/04/21 16:15 Multi-Ingredient Ointment (Analgesic [place]) 1 donn PRN QID PRN TP MUSCLE PAIN 03/04/21 16:15 Al Hydroxide/Mg Hydroxide (Mylanta Plus Xs) 15 ml PRN AFTMEALHC PRN PO DYSPEPSIA 03/04/21 16:15 Magnesium Hydroxide (Milk Of Magnesia) 2,400 mg PRN QHS PRN PO CONSTIPATION 03/04/21 16:15 04/15/21 20:59 Aspirin (Aspirin Chewable) 81 mg DAILY PO 03/05/21 09:00 04/17/21 08:26 Lisinopril (Prinivil) 10 mg DAILY PO 03/05/21 09:00 04/17/21 08:26 Vitamin D (Vitamin D3) 25 unit DAILY PO 03/05/21 09:00 03/07/21 10:29 DC 03/05/21 09:14 Metformin HCl (Glucophage) 1,000 mg BIDWMEALS PO 03/04/21 17:00 04/17/21 17:22 Atorvastatin Calcium (Lipitor) 80 mg QHS PO 03/04/21 21:00 04/16/21 20:11 Olanzapine (ZyPREXA ZYDIS) 2.5 mg PRN Q2HR PRN PO PSYCHOSIS 03/05/21 17:00 03/31/21 19:43 Vitamin D (Vitamin D3) 1,000 unit DAILY PO 03/08/21 09:00 04/17/21 08:25 Memantine (Namenda) 5 mg BID PO 03/07/21 21:00 03/11/21 18:16 DC 03/11/21 08:36 Sertraline HCl (Zoloft) 25 mg DAILY PO 03/08/21 09:00 03/10/21 20:16 DC 03/10/21 08:40 Rivastigmine (Exelon) 4.6 patch DAILY TD 03/08/21 09:00 03/09/21 13:31 DC 03/09/21 08:58 Rivastigmine (Exelon) 9.5 patch DAILY TD 03/15/21 09:00 Cancel Rivastigmine (Exelon) 1 patch DAILY TD 03/15/21 09:00 03/19/21 14:00 DC 03/19/21 09:14 Rivastigmine (Exelon) 1 patch DAILY TD 03/10/21 09:00 03/14/21 23:50 DC 03/14/21 09:00 Sertraline HCl (Zoloft) 50 mg DAILY PO 03/11/21 09:00 03/22/21 20:39 DC 03/22/21 08:39 Trazodone HCl (Desyrel) 50 mg PRN QHS PRN PO INSOMNIA 03/10/21 20:15 Memantine (Namenda) 5 mg DAILY PO 03/12/21 09:00 03/15/21 20:10 DC 03/15/21 07:59 Memantine (Namenda) 10 mg QHS PO 03/11/21 21:00 03/15/21 22:00 DC 03/15/21 21:02 Memantine (Namenda) 10 mg BID PO 03/16/21 09:00 04/17/21 08:26 Rivastigmine (Exelon 13.3mg) 1 patch DAILY TD 03/20/21 09:00 03/26/21 11:18 DC 03/23/21 08:10 Quetiapine Fumarate (SEROquel) 25 mg HS PO 03/17/21 21:00 03/18/21 16:11 DC 03/17/21 21:41 Quetiapine Fumarate (SEROquel) 50 mg HS PO 03/18/21 21:00 04/03/21 17:58 DC 04/02/21 20:41 Sertraline HCl (Zoloft) 75 mg DAILY PO 03/23/21 09:00 03/25/21 12:00 DC 03/25/21 08:24 Sertraline HCl (Zoloft) 100 mg DAILY PO 03/26/21 09:00 04/17/21 08:26 Bupropion HCl (Wellbutrin Xl) 150 mg DAILY PO 03/26/21 09:00 03/27/21 21:00 DC 03/27/21 09:00 Donepezil HCl (Aricept) 5 mg DAILY PO 03/27/21 09:00 03/28/21 23:50 DC 03/28/21 08:17 Donepezil HCl (Aricept) 10 mg DAILY PO 03/29/21 09:00 04/17/21 08:26 Bupropion HCl (Wellbutrin Xl) 150 mg 0900,1200 PO 03/28/21 09:00 04/17/21 12:20 Risperidone (RisperDAL) 0.5 mg HS PO 04/03/21 21:00 04/13/21 18:25 DC 04/12/21 20:19 Risperidone (RisperDAL) 0.75 mg QHS PO 04/13/21 21:00 04/14/21 20:09 DC 04/13/21 20:06 Risperidone (RisperDAL) 1 mg HS PO 04/14/21 21:00 04/16/21 20:11 I have reviewed the current psychotropics carefully including drug interactions. Risk benefit ratio favors no change other than as noted in my dictated progress note. Diagnosis: Problems: (1) Impulse control disorder, unspecified (2) Lewy body dementia with behavioral disturbance (3) Anxiety disorder, unspecified (4) Dementia in Alzheimer's disease with depression (5) Dementia in Alzheimer's disease with delusions (6) Major neurocognitive disorder GABRIELLA LEDEZMA MD Apr 17, 2021 20:27
[2021-04-17] MEDS: risperiDONE 1 MG TABLET. PO SCH (21:10)
[2021-04-17] MEDS: ATORVASTATIN CALCIUM 20 MG TABLET PO SCH (21:10)
--- NOTE | 2021-04-17 23:25 | NUR ---
Nursing Note The patient was located in his room for his assessment and medication pass. The patient was compliant with his medications and was pleasant during interactions with this nurse. The patient was alert to name, date and location. The patient is currently sleeping in his room.
[2021-04-18 05:40] VITALS: BP 119/73
[2021-04-18] MEDS: metFORMIN 500 MG TABLET PO SCH ×2 (08:11→16:04)
[2021-04-18] MEDS: buPROPion XL 150 MG TAB.ER.24H PO SCH ×2 (08:11→11:23)
[2021-04-18] MEDS: ASPIRIN CHEWABLE 81 MG TABLET. PO SCH (08:11)
[2021-04-18] MEDS: MEMANTINE 10 MG TABLET. PO SCH ×2 (08:12→20:30)
[2021-04-18] MEDS: CHOLECALCIFEROL (VITAMIN D3) 1,000 UNIT TABLET PO SCH (08:12)
[2021-04-18] MEDS: DONEPEZIL HCL 10 MG TABLET PO SCH (08:12)
[2021-04-18] MEDS: LISINOPRIL 10 MG TABLET PO SCH (08:13)
[2021-04-18] MEDS: SERTRALINE 100 MG TABLET. PO SCH (08:16)
--- NOTE | 2021-04-18 08:23 | PDOC ---
Exam Note: Mike Note: This note is a late entry for 04/15/2021 covers elements not covered in my initial note. Subjective: The patient was reviewed at treatment team meeting individually in the morning on 04/15/2021 with Mayra Blackwood, Lizeth Thomas, and Nay Martinez (school social worker), Shantell De Los Santos, Child Support Case Officer, Michelle, activity therapy, and Dora HECTOR, discussed and reviewed the chart. We discussed the patients diagnoses, progress, and psychotropic medications. The patient slept 7-1/2 hours previous night. He is compliant with his medications, withdrawn, spends much time in his room. Denies suicidal ideation. He is somewhat paranoid and delusional that his son is and I addressed with him at great length. Review of Systems: No CV, , pulmonary, eye system symptoms on review. Mental Status Exam: The patient is oriented to himself and situation. Speech coherent. Abstraction fair. Computation impaired. Language function intact. Mood and affect withdrawn. No suicidal or homicidal ideation. Laboratory Data: Reviewed. 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 Anxiety disorder unspecified. Impulse control disorder. Plan: Maintain rest of the psychotropics for now. Assessment: Vital Signs/I&O: Vital Signs Date Time Temp Pulse Resp B/P (MAP) Pulse Ox O2 Delivery O2 Flow Rate FiO2 04/18/21 08:13 62 119/73 04/18/21 05:40 97.4 18 94 Room Air I & O 04/17/21 04/17/21 04/18/21 15:00 23:00 07:00 Intake Total 840 ml 600 ml Balance 840 ml 600 ml Labs: Laboratory Tests Test 04/18/21 07:18 Glucose (Fingerstick) 82 mg/dL (70-99) Current Medications: Meds: Laboratory Tests Test 04/18/21 07:18 Glucose (Fingerstick) 82 mg/dL Current Medications Medications (Trade) Dose Ordered Sig/Greg Route PRN Reason Start Time Stop Time Status Last Admin Dose Admin Acetaminophen (Tylenol) 650 mg PRN Q6HRS PRN PO MILD PAIN / TEMP > 100.3'F 03/04/21 16:15 Multi-Ingredient Ointment (Analgesic [place]) 1 donn PRN QID PRN TP MUSCLE PAIN 03/04/21 16:15 Al Hydroxide/Mg Hydroxide (Mylanta Plus Xs) 15 ml PRN AFTMEALHC PRN PO DYSPEPSIA 03/04/21 16:15 Magnesium Hydroxide (Milk Of Magnesia) 2,400 mg PRN QHS PRN PO CONSTIPATION 03/04/21 16:15 04/15/21 20:59 Aspirin (Aspirin Chewable) 81 mg DAILY PO 03/05/21 09:00 04/18/21 08:11 Lisinopril (Prinivil) 10 mg DAILY PO 03/05/21 09:00 04/18/21 08:13 Vitamin D (Vitamin D3) 25 unit DAILY PO 03/05/21 09:00 03/07/21 10:29 DC 03/05/21 09:14 Metformin HCl (Glucophage) 1,000 mg BIDWMEALS PO 03/04/21 17:00 04/18/21 08:11 Atorvastatin Calcium (Lipitor) 80 mg QHS PO 03/04/21 21:00 04/17/21 21:10 Olanzapine (ZyPREXA ZYDIS) 2.5 mg PRN Q2HR PRN PO PSYCHOSIS 03/05/21 17:00 03/31/21 19:43 Vitamin D (Vitamin D3) 1,000 unit DAILY PO 03/08/21 09:00 04/18/21 08:12 Memantine (Namenda) 5 mg BID PO 03/07/21 21:00 03/11/21 18:16 DC 03/11/21 08:36 Sertraline HCl (Zoloft) 25 mg DAILY PO 03/08/21 09:00 03/10/21 20:16 DC 03/10/21 08:40 Rivastigmine (Exelon) 4.6 patch DAILY TD 03/08/21 09:00 03/09/21 13:31 DC 03/09/21 08:58 Rivastigmine (Exelon) 9.5 patch DAILY TD 03/15/21 09:00 Cancel Rivastigmine (Exelon) 1 patch DAILY TD 03/15/21 09:00 03/19/21 14:00 DC 03/19/21 09:14 Rivastigmine (Exelon) 1 patch DAILY TD 03/10/21 09:00 03/14/21 23:50 DC 03/14/21 09:00 Sertraline HCl (Zoloft) 50 mg DAILY PO 03/11/21 09:00 03/22/21 20:39 DC 03/22/21 08:39 Trazodone HCl (Desyrel) 50 mg PRN QHS PRN PO INSOMNIA 03/10/21 20:15 Memantine (Namenda) 5 mg DAILY PO 03/12/21 09:00 03/15/21 20:10 DC 03/15/21 07:59 Memantine (Namenda) 10 mg QHS PO 03/11/21 21:00 03/15/21 22:00 DC 03/15/21 21:02 Memantine (Namenda) 10 mg BID PO 03/16/21 09:00 04/18/21 08:12 Rivastigmine (Exelon 13.3mg) 1 patch DAILY TD 03/20/21 09:00 03/26/21 11:18 DC 03/23/21 08:10 Quetiapine Fumarate (SEROquel) 25 mg HS PO 03/17/21 21:00 03/18/21 16:11 DC 03/17/21 21:41 Quetiapine Fumarate (SEROquel) 50 mg HS PO 03/18/21 21:00 04/03/21 17:58 DC 04/02/21 20:41 Sertraline HCl (Zoloft) 75 mg DAILY PO 03/23/21 09:00 03/25/21 12:00 DC 03/25/21 08:24 Sertraline HCl (Zoloft) 100 mg DAILY PO 03/26/21 09:00 04/18/21 08:16 Bupropion HCl (Wellbutrin Xl) 150 mg DAILY PO 03/26/21 09:00 03/27/21 21:00 DC 03/27/21 09:00 Donepezil HCl (Aricept) 5 mg DAILY PO 03/27/21 09:00 03/28/21 23:50 DC 03/28/21 08:17 Donepezil HCl (Aricept) 10 mg DAILY PO 03/29/21 09:00 04/18/21 08:12 Bupropion HCl (Wellbutrin Xl) 150 mg 0900,1200 PO 03/28/21 09:00 04/18/21 08:11 Risperidone (RisperDAL) 0.5 mg HS PO 04/03/21 21:00 04/13/21 18:25 DC 04/12/21 20:19 Risperidone (RisperDAL) 0.75 mg QHS PO 04/13/21 21:00 04/14/21 20:09 DC 04/13/21 20:06 Risperidone (RisperDAL) 1 mg HS PO 04/14/21 21:00 04/17/21 21:10 I have reviewed the current psychotropics carefully including drug interactions. Risk benefit ratio favors no change other than as noted in my dictated progress note. Diagnosis: Problems: (1) Impulse control disorder, unspecified (2) Lewy body dementia with behavioral disturbance (3) Anxiety disorder, unspecified (4) Dementia in Alzheimer's disease with depression (5) Dementia in Alzheimer's disease with delusions (6) Major neurocognitive disorder GABRIELLA LEDEZMA MD Apr 18, 2021 08:23
--- NOTE | 2021-04-18 08:35 | PDOC ---
Exam Note: Mike Note: This note is a late entry for 04/16/2021 covers elements not covered in my initial note. Subjective: The patient was seen individually in the evening of 04/16/2021 with Uche HECTOR, discussed and reviewed the chart. The patient slept 7-1/4 hours previous night. He talked to his son over the phone and to his grandchild as well and stated he was glad to know that son is alive. He seemed less delusional about this. Review of Systems: No CV, , pulmonary, eye system symptoms on review. Reliability varies. Mental Status Exam: The patient is oriented to himself and situation. Speech coherent. Abstraction fair. Computation impaired. Language function intact. Mood and affect withdrawn. No suicidal or homicidal ideation. Laboratory Data: Reviewed. 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 Anxiety disorder unspecified. Impulse control disorder. Plan: Maintain psychotropics unchanged for now. Assessment: Vital Signs/I&O: Vital Signs Date Time Temp Pulse Resp B/P (MAP) Pulse Ox O2 Delivery O2 Flow Rate FiO2 04/18/21 08:13 62 119/73 04/18/21 05:40 97.4 18 94 Room Air I & O 04/17/21 04/17/21 04/18/21 15:00 23:00 07:00 Intake Total 840 ml 600 ml Balance 840 ml 600 ml Labs: Laboratory Tests Test 04/18/21 07:18 Glucose (Fingerstick) 82 mg/dL (70-99) Current Medications: Meds: Laboratory Tests Test 04/18/21 07:18 Glucose (Fingerstick) 82 mg/dL Current Medications Medications (Trade) Dose Ordered Sig/Greg Route PRN Reason Start Time Stop Time Status Last Admin Dose Admin Acetaminophen (Tylenol) 650 mg PRN Q6HRS PRN PO MILD PAIN / TEMP > 100.3'F 03/04/21 16:15 Multi-Ingredient Ointment (Analgesic [place]) 1 donn PRN QID PRN TP MUSCLE PAIN 03/04/21 16:15 Al Hydroxide/Mg Hydroxide (Mylanta Plus Xs) 15 ml PRN AFTMEALHC PRN PO DYSPEPSIA 03/04/21 16:15 Magnesium Hydroxide (Milk Of Magnesia) 2,400 mg PRN QHS PRN PO CONSTIPATION 03/04/21 16:15 04/15/21 20:59 Aspirin (Aspirin Chewable) 81 mg DAILY PO 03/05/21 09:00 04/18/21 08:11 Lisinopril (Prinivil) 10 mg DAILY PO 03/05/21 09:00 04/18/21 08:13 Vitamin D (Vitamin D3) 25 unit DAILY PO 03/05/21 09:00 03/07/21 10:29 DC 03/05/21 09:14 Metformin HCl (Glucophage) 1,000 mg BIDWMEALS PO 03/04/21 17:00 04/18/21 08:11 Atorvastatin Calcium (Lipitor) 80 mg QHS PO 03/04/21 21:00 04/17/21 21:10 Olanzapine (ZyPREXA ZYDIS) 2.5 mg PRN Q2HR PRN PO PSYCHOSIS 03/05/21 17:00 03/31/21 19:43 Vitamin D (Vitamin D3) 1,000 unit DAILY PO 03/08/21 09:00 04/18/21 08:12 Memantine (Namenda) 5 mg BID PO 03/07/21 21:00 03/11/21 18:16 DC 03/11/21 08:36 Sertraline HCl (Zoloft) 25 mg DAILY PO 03/08/21 09:00 03/10/21 20:16 DC 03/10/21 08:40 Rivastigmine (Exelon) 4.6 patch DAILY TD 03/08/21 09:00 03/09/21 13:31 DC 03/09/21 08:58 Rivastigmine (Exelon) 9.5 patch DAILY TD 03/15/21 09:00 Cancel Rivastigmine (Exelon) 1 patch DAILY TD 03/15/21 09:00 03/19/21 14:00 DC 03/19/21 09:14 Rivastigmine (Exelon) 1 patch DAILY TD 03/10/21 09:00 03/14/21 23:50 DC 03/14/21 09:00 Sertraline HCl (Zoloft) 50 mg DAILY PO 03/11/21 09:00 03/22/21 20:39 DC 03/22/21 08:39 Trazodone HCl (Desyrel) 50 mg PRN QHS PRN PO INSOMNIA 03/10/21 20:15 Memantine (Namenda) 5 mg DAILY PO 03/12/21 09:00 03/15/21 20:10 DC 03/15/21 07:59 Memantine (Namenda) 10 mg QHS PO 03/11/21 21:00 03/15/21 22:00 DC 03/15/21 21:02 Memantine (Namenda) 10 mg BID PO 03/16/21 09:00 04/18/21 08:12 Rivastigmine (Exelon 13.3mg) 1 patch DAILY TD 03/20/21 09:00 03/26/21 11:18 DC 03/23/21 08:10 Quetiapine Fumarate (SEROquel) 25 mg HS PO 03/17/21 21:00 03/18/21 16:11 DC 03/17/21 21:41 Quetiapine Fumarate (SEROquel) 50 mg HS PO 03/18/21 21:00 04/03/21 17:58 DC 04/02/21 20:41 Sertraline HCl (Zoloft) 75 mg DAILY PO 03/23/21 09:00 03/25/21 12:00 DC 03/25/21 08:24 Sertraline HCl (Zoloft) 100 mg DAILY PO 03/26/21 09:00 04/18/21 08:16 Bupropion HCl (Wellbutrin Xl) 150 mg DAILY PO 03/26/21 09:00 03/27/21 21:00 DC 03/27/21 09:00 Donepezil HCl (Aricept) 5 mg DAILY PO 03/27/21 09:00 03/28/21 23:50 DC 03/28/21 08:17 Donepezil HCl (Aricept) 10 mg DAILY PO 03/29/21 09:00 04/18/21 08:12 Bupropion HCl (Wellbutrin Xl) 150 mg 0900,1200 PO 03/28/21 09:00 04/18/21 08:11 Risperidone (RisperDAL) 0.5 mg HS PO 04/03/21 21:00 04/13/21 18:25 DC 04/12/21 20:19 Risperidone (RisperDAL) 0.75 mg QHS PO 04/13/21 21:00 04/14/21 20:09 DC 04/13/21 20:06 Risperidone (RisperDAL) 1 mg HS PO 04/14/21 21:00 04/17/21 21:10 I have reviewed the current psychotropics carefully including drug interactions. Risk benefit ratio favors no change other than as noted in my dictated progress note. Diagnosis: Problems: (1) Impulse control disorder, unspecified (2) Lewy body dementia with behavioral disturbance (3) Anxiety disorder, unspecified (4) Dementia in Alzheimer's disease with depression (5) Dementia in Alzheimer's disease with delusions (6) Major neurocognitive disorder GABRIELLA LEDEZMA MD Apr 18, 2021 08:35
--- NOTE | 2021-04-18 12:42 | NUR ---
NURSE NOTE Pt. was pleasant today. Medication compliant. Ate all meals.
[2021-04-18 15:37] VITALS: BP 115/72
--- NOTE | 2021-04-18 17:59 | NUR ---
NURSE NOTE Pt. should be video chatting with his son Yonathan maybe every other day it helps to calm him down when he talks with his son and granddaughter. This is a therapeutic way to redirect any behaviors he may be having.
[2021-04-18] MEDS: ATORVASTATIN CALCIUM 20 MG TABLET PO SCH (20:29)
[2021-04-18] MEDS: risperiDONE 1 MG TABLET. PO SCH (20:30)
--- NOTE | 2021-04-18 20:47 | PDOC ---
Exam Note: Mike Note: Please also refer to the separate dictated note~for this date of service dictated separately.~Patient seen individually. Discussed the patient with Nursing staff reviewed the chart.~Reviewed interim history and current functioning. Reviewed vital signs,~Labs/ Radiology~and current medications noted below. Continue current treatment with the changes noted in the dictated addendum note Assessment: Vital Signs/I&O: Vital Signs Date Time Temp Pulse Resp B/P (MAP) Pulse Ox O2 Delivery O2 Flow Rate FiO2 04/18/21 15:37 98.5 73 17 115/72 (86) 97 Room Air I & O 04/17/21 04/17/21 04/18/21 15:00 23:00 07:00 Intake Total 840 ml 600 ml Balance 840 ml 600 ml Labs: Laboratory Tests Test 04/18/21 07:18 Glucose (Fingerstick) 82 mg/dL (70-99) Current Medications: Meds: Laboratory Tests Test 04/18/21 07:18 Glucose (Fingerstick) 82 mg/dL Current Medications Medications (Trade) Dose Ordered Sig/Greg Route PRN Reason Start Time Stop Time Status Last Admin Dose Admin Acetaminophen (Tylenol) 650 mg PRN Q6HRS PRN PO MILD PAIN / TEMP > 100.3'F 03/04/21 16:15 Multi-Ingredient Ointment (Analgesic [place]) 1 donn PRN QID PRN TP MUSCLE PAIN 03/04/21 16:15 Al Hydroxide/Mg Hydroxide (Mylanta Plus Xs) 15 ml PRN AFTMEALHC PRN PO DYSPEPSIA 03/04/21 16:15 Magnesium Hydroxide (Milk Of Magnesia) 2,400 mg PRN QHS PRN PO CONSTIPATION 03/04/21 16:15 04/15/21 20:59 Aspirin (Aspirin Chewable) 81 mg DAILY PO 03/05/21 09:00 04/18/21 08:11 Lisinopril (Prinivil) 10 mg DAILY PO 03/05/21 09:00 04/18/21 08:13 Vitamin D (Vitamin D3) 25 unit DAILY PO 03/05/21 09:00 03/07/21 10:29 DC 03/05/21 09:14 Metformin HCl (Glucophage) 1,000 mg BIDWMEALS PO 03/04/21 17:00 04/18/21 16:04 Atorvastatin Calcium (Lipitor) 80 mg QHS PO 03/04/21 21:00 04/18/21 20:29 Olanzapine (ZyPREXA ZYDIS) 2.5 mg PRN Q2HR PRN PO PSYCHOSIS 03/05/21 17:00 03/31/21 19:43 Vitamin D (Vitamin D3) 1,000 unit DAILY PO 03/08/21 09:00 04/18/21 08:12 Memantine (Namenda) 5 mg BID PO 03/07/21 21:00 03/11/21 18:16 DC 03/11/21 08:36 Sertraline HCl (Zoloft) 25 mg DAILY PO 03/08/21 09:00 03/10/21 20:16 DC 03/10/21 08:40 Rivastigmine (Exelon) 4.6 patch DAILY TD 03/08/21 09:00 03/09/21 13:31 DC 03/09/21 08:58 Rivastigmine (Exelon) 9.5 patch DAILY TD 03/15/21 09:00 Cancel Rivastigmine (Exelon) 1 patch DAILY TD 03/15/21 09:00 03/19/21 14:00 DC 03/19/21 09:14 Rivastigmine (Exelon) 1 patch DAILY TD 03/10/21 09:00 03/14/21 23:50 DC 03/14/21 09:00 Sertraline HCl (Zoloft) 50 mg DAILY PO 03/11/21 09:00 03/22/21 20:39 DC 03/22/21 08:39 Trazodone HCl (Desyrel) 50 mg PRN QHS PRN PO INSOMNIA 03/10/21 20:15 Memantine (Namenda) 5 mg DAILY PO 03/12/21 09:00 03/15/21 20:10 DC 03/15/21 07:59 Memantine (Namenda) 10 mg QHS PO 03/11/21 21:00 03/15/21 22:00 DC 03/15/21 21:02 Memantine (Namenda) 10 mg BID PO 03/16/21 09:00 04/18/21 20:30 Rivastigmine (Exelon 13.3mg) 1 patch DAILY TD 03/20/21 09:00 03/26/21 11:18 DC 03/23/21 08:10 Quetiapine Fumarate (SEROquel) 25 mg HS PO 03/17/21 21:00 03/18/21 16:11 DC 03/17/21 21:41 Quetiapine Fumarate (SEROquel) 50 mg HS PO 03/18/21 21:00 04/03/21 17:58 DC 04/02/21 20:41 Sertraline HCl (Zoloft) 75 mg DAILY PO 03/23/21 09:00 03/25/21 12:00 DC 03/25/21 08:24 Sertraline HCl (Zoloft) 100 mg DAILY PO 03/26/21 09:00 04/18/21 08:16 Bupropion HCl (Wellbutrin Xl) 150 mg DAILY PO 03/26/21 09:00 03/27/21 21:00 DC 03/27/21 09:00 Donepezil HCl (Aricept) 5 mg DAILY PO 03/27/21 09:00 03/28/21 23:50 DC 03/28/21 08:17 Donepezil HCl (Aricept) 10 mg DAILY PO 03/29/21 09:00 04/18/21 08:12 Bupropion HCl (Wellbutrin Xl) 150 mg 0900,1200 PO 03/28/21 09:00 04/18/21 11:23 Risperidone (RisperDAL) 0.5 mg HS PO 04/03/21 21:00 04/13/21 18:25 DC 04/12/21 20:19 Risperidone (RisperDAL) 0.75 mg QHS PO 04/13/21 21:00 04/14/21 20:09 DC 04/13/21 20:06 Risperidone (RisperDAL) 1 mg HS PO 04/14/21 21:00 04/18/21 20:30 I have reviewed the current psychotropics carefully including drug interactions. Risk benefit ratio favors no change other than as noted in my dictated progress note. Diagnosis: Problems: (1) Impulse control disorder, unspecified (2) Lewy body dementia with behavioral disturbance (3) Anxiety disorder, unspecified (4) Dementia in Alzheimer's disease with depression (5) Dementia in Alzheimer's disease with delusions (6) Major neurocognitive disorder GABRIELLA LEDEZMA MD Apr 18, 2021 20:47
--- NOTE | 2021-04-18 22:36 | NUR ---
Pt located in his room this evening. Pleasant and compliant with whole medications. Pt currently sleeping in bed.
[2021-04-19 05:48] VITALS: BP 137/76
--- NOTE | 2021-04-19 07:41 | PDOC ---
Exam Note: Mike Note: This note is a late entry for 04/17/2021 covers elements not covered in my initial note. Subjective: The patient was seen individually in the evening of 04/17/2021 with Uche HECTOR, discussed and reviewed the chart. The patient slept 7-1/4 hours previous night. He remains withdrawn, spends much time in his room. I have discussed with nursing staff to try and connect him on a video-telephone call with his son Yonathan. Patient is less delusional, not fixated that his son is as I met with him in his room. Review of Systems: No CV, , pulmonary, eye system symptoms on review. Mental Status Exam: The patient is oriented to himself and situation. Speech has some latency. Often response is monosyllabic. Abstraction fair. Computation impaired. Language function intact. Mood and affect withdrawn but less depressed, less delusional. Laboratory Data: Reviewed. 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 Anxiety disorder unspecified. Impulse control disorder unspecified. Plan: Maintain psychotropics unchanged for now. Assessment: Vital Signs/I&O: Vital Signs Date Time Temp Pulse Resp B/P (MAP) Pulse Ox O2 Delivery O2 Flow Rate FiO2 04/19/21 05:48 97.8 65 16 137/76 (96) 95 04/18/21 15:37 Room Air I & O 04/18/21 04/18/21 04/19/21 15:00 23:00 07:00 Intake Total 720 ml 360 ml Balance 720 ml 360 ml Labs: Laboratory Tests Test 04/19/21 07:37 Glucose (Fingerstick) 134 mg/dL (70-99) H Current Medications: Meds: Laboratory Tests Test 04/19/21 07:37 Glucose (Fingerstick) 134 mg/dL Current Medications Medications (Trade) Dose Ordered Sig/Greg Route PRN Reason Start Time Stop Time Status Last Admin Dose Admin Acetaminophen (Tylenol) 650 mg PRN Q6HRS PRN PO MILD PAIN / TEMP > 100.3'F 03/04/21 16:15 Multi-Ingredient Ointment (Analgesic [place]) 1 donn PRN QID PRN TP MUSCLE PAIN 03/04/21 16:15 Al Hydroxide/Mg Hydroxide (Mylanta Plus Xs) 15 ml PRN AFTMEALHC PRN PO DYSPEPSIA 03/04/21 16:15 Magnesium Hydroxide (Milk Of Magnesia) 2,400 mg PRN QHS PRN PO CONSTIPATION 03/04/21 16:15 04/15/21 20:59 Aspirin (Aspirin Chewable) 81 mg DAILY PO 03/05/21 09:00 04/18/21 08:11 Lisinopril (Prinivil) 10 mg DAILY PO 03/05/21 09:00 04/18/21 08:13 Vitamin D (Vitamin D3) 25 unit DAILY PO 03/05/21 09:00 03/07/21 10:29 DC 03/05/21 09:14 Metformin HCl (Glucophage) 1,000 mg BIDWMEALS PO 03/04/21 17:00 04/18/21 16:04 Atorvastatin Calcium (Lipitor) 80 mg QHS PO 03/04/21 21:00 04/18/21 20:29 Olanzapine (ZyPREXA ZYDIS) 2.5 mg PRN Q2HR PRN PO PSYCHOSIS 03/05/21 17:00 03/31/21 19:43 Vitamin D (Vitamin D3) 1,000 unit DAILY PO 03/08/21 09:00 04/18/21 08:12 Memantine (Namenda) 5 mg BID PO 03/07/21 21:00 03/11/21 18:16 DC 03/11/21 08:36 Sertraline HCl (Zoloft) 25 mg DAILY PO 03/08/21 09:00 03/10/21 20:16 DC 03/10/21 08:40 Rivastigmine (Exelon) 4.6 patch DAILY TD 03/08/21 09:00 03/09/21 13:31 DC 03/09/21 08:58 Rivastigmine (Exelon) 9.5 patch DAILY TD 03/15/21 09:00 Cancel Rivastigmine (Exelon) 1 patch DAILY TD 03/15/21 09:00 03/19/21 14:00 DC 03/19/21 09:14 Rivastigmine (Exelon) 1 patch DAILY TD 03/10/21 09:00 03/14/21 23:50 DC 03/14/21 09:00 Sertraline HCl (Zoloft) 50 mg DAILY PO 03/11/21 09:00 03/22/21 20:39 DC 03/22/21 08:39 Trazodone HCl (Desyrel) 50 mg PRN QHS PRN PO INSOMNIA 03/10/21 20:15 Memantine (Namenda) 5 mg DAILY PO 03/12/21 09:00 03/15/21 20:10 DC 03/15/21 07:59 Memantine (Namenda) 10 mg QHS PO 03/11/21 21:00 03/15/21 22:00 DC 03/15/21 21:02 Memantine (Namenda) 10 mg BID PO 03/16/21 09:00 04/18/21 20:30 Rivastigmine (Exelon 13.3mg) 1 patch DAILY TD 03/20/21 09:00 03/26/21 11:18 DC 03/23/21 08:10 Quetiapine Fumarate (SEROquel) 25 mg HS PO 03/17/21 21:00 03/18/21 16:11 DC 03/17/21 21:41 Quetiapine Fumarate (SEROquel) 50 mg HS PO 03/18/21 21:00 04/03/21 17:58 DC 04/02/21 20:41 Sertraline HCl (Zoloft) 75 mg DAILY PO 03/23/21 09:00 03/25/21 12:00 DC 03/25/21 08:24 Sertraline HCl (Zoloft) 100 mg DAILY PO 03/26/21 09:00 04/18/21 08:16 Bupropion HCl (Wellbutrin Xl) 150 mg DAILY PO 03/26/21 09:00 03/27/21 21:00 DC 03/27/21 09:00 Donepezil HCl (Aricept) 5 mg DAILY PO 03/27/21 09:00 03/28/21 23:50 DC 03/28/21 08:17 Donepezil HCl (Aricept) 10 mg DAILY PO 03/29/21 09:00 04/18/21 08:12 Bupropion HCl (Wellbutrin Xl) 150 mg 0900,1200 PO 03/28/21 09:00 04/18/21 11:23 Risperidone (RisperDAL) 0.5 mg HS PO 04/03/21 21:00 04/13/21 18:25 DC 04/12/21 20:19 Risperidone (RisperDAL) 0.75 mg QHS PO 04/13/21 21:00 04/14/21 20:09 DC 04/13/21 20:06 Risperidone (RisperDAL) 1 mg HS PO 04/14/21 21:00 04/18/21 20:30 I have reviewed the current psychotropics carefully including drug interactions. Risk benefit ratio favors no change other than as noted in my dictated progress note. Diagnosis: Problems: (1) Impulse control disorder, unspecified (2) Lewy body dementia with behavioral disturbance (3) Anxiety disorder, unspecified (4) Dementia in Alzheimer's disease with depression (5) Dementia in Alzheimer's disease with delusions (6) Major neurocognitive disorder GABRIELLA LEDEZMA MD Apr 19, 2021 07:40
--- NOTE | 2021-04-19 08:05 | PDOC ---
Exam Note: Mike Note: This note is a late entry for 04/18/2021 covers elements not covered in my initial note. Subjective: The patient was seen individually in the evening of 04/18/2021 with James HECTOR, discussed and reviewed the chart. The patient slept 8 hours previous night. He spends much time in his bed, isolative. Staff will arrange a video call with his son. Review of Systems: No CV, , pulmonary, eye system symptoms on review. Reliability varies. Mental Status Exam: The patient is oriented to himself and situation. Speech coherent. Abstraction fair. Computation impaired. Language function intact. Attention span short. Mood and affect less depressed. Laboratory Data: Reviewed. 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 Anxiety disorder unspecified. Impulse control disorder. Plan: Maintain psychotropics unchanged for now. Assessment: Vital Signs/I&O: Vital Signs Date Time Temp Pulse Resp B/P (MAP) Pulse Ox O2 Delivery O2 Flow Rate FiO2 04/19/21 05:48 97.8 65 16 137/76 (96) 95 04/18/21 15:37 Room Air I & O 04/18/21 04/18/21 04/19/21 15:00 23:00 07:00 Intake Total 720 ml 360 ml Balance 720 ml 360 ml Labs: Laboratory Tests Test 04/19/21 07:37 Glucose (Fingerstick) 134 mg/dL (70-99) H Current Medications: Meds: Laboratory Tests Test 04/19/21 07:37 Glucose (Fingerstick) 134 mg/dL Current Medications Medications (Trade) Dose Ordered Sig/Greg Route PRN Reason Start Time Stop Time Status Last Admin Dose Admin Acetaminophen (Tylenol) 650 mg PRN Q6HRS PRN PO MILD PAIN / TEMP > 100.3'F 03/04/21 16:15 Multi-Ingredient Ointment (Analgesic [place]) 1 donn PRN QID PRN TP MUSCLE PAIN 03/04/21 16:15 Al Hydroxide/Mg Hydroxide (Mylanta Plus Xs) 15 ml PRN AFTMEALHC PRN PO DYSPEPSIA 03/04/21 16:15 Magnesium Hydroxide (Milk Of Magnesia) 2,400 mg PRN QHS PRN PO CONSTIPATION 03/04/21 16:15 04/15/21 20:59 Aspirin (Aspirin Chewable) 81 mg DAILY PO 03/05/21 09:00 04/18/21 08:11 Lisinopril (Prinivil) 10 mg DAILY PO 03/05/21 09:00 04/18/21 08:13 Vitamin D (Vitamin D3) 25 unit DAILY PO 03/05/21 09:00 03/07/21 10:29 DC 03/05/21 09:14 Metformin HCl (Glucophage) 1,000 mg BIDWMEALS PO 03/04/21 17:00 04/18/21 16:04 Atorvastatin Calcium (Lipitor) 80 mg QHS PO 03/04/21 21:00 04/18/21 20:29 Olanzapine (ZyPREXA ZYDIS) 2.5 mg PRN Q2HR PRN PO PSYCHOSIS 03/05/21 17:00 03/31/21 19:43 Vitamin D (Vitamin D3) 1,000 unit DAILY PO 03/08/21 09:00 04/18/21 08:12 Memantine (Namenda) 5 mg BID PO 03/07/21 21:00 03/11/21 18:16 DC 03/11/21 08:36 Sertraline HCl (Zoloft) 25 mg DAILY PO 03/08/21 09:00 03/10/21 20:16 DC 03/10/21 08:40 Rivastigmine (Exelon) 4.6 patch DAILY TD 03/08/21 09:00 03/09/21 13:31 DC 03/09/21 08:58 Rivastigmine (Exelon) 9.5 patch DAILY TD 03/15/21 09:00 Cancel Rivastigmine (Exelon) 1 patch DAILY TD 03/15/21 09:00 03/19/21 14:00 DC 03/19/21 09:14 Rivastigmine (Exelon) 1 patch DAILY TD 03/10/21 09:00 03/14/21 23:50 DC 03/14/21 09:00 Sertraline HCl (Zoloft) 50 mg DAILY PO 03/11/21 09:00 03/22/21 20:39 DC 03/22/21 08:39 Trazodone HCl (Desyrel) 50 mg PRN QHS PRN PO INSOMNIA 03/10/21 20:15 Memantine (Namenda) 5 mg DAILY PO 03/12/21 09:00 03/15/21 20:10 DC 03/15/21 07:59 Memantine (Namenda) 10 mg QHS PO 03/11/21 21:00 03/15/21 22:00 DC 03/15/21 21:02 Memantine (Namenda) 10 mg BID PO 03/16/21 09:00 04/18/21 20:30 Rivastigmine (Exelon 13.3mg) 1 patch DAILY TD 03/20/21 09:00 03/26/21 11:18 DC 03/23/21 08:10 Quetiapine Fumarate (SEROquel) 25 mg HS PO 03/17/21 21:00 03/18/21 16:11 DC 03/17/21 21:41 Quetiapine Fumarate (SEROquel) 50 mg HS PO 03/18/21 21:00 04/03/21 17:58 DC 04/02/21 20:41 Sertraline HCl (Zoloft) 75 mg DAILY PO 03/23/21 09:00 03/25/21 12:00 DC 03/25/21 08:24 Sertraline HCl (Zoloft) 100 mg DAILY PO 03/26/21 09:00 04/18/21 08:16 Bupropion HCl (Wellbutrin Xl) 150 mg DAILY PO 03/26/21 09:00 03/27/21 21:00 DC 03/27/21 09:00 Donepezil HCl (Aricept) 5 mg DAILY PO 03/27/21 09:00 03/28/21 23:50 DC 03/28/21 08:17 Donepezil HCl (Aricept) 10 mg DAILY PO 03/29/21 09:00 04/18/21 08:12 Bupropion HCl (Wellbutrin Xl) 150 mg 0900,1200 PO 03/28/21 09:00 04/18/21 11:23 Risperidone (RisperDAL) 0.5 mg HS PO 04/03/21 21:00 04/13/21 18:25 DC 04/12/21 20:19 Risperidone (RisperDAL) 0.75 mg QHS PO 04/13/21 21:00 04/14/21 20:09 DC 04/13/21 20:06 Risperidone (RisperDAL) 1 mg HS PO 04/14/21 21:00 04/18/21 20:30 I have reviewed the current psychotropics carefully including drug interactions. Risk benefit ratio favors no change other than as noted in my dictated progress note. Diagnosis: Problems: (1) Impulse control disorder, unspecified (2) Lewy body dementia with behavioral disturbance (3) Anxiety disorder, unspecified (4) Dementia in Alzheimer's disease with depression (5) Dementia in Alzheimer's disease with delusions (6) Major neurocognitive disorder GABRIELLA LEDEZMA MD Apr 19, 2021 08:05
[2021-04-19] MEDS: metFORMIN 500 MG TABLET PO SCH ×2 (08:28→17:11)
[2021-04-19] MEDS: buPROPion XL 150 MG TAB.ER.24H PO SCH ×2 (08:28→12:15)
[2021-04-19] MEDS: ASPIRIN CHEWABLE 81 MG TABLET. PO SCH (08:28)
[2021-04-19] MEDS: LISINOPRIL 10 MG TABLET PO SCH (08:28)
[2021-04-19] MEDS: CHOLECALCIFEROL (VITAMIN D3) 1,000 UNIT TABLET PO SCH (08:28)
[2021-04-19] MEDS: MEMANTINE 10 MG TABLET. PO SCH ×2 (08:29→20:19)
[2021-04-19] MEDS: DONEPEZIL HCL 10 MG TABLET PO SCH (08:29)
[2021-04-19] MEDS: SERTRALINE 100 MG TABLET. PO SCH (08:29)
[2021-04-19 15:35] VITALS: BP 126/75
--- NOTE | 2021-04-19 18:30 | NUR ---
Patient has been calm, cooperative, and pleasant throughout this shift. HE was withdrawn to his room in the morning, then was in the day room to watch football games after lunch. Patient assisted another patient in a wheelchair to dinner, then was withdrawn to his room after dinner. Will continue to monitor and report to oncoming shift.
[2021-04-19] MEDS: ATORVASTATIN CALCIUM 20 MG TABLET PO SCH (20:19)
[2021-04-19] MEDS: risperiDONE 1 MG TABLET. PO SCH (20:19)
--- NOTE | 2021-04-19 20:24 | PDOC ---
Exam Note: Mike Note: Please also refer to the separate dictated note~for this date of service dictated separately.~Patient seen individually. Discussed the patient with Nursing staff reviewed the chart.~Reviewed interim history and current functioning. Reviewed vital signs,~Labs/ Radiology~and current medications noted below. Continue current treatment with the changes noted in the dictated addendum note Assessment: Vital Signs/I&O: Vital Signs Date Time Temp Pulse Resp B/P (MAP) Pulse Ox O2 Delivery O2 Flow Rate FiO2 04/19/21 15:35 98.1 65 18 126/75 (92) 94 04/18/21 15:37 Room Air I & O 04/18/21 04/18/21 04/19/21 15:00 23:00 07:00 Intake Total 720 ml 360 ml Balance 720 ml 360 ml Labs: Laboratory Tests Test 04/19/21 07:37 Glucose (Fingerstick) 134 mg/dL (70-99) H Current Medications: Meds: Laboratory Tests Test 04/19/21 07:37 Glucose (Fingerstick) 134 mg/dL Current Medications Medications (Trade) Dose Ordered Sig/Greg Route PRN Reason Start Time Stop Time Status Last Admin Dose Admin Acetaminophen (Tylenol) 650 mg PRN Q6HRS PRN PO MILD PAIN / TEMP > 100.3'F 03/04/21 16:15 Multi-Ingredient Ointment (Analgesic [place]) 1 donn PRN QID PRN TP MUSCLE PAIN 03/04/21 16:15 Al Hydroxide/Mg Hydroxide (Mylanta Plus Xs) 15 ml PRN AFTMEALHC PRN PO DYSPEPSIA 03/04/21 16:15 Magnesium Hydroxide (Milk Of Magnesia) 2,400 mg PRN QHS PRN PO CONSTIPATION 03/04/21 16:15 04/15/21 20:59 Aspirin (Aspirin Chewable) 81 mg DAILY PO 03/05/21 09:00 04/19/21 08:28 Lisinopril (Prinivil) 10 mg DAILY PO 03/05/21 09:00 04/19/21 08:28 Vitamin D (Vitamin D3) 25 unit DAILY PO 03/05/21 09:00 03/07/21 10:29 DC 03/05/21 09:14 Metformin HCl (Glucophage) 1,000 mg BIDWMEALS PO 03/04/21 17:00 04/19/21 17:11 Atorvastatin Calcium (Lipitor) 80 mg QHS PO 03/04/21 21:00 04/19/21 20:19 Olanzapine (ZyPREXA ZYDIS) 2.5 mg PRN Q2HR PRN PO PSYCHOSIS 03/05/21 17:00 03/31/21 19:43 Vitamin D (Vitamin D3) 1,000 unit DAILY PO 03/08/21 09:00 04/19/21 08:28 Memantine (Namenda) 5 mg BID PO 03/07/21 21:00 03/11/21 18:16 DC 03/11/21 08:36 Sertraline HCl (Zoloft) 25 mg DAILY PO 03/08/21 09:00 03/10/21 20:16 DC 03/10/21 08:40 Rivastigmine (Exelon) 4.6 patch DAILY TD 03/08/21 09:00 03/09/21 13:31 DC 03/09/21 08:58 Rivastigmine (Exelon) 9.5 patch DAILY TD 03/15/21 09:00 Cancel Rivastigmine (Exelon) 1 patch DAILY TD 03/15/21 09:00 03/19/21 14:00 DC 03/19/21 09:14 Rivastigmine (Exelon) 1 patch DAILY TD 03/10/21 09:00 03/14/21 23:50 DC 03/14/21 09:00 Sertraline HCl (Zoloft) 50 mg DAILY PO 03/11/21 09:00 03/22/21 20:39 DC 03/22/21 08:39 Trazodone HCl (Desyrel) 50 mg PRN QHS PRN PO INSOMNIA 03/10/21 20:15 Memantine (Namenda) 5 mg DAILY PO 03/12/21 09:00 03/15/21 20:10 DC 03/15/21 07:59 Memantine (Namenda) 10 mg QHS PO 03/11/21 21:00 03/15/21 22:00 DC 03/15/21 21:02 Memantine (Namenda) 10 mg BID PO 03/16/21 09:00 04/19/21 20:19 Rivastigmine (Exelon 13.3mg) 1 patch DAILY TD 03/20/21 09:00 03/26/21 11:18 DC 03/23/21 08:10 Quetiapine Fumarate (SEROquel) 25 mg HS PO 03/17/21 21:00 03/18/21 16:11 DC 03/17/21 21:41 Quetiapine Fumarate (SEROquel) 50 mg HS PO 03/18/21 21:00 04/03/21 17:58 DC 04/02/21 20:41 Sertraline HCl (Zoloft) 75 mg DAILY PO 03/23/21 09:00 03/25/21 12:00 DC 03/25/21 08:24 Sertraline HCl (Zoloft) 100 mg DAILY PO 03/26/21 09:00 04/19/21 08:29 Bupropion HCl (Wellbutrin Xl) 150 mg DAILY PO 03/26/21 09:00 03/27/21 21:00 DC 03/27/21 09:00 Donepezil HCl (Aricept) 5 mg DAILY PO 03/27/21 09:00 03/28/21 23:50 DC 03/28/21 08:17 Donepezil HCl (Aricept) 10 mg DAILY PO 03/29/21 09:00 04/19/21 08:29 Bupropion HCl (Wellbutrin Xl) 150 mg 0900,1200 PO 03/28/21 09:00 04/19/21 12:15 Risperidone (RisperDAL) 0.5 mg HS PO 04/03/21 21:00 04/13/21 18:25 DC 04/12/21 20:19 Risperidone (RisperDAL) 0.75 mg QHS PO 04/13/21 21:00 04/14/21 20:09 DC 04/13/21 20:06 Risperidone (RisperDAL) 1 mg HS PO 04/14/21 21:00 04/19/21 20:19 I have reviewed the current psychotropics carefully including drug interactions. Risk benefit ratio favors no change other than as noted in my dictated progress note. Diagnosis: Problems: (1) Impulse control disorder, unspecified (2) Lewy body dementia with behavioral disturbance (3) Anxiety disorder, unspecified (4) Dementia in Alzheimer's disease with depression (5) Dementia in Alzheimer's disease with delusions (6) Major neurocognitive disorder GABRIELLA LEDEZMA MD Apr 19, 2021 20:24
--- NOTE | 2021-04-19 22:18 | NUR ---
Pt located in his room this evening. Calm and pleasant. Compliant with whole medications.
[2021-04-20 06:10] VITALS: BP 144/83
--- NOTE | 2021-04-20 07:00 | PDOC ---
Exam Note: Mike Note: This note is a late entry for 04/19/2021 covers elements not covered in my initial note. Subjective: The patient was seen individually in the evening of 04/19/2021 with Scott HECTOR, discussed and reviewed the chart. The patient slept 8-1/4 hours previous night. He has been spending more time outside his room today. He watched football game, talked to his son over the telephone and as I questioned him on this in his room, he was smiling and quite animated about the conversation he had on conference call. He was talking about discharge plans stated he gets services at the [facility]. Review of Systems: No CV, , pulmonary, eye system symptoms on review. Reliability varies. Mental Status Exam: The patient is oriented to himself and situation. Speech coherent. Abstraction fair. Computation impaired. Language function intact. Attention span short. Mood and affect less depressed. Laboratory Data: Reviewed. 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 Anxiety disorder unspecified. Impulse control disorder. Plan: Maintain psychotropics unchanged for now. Assessment: Vital Signs/I&O: Vital Signs Date Time Temp Pulse Resp B/P (MAP) Pulse Ox O2 Delivery O2 Flow Rate FiO2 04/20/21 06:10 98.0 68 16 144/83 (103) 95 04/18/21 15:37 Room Air I & O 04/19/21 04/19/21 04/20/21 15:00 23:00 07:00 Intake Total 760 ml 360 ml Balance 760 ml 360 ml Labs: Laboratory Tests Test 04/19/21 07:37 Glucose (Fingerstick) 134 mg/dL (70-99) H Current Medications: Meds: Laboratory Tests Test 04/19/21 07:37 Glucose (Fingerstick) 134 mg/dL Current Medications Medications (Trade) Dose Ordered Sig/Greg Route PRN Reason Start Time Stop Time Status Last Admin Dose Admin Acetaminophen (Tylenol) 650 mg PRN Q6HRS PRN PO MILD PAIN / TEMP > 100.3'F 03/04/21 16:15 Multi-Ingredient Ointment (Analgesic [place]) 1 donn PRN QID PRN TP MUSCLE PAIN 03/04/21 16:15 Al Hydroxide/Mg Hydroxide (Mylanta Plus Xs) 15 ml PRN AFTMEALHC PRN PO DYSPEPSIA 03/04/21 16:15 Magnesium Hydroxide (Milk Of Magnesia) 2,400 mg PRN QHS PRN PO CONSTIPATION 03/04/21 16:15 04/15/21 20:59 Aspirin (Aspirin Chewable) 81 mg DAILY PO 03/05/21 09:00 04/19/21 08:28 Lisinopril (Prinivil) 10 mg DAILY PO 03/05/21 09:00 04/19/21 08:28 Vitamin D (Vitamin D3) 25 unit DAILY PO 03/05/21 09:00 03/07/21 10:29 DC 03/05/21 09:14 Metformin HCl (Glucophage) 1,000 mg BIDWMEALS PO 03/04/21 17:00 04/19/21 17:11 Atorvastatin Calcium (Lipitor) 80 mg QHS PO 03/04/21 21:00 04/19/21 20:19 Olanzapine (ZyPREXA ZYDIS) 2.5 mg PRN Q2HR PRN PO PSYCHOSIS 03/05/21 17:00 03/31/21 19:43 Vitamin D (Vitamin D3) 1,000 unit DAILY PO 03/08/21 09:00 04/19/21 08:28 Memantine (Namenda) 5 mg BID PO 03/07/21 21:00 03/11/21 18:16 DC 03/11/21 08:36 Sertraline HCl (Zoloft) 25 mg DAILY PO 03/08/21 09:00 03/10/21 20:16 DC 03/10/21 08:40 Rivastigmine (Exelon) 4.6 patch DAILY TD 03/08/21 09:00 03/09/21 13:31 DC 03/09/21 08:58 Rivastigmine (Exelon) 9.5 patch DAILY TD 03/15/21 09:00 Cancel Rivastigmine (Exelon) 1 patch DAILY TD 03/15/21 09:00 03/19/21 14:00 DC 03/19/21 09:14 Rivastigmine (Exelon) 1 patch DAILY TD 03/10/21 09:00 03/14/21 23:50 DC 03/14/21 09:00 Sertraline HCl (Zoloft) 50 mg DAILY PO 03/11/21 09:00 03/22/21 20:39 DC 03/22/21 08:39 Trazodone HCl (Desyrel) 50 mg PRN QHS PRN PO INSOMNIA 03/10/21 20:15 Memantine (Namenda) 5 mg DAILY PO 03/12/21 09:00 03/15/21 20:10 DC 03/15/21 07:59 Memantine (Namenda) 10 mg QHS PO 03/11/21 21:00 03/15/21 22:00 DC 03/15/21 21:02 Memantine (Namenda) 10 mg BID PO 03/16/21 09:00 04/19/21 20:19 Rivastigmine (Exelon 13.3mg) 1 patch DAILY TD 03/20/21 09:00 03/26/21 11:18 DC 03/23/21 08:10 Quetiapine Fumarate (SEROquel) 25 mg HS PO 03/17/21 21:00 03/18/21 16:11 DC 03/17/21 21:41 Quetiapine Fumarate (SEROquel) 50 mg HS PO 03/18/21 21:00 04/03/21 17:58 DC 04/02/21 20:41 Sertraline HCl (Zoloft) 75 mg DAILY PO 03/23/21 09:00 03/25/21 12:00 DC 03/25/21 08:24 Sertraline HCl (Zoloft) 100 mg DAILY PO 03/26/21 09:00 04/19/21 08:29 Bupropion HCl (Wellbutrin Xl) 150 mg DAILY PO 03/26/21 09:00 03/27/21 21:00 DC 03/27/21 09:00 Donepezil HCl (Aricept) 5 mg DAILY PO 03/27/21 09:00 03/28/21 23:50 DC 03/28/21 08:17 Donepezil HCl (Aricept) 10 mg DAILY PO 03/29/21 09:00 04/19/21 08:29 Bupropion HCl (Wellbutrin Xl) 150 mg 0900,1200 PO 03/28/21 09:00 04/19/21 12:15 Risperidone (RisperDAL) 0.5 mg HS PO 04/03/21 21:00 04/13/21 18:25 DC 04/12/21 20:19 Risperidone (RisperDAL) 0.75 mg QHS PO 04/13/21 21:00 04/14/21 20:09 DC 04/13/21 20:06 Risperidone (RisperDAL) 1 mg HS PO 04/14/21 21:00 04/19/21 20:19 I have reviewed the current psychotropics carefully including drug interactions. Risk benefit ratio favors no change other than as noted in my dictated progress note. Diagnosis: Problems: (1) Impulse control disorder, unspecified (2) Lewy body dementia with behavioral disturbance (3) Anxiety disorder, unspecified (4) Dementia in Alzheimer's disease with depression (5) Dementia in Alzheimer's disease with delusions (6) Major neurocognitive disorder GABRIELLA LEDEZMA MD Apr 20, 2021 07:00
[2021-04-20] MEDS: ASPIRIN CHEWABLE 81 MG TABLET. PO SCH (08:24)
[2021-04-20] MEDS: metFORMIN 500 MG TABLET PO SCH ×2 (08:25→17:08)
[2021-04-20] MEDS: buPROPion XL 150 MG TAB.ER.24H PO SCH ×2 (08:25→12:29)
[2021-04-20] MEDS: CHOLECALCIFEROL (VITAMIN D3) 1,000 UNIT TABLET PO SCH (08:25)
[2021-04-20] MEDS: MEMANTINE 10 MG TABLET. PO SCH ×2 (08:25→20:23)
[2021-04-20] MEDS: DONEPEZIL HCL 10 MG TABLET PO SCH (08:25)
[2021-04-20] MEDS: LISINOPRIL 10 MG TABLET PO SCH (08:25)
[2021-04-20] MEDS: SERTRALINE 100 MG TABLET. PO SCH (08:26)
--- NOTE | 2021-04-20 13:45 | NUR ---
GEOVANNA received call from Yonathan who wanted an update on placement for pt. GEOVANNA informed him that [facility] to deny pt. There is a place in [place], [place] that has expressed interest and will be calling to talk to Yonathan. GEOVANNA empathized that Yonathan feels [place] is too far; however, under the circumstances it is an option that needs to be explored as there are no other options. Yonathan mentioned a place [facility] in [place] and asked that SW send a referral there. GEOVANNA encouraged Yonathan to give the [place] [facility] a chance if they called to talk to him and will send the referral to [facility].
--- NOTE | 2021-04-20 13:58 | NUR ---
RN Day Shift Note: Pt presents with neutral mood/affect. Pt is low-alejandro on the unit. Pt is pleasant and engageable when approached by staff. Pt is noted to spend time in his bedroom today. Pt did go into the day room today. Pt is medication compliant, cooperative and calm. Pt slept 7.75 hours last night. Pt continues to have a good appetite. Will continue to encourage pt to visit the day room. Will continue to monitor.
[2021-04-20 15:31] VITALS: BP 110/68
[2021-04-20] MEDS: ATORVASTATIN CALCIUM 20 MG TABLET PO SCH (20:23)
[2021-04-20] MEDS: risperiDONE 1 MG TABLET. PO SCH (20:23)
--- NOTE | 2021-04-20 21:12 | PDOC ---
Exam Note: Mike Note: Please also refer to the separate dictated note~for this date of service dictated separately.~Patient seen individually. Discussed the patient with Nursing staff reviewed the chart.~Reviewed interim history and current functioning. Reviewed vital signs,~Labs/ Radiology~and current medications noted below. Continue current treatment with the changes noted in the dictated addendum note Assessment: Vital Signs/I&O: Vital Signs Date Time Temp Pulse Resp B/P (MAP) Pulse Ox O2 Delivery O2 Flow Rate FiO2 04/20/21 15:31 97.7 68 18 110/68 (82) 95 04/18/21 15:37 Room Air I & O 04/19/21 04/19/21 04/20/21 15:00 23:00 07:00 Intake Total 760 ml 360 ml Balance 760 ml 360 ml Labs: Laboratory Tests Test 04/20/21 07:35 Glucose (Fingerstick) 90 mg/dL (70-99) Current Medications: Meds: Laboratory Tests Test 04/20/21 07:35 Glucose (Fingerstick) 90 mg/dL Current Medications Medications (Trade) Dose Ordered Sig/Greg Route PRN Reason Start Time Stop Time Status Last Admin Dose Admin Acetaminophen (Tylenol) 650 mg PRN Q6HRS PRN PO MILD PAIN / TEMP > 100.3'F 03/04/21 16:15 Multi-Ingredient Ointment (Analgesic [place]) 1 donn PRN QID PRN TP MUSCLE PAIN 03/04/21 16:15 Al Hydroxide/Mg Hydroxide (Mylanta Plus Xs) 15 ml PRN AFTMEALHC PRN PO DYSPEPSIA 03/04/21 16:15 Magnesium Hydroxide (Milk Of Magnesia) 2,400 mg PRN QHS PRN PO CONSTIPATION 03/04/21 16:15 04/15/21 20:59 Aspirin (Aspirin Chewable) 81 mg DAILY PO 03/05/21 09:00 04/20/21 08:24 Lisinopril (Prinivil) 10 mg DAILY PO 03/05/21 09:00 04/20/21 08:25 Vitamin D (Vitamin D3) 25 unit DAILY PO 03/05/21 09:00 03/07/21 10:29 DC 03/05/21 09:14 Metformin HCl (Glucophage) 1,000 mg BIDWMEALS PO 03/04/21 17:00 04/20/21 17:08 Atorvastatin Calcium (Lipitor) 80 mg QHS PO 03/04/21 21:00 04/20/21 20:23 Olanzapine (ZyPREXA ZYDIS) 2.5 mg PRN Q2HR PRN PO PSYCHOSIS 03/05/21 17:00 03/31/21 19:43 Vitamin D (Vitamin D3) 1,000 unit DAILY PO 03/08/21 09:00 04/20/21 08:25 Memantine (Namenda) 5 mg BID PO 03/07/21 21:00 03/11/21 18:16 DC 03/11/21 08:36 Sertraline HCl (Zoloft) 25 mg DAILY PO 03/08/21 09:00 03/10/21 20:16 DC 03/10/21 08:40 Rivastigmine (Exelon) 4.6 patch DAILY TD 03/08/21 09:00 03/09/21 13:31 DC 03/09/21 08:58 Rivastigmine (Exelon) 9.5 patch DAILY TD 03/15/21 09:00 Cancel Rivastigmine (Exelon) 1 patch DAILY TD 03/15/21 09:00 03/19/21 14:00 DC 03/19/21 09:14 Rivastigmine (Exelon) 1 patch DAILY TD 03/10/21 09:00 03/14/21 23:50 DC 03/14/21 09:00 Sertraline HCl (Zoloft) 50 mg DAILY PO 03/11/21 09:00 03/22/21 20:39 DC 03/22/21 08:39 Trazodone HCl (Desyrel) 50 mg PRN QHS PRN PO INSOMNIA 03/10/21 20:15 Memantine (Namenda) 5 mg DAILY PO 03/12/21 09:00 03/15/21 20:10 DC 03/15/21 07:59 Memantine (Namenda) 10 mg QHS PO 03/11/21 21:00 03/15/21 22:00 DC 03/15/21 21:02 Memantine (Namenda) 10 mg BID PO 03/16/21 09:00 04/20/21 20:23 Rivastigmine (Exelon 13.3mg) 1 patch DAILY TD 03/20/21 09:00 11/4/21 11:18 DC 03/23/21 08:10 Quetiapine Fumarate (SEROquel) 25 mg HS PO 03/17/21 21:00 03/18/21 16:11 DC 03/17/21 21:41 Quetiapine Fumarate (SEROquel) 50 mg HS PO 03/18/21 21:00 04/03/21 17:58 DC 04/02/21 20:41 Sertraline HCl (Zoloft) 75 mg DAILY PO 03/23/21 09:00 03/25/21 12:00 DC 03/25/21 08:24 Sertraline HCl (Zoloft) 100 mg DAILY PO 03/26/21 09:00 04/20/21 08:26 Bupropion HCl (Wellbutrin Xl) 150 mg DAILY PO 03/26/21 09:00 03/27/21 21:00 DC 03/27/21 09:00 Donepezil HCl (Aricept) 5 mg DAILY PO 03/27/21 09:00 03/28/21 23:50 DC 03/28/21 08:17 Donepezil HCl (Aricept) 10 mg DAILY PO 03/29/21 09:00 04/20/21 08:25 Bupropion HCl (Wellbutrin Xl) 150 mg 0900,1200 PO 03/28/21 09:00 04/20/21 12:29 Risperidone (RisperDAL) 0.5 mg HS PO 04/03/21 21:00 04/13/21 18:25 DC 04/12/21 20:19 Risperidone (RisperDAL) 0.75 mg QHS PO 04/13/21 21:00 04/14/21 20:09 DC 04/13/21 20:06 Risperidone (RisperDAL) 1 mg HS PO 04/14/21 21:00 04/20/21 20:23 I have reviewed the current psychotropics carefully including drug interactions. Risk benefit ratio favors no change other than as noted in my dictated progress note. Diagnosis: Problems: (1) Impulse control disorder, unspecified (2) Lewy body dementia with behavioral disturbance (3) Anxiety disorder, unspecified (4) Dementia in Alzheimer's disease with depression (5) Dementia in Alzheimer's disease with delusions (6) Major neurocognitive disorder GABRIELLA LEDEZMA MD Apr 20, 2021 21:12
--- NOTE | 2021-04-20 22:02 | NUR ---
Pt located in his room this evening. Compliant with whole medications. Pleasant and cooperative.
[2021-04-21 06:29] VITALS: BP 99/57
[2021-04-21] MEDS: CHOLECALCIFEROL (VITAMIN D3) 1,000 UNIT TABLET PO SCH (08:43)
[2021-04-21] MEDS: buPROPion XL 150 MG TAB.ER.24H PO SCH ×2 (08:43→12:15)
[2021-04-21] MEDS: SERTRALINE 100 MG TABLET. PO SCH (08:43)
[2021-04-21] MEDS: DONEPEZIL HCL 10 MG TABLET PO SCH (08:43)
[2021-04-21] MEDS: metFORMIN 500 MG TABLET PO SCH ×2 (08:43→17:09)
[2021-04-21] MEDS: ASPIRIN CHEWABLE 81 MG TABLET. PO SCH (08:43)
[2021-04-21] MEDS: MEMANTINE 10 MG TABLET. PO SCH ×2 (08:43→20:30)
[2021-04-21] MEDS: LISINOPRIL 10 MG TABLET PO SCH (09:00)
--- NOTE | 2021-04-21 10:37 | NUR ---
GEOVANNA returned call to Taina from [facility] in [place], [place] and ended up leaving a message asking for her to call GEOVANNA back.
--- NOTE | 2021-04-21 14:45 | NUR ---
Nursing note: Pt in dining room at time of AM med pass and assessment. He is pleasant, med compliant and cooperative. Pt denies having any pain/concerns. He has been up in the day room for most of the shift and is currently participating in group. Will continue to monitor.
[2021-04-21 15:59] VITALS: BP 116/73
[2021-04-21] MEDS: ATORVASTATIN CALCIUM 20 MG TABLET PO SCH (20:30)
[2021-04-21] MEDS: risperiDONE 1 MG TABLET. PO SCH (20:30)
--- NOTE | 2021-04-21 20:37 | PDOC ---
Exam Note: Mike Note: Please also refer to the separate dictated note~for this date of service dictated separately.~Patient seen individually. Discussed the patient with Nursing staff reviewed the chart.~Reviewed interim history and current functioning. Reviewed vital signs,~Labs/ Radiology~and current medications noted below. Continue current treatment with the changes noted in the dictated addendum note Assessment: Vital Signs/I&O: Vital Signs Date Time Temp Pulse Resp B/P (MAP) Pulse Ox O2 Delivery O2 Flow Rate FiO2 04/21/21 15:59 97.5 70 16 116/73 (87) 96 04/18/21 15:37 Room Air I & O 04/20/21 04/20/21 04/21/21 15:00 23:00 07:00 Intake Total 600 ml 240 ml Balance 600 ml 240 ml Labs: Laboratory Tests Test 04/21/21 07:26 Glucose (Fingerstick) 87 mg/dL (70-99) Current Medications: Meds: Laboratory Tests Test 04/21/21 07:26 Glucose (Fingerstick) 87 mg/dL Current Medications Medications (Trade) Dose Ordered Sig/Greg Route PRN Reason Start Time Stop Time Status Last Admin Dose Admin Acetaminophen (Tylenol) 650 mg PRN Q6HRS PRN PO MILD PAIN / TEMP > 100.3'F 03/04/21 16:15 Multi-Ingredient Ointment (Analgesic [place]) 1 donn PRN QID PRN TP MUSCLE PAIN 03/04/21 16:15 Al Hydroxide/Mg Hydroxide (Mylanta Plus Xs) 15 ml PRN AFTMEALHC PRN PO DYSPEPSIA 03/04/21 16:15 Magnesium Hydroxide (Milk Of Magnesia) 2,400 mg PRN QHS PRN PO CONSTIPATION 03/04/21 16:15 04/15/21 20:59 Aspirin (Aspirin Chewable) 81 mg DAILY PO 03/05/21 09:00 04/21/21 08:43 Lisinopril (Prinivil) 10 mg DAILY PO 03/05/21 09:00 04/20/21 08:25 Vitamin D (Vitamin D3) 25 unit DAILY PO 03/05/21 09:00 03/07/21 10:29 DC 03/05/21 09:14 Metformin HCl (Glucophage) 1,000 mg BIDWMEALS PO 03/04/21 17:00 04/21/21 17:09 Atorvastatin Calcium (Lipitor) 80 mg QHS PO 03/04/21 21:00 04/21/21 20:30 Olanzapine (ZyPREXA ZYDIS) 2.5 mg PRN Q2HR PRN PO PSYCHOSIS 03/05/21 17:00 03/31/21 19:43 Vitamin D (Vitamin D3) 1,000 unit DAILY PO 03/08/21 09:00 04/21/21 08:43 Memantine (Namenda) 5 mg BID PO 03/07/21 21:00 03/11/21 18:16 DC 03/11/21 08:36 Sertraline HCl (Zoloft) 25 mg DAILY PO 03/08/21 09:00 03/10/21 20:16 DC 03/10/21 08:40 Rivastigmine (Exelon) 4.6 patch DAILY TD 03/08/21 09:00 03/09/21 13:31 DC 03/09/21 08:58 Rivastigmine (Exelon) 9.5 patch DAILY TD 03/15/21 09:00 Cancel Rivastigmine (Exelon) 1 patch DAILY TD 03/15/21 09:00 03/19/21 14:00 DC 03/19/21 09:14 Rivastigmine (Exelon) 1 patch DAILY TD 03/10/21 09:00 03/14/21 23:50 DC 03/14/21 09:00 Sertraline HCl (Zoloft) 50 mg DAILY PO 03/11/21 09:00 03/22/21 20:39 DC 03/22/21 08:39 Trazodone HCl (Desyrel) 50 mg PRN QHS PRN PO INSOMNIA 03/10/21 20:15 Memantine (Namenda) 5 mg DAILY PO 03/12/21 09:00 03/15/21 20:10 DC 03/15/21 07:59 Memantine (Namenda) 10 mg QHS PO 03/11/21 21:00 03/15/21 22:00 DC 03/15/21 21:02 Memantine (Namenda) 10 mg BID PO 03/16/21 09:00 04/21/21 20:30 Rivastigmine (Exelon 13.3mg) 1 patch DAILY TD 03/20/21 09:00 11/4/21 11:18 DC 03/23/21 08:10 Quetiapine Fumarate (SEROquel) 25 mg HS PO 03/17/21 21:00 03/18/21 16:11 DC 03/17/21 21:41 Quetiapine Fumarate (SEROquel) 50 mg HS PO 03/18/21 21:00 04/03/21 17:58 DC 04/02/21 20:41 Sertraline HCl (Zoloft) 75 mg DAILY PO 03/23/21 09:00 03/25/21 12:00 DC 03/25/21 08:24 Sertraline HCl (Zoloft) 100 mg DAILY PO 03/26/21 09:00 04/21/21 08:43 Bupropion HCl (Wellbutrin Xl) 150 mg DAILY PO 03/26/21 09:00 03/27/21 21:00 DC 03/27/21 09:00 Donepezil HCl (Aricept) 5 mg DAILY PO 03/27/21 09:00 03/28/21 23:50 DC 03/28/21 08:17 Donepezil HCl (Aricept) 10 mg DAILY PO 03/29/21 09:00 04/21/21 08:43 Bupropion HCl (Wellbutrin Xl) 150 mg 0900,1200 PO 03/28/21 09:00 04/21/21 12:15 Risperidone (RisperDAL) 0.5 mg HS PO 04/03/21 21:00 04/13/21 18:25 DC 04/12/21 20:19 Risperidone (RisperDAL) 0.75 mg QHS PO 04/13/21 21:00 04/14/21 20:09 DC 04/13/21 20:06 Risperidone (RisperDAL) 1 mg HS PO 04/14/21 21:00 04/21/21 20:30 I have reviewed the current psychotropics carefully including drug interactions. Risk benefit ratio favors no change other than as noted in my dictated progress note. Diagnosis: Problems: (1) Impulse control disorder, unspecified (2) Lewy body dementia with behavioral disturbance (3) Anxiety disorder, unspecified (4) Dementia in Alzheimer's disease with depression (5) Dementia in Alzheimer's disease with delusions (6) Major neurocognitive disorder GABRIELLA LEDEZMA MD Apr 21, 2021 20:37
--- NOTE | 2021-04-21 23:21 | NUR ---
Pt located in his room this evening sitting calmly. Compliant with whole medications. Pleasant and calm.
[2021-04-22 05:47] VITALS: BP 118/72
--- NOTE | 2021-04-22 06:26 | PDOC ---
Exam Note: Mike Note: This note is a late entry for 04/20/2021 covers elements not covered in my initial note. Subjective: The patient was seen individually in the evening of 04/20/2021 with Dora HECTOR, discussed and reviewed the chart. The patient slept 7-3/4 hours previous night. I met with the patient in his room. He remains withdrawn, not aggressive or agitated. Review of Systems: No CV, , pulmonary, eye system symptoms on review. Reliability varies. Mental Status Exam: The patient is oriented to himself and situation. I talked to him at length about his son. He states his son is in management with the [employer] that has [employer] in different states and the son travels frequently. He seemed pretty coherent about this. Abstraction fair. Computation impaired. Language function intact. Attention span short. Mood and affect less depressed. Laboratory Data: Reviewed. 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 Anxiety disorder unspecified. Impulse control disorder. Plan: Maintain psychotropics unchanged for now. Assessment: Vital Signs/I&O: Vital Signs Date Time Temp Pulse Resp B/P (MAP) Pulse Ox O2 Delivery O2 Flow Rate FiO2 04/22/21 05:47 97.9 69 16 118/72 (87) 95 04/18/21 15:37 Room Air I & O 04/21/21 04/21/21 04/22/21 14:59 22:59 06:59 Intake Total 720 ml 360 ml Balance 720 ml 360 ml Labs: Laboratory Tests Test 04/21/21 07:26 Glucose (Fingerstick) 87 mg/dL (70-99) Current Medications: Meds: Laboratory Tests Test 04/21/21 07:26 Glucose (Fingerstick) 87 mg/dL Current Medications Medications (Trade) Dose Ordered Sig/Greg Route PRN Reason Start Time Stop Time Status Last Admin Dose Admin Acetaminophen (Tylenol) 650 mg PRN Q6HRS PRN PO MILD PAIN / TEMP > 100.3'F 03/04/21 16:15 Multi-Ingredient Ointment (Analgesic [place]) 1 donn PRN QID PRN TP MUSCLE PAIN 03/04/21 16:15 Al Hydroxide/Mg Hydroxide (Mylanta Plus Xs) 15 ml PRN AFTMEALHC PRN PO DYSPEPSIA 03/04/21 16:15 Magnesium Hydroxide (Milk Of Magnesia) 2,400 mg PRN QHS PRN PO CONSTIPATION 03/04/21 16:15 04/15/21 20:59 Aspirin (Aspirin Chewable) 81 mg DAILY PO 03/05/21 09:00 04/21/21 08:43 Lisinopril (Prinivil) 10 mg DAILY PO 03/05/21 09:00 04/20/21 08:25 Vitamin D (Vitamin D3) 25 unit DAILY PO 03/05/21 09:00 03/07/21 10:29 DC 03/05/21 09:14 Metformin HCl (Glucophage) 1,000 mg BIDWMEALS PO 03/04/21 17:00 04/21/21 17:09 Atorvastatin Calcium (Lipitor) 80 mg QHS PO 03/04/21 21:00 04/21/21 20:30 Olanzapine (ZyPREXA ZYDIS) 2.5 mg PRN Q2HR PRN PO PSYCHOSIS 03/05/21 17:00 03/31/21 19:43 Vitamin D (Vitamin D3) 1,000 unit DAILY PO 03/08/21 09:00 04/21/21 08:43 Memantine (Namenda) 5 mg BID PO 03/07/21 21:00 03/11/21 18:16 DC 03/11/21 08:36 Sertraline HCl (Zoloft) 25 mg DAILY PO 03/08/21 09:00 03/10/21 20:16 DC 03/10/21 08:40 Rivastigmine (Exelon) 4.6 patch DAILY TD 03/08/21 09:00 03/09/21 13:31 DC 03/09/21 08:58 Rivastigmine (Exelon) 9.5 patch DAILY TD 03/15/21 09:00 Cancel Rivastigmine (Exelon) 1 patch DAILY TD 03/15/21 09:00 03/19/21 14:00 DC 03/19/21 09:14 Rivastigmine (Exelon) 1 patch DAILY TD 03/10/21 09:00 03/14/21 23:50 DC 03/14/21 09:00 Sertraline HCl (Zoloft) 50 mg DAILY PO 03/11/21 09:00 03/22/21 20:39 DC 03/22/21 08:39 Trazodone HCl (Desyrel) 50 mg PRN QHS PRN PO INSOMNIA 03/10/21 20:15 Memantine (Namenda) 5 mg DAILY PO 03/12/21 09:00 03/15/21 20:10 DC 03/15/21 07:59 Memantine (Namenda) 10 mg QHS PO 03/11/21 21:00 03/15/21 22:00 DC 03/15/21 21:02 Memantine (Namenda) 10 mg BID PO 03/16/21 09:00 04/21/21 20:30 Rivastigmine (Exelon 13.3mg) 1 patch DAILY TD 03/20/21 09:00 03/26/21 11:18 DC 03/23/21 08:10 Quetiapine Fumarate (SEROquel) 25 mg HS PO 03/17/21 21:00 03/18/21 16:11 DC 03/17/21 21:41 Quetiapine Fumarate (SEROquel) 50 mg HS PO 03/18/21 21:00 04/03/21 17:58 DC 04/02/21 20:41 Sertraline HCl (Zoloft) 75 mg DAILY PO 03/23/21 09:00 03/25/21 12:00 DC 03/25/21 08:24 Sertraline HCl (Zoloft) 100 mg DAILY PO 03/26/21 09:00 04/21/21 08:43 Bupropion HCl (Wellbutrin Xl) 150 mg DAILY PO 03/26/21 09:00 03/27/21 21:00 DC 03/27/21 09:00 Donepezil HCl (Aricept) 5 mg DAILY PO 03/27/21 09:00 03/28/21 23:50 DC 03/28/21 08:17 Donepezil HCl (Aricept) 10 mg DAILY PO 03/29/21 09:00 04/21/21 08:43 Bupropion HCl (Wellbutrin Xl) 150 mg 0900,1200 PO 03/28/21 09:00 04/21/21 12:15 Risperidone (RisperDAL) 0.5 mg HS PO 04/03/21 21:00 04/13/21 18:25 DC 04/12/21 20:19 Risperidone (RisperDAL) 0.75 mg QHS PO 04/13/21 21:00 04/14/21 20:09 DC 04/13/21 20:06 Risperidone (RisperDAL) 1 mg HS PO 04/14/21 21:00 04/21/21 20:30 I have reviewed the current psychotropics carefully including drug interactions. Risk benefit ratio favors no change other than as noted in my dictated progress note. Diagnosis: Problems: (1) Impulse control disorder, unspecified (2) Lewy body dementia with behavioral disturbance (3) Anxiety disorder, unspecified (4) Dementia in Alzheimer's disease with depression (5) Dementia in Alzheimer's disease with delusions (6) Major neurocognitive disorder GABRIELLA LEDEZMA MD Apr 22, 2021 06:26
[2021-04-22 06:39] LABS: BASO % 1 % (0-3); EOS # 0.1 x10^3/uL (0.0-0.7); EOS % 2 % (0-3); HEMATOCRIT 40.7 % (39.0-53.0); LYMPH # 1.1 x10^3/uL (1.0-4.8); LYMPH % 25 % (24-48); MEAN CORPUSCULAR HEMOGLOBIN 33 pg (25-35); MEAN CORPUSCULAR HGB CONC 35 g/dL (31-37); MEAN CORPUSCULAR VOLUME 95 fL (79-100); MONO # 0.4 x10^3/uL (0.0-1.1); MONO % 9 % (0-9); NEUT # 2.8 x10^3uL (1.8-7.7); NEUT % 63 % (31-73); PLATELET COUNT 135 x10^3/uL (140-400); RED BLOOD COUNT 4.28 x10^6/uL (4.30-5.70); RED CELL DISTRIBUTION WIDTH 13.6 % (11.5-14.5); WHITE BLOOD COUNT 4.5 x10^3/uL (4.0-11.0)
--- NOTE | 2021-04-22 06:39 | PDOC ---
Exam Note: Mike Note: PThis note is a late entry for 04/21/2021 covers elements not covered in my initial note. Subjective: The patient was seen individually in the evening of 04/21/2021 with Dora HECTOR, discussed and reviewed the chart. The patient slept 7-1/4 hours previous night. He had a good day. I met with the patient in length in his room. He states he has not talked to his son Yonathan because Yonathan is travelling. Review of Systems: No CV, , pulmonary, eye system symptoms on review. Mental Status Exam: The patient is oriented to himself and situation. Speech coherent. Abstraction fair. Computation impaired. Language function intact. Attention span short. Mood and affect withdrawn. Laboratory Data: Reviewed. 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 Anxiety disorder unspecified. Impulse control disorder. Plan: Maintain psychotropics unchanged for now. Assessment: Vital Signs/I&O: Vital Signs Date Time Temp Pulse Resp B/P (MAP) Pulse Ox O2 Delivery O2 Flow Rate FiO2 04/22/21 05:47 97.9 69 16 118/72 (87) 95 04/18/21 15:37 Room Air I & O 04/21/21 04/21/21 04/22/21 15:00 23:00 07:00 Intake Total 720 ml 360 ml Balance 720 ml 360 ml Labs: Laboratory Tests Test 04/21/21 07:26 Glucose (Fingerstick) 87 mg/dL (70-99) Current Medications: Meds: Laboratory Tests Test 04/21/21 07:26 Glucose (Fingerstick) 87 mg/dL Current Medications Medications (Trade) Dose Ordered Sig/Greg Route PRN Reason Start Time Stop Time Status Last Admin Dose Admin Acetaminophen (Tylenol) 650 mg PRN Q6HRS PRN PO MILD PAIN / TEMP > 100.3'F 03/04/21 16:15 Multi-Ingredient Ointment (Analgesic [place]) 1 donn PRN QID PRN TP MUSCLE PAIN 03/04/21 16:15 Al Hydroxide/Mg Hydroxide (Mylanta Plus Xs) 15 ml PRN AFTMEALHC PRN PO DYSPEPSIA 03/04/21 16:15 Magnesium Hydroxide (Milk Of Magnesia) 2,400 mg PRN QHS PRN PO CONSTIPATION 03/04/21 16:15 04/15/21 20:59 Aspirin (Aspirin Chewable) 81 mg DAILY PO 03/05/21 09:00 04/21/21 08:43 Lisinopril (Prinivil) 10 mg DAILY PO 03/05/21 09:00 04/20/21 08:25 Vitamin D (Vitamin D3) 25 unit DAILY PO 03/05/21 09:00 03/07/21 10:29 DC 03/05/21 09:14 Metformin HCl (Glucophage) 1,000 mg BIDWMEALS PO 03/04/21 17:00 04/21/21 17:09 Atorvastatin Calcium (Lipitor) 80 mg QHS PO 03/04/21 21:00 04/21/21 20:30 Olanzapine (ZyPREXA ZYDIS) 2.5 mg PRN Q2HR PRN PO PSYCHOSIS 03/05/21 17:00 03/31/21 19:43 Vitamin D (Vitamin D3) 1,000 unit DAILY PO 03/08/21 09:00 04/21/21 08:43 Memantine (Namenda) 5 mg BID PO 03/07/21 21:00 03/11/21 18:16 DC 03/11/21 08:36 Sertraline HCl (Zoloft) 25 mg DAILY PO 03/08/21 09:00 03/10/21 20:16 DC 03/10/21 08:40 Rivastigmine (Exelon) 4.6 patch DAILY TD 03/08/21 09:00 03/09/21 13:31 DC 03/09/21 08:58 Rivastigmine (Exelon) 9.5 patch DAILY TD 03/15/21 09:00 Cancel Rivastigmine (Exelon) 1 patch DAILY TD 03/15/21 09:00 03/19/21 14:00 DC 03/19/21 09:14 Rivastigmine (Exelon) 1 patch DAILY TD 03/10/21 09:00 03/14/21 23:50 DC 03/14/21 09:00 Sertraline HCl (Zoloft) 50 mg DAILY PO 03/11/21 09:00 03/22/21 20:39 DC 03/22/21 08:39 Trazodone HCl (Desyrel) 50 mg PRN QHS PRN PO INSOMNIA 03/10/21 20:15 Memantine (Namenda) 5 mg DAILY PO 03/12/21 09:00 03/15/21 20:10 DC 03/15/21 07:59 Memantine (Namenda) 10 mg QHS PO 03/11/21 21:00 03/15/21 22:00 DC 03/15/21 21:02 Memantine (Namenda) 10 mg BID PO 03/16/21 09:00 04/21/21 20:30 Rivastigmine (Exelon 13.3mg) 1 patch DAILY TD 03/20/21 09:00 03/26/21 11:18 DC 03/23/21 08:10 Quetiapine Fumarate (SEROquel) 25 mg HS PO 03/17/21 21:00 03/18/21 16:11 DC 03/17/21 21:41 Quetiapine Fumarate (SEROquel) 50 mg HS PO 03/18/21 21:00 04/03/21 17:58 DC 04/02/21 20:41 Sertraline HCl (Zoloft) 75 mg DAILY PO 03/23/21 09:00 03/25/21 12:00 DC 03/25/21 08:24 Sertraline HCl (Zoloft) 100 mg DAILY PO 03/26/21 09:00 04/21/21 08:43 Bupropion HCl (Wellbutrin Xl) 150 mg DAILY PO 03/26/21 09:00 03/27/21 21:00 DC 03/27/21 09:00 Donepezil HCl (Aricept) 5 mg DAILY PO 03/27/21 09:00 03/28/21 23:50 DC 03/28/21 08:17 Donepezil HCl (Aricept) 10 mg DAILY PO 03/29/21 09:00 04/21/21 08:43 Bupropion HCl (Wellbutrin Xl) 150 mg 0900,1200 PO 03/28/21 09:00 04/21/21 12:15 Risperidone (RisperDAL) 0.5 mg HS PO 04/03/21 21:00 04/13/21 18:25 DC 04/12/21 20:19 Risperidone (RisperDAL) 0.75 mg QHS PO 04/13/21 21:00 11/23/21 20:09 DC 04/13/21 20:06 Risperidone (RisperDAL) 1 mg HS PO 04/14/21 21:00 04/21/21 20:30 I have reviewed the current psychotropics carefully including drug interactions. Risk benefit ratio favors no change other than as noted in my dictated progress note. Diagnosis: Problems: (1) Impulse control disorder, unspecified (2) Lewy body dementia with behavioral disturbance (3) Anxiety disorder, unspecified (4) Dementia in Alzheimer's disease with depression (5) Dementia in Alzheimer's disease with delusions (6) Major neurocognitive disorder GABRIELLA LEDEZMA MD Apr 22, 2021 06:39
[2021-04-22 07:12] LABS: ALBUMIN 3.5 g/dL (3.4-5.0); ALBUMIN/GLOBULIN RATIO 1.1 (1.0-1.7); CALCIUM 8.9 mg/dL (8.5-10.1); GFR 73.2; POTASSIUM 4.3 mmol/L (3.5-5.1); TOTAL BILIRUBIN 0.4 mg/dL (0.2-1.0); TOTAL PROTEIN 6.6 g/dL (6.4-8.2)
[2021-04-22] MEDS: metFORMIN 500 MG TABLET PO SCH ×2 (08:23→17:25)
[2021-04-22] MEDS: ASPIRIN CHEWABLE 81 MG TABLET. PO SCH (08:23)
[2021-04-22] MEDS: LISINOPRIL 10 MG TABLET PO SCH (08:24)
[2021-04-22] MEDS: DONEPEZIL HCL 10 MG TABLET PO SCH (08:24)
[2021-04-22] MEDS: MEMANTINE 10 MG TABLET. PO SCH ×2 (08:24→20:10)
[2021-04-22] MEDS: SERTRALINE 100 MG TABLET. PO SCH (08:24)
[2021-04-22] MEDS: CHOLECALCIFEROL (VITAMIN D3) 1,000 UNIT TABLET PO SCH (08:24)
[2021-04-22] MEDS: buPROPion XL 150 MG TAB.ER.24H PO SCH ×2 (08:24→12:00)
--- NOTE | 2021-04-22 09:40 | NUR ---
GEOVANNA completed insurance update with Kassandra at the [facility]. Kassandra reports that in review of everything sent over, pt will need to have placement by the . GEOVANNA and Kassandra discussed pt son needing the push to extend his search as he has essentially stopped every placement outside the [facility] catchment area because it was not "close enough". If pt son does not allow for a wider search and placement is not found, he may have to bring pt home to live with him until he can figure services out "on his own". [facility] prior to going into the weekend.
--- NOTE | 2021-04-22 10:09 | NUR ---
GEOVANNA returned Yonathan's call and updated him re: placement. At this time all facilities in [place] and [place] have denied pt placement and the catchment area needs to be extended to either [place] or [place]. Pt son does not want pt further away and GE[facility]ANNA noted that the [facility] is giving us until the to find placement. At this time, they feel pt was more than ready to discharge March 25 and have been more than generous to aid in finding placement. Yonathan expressed unhappiness with pt having to go outside the area but noted that [facility] in [place] was willing to evaluate and he would concede to them continuing with the evaluation. Yonathan questioned if pt came home what would have to happen. GEOVANNA noted that he would have to take the keys and truck; pt would need checked on to ensure he is taking his medication and ensuring that he was eating. GEOVANNA explained that there are days that pt is going to be clear and have a conversation; that is the basis of Lewy Body Dementia. However, pt will have the confused days and days where he will need more assist than others. It would not be ideal for pt to live home alone. GEOVANNA will contact [facility] and call Yonathan with that update.
--- NOTE | 2021-04-22 10:34 | NUR ---
Nursing note: Pt in dining room at time of AM med pass and assessment. He is pleasant, med compliant and cooperative and states that he is doing "really good" this AM. Pt has no concerns at time of assessment. He is currently resting quietly in his room. Will continue to monitor.
[2021-04-22 15:50] VITALS: BP 129/74
[2021-04-22] MEDS: risperiDONE 1 MG TABLET. PO SCH (20:10)
[2021-04-22] MEDS: ATORVASTATIN CALCIUM 20 MG TABLET PO SCH (20:10)
--- NOTE | 2021-04-22 20:50 | PDOC ---
Exam Note: Mike Note: Please also refer to the separate dictated note~for this date of service dictated separately.~Patient seen individually. Discussed the patient with Nursing staff reviewed the chart.~Reviewed interim history and current functioning. Reviewed vital signs,~Labs/ Radiology~and current medications noted below. Continue current treatment with the changes noted in the dictated addendum note Assessment: Vital Signs/I&O: Vital Signs Date Time Temp Pulse Resp B/P (MAP) Pulse Ox O2 Delivery O2 Flow Rate FiO2 04/22/21 15:50 97.8 70 16 129/74 (92) 94 Room Air I & O 04/21/21 04/21/21 04/22/21 15:00 23:00 07:00 Intake Total 720 ml 360 ml Balance 720 ml 360 ml Labs: Laboratory Tests Test 04/22/21 05:30 04/22/21 06:27 04/22/21 07:45 SARS-CoV-2 (PCR) Not detected (NOT DETECTD) White Blood Count 4.5 x10^3/uL (4.0-11.0) Red Blood Count 4.28 x10^6/uL (4.30-5.70) L Hemoglobin 14.0 g/dL (13.0-17.5) Hematocrit 40.7 % (39.0-53.0) Mean Corpuscular Volume 95 fL (79-100) Mean Corpuscular Hemoglobin 33 pg (25-35) Mean Corpuscular Hemoglobin Concent 35 g/dL (31-37) Red Cell Distribution Width 13.6 % (11.5-14.5) Platelet Count 135 x10^3/uL (140-400) L Neutrophils (%) (Auto) 63 % (31-73) Lymphocytes (%) (Auto) 25 % (24-48) Monocytes (%) (Auto) 9 % (0-9) Eosinophils (%) (Auto) 2 % (0-3) Basophils (%) (Auto) 1 % (0-3) Neutrophils # (Auto) 2.8 x10^3uL (1.8-7.7) Lymphocytes # (Auto) 1.1 x10^3/uL (1.0-4.8) Monocytes # (Auto) 0.4 x10^3/uL (0.0-1.1) Eosinophils # (Auto) 0.1 x10^3/uL (0.0-0.7) Basophils # (Auto) 0.0 x10^3/uL (0.0-0.2) Sodium Level 137 mmol/L (136-145) Potassium Level 4.3 mmol/L (3.5-5.1) Chloride Level 101 mmol/L (98-107) Carbon Dioxide Level 30 mmol/L (21-32) Anion Gap 6 (6-14) Blood Urea Nitrogen 20 mg/dL (8-26) Creatinine 1.0 mg/dL (0.7-1.3) Estimated GFR (Cockcroft-Gault) 73.2 BUN/Creatinine Ratio 20 (6-20) Glucose Level 98 mg/dL (70-99) Calcium Level 8.9 mg/dL (8.5-10.1) Total Bilirubin 0.4 mg/dL (0.2-1.0) Aspartate Amino Transferase (AST) 27 U/L (15-37) Alanine Aminotransferase (ALT) 74 U/L (16-63) H Alkaline Phosphatase 109 U/L (46-116) Total Protein 6.6 g/dL (6.4-8.2) Albumin 3.5 g/dL (3.4-5.0) Albumin/Globulin Ratio 1.1 (1.0-1.7) Glucose (Fingerstick) 105 mg/dL (70-99) H Current Medications: Meds: Laboratory Tests Test 04/22/21 05:30 04/22/21 06:27 04/22/21 07:45 Coronavirus (COVID-19)(PCR) Not detected White Blood Count 4.5 x10^3/uL Red Blood Count 4.28 x10^6/uL Hemoglobin 14.0 g/dL Hematocrit 40.7 % Mean Corpuscular Volume 95 fL Mean Corpuscular Hemoglobin 33 pg Mean Corpuscular Hemoglobin Concent 35 g/dL Red Cell Distribution Width 13.6 % Platelet Count 135 x10^3/uL Neutrophils (%) (Auto) 63 % Lymphocytes (%) (Auto) 25 % Monocytes (%) (Auto) 9 % Eosinophils (%) (Auto) 2 % Basophils (%) (Auto) 1 % Neutrophils # (Auto) 2.8 x10^3uL Lymphocytes # (Auto) 1.1 x10^3/uL Monocytes # (Auto) 0.4 x10^3/uL Eosinophils # (Auto) 0.1 x10^3/uL Basophils # (Auto) 0.0 x10^3/uL Sodium Level 137 mmol/L Potassium Level 4.3 mmol/L Chloride Level 101 mmol/L Carbon Dioxide Level 30 mmol/L Anion Gap 6 Blood Urea Nitrogen 20 mg/dL Creatinine 1.0 mg/dL Estimated GFR (Cockcroft-Gault) 73.2 BUN/Creatinine Ratio 20 Glucose Level 98 mg/dL Calcium Level 8.9 mg/dL Total Bilirubin 0.4 mg/dL Aspartate Amino Transf (AST/SGOT) 27 U/L Alanine Aminotransferase (ALT/SGPT) 74 U/L Alkaline Phosphatase 109 U/L Total Protein 6.6 g/dL Albumin 3.5 g/dL Albumin/Globulin Ratio 1.1 Glucose (Fingerstick) 105 mg/dL Current Medications Medications (Trade) Dose Ordered Sig/Greg Route PRN Reason Start Time Stop Time Status Last Admin Dose Admin Acetaminophen (Tylenol) 650 mg PRN Q6HRS PRN PO MILD PAIN / TEMP > 100.3'F 03/04/21 16:15 Multi-Ingredient Ointment (Analgesic [place]) 1 donn PRN QID PRN TP MUSCLE PAIN 03/04/21 16:15 Al Hydroxide/Mg Hydroxide (Mylanta Plus Xs) 15 ml PRN AFTMEALHC PRN PO DYSPEPSIA 03/04/21 16:15 Magnesium Hydroxide (Milk Of Magnesia) 2,400 mg PRN QHS PRN PO CONSTIPATION 03/04/21 16:15 04/15/21 20:59 Aspirin (Aspirin Chewable) 81 mg DAILY PO 03/05/21 09:00 04/22/21 08:23 Lisinopril (Prinivil) 10 mg DAILY PO 03/05/21 09:00 04/22/21 08:24 Vitamin D (Vitamin D3) 25 unit DAILY PO 03/05/21 09:00 03/07/21 10:29 DC 03/05/21 09:14 Metformin HCl (Glucophage) 1,000 mg BIDWMEALS PO 03/04/21 17:00 04/22/21 17:25 Atorvastatin Calcium (Lipitor) 80 mg QHS PO 03/04/21 21:00 04/22/21 20:10 Olanzapine (ZyPREXA ZYDIS) 2.5 mg PRN Q2HR PRN PO PSYCHOSIS 03/05/21 17:00 03/31/21 19:43 Vitamin D (Vitamin D3) 1,000 unit DAILY PO 03/08/21 09:00 04/22/21 08:24 Memantine (Namenda) 5 mg BID PO 03/07/21 21:00 03/11/21 18:16 DC 03/11/21 08:36 Sertraline HCl (Zoloft) 25 mg DAILY PO 03/08/21 09:00 03/10/21 20:16 DC 03/10/21 08:40 Rivastigmine (Exelon) 4.6 patch DAILY TD 03/08/21 09:00 03/09/21 13:31 DC 03/09/21 08:58 Rivastigmine (Exelon) 9.5 patch DAILY TD 03/15/21 09:00 Cancel Rivastigmine (Exelon) 1 patch DAILY TD 03/15/21 09:00 03/19/21 14:00 DC 03/19/21 09:14 Rivastigmine (Exelon) 1 patch DAILY TD 03/10/21 09:00 03/14/21 23:50 DC 03/14/21 09:00 Sertraline HCl (Zoloft) 50 mg DAILY PO 03/11/21 09:00 03/22/21 20:39 DC 03/22/21 08:39 Trazodone HCl (Desyrel) 50 mg PRN QHS PRN PO INSOMNIA 03/10/21 20:15 Memantine (Namenda) 5 mg DAILY PO 03/12/21 09:00 03/15/21 20:10 DC 03/15/21 07:59 Memantine (Namenda) 10 mg QHS PO 03/11/21 21:00 03/15/21 22:00 DC 03/15/21 21:02 Memantine (Namenda) 10 mg BID PO 03/16/21 09:00 04/22/21 20:10 Rivastigmine (Exelon 13.3mg) 1 patch DAILY TD 03/20/21 09:00 03/26/21 11:18 DC 03/23/21 08:10 Quetiapine Fumarate (SEROquel) 25 mg HS PO 03/17/21 21:00 03/18/21 16:11 DC 03/17/21 21:41 Quetiapine Fumarate (SEROquel) 50 mg HS PO 03/18/21 21:00 04/03/21 17:58 DC 04/02/21 20:41 Sertraline HCl (Zoloft) 75 mg DAILY PO 03/23/21 09:00 03/25/21 12:00 DC 03/25/21 08:24 Sertraline HCl (Zoloft) 100 mg DAILY PO 03/26/21 09:00 04/22/21 08:24 Bupropion HCl (Wellbutrin Xl) 150 mg DAILY PO 03/26/21 09:00 03/27/21 21:00 DC 03/27/21 09:00 Donepezil HCl (Aricept) 5 mg DAILY PO 03/27/21 09:00 03/28/21 23:50 DC 03/28/21 08:17 Donepezil HCl (Aricept) 10 mg DAILY PO 03/29/21 09:00 04/22/21 08:24 Bupropion HCl (Wellbutrin Xl) 150 mg 0900,1200 PO 03/28/21 09:00 04/22/21 12:00 Risperidone (RisperDAL) 0.5 mg HS PO 04/03/21 21:00 04/13/21 18:25 DC 04/12/21 20:19 Risperidone (RisperDAL) 0.75 mg QHS PO 04/13/21 21:00 04/14/21 20:09 DC 04/13/21 20:06 Risperidone (RisperDAL) 1 mg HS PO 04/14/21 21:00 04/22/21 20:10 I have reviewed the current psychotropics carefully including drug interactions. Risk benefit ratio favors no change other than as noted in my dictated progress note. Diagnosis: Problems: (1) Impulse control disorder, unspecified (2) Lewy body dementia with behavioral disturbance (3) Anxiety disorder, unspecified (4) Dementia in Alzheimer's disease with depression (5) Dementia in Alzheimer's disease with delusions (6) Major neurocognitive disorder GABRIELLA LEDEZMA MD Apr 22, 2021 20:50
--- NOTE | 2021-04-22 23:27 | NUR ---
Nursing Note The patient was located in his room for his assessment and medication pass. The patient was alert to name, date and location. The patient reports that he has had several good conversations with his son. The patient reports that he feels good at this time. The patient took his medication whole. The patient is currently sleeping in his room.
[2021-04-23 06:14] VITALS: BP 116/74
--- NOTE | 2021-04-23 07:06 | PDOC ---
Exam Note: Mike Note: This note is a late entry for 04/22/2021 covers elements not covered in my initial note. Subjective: The patient was seen individually in the evening of 04/22/2021 with Uche HECTOR, discussed and reviewed the chart. The patient slept 6-1/2 hours previous night. He has been on telephone with his son a couple of times today and this evening was again talking to his son. He is doing better. No hallucinations noted. Review of Systems: No CV, , pulmonary, eye system symptoms on review. Mental Status Exam: The patient is oriented to himself and situation. Speech coherent. Abstraction fair. Computation impaired. Language function intact. Mood and affect somewhat withdrawn. Laboratory Data: Reviewed. 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 Anxiety disorder unspecified. Impulse control disorder. Plan: Maintain psychotropics unchanged for now. Assessment: Vital Signs/I&O: Vital Signs Date Time Temp Pulse Resp B/P (MAP) Pulse Ox O2 Delivery O2 Flow Rate FiO2 04/23/21 06:14 97.5 65 18 116/74 (88) 96 04/22/21 15:50 Room Air I & O0 04/22/21 04/22/21 04/23/21 15:00 23:00 07:00 Intake Total 840 ml 360 ml Balance 840 ml 360 ml Labs: Laboratory Tests Test 04/22/21 07:45 Glucose (Fingerstick) 105 mg/dL (70-99) H Current Medications: Meds: Laboratory Tests Test 04/22/21 07:45 Glucose (Fingerstick) 105 mg/dL Current Medications Medications (Trade) Dose Ordered Sig/Greg Route PRN Reason Start Time Stop Time Status Last Admin Dose Admin Acetaminophen (Tylenol) 650 mg PRN Q6HRS PRN PO MILD PAIN / TEMP > 100.3'F 03/04/21 16:15 Multi-Ingredient Ointment (Analgesic [place]) 1 donn PRN QID PRN TP MUSCLE PAIN 03/04/21 16:15 Al Hydroxide/Mg Hydroxide (Mylanta Plus Xs) 15 ml PRN AFTMEALHC PRN PO DYSPEPSIA 03/04/21 16:15 Magnesium Hydroxide (Milk Of Magnesia) 2,400 mg PRN QHS PRN PO CONSTIPATION 03/04/21 16:15 04/15/21 20:59 Aspirin (Aspirin Chewable) 81 mg DAILY PO 03/05/21 09:00 04/22/21 08:23 Lisinopril (Prinivil) 10 mg DAILY PO 03/05/21 09:00 04/22/21 08:24 Vitamin D (Vitamin D3) 25 unit DAILY PO 03/05/21 09:00 03/07/21 10:29 DC 03/05/21 09:14 Metformin HCl (Glucophage) 1,000 mg BIDWMEALS PO 03/04/21 17:00 04/22/21 17:25 Atorvastatin Calcium (Lipitor) 80 mg QHS PO 03/04/21 21:00 04/22/21 20:10 Olanzapine (ZyPREXA ZYDIS) 2.5 mg PRN Q2HR PRN PO PSYCHOSIS 03/05/21 17:00 03/31/21 19:43 Vitamin D (Vitamin D3) 1,000 unit DAILY PO 03/08/21 09:00 04/22/21 08:24 Memantine (Namenda) 5 mg BID PO 03/07/21 21:00 03/11/21 18:16 DC 03/11/21 08:36 Sertraline HCl (Zoloft) 25 mg DAILY PO 03/08/21 09:00 03/10/21 20:16 DC 03/10/21 08:40 Rivastigmine (Exelon) 4.6 patch DAILY TD 03/08/21 09:00 03/09/21 13:31 DC 03/09/21 08:58 Rivastigmine (Exelon) 9.5 patch DAILY TD 03/15/21 09:00 Cancel Rivastigmine (Exelon) 1 patch DAILY TD 03/15/21 09:00 03/19/21 14:00 DC 03/19/21 09:14 Rivastigmine (Exelon) 1 patch DAILY TD 03/10/21 09:00 03/14/21 23:50 DC 03/14/21 09:00 Sertraline HCl (Zoloft) 50 mg DAILY PO 03/11/21 09:00 03/22/21 20:39 DC 03/22/21 08:39 Trazodone HCl (Desyrel) 50 mg PRN QHS PRN PO INSOMNIA 03/10/21 20:15 Memantine (Namenda) 5 mg DAILY PO 03/12/21 09:00 03/15/21 20:10 DC 03/15/21 07:59 Memantine (Namenda) 10 mg QHS PO 03/11/21 21:00 03/15/21 22:00 DC 03/15/21 21:02 Memantine (Namenda) 10 mg BID PO 03/16/21 09:00 04/22/21 20:10 Rivastigmine (Exelon 13.3mg) 1 patch DAILY TD 03/20/21 09:00 03/26/21 11:18 DC 03/23/21 08:10 Quetiapine Fumarate (SEROquel) 25 mg HS PO 03/17/21 21:00 03/18/21 16:11 DC 03/17/21 21:41 Quetiapine Fumarate (SEROquel) 50 mg HS PO 03/18/21 21:00 04/03/21 17:58 DC 04/02/21 20:41 Sertraline HCl (Zoloft) 75 mg DAILY PO 03/23/21 09:00 03/25/21 12:00 DC 03/25/21 08:24 Sertraline HCl (Zoloft) 100 mg DAILY PO 03/26/21 09:00 04/22/21 08:24 Bupropion HCl (Wellbutrin Xl) 150 mg DAILY PO 03/26/21 09:00 03/27/21 21:00 DC 03/27/21 09:00 Donepezil HCl (Aricept) 5 mg DAILY PO 03/27/21 09:00 03/28/21 23:50 DC 03/28/21 08:17 Donepezil HCl (Aricept) 10 mg DAILY PO 03/29/21 09:00 04/22/21 08:24 Bupropion HCl (Wellbutrin Xl) 150 mg 0900,1200 PO 03/28/21 09:00 04/22/21 12:00 Risperidone (RisperDAL) 0.5 mg HS PO 04/03/21 21:00 04/13/21 18:25 DC 04/12/21 20:19 Risperidone (RisperDAL) 0.75 mg QHS PO 04/13/21 21:00 04/14/21 20:09 DC 04/13/21 20:06 Risperidone (RisperDAL) 1 mg HS PO 04/14/21 21:00 04/22/21 20:10 I have reviewed the current psychotropics carefully including drug interactions. Risk benefit ratio favors no change other than as noted in my dictated progress note. Diagnosis: Problems: (1) Impulse control disorder, unspecified (2) Lewy body dementia with behavioral disturbance (3) Anxiety disorder, unspecified (4) Dementia in Alzheimer's disease with depression (5) Dementia in Alzheimer's disease with delusions (6) Major neurocognitive disorder GABRIELLA LEDEZMA MD Apr 23, 2021 07:06
[2021-04-23] MEDS: ASPIRIN CHEWABLE 81 MG TABLET. PO SCH (08:39)
[2021-04-23] MEDS: CHOLECALCIFEROL (VITAMIN D3) 1,000 UNIT TABLET PO SCH (08:39)
[2021-04-23] MEDS: SERTRALINE 100 MG TABLET. PO SCH (08:39)
[2021-04-23] MEDS: LISINOPRIL 10 MG TABLET PO SCH (08:39)
[2021-04-23] MEDS: buPROPion XL 150 MG TAB.ER.24H PO SCH ×2 (08:39→12:27)
[2021-04-23] MEDS: DONEPEZIL HCL 10 MG TABLET PO SCH (08:39)
[2021-04-23] MEDS: metFORMIN 500 MG TABLET PO SCH ×2 (08:40→17:23)
[2021-04-23] MEDS: MEMANTINE 10 MG TABLET. PO SCH ×2 (08:40→20:20)
--- NOTE | 2021-04-23 10:02 | NUR ---
WEEKLY ACTIVITY THERAPY NOTE Date of Admission:03/04/21 Date of AT Assessment: 03/05/2021 Precipitating behaviors that initiated intake and admission:Patient admitted from home via [place] ED for reportedly leaving sons house at night and knocking on neighbors door at 2am, being paranoid about neighbors causing trouble, losing items, and driving to [place] and believed he was in [place] per police. Goal aimed: to increase engagement Initial Goal: Pt. will participate in at least three individual or Activity Therapy groups before discharge. Goal repeated 03/26 Goal changed 04/09: Pt. will participate in at least five individual or Activity Therapy groups before discharge Weekly progress towards goal: on track (04/20-follow your nose, 04/21-horseshoes) Group participation level: 2 full Weekly highlights: smelled and guessed scents during follow your nose Tuesday, tossed horseshoes independently and encouraged peers Tuesday afternoon Behaviors observed: calm and pleasant Plan: no change to goal Beneficial adaptations: encouragement
--- NOTE | 2021-04-23 10:40 | NUR ---
Treatment team update: Pt is eating roughly 75% of meals and sleeping on average 8 hours per night. Pt continues to be pleasant and compliant with all cares/staff direction. Pt is cooperative with medications given whole. Pt does appear to be less delusional and is now talking to his son on a daily basis. Pt has attended four groups this past week with minimal to moderate participation. GEOVANNA has informed pt son that [facility] come [facility]. GEOVANNA informed Yonathan that other referrals to facilities further out need to be evaluated otherwise, pt will discharge to him at that time. GEOVANNA will continue to work with the family on securing placement for discharge on Tuesday.
--- NOTE | 2021-04-23 13:30 | NUR ---
GEOVANNA returned call to Elizabeth at [facility] in [place], [place]. Elizabeth reports that she had a conversation with Yonathan and he will plan to stop by tomorrow to see their facilities. GEOVANNA answered questions for Elizabeth re: pt behavior and noted that a Zoom conference will be completed tomorrow AM around 0900. Elizabeth feels that if they meet with pt via Zoom and do not feel the need for another assessment, they should be able to get pt to them early next week. If they want to further assess in person, they will see about physically coming to see pt on Tuesday and make a final decision.
--- NOTE | 2021-04-23 13:43 | NUR ---
Nursing note: Pt in dining room at time of AM med pass and assessment. He is pleasant, med compliant and cooperative. He denies any pain/concerns. He spent the morning in the day room, but is currently resting quietly in his room. Will continue to monitor.
[2021-04-23 15:30] VITALS: BP 129/79
--- NOTE | 2021-04-23 16:42 | NUR ---
GEOVANNA received call from Yonathan who requested that SW contact Lucia at [facility]: a potential admission. Yonathan was told by a family friend that they take Dementia. He called and spoke to Lucia who has requested to speak with GEOVANNA. If they are able to accept pt he would like for him to go there as it is 20 minutes outside of [place]. Yonathan also expressed concern about how to get pt to understand that he is not going home. Yonathan reports that pt does not believe him stating that pt has a clean bill of health and has things at home he needs to take care of. GEOVANNA will address this with the team and encouraged Yonathan to continue to have that conversation with pt.
--- NOTE | 2021-04-23 16:50 | NUR ---
GEOVANNA contacted Lucia at [facility] who wanted to get additional information on pt. GEOVANNA went over the reason for admission and discussed pt behaviors while present on [facility]. Lucia asked if pt had any exit seeking behaviors in which GEOVANNA explained that he has not even attempted; if anything pt until this past week has been very withdrawn to his room. GEOVANNA noted discharge no later than Tuesday in which GEOVANNA questioned, "is this a tentative yes until you review notes" and Lucia stated "no, we will take him and can have him here on Tuesday. Generally I like my nurse to read his notes but I think he will be fine". GEOVANNA will fax pt records over to Lucia and follow up with her on Tuesday.
[2021-04-23] MEDS: risperiDONE 1 MG TABLET. PO SCH (20:20)
[2021-04-23] MEDS: ATORVASTATIN CALCIUM 20 MG TABLET PO SCH (20:20)
--- NOTE | 2021-04-23 20:48 | PDOC ---
Exam Note: Mike Note: Please also refer to the separate dictated note~for this date of service dictated separately.~Patient seen individually. Discussed the patient with Nursing staff reviewed the chart.~Reviewed interim history and current functioning. Reviewed vital signs,~Labs/ Radiology~and current medications noted below. Continue current treatment with the changes noted in the dictated addendum note Assessment: Vital Signs/I&O: Vital Signs Date Time Temp Pulse Resp B/P (MAP) Pulse Ox O2 Delivery O2 Flow Rate FiO2 04/23/21 15:30 98.2 64 16 129/79 (96) 96 Room Air I & O 04/22/21 04/22/21 04/23/21 14:59 22:59 06:59 Intake Total 840 ml 360 ml Balance 840 ml 360 ml Labs: Laboratory Tests Test 04/23/21 07:37 Glucose (Fingerstick) 86 mg/dL (70-99) Current Medications: Meds: Laboratory Tests Test 04/23/21 07:37 Glucose (Fingerstick) 86 mg/dL Current Medications Medications (Trade) Dose Ordered Sig/Greg Route PRN Reason Start Time Stop Time Status Last Admin Dose Admin Acetaminophen (Tylenol) 650 mg PRN Q6HRS PRN PO MILD PAIN / TEMP > 100.3'F 03/04/21 16:15 Multi-Ingredient Ointment (Analgesic [place]) 1 donn PRN QID PRN TP MUSCLE PAIN 03/04/21 16:15 Al Hydroxide/Mg Hydroxide (Mylanta Plus Xs) 15 ml PRN AFTMEALHC PRN PO DYSPEPSIA 03/04/21 16:15 Magnesium Hydroxide (Milk Of Magnesia) 2,400 mg PRN QHS PRN PO CONSTIPATION 03/04/21 16:15 04/15/21 20:59 Aspirin (Aspirin Chewable) 81 mg DAILY PO 03/05/21 09:00 04/23/21 08:39 Lisinopril (Prinivil) 10 mg DAILY PO 03/05/21 09:00 04/23/21 08:39 Vitamin D (Vitamin D3) 25 unit DAILY PO 03/05/21 09:00 03/07/21 10:29 DC 03/05/21 09:14 Metformin HCl (Glucophage) 1,000 mg BIDWMEALS PO 03/04/21 17:00 04/23/21 17:23 Atorvastatin Calcium (Lipitor) 80 mg QHS PO 03/04/21 21:00 04/23/21 20:20 Olanzapine (ZyPREXA ZYDIS) 2.5 mg PRN Q2HR PRN PO PSYCHOSIS 03/05/21 17:00 03/31/21 19:43 Vitamin D (Vitamin D3) 1,000 unit DAILY PO 03/08/21 09:00 04/23/21 08:39 Memantine (Namenda) 5 mg BID PO 03/07/21 21:00 03/11/21 18:16 DC 03/11/21 08:36 Sertraline HCl (Zoloft) 25 mg DAILY PO 03/08/21 09:00 03/10/21 20:16 DC 03/10/21 08:40 Rivastigmine (Exelon) 4.6 patch DAILY TD 03/08/21 09:00 03/09/21 13:31 DC 03/09/21 08:58 Rivastigmine (Exelon) 9.5 patch DAILY TD 03/15/21 09:00 Cancel Rivastigmine (Exelon) 1 patch DAILY TD 03/15/21 09:00 03/19/21 14:00 DC 03/19/21 09:14 Rivastigmine (Exelon) 1 patch DAILY TD 03/10/21 09:00 03/14/21 23:50 DC 03/14/21 09:00 Sertraline HCl (Zoloft) 50 mg DAILY PO 03/11/21 09:00 03/22/21 20:39 DC 03/22/21 08:39 Trazodone HCl (Desyrel) 50 mg PRN QHS PRN PO INSOMNIA 03/10/21 20:15 Memantine (Namenda) 5 mg DAILY PO 03/12/21 09:00 03/15/21 20:10 DC 03/15/21 07:59 Memantine (Namenda) 10 mg QHS PO 03/11/21 21:00 03/15/21 22:00 DC 03/15/21 21:02 Memantine (Namenda) 10 mg BID PO 03/16/21 09:00 04/23/21 20:20 Rivastigmine (Exelon 13.3mg) 1 patch DAILY TD 03/20/21 09:00 03/26/21 11:18 DC 03/23/21 08:10 Quetiapine Fumarate (SEROquel) 25 mg HS PO 03/17/21 21:00 03/18/21 16:11 DC 03/17/21 21:41 Quetiapine Fumarate (SEROquel) 50 mg HS PO 03/18/21 21:00 04/03/21 17:58 DC 04/02/21 20:41 Sertraline HCl (Zoloft) 75 mg DAILY PO 03/23/21 09:00 03/25/21 12:00 DC 03/25/21 08:24 Sertraline HCl (Zoloft) 100 mg DAILY PO 03/26/21 09:00 04/23/21 08:39 Bupropion HCl (Wellbutrin Xl) 150 mg DAILY PO 03/26/21 09:00 03/27/21 21:00 DC 03/27/21 09:00 Donepezil HCl (Aricept) 5 mg DAILY PO 03/27/21 09:00 03/28/21 23:50 DC 03/28/21 08:17 Donepezil HCl (Aricept) 10 mg DAILY PO 03/29/21 09:00 04/23/21 08:39 Bupropion HCl (Wellbutrin Xl) 150 mg 0900,1200 PO 03/28/21 09:00 04/23/21 12:27 Risperidone (RisperDAL) 0.5 mg HS PO 04/03/21 21:00 04/13/21 18:25 DC 04/12/21 20:19 Risperidone (RisperDAL) 0.75 mg QHS PO 04/13/21 21:00 04/14/21 20:09 DC 04/13/21 20:06 Risperidone (RisperDAL) 1 mg HS PO 04/14/21 21:00 04/23/21 20:20 I have reviewed the current psychotropics carefully including drug interactions. Risk benefit ratio favors no change other than as noted in my dictated progress note. Diagnosis: Problems: (1) Impulse control disorder, unspecified (2) Lewy body dementia with behavioral disturbance (3) Anxiety disorder, unspecified (4) Dementia in Alzheimer's disease with depression (5) Dementia in Alzheimer's disease with delusions (6) Major neurocognitive disorder GABRIELLA LEDEZMA MD Apr 23, 2021 20:48
--- NOTE | 2021-04-24 04:34 | NUR ---
Nursing Note The patient was located in his room for his assessment and medication pass. The patient was alert to name, date and location. The patient reports that he feels ready to go home at this time. The patient took his medication whole. The patient is currently sleeping in his room.
[2021-04-24 06:31] VITALS: BP 118/74
--- NOTE | 2021-04-24 07:00 | PDOC ---
Exam Note: Mike Note: This note is a late entry for 04/23/2021 covers elements not covered in my initial note. Subjective: The patient was reviewed at treatment team meeting individually in the morning on 04/23/2021 with Mayra Blackwood, Lizeth Thomas, and Nay Martinez (social work professor), Michelle, activity therapy, and Raegan HECTOR, discussed and reviewed the chart. The patient slept 7-1/2 hours previous night. He has attended 2 groups in the past one week. Reportedly he is doing better on telephone calls with his son. Also discussed with Uche HECTOR in the evening. Patient did go out of the the medical center area. He is med compliant and cooperative. Review of Systems: No CV, , pulmonary, eye system symptoms on review. Mental Status Exam: The patient is oriented to himself and situation. Speech coherent. Abstraction fair. Computation impaired. Language function intact. Mood and affect somewhat withdrawn. Laboratory Data: Reviewed. 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 Anxiety disorder unspecified. Impulse control disorder. Plan: Maintain psychotropics unchanged for now. Assessment: Vital Signs/I&O: Vital Signs Date Time Temp Pulse Resp B/P (MAP) Pulse Ox O2 Delivery O2 Flow Rate FiO2 04/24/21 06:31 97.6 60 18 118/74 (89) 94 04/23/21 15:30 Room Air I & O 04/23/21 04/23/21 04/24/21 15:00 23:00 07:00 Intake Total 840 ml 480 ml Balance 840 ml 480 ml Labs: Laboratory Tests Test 04/23/21 07:37 Glucose (Fingerstick) 86 mg/dL (70-99) Current Medications: Meds: Laboratory Tests Test 04/23/21 07:37 Glucose (Fingerstick) 86 mg/dL Current Medications Medications (Trade) Dose Ordered Sig/Greg Route PRN Reason Start Time Stop Time Status Last Admin Dose Admin Acetaminophen (Tylenol) 650 mg PRN Q6HRS PRN PO MILD PAIN / TEMP > 100.3'F 03/04/21 16:15 Multi-Ingredient Ointment (Analgesic [place]) 1 donn PRN QID PRN TP MUSCLE PAIN 03/04/21 16:15 Al Hydroxide/Mg Hydroxide (Mylanta Plus Xs) 15 ml PRN AFTMEALHC PRN PO DYSPEPSIA 03/04/21 16:15 Magnesium Hydroxide (Milk Of Magnesia) 2,400 mg PRN QHS PRN PO CONSTIPATION 03/04/21 16:15 04/15/21 20:59 Aspirin (Aspirin Chewable) 81 mg DAILY PO 03/05/21 09:00 04/23/21 08:39 Lisinopril (Prinivil) 10 mg DAILY PO 03/05/21 09:00 04/23/21 08:39 Vitamin D (Vitamin D3) 25 unit DAILY PO 03/05/21 09:00 03/07/21 10:29 DC 03/05/21 09:14 Metformin HCl (Glucophage) 1,000 mg BIDWMEALS PO 03/04/21 17:00 04/23/21 17:23 Atorvastatin Calcium (Lipitor) 80 mg QHS PO 03/04/21 21:00 04/23/21 20:20 Olanzapine (ZyPREXA ZYDIS) 2.5 mg PRN Q2HR PRN PO PSYCHOSIS 03/05/21 17:00 03/31/21 19:43 Vitamin D (Vitamin D3) 1,000 unit DAILY PO 03/08/21 09:00 04/23/21 08:39 Memantine (Namenda) 5 mg BID PO 03/07/21 21:00 03/11/21 18:16 DC 03/11/21 08:36 Sertraline HCl (Zoloft) 25 mg DAILY PO 03/08/21 09:00 03/10/21 20:16 DC 03/10/21 08:40 Rivastigmine (Exelon) 4.6 patch DAILY TD 03/08/21 09:00 03/09/21 13:31 DC 03/09/21 08:58 Rivastigmine (Exelon) 9.5 patch DAILY TD 03/15/21 09:00 Cancel Rivastigmine (Exelon) 1 patch DAILY TD 03/15/21 09:00 03/19/21 14:00 DC 03/19/21 09:14 Rivastigmine (Exelon) 1 patch DAILY TD 03/10/21 09:00 03/14/21 23:50 DC 03/14/21 09:00 Sertraline HCl (Zoloft) 50 mg DAILY PO 03/11/21 09:00 03/22/21 20:39 DC 03/22/21 08:39 Trazodone HCl (Desyrel) 50 mg PRN QHS PRN PO INSOMNIA 03/10/21 20:15 Memantine (Namenda) 5 mg DAILY PO 03/12/21 09:00 03/15/21 20:10 DC 03/15/21 07:59 Memantine (Namenda) 10 mg QHS PO 03/11/21 21:00 03/15/21 22:00 DC 03/15/21 21:02 Memantine (Namenda) 10 mg BID PO 03/16/21 09:00 04/23/21 20:20 Rivastigmine (Exelon 13.3mg) 1 patch DAILY TD 03/20/21 09:00 03/26/21 11:18 DC 03/23/21 08:10 Quetiapine Fumarate (SEROquel) 25 mg HS PO 03/17/21 21:00 03/18/21 16:11 DC 03/17/21 21:41 Quetiapine Fumarate (SEROquel) 50 mg HS PO 03/18/21 21:00 04/03/21 17:58 DC 04/02/21 20:41 Sertraline HCl (Zoloft) 75 mg DAILY PO 03/23/21 09:00 03/25/21 12:00 DC 03/25/21 08:24 Sertraline HCl (Zoloft) 100 mg DAILY PO 03/26/21 09:00 04/23/21 08:39 Bupropion HCl (Wellbutrin Xl) 150 mg DAILY PO 03/26/21 09:00 03/27/21 21:00 DC 03/27/21 09:00 Donepezil HCl (Aricept) 5 mg DAILY PO 03/27/21 09:00 03/28/21 23:50 DC 03/28/21 08:17 Donepezil HCl (Aricept) 10 mg DAILY PO 03/29/21 09:00 04/23/21 08:39 Bupropion HCl (Wellbutrin Xl) 150 mg 0900,1200 PO 03/28/21 09:00 04/23/21 12:27 Risperidone (RisperDAL) 0.5 mg HS PO 04/03/21 21:00 04/13/21 18:25 DC 04/12/21 20:19 Risperidone (RisperDAL) 0.75 mg QHS PO 04/13/21 21:00 04/14/21 20:09 DC 04/13/21 20:06 Risperidone (RisperDAL) 1 mg HS PO 04/14/21 21:00 04/23/21 20:20 I have reviewed the current psychotropics carefully including drug interactions. Risk benefit ratio favors no change other than as noted in my dictated progress note. Diagnosis: Problems: (1) Impulse control disorder, unspecified (2) Lewy body dementia with behavioral disturbance (3) Anxiety disorder, unspecified (4) Dementia in Alzheimer's disease with depression (5) Dementia in Alzheimer's disease with delusions (6) Major neurocognitive disorder GABRIELLA LEDEZMA MD Apr 24, 2021 07:00
[2021-04-24] MEDS: buPROPion XL 150 MG TAB.ER.24H PO SCH ×2 (08:21→12:19)
[2021-04-24] MEDS: MEMANTINE 10 MG TABLET. PO SCH ×2 (08:21→20:06)
[2021-04-24] MEDS: ASPIRIN CHEWABLE 81 MG TABLET. PO SCH (08:21)
[2021-04-24] MEDS: metFORMIN 500 MG TABLET PO SCH ×2 (08:21→17:35)
[2021-04-24] MEDS: DONEPEZIL HCL 10 MG TABLET PO SCH (08:21)
[2021-04-24] MEDS: CHOLECALCIFEROL (VITAMIN D3) 1,000 UNIT TABLET PO SCH (08:21)
[2021-04-24] MEDS: SERTRALINE 100 MG TABLET. PO SCH (08:22)
[2021-04-24] MEDS: LISINOPRIL 10 MG TABLET PO SCH (08:23)
--- NOTE | 2021-04-24 09:40 | NUR ---
SW met with pt and completed a Zoom meeting with Elizabeth and Taina at [facility] in [place], [place]. Jez was able to discuss things that he likes to do and mentioned wanting to get out JOVAN. Pt was very pleasant and cooperative with the assessment; noting the understanding that his son Yonathan was working on getting his discharge finalized. After the completion of the Zoom meeting, it was explained to him that it was being worked on and pt may be able to discharge as soon as Tuesday. Pt didn't understand why things were being worked out in [place]. "It's a bit of a drive from [place] for me to be driving back and forth daily". SW explained that pt would not be driving but staying there and pt noted that he has things to do at home and can't stay anywhere else.
--- NOTE | 2021-04-24 10:05 | NUR ---
GEOVANNA returned call to Lucia at [facility] re: having pt admitted on Tuesday and wanted to make sure GEOVANNA was able to send over a copy of pt DPOA for their records. Lucia also questioned if pt was skillable and GEOVANNA noted that pt is independent with everything. GEOVANNA is not sure he could be considered as skilled but can get orders for him to be evaluated if needed. Lucia reports that Yonathan is coming to meet with them this afternoon for paperwork completion and can get things settled for discharge.
--- NOTE | 2021-04-24 14:32 | NUR ---
Nursing note: Pt in dining room at time of AM med pass and assessment. He is pleasant, med compliant and cooperative. He denies any pain/concerns. He has been social with with staff and peers during mealtimes. He is currently resting quietly in his room. Will continue to monitor.
--- NOTE | 2021-04-24 14:47 | NUR ---
[facility] Social Work Discharge Planning Form Patient Name LAURENCE UNDERWOOD Admit Date: 04 March 2021 DISCHARGE PLAN Discharge Destination: Pt to discharge to [facility] Care Assessment: Completed 04/24/21 Level II Assessment: N/A Transportation: Transportation will be arranged Tuesday AM; time TBD. Special Instructions/Notes: Please fax discharge orders, discharge meds and discharge summary to the fax number listed below. DISCHARGE TO FACILITY Facility: [facility] Address: [address] [place] [address] Contact Name: Lucia Gutierrez, Admissions: Contact Name: Please ask for nurse caring for pt upon admission. PCP: Dr. Comer
[2021-04-24 15:38] VITALS: BP 125/78
[2021-04-24] MEDS: risperiDONE 1 MG TABLET. PO SCH (20:06)
[2021-04-24] MEDS: ATORVASTATIN CALCIUM 20 MG TABLET PO SCH (20:06)
--- NOTE | 2021-04-24 21:11 | PDOC ---
Exam Note: Mike Note: Please also refer to the separate dictated note~for this date of service dictated separately.~Patient seen individually. Discussed the patient with Nursing staff reviewed the chart.~Reviewed interim history and current functioning. Reviewed vital signs,~Labs/ Radiology~and current medications noted below. Continue current treatment with the changes noted in the dictated addendum note Assessment: Vital Signs/I&O: Vital Signs Date Time Temp Pulse Resp B/P (MAP) Pulse Ox O2 Delivery O2 Flow Rate FiO2 04/24/21 15:38 98.2 70 20 125/78 (94) 92 04/23/21 15:30 Room Air I & O 04/23/21 04/23/21 04/24/21 15:00 23:00 07:00 Intake Total 840 ml 480 ml Balance 840 ml 480 ml Labs: Laboratory Tests Test 04/24/21 07:19 Glucose (Fingerstick) 83 mg/dL (70-99) Current Medications: Meds: Laboratory Tests Test 04/24/21 07:19 Glucose (Fingerstick) 83 mg/dL Current Medications Medications (Trade) Dose Ordered Sig/Greg Route PRN Reason Start Time Stop Time Status Last Admin Dose Admin Acetaminophen (Tylenol) 650 mg PRN Q6HRS PRN PO MILD PAIN / TEMP > 100.3'F 03/04/21 16:15 Multi-Ingredient Ointment (Analgesic [place]) 1 donn PRN QID PRN TP MUSCLE PAIN 03/04/21 16:15 Al Hydroxide/Mg Hydroxide (Mylanta Plus Xs) 15 ml PRN AFTMEALHC PRN PO DYSPEPSIA 03/04/21 16:15 Magnesium Hydroxide (Milk Of Magnesia) 2,400 mg PRN QHS PRN PO CONSTIPATION 03/04/21 16:15 04/15/21 20:59 Aspirin (Aspirin Chewable) 81 mg DAILY PO 03/05/21 09:00 04/24/21 08:21 Lisinopril (Prinivil) 10 mg DAILY PO 03/05/21 09:00 04/24/21 08:23 Vitamin D (Vitamin D3) 25 unit DAILY PO 03/05/21 09:00 03/07/21 10:29 DC 03/05/21 09:14 Metformin HCl (Glucophage) 1,000 mg BIDWMEALS PO 03/04/21 17:00 04/24/21 17:35 Atorvastatin Calcium (Lipitor) 80 mg QHS PO 03/04/21 21:00 04/24/21 20:06 Olanzapine (ZyPREXA ZYDIS) 2.5 mg PRN Q2HR PRN PO PSYCHOSIS 03/05/21 17:00 03/31/21 19:43 Vitamin D (Vitamin D3) 1,000 unit DAILY PO 03/08/21 09:00 04/24/21 08:21 Memantine (Namenda) 5 mg BID PO 03/07/21 21:00 03/11/21 18:16 DC 03/11/21 08:36 Sertraline HCl (Zoloft) 25 mg DAILY PO 03/08/21 09:00 03/10/21 20:16 DC 03/10/21 08:40 Rivastigmine (Exelon) 4.6 patch DAILY TD 03/08/21 09:00 03/09/21 13:31 DC 03/09/21 08:58 Rivastigmine (Exelon) 9.5 patch DAILY TD 03/15/21 09:00 Cancel Rivastigmine (Exelon) 1 patch DAILY TD 03/15/21 09:00 03/19/21 14:00 DC 03/19/21 09:14 Rivastigmine (Exelon) 1 patch DAILY TD 03/10/21 09:00 03/14/21 23:50 DC 03/14/21 09:00 Sertraline HCl (Zoloft) 50 mg DAILY PO 03/11/21 09:00 03/22/21 20:39 DC 03/22/21 08:39 Trazodone HCl (Desyrel) 50 mg PRN QHS PRN PO INSOMNIA 03/10/21 20:15 Memantine (Namenda) 5 mg DAILY PO 03/12/21 09:00 03/15/21 20:10 DC 03/15/21 07:59 Memantine (Namenda) 10 mg QHS PO 03/11/21 21:00 03/15/21 22:00 DC 03/15/21 21:02 Memantine (Namenda) 10 mg BID PO 03/16/21 09:00 04/24/21 20:06 Rivastigmine (Exelon 13.3mg) 1 patch DAILY TD 03/20/21 09:00 03/26/21 11:18 DC 03/23/21 08:10 Quetiapine Fumarate (SEROquel) 25 mg HS PO 03/17/21 21:00 03/18/21 16:11 DC 03/17/21 21:41 Quetiapine Fumarate (SEROquel) 50 mg HS PO 03/18/21 21:00 04/03/21 17:58 DC 04/02/21 20:41 Sertraline HCl (Zoloft) 75 mg DAILY PO 03/23/21 09:00 03/25/21 12:00 DC 03/25/21 08:24 Sertraline HCl (Zoloft) 100 mg DAILY PO 03/26/21 09:00 04/24/21 08:22 Bupropion HCl (Wellbutrin Xl) 150 mg DAILY PO 03/26/21 09:00 03/27/21 21:00 DC 03/27/21 09:00 Donepezil HCl (Aricept) 5 mg DAILY PO 03/27/21 09:00 03/28/21 23:50 DC 03/28/21 08:17 Donepezil HCl (Aricept) 10 mg DAILY PO 03/29/21 09:00 04/24/21 08:21 Bupropion HCl (Wellbutrin Xl) 150 mg 0900,1200 PO 03/28/21 09:00 04/24/21 12:19 Risperidone (RisperDAL) 0.5 mg HS PO 04/03/21 21:00 04/13/21 18:25 DC 04/12/21 20:19 Risperidone (RisperDAL) 0.75 mg QHS PO 04/13/21 21:00 04/14/21 20:09 DC 04/13/21 20:06 Risperidone (RisperDAL) 1 mg HS PO 04/14/21 21:00 04/24/21 20:06 I have reviewed the current psychotropics carefully including drug interactions. Risk benefit ratio favors no change other than as noted in my dictated progress note. Diagnosis: Problems: (1) Impulse control disorder, unspecified (2) Lewy body dementia with behavioral disturbance (3) Anxiety disorder, unspecified (4) Dementia in Alzheimer's disease with depression (5) Dementia in Alzheimer's disease with delusions (6) Major neurocognitive disorder GABRIELLA LEDEZMA MD Apr 24, 2021 21:11
--- NOTE | 2021-04-25 03:51 | NUR ---
Nursing Note The patient was located in his room for his assessment and medication pass. The patient was alert to name, date and location. . The patient took his medication whole. The patient is currently sleeping in his room.
[2021-04-25 05:57] VITALS: BP 157/90
--- NOTE | 2021-04-25 06:55 | PDOC ---
Exam Note: Mike Note: This note is a late entry for 04/24/2021 covers elements not covered in my initial note. Subjective: The patient was seen individually in the evening of 04/24/2021 with Uche HECTOR, discussed and reviewed the chart. The patient slept 7 hours previous night. I met with the patient at some length in his room. He is doing better, more interactive. Apparently his son is found a group home placement in [place] close to where the son lives. The patient would like to return home but agreeable to go to the nursing facility. Review of Systems: No CV, , pulmonary, eye system symptoms on review. Mental Status Exam: The patient is oriented to himself and situation. Speech coherent has some latency. Abstraction fair. Computation impaired. Language function intact. Attention span short. Mood and affect improved. No suicidal ideation. Laboratory Data: Reviewed. 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 Anxiety disorder unspecified. Impulse control disorder. Plan: Maintain psychotropics unchanged for now. Assessment: Vital Signs/I&O: Vital Signs Date Time Temp Pulse Resp B/P (MAP) Pulse Ox O2 Delivery O2 Flow Rate FiO2 04/25/21 05:57 97.6 72 22 157/90 (112) 96 04/23/21 15:30 Room Air I & O 04/24/21 04/24/21 04/25/21 15:00 23:00 07:00 Intake Total 840 ml 600 ml Balance 840 ml 600 ml Labs: Laboratory Tests Test 04/24/21 07:19 Glucose (Fingerstick) 83 mg/dL (70-99) Current Medications: Meds: Laboratory Tests Test 04/24/21 07:19 Glucose (Fingerstick) 83 mg/dL Current Medications Medications (Trade) Dose Ordered Sig/Greg Route PRN Reason Start Time Stop Time Status Last Admin Dose Admin Acetaminophen (Tylenol) 650 mg PRN Q6HRS PRN PO MILD PAIN / TEMP > 100.3'F 03/04/21 16:15 Multi-Ingredient Ointment (Analgesic [place]) 1 donn PRN QID PRN TP MUSCLE PAIN 03/04/21 16:15 Al Hydroxide/Mg Hydroxide (Mylanta Plus Xs) 15 ml PRN AFTMEALHC PRN PO DYSPEPSIA 03/04/21 16:15 Magnesium Hydroxide (Milk Of Magnesia) 2,400 mg PRN QHS PRN PO CONSTIPATION 03/04/21 16:15 04/15/21 20:59 Aspirin (Aspirin Chewable) 81 mg DAILY PO 03/05/21 09:00 04/24/21 08:21 Lisinopril (Prinivil) 10 mg DAILY PO 03/05/21 09:00 04/24/21 08:23 Vitamin D (Vitamin D3) 25 unit DAILY PO 03/05/21 09:00 03/07/21 10:29 DC 03/05/21 09:14 Metformin HCl (Glucophage) 1,000 mg BIDWMEALS PO 03/04/21 17:00 04/24/21 17:35 Atorvastatin Calcium (Lipitor) 80 mg QHS PO 03/04/21 21:00 04/24/21 20:06 Olanzapine (ZyPREXA ZYDIS) 2.5 mg PRN Q2HR PRN PO PSYCHOSIS 03/05/21 17:00 03/31/21 19:43 Vitamin D (Vitamin D3) 1,000 unit DAILY PO 03/08/21 09:00 04/24/21 08:21 Memantine (Namenda) 5 mg BID PO 03/07/21 21:00 03/11/21 18:16 DC 03/11/21 08:36 Sertraline HCl (Zoloft) 25 mg DAILY PO 03/08/21 09:00 03/10/21 20:16 DC 03/10/21 08:40 Rivastigmine (Exelon) 4.6 patch DAILY TD 03/08/21 09:00 03/09/21 13:31 DC 03/09/21 08:58 Rivastigmine (Exelon) 9.5 patch DAILY TD 03/15/21 09:00 Cancel Rivastigmine (Exelon) 1 patch DAILY TD 03/15/21 09:00 03/19/21 14:00 DC 03/19/21 09:14 Rivastigmine (Exelon) 1 patch DAILY TD 03/10/21 09:00 03/14/21 23:50 DC 03/14/21 09:00 Sertraline HCl (Zoloft) 50 mg DAILY PO 03/11/21 09:00 03/22/21 20:39 DC 03/22/21 08:39 Trazodone HCl (Desyrel) 50 mg PRN QHS PRN PO INSOMNIA 03/10/21 20:15 Memantine (Namenda) 5 mg DAILY PO 03/12/21 09:00 03/15/21 20:10 DC 03/15/21 07:59 Memantine (Namenda) 10 mg QHS PO 03/11/21 21:00 03/15/21 22:00 DC 03/15/21 21:02 Memantine (Namenda) 10 mg BID PO 03/16/21 09:00 04/24/21 20:06 Rivastigmine (Exelon 13.3mg) 1 patch DAILY TD 03/20/21 09:00 03/26/21 11:18 DC 03/23/21 08:10 Quetiapine Fumarate (SEROquel) 25 mg HS PO 03/17/21 21:00 03/18/21 16:11 DC 03/17/21 21:41 Quetiapine Fumarate (SEROquel) 50 mg HS PO 03/18/21 21:00 04/03/21 17:58 DC 04/02/21 20:41 Sertraline HCl (Zoloft) 75 mg DAILY PO 03/23/21 09:00 03/25/21 12:00 DC 03/25/21 08:24 Sertraline HCl (Zoloft) 100 mg DAILY PO 03/26/21 09:00 04/24/21 08:22 Bupropion HCl (Wellbutrin Xl) 150 mg DAILY PO 03/26/21 09:00 03/27/21 21:00 DC 03/27/21 09:00 Donepezil HCl (Aricept) 5 mg DAILY PO 03/27/21 09:00 03/28/21 23:50 DC 03/28/21 08:17 Donepezil HCl (Aricept) 10 mg DAILY PO 03/29/21 09:00 04/24/21 08:21 Bupropion HCl (Wellbutrin Xl) 150 mg 0900,1200 PO 03/28/21 09:00 04/24/21 12:19 Risperidone (RisperDAL) 0.5 mg HS PO 04/03/21 21:00 04/13/21 18:25 DC 04/12/21 20:19 Risperidone (RisperDAL) 0.75 mg QHS PO 04/13/21 21:00 04/14/21 20:09 DC 04/13/21 20:06 Risperidone (RisperDAL) 1 mg HS PO 04/14/21 21:00 04/24/21 20:06 I have reviewed the current psychotropics carefully including drug interactions. Risk benefit ratio favors no change other than as noted in my dictated progress note. Diagnosis: Problems: (1) Impulse control disorder, unspecified (2) Lewy body dementia with behavioral disturbance (3) Anxiety disorder, unspecified (4) Dementia in Alzheimer's disease with depression (5) Dementia in Alzheimer's disease with delusions (6) Major neurocognitive disorder GABRIELLA LEDEZMA MD Apr 25, 2021 06:55
[2021-04-25] MEDS: MEMANTINE 10 MG TABLET. PO SCH ×2 (08:42→20:03)
[2021-04-25] MEDS: CHOLECALCIFEROL (VITAMIN D3) 1,000 UNIT TABLET PO SCH (08:42)
[2021-04-25] MEDS: LISINOPRIL 10 MG TABLET PO SCH (08:43)
[2021-04-25] MEDS: metFORMIN 500 MG TABLET PO SCH ×2 (08:43→17:00)
[2021-04-25] MEDS: ASPIRIN CHEWABLE 81 MG TABLET. PO SCH (08:43)
[2021-04-25] MEDS: SERTRALINE 100 MG TABLET. PO SCH (08:43)
[2021-04-25] MEDS: buPROPion XL 150 MG TAB.ER.24H PO SCH ×2 (08:43→12:08)
[2021-04-25] MEDS: DONEPEZIL HCL 10 MG TABLET PO SCH (08:43)
--- NOTE | 2021-04-25 09:44 | NUR ---
Pt has been visible on the unit, he has been appropriate in his interactions with others and is absent of disruptive behaviors. He appears more engaging with staff and appears to smile more in comparison to earlier in his stay. Pt is A&Ox3, and denies SI/HI/VH/AH/delusions/pain. He is compliant with morning medications. Plan of care continues, will pass to next shift.
[2021-04-25 15:09] VITALS: BP 144/79
[2021-04-25] MEDS: risperiDONE 1 MG TABLET. PO SCH (20:03)
[2021-04-25] MEDS: ATORVASTATIN CALCIUM 20 MG TABLET PO SCH (20:03)
--- NOTE | 2021-04-25 21:03 | PDOC ---
Exam Note: Mike Note: Please also refer to the separate dictated note~for this date of service dictated separately.~Patient seen individually. Discussed the patient with Nursing staff reviewed the chart.~Reviewed interim history and current functioning. Reviewed vital signs,~Labs/ Radiology~and current medications noted below. Continue current treatment with the changes noted in the dictated addendum note Assessment: Vital Signs/I&O: Vital Signs Date Time Temp Pulse Resp B/P (MAP) Pulse Ox O2 Delivery O2 Flow Rate FiO2 04/25/21 15:09 98.4 65 16 144/79 (100) 95 Room Air I & O 04/24/21 04/24/21 04/25/21 15:00 23:00 07:00 Intake Total 840 ml 600 ml Balance 840 ml 600 ml Labs: Laboratory Tests Test 04/25/21 07:34 Glucose (Fingerstick) 93 mg/dL (70-99) Current Medications: Meds: Laboratory Tests Test 04/25/21 07:34 Glucose (Fingerstick) 93 mg/dL Current Medications Medications (Trade) Dose Ordered Sig/Greg Route PRN Reason Start Time Stop Time Status Last Admin Dose Admin Acetaminophen (Tylenol) 650 mg PRN Q6HRS PRN PO MILD PAIN / TEMP > 100.3'F 03/04/21 16:15 Multi-Ingredient Ointment (Analgesic [place]) 1 donn PRN QID PRN TP MUSCLE PAIN 03/04/21 16:15 Al Hydroxide/Mg Hydroxide (Mylanta Plus Xs) 15 ml PRN AFTMEALHC PRN PO DYSPEPSIA 03/04/21 16:15 Magnesium Hydroxide (Milk Of Magnesia) 2,400 mg PRN QHS PRN PO CONSTIPATION 03/04/21 16:15 04/15/21 20:59 Aspirin (Aspirin Chewable) 81 mg DAILY PO 03/05/21 09:00 04/25/21 08:43 Lisinopril (Prinivil) 10 mg DAILY PO 03/05/21 09:00 04/25/21 08:43 Vitamin D (Vitamin D3) 25 unit DAILY PO 03/05/21 09:00 03/07/21 10:29 DC 03/05/21 09:14 Metformin HCl (Glucophage) 1,000 mg BIDWMEALS PO 03/04/21 17:00 04/25/21 17:00 Atorvastatin Calcium (Lipitor) 80 mg QHS PO 03/04/21 21:00 04/25/21 20:03 Olanzapine (ZyPREXA ZYDIS) 2.5 mg PRN Q2HR PRN PO PSYCHOSIS 03/05/21 17:00 03/31/21 19:43 Vitamin D (Vitamin D3) 1,000 unit DAILY PO 03/08/21 09:00 04/25/21 08:42 Memantine (Namenda) 5 mg BID PO 03/07/21 21:00 03/11/21 18:16 DC 03/11/21 08:36 Sertraline HCl (Zoloft) 25 mg DAILY PO 03/08/21 09:00 03/10/21 20:16 DC 03/10/21 08:40 Rivastigmine (Exelon) 4.6 patch DAILY TD 03/08/21 09:00 03/09/21 13:31 DC 03/09/21 08:58 Rivastigmine (Exelon) 9.5 patch DAILY TD 03/15/21 09:00 Cancel Rivastigmine (Exelon) 1 patch DAILY TD 03/15/21 09:00 03/19/21 14:00 DC 03/19/21 09:14 Rivastigmine (Exelon) 1 patch DAILY TD 03/10/21 09:00 03/14/21 23:50 DC 03/14/21 09:00 Sertraline HCl (Zoloft) 50 mg DAILY PO 03/11/21 09:00 03/22/21 20:39 DC 03/22/21 08:39 Trazodone HCl (Desyrel) 50 mg PRN QHS PRN PO INSOMNIA 03/10/21 20:15 Memantine (Namenda) 5 mg DAILY PO 03/12/21 09:00 03/15/21 20:10 DC 03/15/21 07:59 Memantine (Namenda) 10 mg QHS PO 03/11/21 21:00 03/15/21 22:00 DC 03/15/21 21:02 Memantine (Namenda) 10 mg BID PO 03/16/21 09:00 04/25/21 20:03 Rivastigmine (Exelon 13.3mg) 1 patch DAILY TD 03/20/21 09:00 03/26/21 11:18 DC 03/23/21 08:10 Quetiapine Fumarate (SEROquel) 25 mg HS PO 03/17/21 21:00 03/18/21 16:11 DC 03/17/21 21:41 Quetiapine Fumarate (SEROquel) 50 mg HS PO 03/18/21 21:00 04/03/21 17:58 DC 04/02/21 20:41 Sertraline HCl (Zoloft) 75 mg DAILY PO 03/23/21 09:00 03/25/21 12:00 DC 03/25/21 08:24 Sertraline HCl (Zoloft) 100 mg DAILY PO 03/26/21 09:00 04/25/21 08:43 Bupropion HCl (Wellbutrin Xl) 150 mg DAILY PO 03/26/21 09:00 03/27/21 21:00 DC 03/27/21 09:00 Donepezil HCl (Aricept) 5 mg DAILY PO 03/27/21 09:00 03/28/21 23:50 DC 03/28/21 08:17 Donepezil HCl (Aricept) 10 mg DAILY PO 03/29/21 09:00 04/25/21 08:43 Bupropion HCl (Wellbutrin Xl) 150 mg 0900,1200 PO 03/28/21 09:00 04/25/21 12:08 Risperidone (RisperDAL) 0.5 mg HS PO 04/03/21 21:00 04/13/21 18:25 DC 04/12/21 20:19 Risperidone (RisperDAL) 0.75 mg QHS PO 04/13/21 21:00 04/14/21 20:09 DC 04/13/21 20:06 Risperidone (RisperDAL) 1 mg HS PO 04/14/21 21:00 04/25/21 20:03 I have reviewed the current psychotropics carefully including drug interactions. Risk benefit ratio favors no change other than as noted in my dictated progress note. Diagnosis: Problems: (1) Impulse control disorder, unspecified (2) Lewy body dementia with behavioral disturbance (3) Anxiety disorder, unspecified (4) Dementia in Alzheimer's disease with depression (5) Dementia in Alzheimer's disease with delusions (6) Major neurocognitive disorder GABRIELLA LEDEZMA MD Apr 25, 2021 21:03
--- NOTE | 2021-04-26 01:58 | NUR ---
Pt has been in his room this shift. He took meds whole and has had no behaviors tonight.
[2021-04-26 05:47] VITALS: BP 114/72
[2021-04-26] MEDS: metFORMIN 500 MG TABLET PO SCH ×2 (08:31→16:55)
[2021-04-26] MEDS: ASPIRIN CHEWABLE 81 MG TABLET. PO SCH (08:31)
[2021-04-26] MEDS: LISINOPRIL 10 MG TABLET PO SCH (08:32)
[2021-04-26] MEDS: buPROPion XL 150 MG TAB.ER.24H PO SCH ×2 (08:32→11:24)
[2021-04-26] MEDS: MEMANTINE 10 MG TABLET. PO SCH ×2 (08:32→20:14)
[2021-04-26] MEDS: SERTRALINE 100 MG TABLET. PO SCH (08:32)
[2021-04-26] MEDS: CHOLECALCIFEROL (VITAMIN D3) 1,000 UNIT TABLET PO SCH (08:32)
[2021-04-26] MEDS: DONEPEZIL HCL 10 MG TABLET PO SCH (08:32)
--- NOTE | 2021-04-26 08:56 | NUR ---
Pt appropriate on the unit. More social and interactive. He is complementary of the breakfast and showed adequate appetite. Absent of disruptive behaviors on the unit, denies SI. Med compliant. Plan of care continues, will pass to next shift.
[2021-04-26 15:54] VITALS: BP 126/66
--- NOTE | 2021-04-26 16:05 | NUR ---
NURSING NOTE THIS RN TOOK OVER PT CARE THIS AFTERNOON, REPORT FROM AGUS Centeno RN. PT WAS IN DAY ROOM UPON ASSESSMENT THIS AFTERNOON. PT WAS A&O, DENIES PAIN. PT HAS BEEN CALM AND COOPERATIVE WITH CARES, INTERACTIVE WITH OTHER PATIENTS ON THE UNIT. PT REPORTS A BOWEL MOVEMENT YESTERDAY 04/25. NO BEHAVIORS NOTED THUS FAR. PT IS SCHEDULED TO DISCHARGE TOMORROW. WILL CONTINUE TO MONITOR. KRUNAL GOLDSMITH.
[2021-04-26] MEDS: ATORVASTATIN CALCIUM 20 MG TABLET PO SCH (20:14)
[2021-04-26] MEDS: risperiDONE 1 MG TABLET. PO SCH (20:14)
--- NOTE | 2021-04-26 21:01 | PDOC ---
Exam Note: Mike Note: Please also refer to the separate dictated note~for this date of service dictated separately.~Patient seen individually. Discussed the patient with Nursing staff reviewed the chart.~Reviewed interim history and current functioning. Reviewed vital signs,~Labs/ Radiology~and current medications noted below. Continue current treatment with the changes noted in the dictated addendum note Assessment: Vital Signs/I&O: Vital Signs Date Time Temp Pulse Resp B/P (MAP) Pulse Ox O2 Delivery O2 Flow Rate FiO2 04/26/21 15:54 97.1 73 18 126/66 (86) 95 04/25/21 15:09 Room Air I & O 04/25/21 04/25/21 04/26/21 15:00 23:00 07:00 Intake Total 600 ml 480 ml Balance 600 ml 480 ml Labs: Laboratory Tests Test 04/26/21 07:47 Glucose (Fingerstick) 110 mg/dL (70-99) H Current Medications: Meds: Laboratory Tests Test 04/26/21 07:47 Glucose (Fingerstick) 110 mg/dL Current Medications Medications (Trade) Dose Ordered Sig/Greg Route PRN Reason Start Time Stop Time Status Last Admin Dose Admin Acetaminophen (Tylenol) 650 mg PRN Q6HRS PRN PO MILD PAIN / TEMP > 100.3'F 03/04/21 16:15 Multi-Ingredient Ointment (Analgesic [place]) 1 donn PRN QID PRN TP MUSCLE PAIN 03/04/21 16:15 Al Hydroxide/Mg Hydroxide (Mylanta Plus Xs) 15 ml PRN AFTMEALHC PRN PO DYSPEPSIA 03/04/21 16:15 Magnesium Hydroxide (Milk Of Magnesia) 2,400 mg PRN QHS PRN PO CONSTIPATION 03/04/21 16:15 04/15/21 20:59 Aspirin (Aspirin Chewable) 81 mg DAILY PO 03/05/21 09:00 04/26/21 08:31 Lisinopril (Prinivil) 10 mg DAILY PO 03/05/21 09:00 04/26/21 08:32 Vitamin D (Vitamin D3) 25 unit DAILY PO 03/05/21 09:00 03/07/21 10:29 DC 03/05/21 09:14 Metformin HCl (Glucophage) 1,000 mg BIDWMEALS PO 03/04/21 17:00 04/26/21 16:55 Atorvastatin Calcium (Lipitor) 80 mg QHS PO 03/04/21 21:00 04/26/21 20:14 Olanzapine (ZyPREXA ZYDIS) 2.5 mg PRN Q2HR PRN PO PSYCHOSIS 03/05/21 17:00 03/31/21 19:43 Vitamin D (Vitamin D3) 1,000 unit DAILY PO 03/08/21 09:00 04/26/21 08:32 Memantine (Namenda) 5 mg BID PO 03/07/21 21:00 03/11/21 18:16 DC 03/11/21 08:36 Sertraline HCl (Zoloft) 25 mg DAILY PO 03/08/21 09:00 03/10/21 20:16 DC 03/10/21 08:40 Rivastigmine (Exelon) 4.6 patch DAILY TD 03/08/21 09:00 03/09/21 13:31 DC 03/09/21 08:58 Rivastigmine (Exelon) 9.5 patch DAILY TD 03/15/21 09:00 Cancel Rivastigmine (Exelon) 1 patch DAILY TD 03/15/21 09:00 03/19/21 14:00 DC 03/19/21 09:14 Rivastigmine (Exelon) 1 patch DAILY TD 03/10/21 09:00 03/14/21 23:50 DC 03/14/21 09:00 Sertraline HCl (Zoloft) 50 mg DAILY PO 03/11/21 09:00 03/22/21 20:39 DC 03/22/21 08:39 Trazodone HCl (Desyrel) 50 mg PRN QHS PRN PO INSOMNIA 03/10/21 20:15 Memantine (Namenda) 5 mg DAILY PO 03/12/21 09:00 03/15/21 20:10 DC 03/15/21 07:59 Memantine (Namenda) 10 mg QHS PO 03/11/21 21:00 03/15/21 22:00 DC 03/15/21 21:02 Memantine (Namenda) 10 mg BID PO 03/16/21 09:00 04/26/21 20:14 Rivastigmine (Exelon 13.3mg) 1 patch DAILY TD 03/20/21 09:00 03/26/21 11:18 DC 03/23/21 08:10 Quetiapine Fumarate (SEROquel) 25 mg HS PO 03/17/21 21:00 03/18/21 16:11 DC 03/17/21 21:41 Quetiapine Fumarate (SEROquel) 50 mg HS PO 03/18/21 21:00 04/03/21 17:58 DC 04/02/21 20:41 Sertraline HCl (Zoloft) 75 mg DAILY PO 03/23/21 09:00 03/25/21 12:00 DC 03/25/21 08:24 Sertraline HCl (Zoloft) 100 mg DAILY PO 03/26/21 09:00 04/26/21 08:32 Bupropion HCl (Wellbutrin Xl) 150 mg DAILY PO 03/26/21 09:00 03/27/21 21:00 DC 03/27/21 09:00 Donepezil HCl (Aricept) 5 mg DAILY PO 03/27/21 09:00 03/28/21 23:50 DC 03/28/21 08:17 Donepezil HCl (Aricept) 10 mg DAILY PO 03/29/21 09:00 04/26/21 08:32 Bupropion HCl (Wellbutrin Xl) 150 mg 0900,1200 PO 03/28/21 09:00 04/26/21 11:24 Risperidone (RisperDAL) 0.5 mg HS PO 04/03/21 21:00 04/13/21 18:25 DC 04/12/21 20:19 Risperidone (RisperDAL) 0.75 mg QHS PO 04/13/21 21:00 04/14/21 20:09 DC 04/13/21 20:06 Risperidone (RisperDAL) 1 mg HS PO 04/14/21 21:00 04/26/21 20:14 I have reviewed the current psychotropics carefully including drug interactions. Risk benefit ratio favors no change other than as noted in my dictated progress note. Diagnosis: Problems: (1) Impulse control disorder, unspecified (2) Lewy body dementia with behavioral disturbance (3) Anxiety disorder, unspecified (4) Dementia in Alzheimer's disease with depression (5) Dementia in Alzheimer's disease with delusions (6) Major neurocognitive disorder GABRIELLA LEDEZMA MD Apr 26, 2021 21:01
--- NOTE | 2021-04-26 22:00 | NUR ---
Patient watched the [employer] football game in the day room with peers tonight. He is medication compliant and cooperative with staff. He spoke to his son for a few minutes tonight during the game. Patient has not had any adverse behaviors this night and is scheduled to discharge tomorrow.
[2021-04-26] MEDS ORDERED: ACET325T21 PO (23:14)
[2021-04-26] MEDS ORDERED: DONE10TA7 PO (23:15)
[2021-04-26] MEDS ORDERED: MEMA10TA PO (23:15)
[2021-04-26] MEDS ORDERED: OLAN5TAB99 PO (23:17)
[2021-04-26] MEDS ORDERED: SERT100T PO (23:18)
[2021-04-26] MEDS ORDERED: BUPR150T21 PO (23:20)
[2021-04-26] MEDS ORDERED: MAG-124 PO (23:21)
[2021-04-26] MEDS ORDERED: MAGN24003 PO (23:22)
[2021-04-26] MEDS ORDERED: RISP1TAB88 PO (23:24)
[2021-04-26] MEDS ORDERED: METH85CR TP (23:24)
[2021-04-26] MEDS ORDERED: TRAZ-120 PO (23:25)
[2021-04-27 06:09] VITALS: BP 121/71
--- NOTE | 2021-04-27 07:25 | PDOC ---
Exam Note: Mike Note: This note is a late entry for 04/25/2021 covers elements not covered in my initial note. Subjective: The patient was seen individually in the evening of 04/25/2021 with Jose HECTOR, discussed and reviewed the chart. The patient slept 6 hours previous night. I met with the patient in his room. He states he talked to his son earlier today and the son told him about tentative discharge next week. Review of Systems: Positive for tiredness. No CV, , pulmonary, eye system symptoms on review. Mental Status Exam: The patient is oriented to himself and situation. Speech coherent has some latency. Abstraction fair. Computation impaired. Language function intact. Attention span short. Mood and affect improved. No suicidal ideation. Laboratory Data: Reviewed. 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 Anxiety disorder unspecified. Impulse control disorder. Plan: Maintain psychotropics unchanged for now. Assessment: Vital Signs/I&O: Vital Signs Date Time Temp Pulse Resp B/P (MAP) Pulse Ox O2 Delivery O2 Flow Rate FiO2 04/27/21 06:09 97.6 61 16 121/71 (88) 95 04/25/21 15:09 Room Air I & O 04/26/21 04/26/21 04/27/21 15:00 23:00 07:00 Intake Total 720 ml 600 ml Balance 720 ml 600 ml Labs: Laboratory Tests Test 04/26/21 07:47 Glucose (Fingerstick) 110 mg/dL (70-99) H Current Medications: Meds: Laboratory Tests Test 04/26/21 07:47 Glucose (Fingerstick) 110 mg/dL Current Medications Medications (Trade) Dose Ordered Sig/Greg Route PRN Reason Start Time Stop Time Status Last Admin Dose Admin Acetaminophen (Tylenol) 650 mg PRN Q6HRS PRN PO MILD PAIN / TEMP > 100.3'F 03/04/21 16:15 Multi-Ingredient Ointment (Analgesic [place]) 1 donn PRN QID PRN TP MUSCLE PAIN 03/04/21 16:15 Al Hydroxide/Mg Hydroxide (Mylanta Plus Xs) 15 ml PRN AFTMEALHC PRN PO DYSPEPSIA 03/04/21 16:15 Magnesium Hydroxide (Milk Of Magnesia) 2,400 mg PRN QHS PRN PO CONSTIPATION 03/04/21 16:15 04/15/21 20:59 Aspirin (Aspirin Chewable) 81 mg DAILY PO 03/05/21 09:00 04/26/21 08:31 Lisinopril (Prinivil) 10 mg DAILY PO 03/05/21 09:00 04/26/21 08:32 Vitamin D (Vitamin D3) 25 unit DAILY PO 03/05/21 09:00 03/07/21 10:29 DC 03/05/21 09:14 Metformin HCl (Glucophage) 1,000 mg BIDWMEALS PO 03/04/21 17:00 04/26/21 16:55 Atorvastatin Calcium (Lipitor) 80 mg QHS PO 03/04/21 21:00 04/26/21 20:14 Olanzapine (ZyPREXA ZYDIS) 2.5 mg PRN Q2HR PRN PO PSYCHOSIS 03/05/21 17:00 03/31/21 19:43 Vitamin D (Vitamin D3) 1,000 unit DAILY PO 03/08/21 09:00 04/26/21 08:32 Memantine (Namenda) 5 mg BID PO 03/07/21 21:00 03/11/21 18:16 DC 03/11/21 08:36 Sertraline HCl (Zoloft) 25 mg DAILY PO 03/08/21 09:00 03/10/21 20:16 DC 03/10/21 08:40 Rivastigmine (Exelon) 4.6 patch DAILY TD 03/08/21 09:00 03/09/21 13:31 DC 03/09/21 08:58 Rivastigmine (Exelon) 9.5 patch DAILY TD 03/15/21 09:00 Cancel Rivastigmine (Exelon) 1 patch DAILY TD 03/15/21 09:00 03/19/21 14:00 DC 03/19/21 09:14 Rivastigmine (Exelon) 1 patch DAILY TD 03/10/21 09:00 03/14/21 23:50 DC 03/14/21 09:00 Sertraline HCl (Zoloft) 50 mg DAILY PO 03/11/21 09:00 03/22/21 20:39 DC 03/22/21 08:39 Trazodone HCl (Desyrel) 50 mg PRN QHS PRN PO INSOMNIA 03/10/21 20:15 Memantine (Namenda) 5 mg DAILY PO 03/12/21 09:00 03/15/21 20:10 DC 03/15/21 07:59 Memantine (Namenda) 10 mg QHS PO 03/11/21 21:00 03/15/21 22:00 DC 03/15/21 21:02 Memantine (Namenda) 10 mg BID PO 03/16/21 09:00 04/26/21 20:14 Rivastigmine (Exelon 13.3mg) 1 patch DAILY TD 03/20/21 09:00 03/26/21 11:18 DC 03/23/21 08:10 Quetiapine Fumarate (SEROquel) 25 mg HS PO 03/17/21 21:00 03/18/21 16:11 DC 03/17/21 21:41 Quetiapine Fumarate (SEROquel) 50 mg HS PO 03/18/21 21:00 04/03/21 17:58 DC 04/02/21 20:41 Sertraline HCl (Zoloft) 75 mg DAILY PO 03/23/21 09:00 03/25/21 12:00 DC 03/25/21 08:24 Sertraline HCl (Zoloft) 100 mg DAILY PO 03/26/21 09:00 04/26/21 08:32 Bupropion HCl (Wellbutrin Xl) 150 mg DAILY PO 03/26/21 09:00 03/27/21 21:00 DC 03/27/21 09:00 Donepezil HCl (Aricept) 5 mg DAILY PO 03/27/21 09:00 03/28/21 23:50 DC 03/28/21 08:17 Donepezil HCl (Aricept) 10 mg DAILY PO 03/29/21 09:00 04/26/21 08:32 Bupropion HCl (Wellbutrin Xl) 150 mg 0900,1200 PO 03/28/21 09:00 04/26/21 11:24 Risperidone (RisperDAL) 0.5 mg HS PO 04/03/21 21:00 04/13/21 18:25 DC 04/12/21 20:19 Risperidone (RisperDAL) 0.75 mg QHS PO 04/13/21 21:00 04/14/21 20:09 DC 04/13/21 20:06 Risperidone (RisperDAL) 1 mg HS PO 04/14/21 21:00 04/26/21 20:14 I have reviewed the current psychotropics carefully including drug interactions. Risk benefit ratio favors no change other than as noted in my dictated progress note. Diagnosis: Problems: (1) Impulse control disorder, unspecified (2) Anxiety disorder, unspecified (3) Dementia in Alzheimer's disease with depression (4) Dementia in Alzheimer's disease with delusions (5) Major neurocognitive disorder (6) Major depressive disorder (7) Lewy body dementia with behavioral disturbance GABRIELLA LEDEZMA MD Apr 27, 2021 07:25
--- NOTE | 2021-04-27 07:38 | PDOC ---
Exam Note: Mike Note: This note is a late entry for 04/26/2021 covers elements not covered in my initial note. Subjective: The patient was seen individually in the evening of 04/26/2021 with Ruma HECTOR, discussed and reviewed the chart. The patient slept 8-1/4 hours previous night. I met with the patient in the dayroom. He felt he would be discharged in about 10 days on Tuesday. I discussed with him that tentative discharge plan is for tomorrow Tuesday. Review of Systems: No CV, , pulmonary, eye system symptoms on review. Mental Status Exam: The patient is oriented to himself and situation. Speech coherent. Abstraction fair. Computation impaired. Language function intact. Attention span short. Mood and affect improved. No suicidal ideation. Laboratory Data: Reviewed. 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 Anxiety disorder unspecified. Impulse control disorder. Plan: Maintain psychotropics unchanged for now. Assessment: Vital Signs/I&O: Vital Signs Date Time Temp Pulse Resp B/P (MAP) Pulse Ox O2 Delivery O2 Flow Rate FiO2 04/27/21 06:09 97.6 61 16 121/71 (88) 95 04/25/21 15:09 Room Air I & O 04/26/21 04/26/21 04/27/21 14:59 22:59 06:59 Intake Total 720 ml 600 ml Balance 720 ml 600 ml Labs: Laboratory Tests Test 04/26/21 07:47 Glucose (Fingerstick) 110 mg/dL (70-99) H Current Medications: Meds: Laboratory Tests Test 04/26/21 07:47 Glucose (Fingerstick) 110 mg/dL Current Medications Medications (Trade) Dose Ordered Sig/Greg Route PRN Reason Start Time Stop Time Status Last Admin Dose Admin Acetaminophen (Tylenol) 650 mg PRN Q6HRS PRN PO MILD PAIN / TEMP > 100.3'F 03/04/21 16:15 Multi-Ingredient Ointment (Analgesic [place]) 1 donn PRN QID PRN TP MUSCLE PAIN 03/04/21 16:15 Al Hydroxide/Mg Hydroxide (Mylanta Plus Xs) 15 ml PRN AFTMEALHC PRN PO DYSPEPSIA 03/04/21 16:15 Magnesium Hydroxide (Milk Of Magnesia) 2,400 mg PRN QHS PRN PO CONSTIPATION 03/04/21 16:15 04/15/21 20:59 Aspirin (Aspirin Chewable) 81 mg DAILY PO 03/05/21 09:00 04/26/21 08:31 Lisinopril (Prinivil) 10 mg DAILY PO 03/05/21 09:00 04/26/21 08:32 Vitamin D (Vitamin D3) 25 unit DAILY PO 03/05/21 09:00 03/07/21 10:29 DC 03/05/21 09:14 Metformin HCl (Glucophage) 1,000 mg BIDWMEALS PO 03/04/21 17:00 04/26/21 16:55 Atorvastatin Calcium (Lipitor) 80 mg QHS PO 03/04/21 21:00 04/26/21 20:14 Olanzapine (ZyPREXA ZYDIS) 2.5 mg PRN Q2HR PRN PO PSYCHOSIS 03/05/21 17:00 03/31/21 19:43 Vitamin D (Vitamin D3) 1,000 unit DAILY PO 03/08/21 09:00 04/26/21 08:32 Memantine (Namenda) 5 mg BID PO 03/07/21 21:00 03/11/21 18:16 DC 03/11/21 08:36 Sertraline HCl (Zoloft) 25 mg DAILY PO 03/08/21 09:00 03/10/21 20:16 DC 03/10/21 08:40 Rivastigmine (Exelon) 4.6 patch DAILY TD 03/08/21 09:00 03/09/21 13:31 DC 03/09/21 08:58 Rivastigmine (Exelon) 9.5 patch DAILY TD 03/15/21 09:00 Cancel Rivastigmine (Exelon) 1 patch DAILY TD 03/15/21 09:00 03/19/21 14:00 DC 03/19/21 09:14 Rivastigmine (Exelon) 1 patch DAILY TD 03/10/21 09:00 03/14/21 23:50 DC 03/14/21 09:00 Sertraline HCl (Zoloft) 50 mg DAILY PO 03/11/21 09:00 03/22/21 20:39 DC 03/22/21 08:39 Trazodone HCl (Desyrel) 50 mg PRN QHS PRN PO INSOMNIA 03/10/21 20:15 Memantine (Namenda) 5 mg DAILY PO 03/12/21 09:00 03/15/21 20:10 DC 03/15/21 07:59 Memantine (Namenda) 10 mg QHS PO 03/11/21 21:00 03/15/21 22:00 DC 03/15/21 21:02 Memantine (Namenda) 10 mg BID PO 03/16/21 09:00 04/26/21 20:14 Rivastigmine (Exelon 13.3mg) 1 patch DAILY TD 03/20/21 09:00 03/26/21 11:18 DC 03/23/21 08:10 Quetiapine Fumarate (SEROquel) 25 mg HS PO 03/17/21 21:00 03/18/21 16:11 DC 03/17/21 21:41 Quetiapine Fumarate (SEROquel) 50 mg HS PO 03/18/21 21:00 04/03/21 17:58 DC 04/02/21 20:41 Sertraline HCl (Zoloft) 75 mg DAILY PO 03/23/21 09:00 03/25/21 12:00 DC 03/25/21 08:24 Sertraline HCl (Zoloft) 100 mg DAILY PO 03/26/21 09:00 04/26/21 08:32 Bupropion HCl (Wellbutrin Xl) 150 mg DAILY PO 03/26/21 09:00 03/27/21 21:00 DC 03/27/21 09:00 Donepezil HCl (Aricept) 5 mg DAILY PO 03/27/21 09:00 03/28/21 23:50 DC 03/28/21 08:17 Donepezil HCl (Aricept) 10 mg DAILY PO 03/29/21 09:00 04/26/21 08:32 Bupropion HCl (Wellbutrin Xl) 150 mg 0900,1200 PO 03/28/21 09:00 04/26/21 11:24 Risperidone (RisperDAL) 0.5 mg HS PO 04/03/21 21:00 04/13/21 18:25 DC 04/12/21 20:19 Risperidone (RisperDAL) 0.75 mg QHS PO 04/13/21 21:00 04/14/21 20:09 DC 04/13/21 20:06 Risperidone (RisperDAL) 1 mg HS PO 04/14/21 21:00 04/26/21 20:14 I have reviewed the current psychotropics carefully including drug interactions. Risk benefit ratio favors no change other than as noted in my dictated progress note. Diagnosis: Problems: (1) Impulse control disorder, unspecified (2) Anxiety disorder, unspecified (3) Dementia in Alzheimer's disease with depression (4) Dementia in Alzheimer's disease with delusions (5) Major neurocognitive disorder (6) Major depressive disorder (7) Lewy body dementia with behavioral disturbance GABRIELLA LEDEZMA MD Apr 27, 2021 07:38
[2021-04-27 08:26] VITALS: BP 121/71
[2021-04-27] MEDS: metFORMIN 500 MG TABLET PO SCH (08:26)
[2021-04-27] MEDS: LISINOPRIL 10 MG TABLET PO SCH (08:26)
[2021-04-27] MEDS: SERTRALINE 100 MG TABLET. PO SCH (08:26)
[2021-04-27] MEDS: MEMANTINE 10 MG TABLET. PO SCH (08:26)
[2021-04-27] MEDS: DONEPEZIL HCL 10 MG TABLET PO SCH (08:26)
[2021-04-27] MEDS: CHOLECALCIFEROL (VITAMIN D3) 1,000 UNIT TABLET PO SCH (08:26)
[2021-04-27] MEDS: ASPIRIN CHEWABLE 81 MG TABLET. PO SCH (08:26)
[2021-04-27] MEDS: buPROPion XL 150 MG TAB.ER.24H PO SCH ×2 (08:26→12:15)
--- NOTE | 2021-04-27 12:53 | NUR ---
Transition Record was faxed to follow-up provider with the following elements: Reason for admission, procedures, tests, principal diagnosis, pending studies, patient instructions, 13/12 contact information for unit, phone number to obtain pending test results, plan for follow-up care, physician follow-up, advanced directive information, and medication list with dose, duration and instructions. This information was included in the following documents: History and physical, lab results, study results, progress notes, social work planning form, DC instruction form, patient visit summary, and medication reconciliation form. Date & time record faxed: 04/27/21@0857 Record faxed to: [phone] [facility] Nursing Record discussed with/ report given to: Kelly @09
--- NOTE | 2021-04-27 20:27 | PDOC ---
Exam Note: Mike Note: Please also refer to the separate dictated note~for this date of service dictated separately.~Patient seen individually. Discussed the patient with Nursing staff reviewed the chart.~Reviewed interim history and current functioning. Reviewed vital signs,~Labs/ Radiology~and current medications noted below. Continue current treatment with the changes noted in the dictated addendum note Assessment: Vital Signs/I&O: Vital Signs Date Time Temp Pulse Resp B/P (MAP) Pulse Ox O2 Delivery O2 Flow Rate FiO2 04/27/21 08:26 61 121/71 04/27/21 06:09 97.6 16 95 04/25/21 15:09 Room Air I & O 04/26/21 04/26/21 04/27/21 14:59 22:59 06:59 Intake Total 720 ml 600 ml Balance 720 ml 600 ml Labs: Laboratory Tests Test 04/27/21 07:42 Glucose (Fingerstick) 105 mg/dL (70-99) H Current Medications: Meds: Laboratory Tests Test 04/27/21 07:42 Glucose (Fingerstick) 105 mg/dL Current Medications Medications (Trade) Dose Ordered Sig/Greg Route PRN Reason Start Time Stop Time Status Last Admin Dose Admin Acetaminophen (Tylenol) 650 mg PRN Q6HRS PRN PO MILD PAIN / TEMP > 100.3'F 03/04/21 16:15 04/27/21 12:59 DC Multi-Ingredient Ointment (Analgesic [place]) 1 donn PRN QID PRN TP MUSCLE PAIN 03/04/21 16:15 04/27/21 12:59 DC Al Hydroxide/Mg Hydroxide (Mylanta Plus Xs) 15 ml PRN AFTMEALHC PRN PO DYSPEPSIA 03/04/21 16:15 04/27/21 12:59 DC Magnesium Hydroxide (Milk Of Magnesia) 2,400 mg PRN QHS PRN PO CONSTIPATION 03/04/21 16:15 04/27/21 12:59 DC 04/15/21 20:59 Aspirin (Aspirin Chewable) 81 mg DAILY PO 03/05/21 09:00 04/27/21 12:59 DC 04/27/21 08:26 Lisinopril (Prinivil) 10 mg DAILY PO 03/05/21 09:00 04/27/21 12:59 DC 04/27/21 08:26 Vitamin D (Vitamin D3) 25 unit DAILY PO 03/05/21 09:00 03/07/21 10:29 DC 03/05/21 09:14 Metformin HCl (Glucophage) 1,000 mg BIDWMEALS PO 03/04/21 17:00 04/27/21 12:59 DC 04/27/21 08:26 Atorvastatin Calcium (Lipitor) 80 mg QHS PO 03/04/21 21:00 04/27/21 12:59 DC 04/26/21 20:14 Olanzapine (ZyPREXA ZYDIS) 2.5 mg PRN Q2HR PRN PO PSYCHOSIS 03/05/21 17:00 04/27/21 12:59 DC 03/31/21 19:43 Vitamin D (Vitamin D3) 1,000 unit DAILY PO 03/08/21 09:00 04/27/21 12:59 DC 04/27/21 08:26 Memantine (Namenda) 5 mg BID PO 03/07/21 21:00 03/11/21 18:16 DC 03/11/21 08:36 Sertraline HCl (Zoloft) 25 mg DAILY PO 03/08/21 09:00 03/10/21 20:16 DC 03/10/21 08:40 Rivastigmine (Exelon) 4.6 patch DAILY TD 03/08/21 09:00 03/09/21 13:31 DC 03/09/21 08:58 Rivastigmine (Exelon) 9.5 patch DAILY TD 03/15/21 09:00 Cancel Rivastigmine (Exelon) 1 patch DAILY TD 03/15/21 09:00 03/19/21 14:00 DC 03/19/21 09:14 Rivastigmine (Exelon) 1 patch DAILY TD 03/10/21 09:00 03/14/21 23:50 DC 03/14/21 09:00 Sertraline HCl (Zoloft) 50 mg DAILY PO 03/11/21 09:00 03/22/21 20:39 DC 03/22/21 08:39 Trazodone HCl (Desyrel) 50 mg PRN QHS PRN PO INSOMNIA 03/10/21 20:15 04/27/21 12:59 DC Memantine (Namenda) 5 mg DAILY PO 03/12/21 09:00 03/15/21 20:10 DC 03/15/21 07:59 Memantine (Namenda) 10 mg QHS PO 03/11/21 21:00 03/15/21 22:00 DC 03/15/21 21:02 Memantine (Namenda) 10 mg BID PO 03/16/21 09:00 04/27/21 12:59 DC 04/27/21 08:26 Rivastigmine (Exelon 13.3mg) 1 patch DAILY TD 03/20/21 09:00 03/26/21 11:18 DC 03/23/21 08:10 Quetiapine Fumarate (SEROquel) 25 mg HS PO 03/17/21 21:00 03/18/21 16:11 DC 03/17/21 21:41 Quetiapine Fumarate (SEROquel) 50 mg HS PO 03/18/21 21:00 04/03/21 17:58 DC 04/02/21 20:41 Sertraline HCl (Zoloft) 75 mg DAILY PO 03/23/21 09:00 03/25/21 12:00 DC 03/25/21 08:24 Sertraline HCl (Zoloft) 100 mg DAILY PO 03/26/21 09:00 04/27/21 12:59 DC 04/27/21 08:26 Bupropion HCl (Wellbutrin Xl) 150 mg DAILY PO 03/26/21 09:00 03/27/21 21:00 DC 03/27/21 09:00 Donepezil HCl (Aricept) 5 mg DAILY PO 03/27/21 09:00 03/28/21 23:50 DC 03/28/21 08:17 Donepezil HCl (Aricept) 10 mg DAILY PO 03/29/21 09:00 04/27/21 12:59 DC 04/27/21 08:26 Bupropion HCl (Wellbutrin Xl) 150 mg 0900,1200 PO 03/28/21 09:00 04/27/21 12:59 DC 04/27/21 12:15 Risperidone (RisperDAL) 0.5 mg HS PO 04/03/21 21:00 04/13/21 18:25 DC 04/12/21 20:19 Risperidone (RisperDAL) 0.75 mg QHS PO 04/13/21 21:00 04/14/21 20:09 DC 04/13/21 20:06 Risperidone (RisperDAL) 1 mg HS PO 04/14/21 21:00 04/27/21 12:59 DC 04/26/21 20:14 I have reviewed the current psychotropics carefully including drug interactions. Risk benefit ratio favors no change other than as noted in my dictated progress note. Diagnosis: Problems: (1) Impulse control disorder, unspecified (2) Anxiety disorder, unspecified (3) Dementia in Alzheimer's disease with depression (4) Dementia in Alzheimer's disease with delusions (5) Major neurocognitive disorder (6) Major depressive disorder (7) Lewy body dementia with behavioral disturbance GABRIELLA LEDEZMA MD Apr 27, 2021 20:27
--- NOTE | 2021-04-28 23:20 | DS ---
DATE OF DISCHARGE: 04/27/2021 DISCHARGE SUMMARY/PSYCHIATRIC PROGRESS NOTE This is a late entry, date of service, 04/27 covers elements not covered in my initial note. I met with the patient individually. REASON FOR ADMISSION: Please refer to the admission history for details, but briefly the patient is a 75-year-old male referred to us from home by his primary care physician by the [facility] system. He has been leaving the son's house at night and knocking on the neighbor's door at 2:00 a.m. He was paranoid about the neighbor causing trouble. He was more forgetful, confused, losing items. He drove to [place] and believed he was in [facility] according to the police who intervened. The patient's behaviors were deemed dangerous, unmanageable. He was at risk of hurting himself due to his worsening paranoia and memory deficits and was referred for inpatient psychiatric stabilization. SIGNIFICANT FINDINGS AND CLINICAL COURSE: Following admission, the patient was seen daily individually by myself from a psychiatric standpoint, medical followup, Dr. Tompkins/Dr. Gonzales. The patient remained confused, quite paranoid, agitated. Adjustments were made in his psychotropics. He seemed to respond to a combination of Namenda 10 mg twice a day; Zoloft 100 mg a day; Zyprexa p.r.n.; Risperdal 1 mg at bedtime; trazodone 50 mg at bedtime p.r.n.; Wellbutrin-XL 150 mg b.i.d. at 0900, 1200; Aricept 10 mg a day. REVIEW OF SYSTEMS: Prior to discharge, no CV, , pulmonary, eye, ENT system symptoms on review. Reliability poor. MENTAL STATUS EXAMINATION: Oriented to himself. Insight, judgment, recent and remote memory, attention, concentration, fund of knowledge poor consistent with his diagnoses. FINAL DIAGNOSES: Major neurocognitive disorder, early Alzheimer, vascular with delusion, depression, behavioral disturbance, major depressive disorder with psychotic features; anxiety disorder, unspecified; impulse control disorder. Rest unchanged from admission. DISCHARGE MEDICATIONS: Please refer to the MRAD. DISCHARGE INSTRUCTIONS: Outpatient psychiatric and medical followup at the intermediate. Time for discharge day management greater than 30 minutes. TYLOR/EVA DR: TYLOR/erin TID: [id number]
== END 2021-04-27 12:30 | DRG 57 ==
LOC: GEROPSY 15:05
PROVIDERS: ADMIT Psychiatry & Neurology Psychiatry; ATTEND Psychiatry & Neurology Psychiatry
DX: G30.9 Alzheimer's disease, unspecified (principal); F02.81 Dementia in other diseases classified elsewhere, unspecified severity, with behavioral disturbance; F32.3 Major depressive disorder, single episode, severe with psychotic features; G31.83 Neurocognitive disorder with Lewy bodies; E11.9 Type 2 diabetes mellitus without complications; E55.9 Vitamin D deficiency, unspecified; E78.5 Hyperlipidemia, unspecified; F41.9 Anxiety disorder, unspecified; F63.9 Impulse disorder, unspecified; H91.90 Unspecified hearing loss, unspecified ear; I10 Essential (primary) hypertension; M16.0 Bilateral primary osteoarthritis of hip; Z20.822 Contact with and (suspected) exposure to COVID-19; Z96.649 Presence of unspecified artificial hip joint; Z79.899 Other long term (current) drug therapy
CPT/HCPCS: 36415; 80053; 80061; 81001; 82306; 82607; 82947; 83036; 83540; 83550; 83735; 84436; 84443; 84480; 85025; 85379; 86592; 93005; U0003; 97530; 97535